=== PATIENT | female | born 1970 | race Two or more races ===

== ENCOUNTER 2018-12-20 12:35 | Inpatient (IN) | payer MEDICAID, OTHER ==
[~2018-12-20] VITALS: Ht 167.6 cm; Wt 75.2 kg
[2018-12-20] MEDS ORDERED: FUROSEMIDE 40 MG/4 ML VIAL IV ONE (13:00)
[2018-12-20 13:02] LABS: Basophils # (auto) 0 uL; Basophils % (auto) 0.9 % (0.0-2.0); Eosinophils # (auto) 0.1 uL; Eosinophils % (auto) 1.2 % (0.0-7.0); Hematocrit 42.6 % (41.0-53.0); Hemoglobin 14.1 g/dL (13.5-17.5); Lymphocytes # (auto) 1.4 uL; Lymphocytes % (auto) 26.4 % (10.0-50.0); Mean Corpuscular Hemoglobin 29.9 pg (28.0-32.0); Mean Corpuscular Hgb Conc. 33.1 g/dL (32.0-36.0); Mean Corpuscular Volume 90.4 fL (80.0-100.0); Monocytes # (auto) 0.4 uL; Monocytes % (auto) 8.3 % (0.0-12.0); Neutrophils # (auto) 3.3 uL; Neutrophils % (auto) 63.2 % (37.0-80.0); Nucleated Red Blood Cells % 0.1 %; Platelet Count (auto) 307 10^3/uL (140-450); Red Blood Cells 4.71 10^6/uL (4.5-5.90); Red Cell Distribution Width 13.5 % (11.8-14.3); White Blood Cell 5.3 10^3/uL (4.4-10.8)
[2018-12-20 13:18] LABS: INR 1.02 (0.9-1.15); Partial Thromboplastin Time 24.8 sec (23.64-32.05)
[2018-12-20 13:29] LABS: Calcium 8.2 mg/dL (8.5-10.1); Chloride 113 mmol/L (98-107); Potassium 4.2 mmol/L (3.5-5.1); Sodium 142 mmol/L (136-145)
[2018-12-20 13:38] LABS: Alanine Aminotransferase 74 U/L (16-61); Albumin 3.5 g/dL (3.4-5.0); Alkaline Phosphatase 73 U/L (45-117); Anion Gap 7 (5-15); Aspartate Aminotransferase 58 U/L (15-37); BUN/Creatinine Ratio 21.1; Bilirubin, Total 0.5 mg/dL (0.2-1.0); Blood Urea Nitrogen 15 mg/dL (7-18); Carbon Dioxide 22 mmol/L (21-32); GFR African American 154 mL/min; GFR Non-African American 128 mL/min; Glucose 82 mg/dL (74-106); Total Protein 6.6 g/dL (6.4-8.2)
[2018-12-20] MEDS ORDERED: NITROGLYCERIN 0.4 MG SL TAB SL PRN (17:00)
[2018-12-20] MEDS ORDERED: MORPHINE SULF INJ 2 MG/ML SYRINGE 1ML IV PRN (17:00)
[2018-12-20] MEDS: FUROSEMIDE 20 MG/2 ML VIAL IV SCH (18:16)
--- NOTE | 2018-12-20 18:41 | NUR ---
Patient Arrived On Unit Pt arrived on unit from ED. Pt able to ambulate to bed without difficulty. Pt is a/ox4 with no s/s of distress or SOB. VS 97.8 F, 138/94 BP, HR 98, 96% on RA, RR 18, 0/10 pain. Pt is 5'6 and 74kg
--- NOTE | 2018-12-20 19:00 | NUR ---
OPENING NOTE-NOC SHIFT PATIENT IS ALERT AND ORIENTED X4 AND MAKES APPROPRIATE EYE CONTACT. PATIENT IS IN BED, BED IS LOCKED AT LOWEST POSITION. BEDSIDE TABLE WITHIN REACH, PERSONAL BELONGINGS WITHIN REACH. DISCUSSED POC WITH PATIENT AND INSTRUCTED PATIENT TO CALL USING CALL LIGHT; PATIENT VERBALIZED UNDERSTANDING. WILL CONTINUE TO MONITOR Q1H AND PRN. NO S/SX OF DISTRESS OR SOB. PATIENT DENIES PAIN AT THIS TIME.
--- NOTE | 2018-12-20 19:25 | NUR ---
PATIENT AMBULATES TO RESTROOM INDEPENDENTLY. STEADY GAIT NOTED.
--- NOTE | 2018-12-20 19:30 | NUR ---
PATIENT COMPLAINING OF RIGHT LEG CRAMPS UP TO INNER THIGH. PATIENT DESCRIBES IT "HAILEE HORSE" AND STATES THAT SHE DOES NOT EXPERIENCE THESE FREQUENTLY. PATIENT CRYING. PROVIDED HEAT PACKS. PATIENT BACK INTO BED. STATES THAT "IT WENT AWAY" BUT LEFT HER INNER THIGH SORE. WILL CONTINUE TO MONITOR Q1H AND PRN.
--- NOTE | 2018-12-20 19:40 | NUR ---
PROVIDED SANDWICH FOR PATIENT UPON REQUEST.
[2018-12-20 20:00] VITALS: BP 137/76
[2018-12-20] MEDS ORDERED: INFLUENZA QUAD 2019-2020 0.5ml SYRG IM ONE (20:30)
[2018-12-20] MEDS: BENAZEPRIL HCL 10 MG TAB PO SCH (21:59)
[2018-12-20] MEDS: CARVEDILOL 3.125 MG TAB PO SCH (21:59)
[2018-12-20 22:00] VITALS: BP 137/76
[2018-12-20] MEDS ORDERED: LISI2.5T47 PO (22:31)
[2018-12-20] MEDS ORDERED: METO25TA5 PO (22:31)
[2018-12-20] MEDS ORDERED: LORA1TAB12 PO (22:31)
[2018-12-20] MEDS ORDERED: FURO40TA4 PO (22:31)
[2018-12-20] MEDS ORDERED: OMEP20TA PO (22:31)
[2018-12-21] VITALS (7 sets, daily range): BP systolic 106–119; BP diastolic 59–77
[2018-12-21 05:02] LABS: Basophils # (auto) 0 uL; Eosinophils # (auto) 0.1 uL; Eosinophils % (auto) 2.7 % (0.0-7.0); Hematocrit 42.9 % (36.0-46.0); Hemoglobin 14.1 g/dL (12.2-16.2); Lymphocytes # (auto) 2.1 uL; Lymphocytes % (auto) 43.6 % (10.0-50.0); Mean Corpuscular Hemoglobin 29.7 pg (28.0-32.0); Mean Corpuscular Hgb Conc. 32.8 g/dL (32.0-36.0); Mean Corpuscular Volume 90.4 fL (80.0-100.0); Monocytes # (auto) 0.5 uL; Monocytes % (auto) 10.9 % (0.0-12.0); Neutrophils % (auto) 41.8 % (37.0-80.0); Nucleated Red Blood Cells % 0.2 %; Platelet Count (auto) 301 10^3/uL (140-450); Red Blood Cells 4.74 10^6/uL (4.0-5.20); White Blood Cell 4.7 10^3/uL (4.4-10.8)
[2018-12-21 05:21] LABS: Albumin 3.2 g/dL (3.4-5.0); Calcium 8.4 mg/dL (8.5-10.1); Potassium 3.7 mmol/L (3.5-5.1)
[2018-12-21 05:25] LABS: BUN/Creatinine Ratio 25.3; Bilirubin, Total 0.3 mg/dL (0.2-1.0); Total Protein 6.3 g/dL (6.4-8.2)
[2018-12-21] MEDS: FUROSEMIDE 20 MG/2 ML VIAL IV SCH ×2 (06:28→18:08)
--- NOTE | 2018-12-21 07:29 | NUR ---
Opening Note Assumed pt care from [facility] nurse. Pt is a/ox4 with no s/s of distress or SOB. Pt is currently laying in bed with complaints of mild generalized pain. Discussed POC with pt; pt verbalized understanding. Safety measures maintained with call light within reach, bed in lowest position and side rails up. Will continue to monitor for changes q1hr and prn.
[2018-12-21] MEDS: BENAZEPRIL HCL 10 MG TAB PO SCH ×2 (08:56→22:04)
[2018-12-21] MEDS: CARVEDILOL 3.125 MG TAB PO SCH ×2 (08:56→22:04)
[2018-12-21] MEDS: PANTOPRAZOLE 40 MG TAB PO SCH (08:56)
[2018-12-21] MEDS: ASPirin-EC 81 mg tab PO SCH (08:56)
[2018-12-21] MEDS ORDERED: IPRATROPIUM BROM 0.5 MG/2.5ML INH SOL NEB PRN (14:30)
[2018-12-21] MEDS ORDERED: ALBUTEROL SULF 2.5 MG/0.5ML(0.5%) NEB SOLN NEB PRN (14:30)
--- NOTE | 2018-12-21 19:00 | NUR ---
OPENING NOTE-NOC SHIFT PATIENT IS IN BED RESTING. BED IS LOCKED IN LOWEST POSITION, BED RAILS UP X2, HEAD OF BED IS UP >30 DEGREES, BEDSIDE TABLE WITHIN REACH, CALL LIGHT WITHIN REACH. DISCUSSED POC WITH PATIENT AND INSTRUCTED PATIENT TO CALL PRN; PATIENT VERBALIZED UNDERSTANDING. NO S/SX OF DISTRESS, SOB OR PAIN. PATIENT ON ROOM AIR. WILL CONTINUE TO MONITOR Q1H AND PRN.
--- NOTE | 2018-12-21 20:17 | NUR ---
PATIENT REQUESTS PAIN MEDICATION FOR HEADACHE 07/18. WILL NOTIFY HOSPITALIST.
--- NOTE | 2018-12-21 20:21 | NUR ---
Respiratory note: PT ASSESSED FOR PRN MED NEB TX. PT IS CURRENTLY ON ROOM AIR: HR 84, RR 16, SPO2 94%. PT SHOWS NO S/S OF SOB OR RESPIRATORY DISTRESS. MED NEB TX NOT INDICATED AT THIS TIME. PT AWARE TO CALL RESPIRATORY IF SOB OCCURS. WILL CONTINUE TO MONITOR.
[2018-12-21] MEDS ORDERED: IBUPROFEN 600 MG TAB PO ONE (21:45)
--- NOTE | 2018-12-21 22:10 | NUR ---
PATIENT REPORTS TO HAVE STARTED HER PERIOD. PROVIDED PATIENT WITH FEMININE PADS AND BRIEFS. PATIENT DENIES ABNORMAL MENSTRUAL BLEEDING, DENIES ABNORMAL ODOR, DENIES ABDOMINAL PAIN.
--- NOTE | 2018-12-22 01:34 | NUR ---
DR BRITT AT BEDSIDE
[2018-12-22 05:00] VITALS: BP 99/64
[2018-12-22] MEDS: FUROSEMIDE 20 MG/2 ML VIAL IV SCH (06:00)
[2018-12-22 06:25] LABS: Albumin 3.1 g/dL (3.4-5.0); Calcium 8.2 mg/dL (8.5-10.1); Magnesium 2.3 mg/dL (1.6-2.6); Potassium 3.8 mmol/L (3.5-5.1)
[2018-12-22 06:29] LABS: BUN/Creatinine Ratio 29.8; Bilirubin, Total 0.4 mg/dL (0.2-1.0); Total Protein 6.3 g/dL (6.4-8.2)
--- NOTE | 2018-12-22 07:06 | NUR ---
PT ASSESSED FOR PRN MED NEB TX. SPO2 100% ON 4L NC, LITER FLOW TITRATED TO 2L. PT DENIES ANY RESPIRATORY DISTRESS. NO TX INDICATED. PT IS AWARE TO HAVE RT PAGED IF TX NEEDED.
--- NOTE | 2018-12-22 07:25 | NUR ---
ENDORSED PATIENT CARE TO DAY SHIFT NURSE RAMIRO NEW. PATIENT IS COMFORTABLE IN BED, NO S/SX OF DISTRESS, SOB OR PAIN.
[2018-12-22 08:00] VITALS: BP 97/56
--- NOTE | 2018-12-22 08:00 | NUR ---
RECEIVED PATIENT ALERT AND ORIENTED X4, NOT IN DISTRESS, CLEAR LUNG SOUNDS IN BILATERAL LUNG UPPER AND WHEEZING IN LOWER SOUNDS, RR=18, COUGHING AND DEEP BREATHING ENCOURAGED, DEMONSTRATED WELL, SR R=74 ON TELE MONITOR, ABDOMEN SOFT AND ROUND, SKIN INTACT WARM TO TOUCH, RADIAL AND PEDAL PULSES PALPABLE, CAP REFILL <3 SECONDS, RESTING ON BED, BED ON LOW POSITION, RAILS UP, CALL LIGHT ON REACH, PENDING URINE SAMPLE, WILL CONTINUE MONITORING.
[2018-12-22 08:36] LABS: Urine Bacteria MOD /hpf (None Seen); Urine Blood 1+ /uL (Negative); Urine Hyaline Cast MANY /lpf (0 - 2); Urine Mucus FEW (None Seen); Urine Specific Gravity 1.023 (1.001-1.035); Urine WBC 4 /hpf (0 - 5)
[2018-12-22 08:42] LABS: Alcohol, Urine < 3.0 mg/dL (0-5); Amphetamine Screen, Urine POSITIVE (NEGATIVE); Barbiturate Scree,Urine NEGATIVE (NEGATIVE); Benzodiazephine Screen, Urine NEGATIVE (NEGATIVE); Cannabinoid Screen, Urine NEGATIVE (NEGATIVE); Cocaine Screen, Urine NEGATIVE (NEGATIVE); Opiate Scree,Urine NEGATIVE (NEGATIVE); Phencyclidine Screen, Urine NEGATIVE (NEGATIVE)
[2018-12-22 08:47] LABS: Hepatitis B Surface Antibody Negative
[2018-12-22 09:00] VITALS: BP 95/56
--- NOTE | 2018-12-22 09:01 | NUR ---
PARIAL BATH PROVIDED, OUT OF BED TO BR TOLERATED WELL, URINE SAMPLE WAS COLLECTED AND SENT TO THE LAB ORDERED, WILL CONTINUE MONITORING.
[2018-12-22 09:25] LABS: Hepatitis A Total Antibody Negative
[2018-12-22] MEDS: CARVEDILOL 3.125 MG TAB PO SCH (10:00)
[2018-12-22] MEDS: BENAZEPRIL HCL 10 MG TAB PO SCH (10:00)
[2018-12-22] MEDS: ASPirin-EC 81 mg tab PO SCH (10:31)
[2018-12-22] MEDS: PANTOPRAZOLE 40 MG TAB PO SCH (10:31)
[2018-12-22 12:53] LABS: Hepatitis B Core Total AB Negative
[2018-12-22 12:54] LABS: Hepatitis B Surface Antigen Negative (Negative); Hepatitis C Antibody Negative (Negative)
[2018-12-22 13:00] VITALS: BP 109/69
[2018-12-22 15:24] VITALS: BP 104/71
--- NOTE | 2018-12-22 17:26 | NUR ---
Discharge instructions were given and verbalized understanding, will Follow up with Dr. Tipton's clinic on 12/28/18 at 1:45 pm as arranged, phone #= [phone] [place] [address] [facility], for cardiac existing arrangement on 12/31/18 as reported and will Follow [place] [address], [facility], D/C Tele and IV site, tolerated well, VS T=97.7 RR=18 Sat=94% p=76 UY=933/71, not in distress denied pain, home medication from parmacy was given back, WC provided, D/C home walking, took all belongings and left noting behind.
== END 2018-12-22 17:00 | disposition home or self-care (01) | DRG 194 ==
LOC: ER 12:41 → EDSEX 12:41 → TELE 12:42 → TELE-WESTW 18:46
PROVIDERS: ADMIT Nurse Practitioner Acute Care; ATTEND Internal Medicine
DX: I11.0 Hypertensive heart disease with heart failure (principal); I42.0 Dilated cardiomyopathy; I07.1 Rheumatic tricuspid insufficiency; I50.43 Acute on chronic combined systolic (congestive) and diastolic (congestive) heart failure; F15.90 Other stimulant use, unspecified, uncomplicated; J44.9 Chronic obstructive pulmonary disease, unspecified; R79.89 Other specified abnormal findings of blood chemistry; E78.5 Hyperlipidemia, unspecified; Z80.3 Family history of malignant neoplasm of breast; Z87.891 Personal history of nicotine dependence; Z71.51 Drug abuse counseling and surveillance of drug abuser; Z23 Encounter for immunization
CPT/HCPCS: 36415; 71045; 71046; 76705; 80053; 80061; 80307; 81001; 83735; 83880; 84484; 85025; 85610; 85730; 86704; 86706; 86708; 86803; 87340; 93306; 96374; 96376; 99291; G0378

== ENCOUNTER 2019-02-26 02:22 | Emergency (ER) | payer MEDICAID ==
[~2019-02-26] VITALS: Ht 170.2 cm; Wt 79.4 kg
[~2019-02-26 02:22] MED LIST: FURO40TA4 PO; LISI2.5T47 PO; LORA1TAB12 PO; METO25TA5 PO; OMEP20TA PO
[2019-02-26 03:27] LABS: Basophils # (auto) 0.1 uL; Basophils % (auto) 0.9 % (0.0-2.0); Eosinophils # (auto) 0.1 uL; Eosinophils % (auto) 1.7 % (0.0-7.0); Hemoglobin 15.1 g/dL (12.2-16.2); Lymphocytes # (auto) 2.3 uL; Lymphocytes % (auto) 39.6 % (10.0-50.0); Mean Corpuscular Hgb Conc. 32.9 g/dL (32.0-36.0); Mean Corpuscular Volume 91.1 fL (80.0-100.0); Monocytes # (auto) 0.4 uL; Monocytes % (auto) 6.6 % (0.0-12.0); Neutrophils % (auto) 51.2 % (37.0-80.0); Nucleated Red Blood Cells % 0.1 %; Platelet Count (auto) 280 10^3/uL (140-450); Red Blood Cells 5.05 10^6/uL (4.0-5.20); Red Cell Distribution Width 14.6 % (11.8-14.3); White Blood Cell 5.9 10^3/uL (4.4-10.8)
[2019-02-26 03:43] LABS: INR 1.13 (0.9-1.15); Partial Thromboplastin Time 25.1 sec (23.64-32.05)
[2019-02-26 03:50] LABS: Alanine Aminotransferase 51 U/L (13-56); Anion Gap 9 (5-15); Aspartate Aminotransferase 56 U/L (15-37); BUN/Creatinine Ratio 26.2; Blood Urea Nitrogen 27 mg/dL (7-18); Calcium 8.3 mg/dL (8.5-10.1); Carbon Dioxide 21 mmol/L (21-32); Chloride 112 mmol/L (98-107); GFR African American 74 mL/min; GFR Non-African American 61 mL/min; Glucose 59 mg/dL (74-106); Magnesium 2.1 mg/dL (1.6-2.6); Sodium 142 mmol/L (136-145)
[2019-02-26 03:52] LABS: Alkaline Phosphatase 95 U/L (45-117); Bilirubin, Total 0.3 mg/dL (0.2-1.0); Total Protein 6.7 g/dL (6.4-8.2)
[2019-02-26 11:49] VITALS: BP 101/65
[2019-02-26 11:50] LABS: Urine Bacteria NONE SEEN /hpf (None Seen); Urine Blood TRACE /uL (Negative); Urine Mucus FEW (None Seen); Urine Specific Gravity 1.007 (1.001-1.035); Urine WBC 16 /hpf (0 - 5)
== END 2019-02-26 12:26 | disposition home or self-care (01) ==
LOC: ER 02:22
DX: I95.2 Hypotension due to drugs (principal); E86.1 Hypovolemia; N39.0 Urinary tract infection, site not specified; R55 Syncope and collapse; I11.0 Hypertensive heart disease with heart failure; I50.9 Heart failure, unspecified; K21.9 Gastro-esophageal reflux disease without esophagitis; F17.210 Nicotine dependence, cigarettes, uncomplicated
CPT/HCPCS: 36415; 70450; 71046; 80053; 81001; 82962; 83735; 83880; 84484; 85025; 85610; 85730; 93005

== ENCOUNTER 2019-03-22 20:48 | Emergency (ER) | payer MEDICAID ==
[~2019-03-22] VITALS: Ht 170.2 cm; Wt 78.0 kg
[2019-03-22] MEDS ORDERED: cloNIDine HCL 0.1 MG TAB PO ONE (21:15)
[2019-03-22] MEDS ORDERED: cloNIDine HCL 0.1 MG TAB ONE (21:16)
[2019-03-22 22:14] LABS: Basophils # (auto) 0.1 uL; Basophils % (auto) 0.8 % (0.0-2.0); Eosinophils # (auto) 0 uL; Eosinophils % (auto) 0.4 % (0.0-7.0); Hematocrit 43.5 % (36.0-46.0); Hemoglobin 14.3 g/dL (12.2-16.2); Lymphocytes # (auto) 1.5 uL; Lymphocytes % (auto) 15.6 % (10.0-50.0); Mean Corpuscular Hemoglobin 29.4 pg (28.0-32.0); Mean Corpuscular Hgb Conc. 32.9 g/dL (32.0-36.0); Mean Corpuscular Volume 89.6 fL (80.0-100.0); Monocytes # (auto) 0.7 uL; Monocytes % (auto) 6.8 % (0.0-12.0); Neutrophils # (auto) 7.4 uL; Neutrophils % (auto) 76.4 % (37.0-80.0); Nucleated Red Blood Cells % 0.1 %; Platelet Count (auto) 299 10^3/uL (140-450); Red Blood Cells 4.86 10^6/uL (4.0-5.20); Red Cell Distribution Width 14.4 % (11.8-14.3); White Blood Cell 9.7 10^3/uL (4.4-10.8)
[2019-03-22 22:23] LABS: Urine Bacteria NONE SEEN /hpf (None Seen); Urine Blood Negative /uL (Negative); Urine Specific Gravity 1.006 (1.001-1.035); Urine WBC 1 /hpf (0 - 5)
[2019-03-22 22:29] LABS: Albumin 3.8 g/dL (3.4-5.0); Anion Gap 7 (5-15); Blood Urea Nitrogen 18 mg/dL (7-18); Calcium 9.4 mg/dL (8.5-10.1); Carbon Dioxide 27 mmol/L (21-32); Chloride 106 mmol/L (98-107); Glucose 87 mg/dL (74-106); Magnesium 2.1 mg/dL (1.6-2.6); Potassium 4.5 mmol/L (3.5-5.1); Sodium 140 mmol/L (136-145)
[2019-03-22 22:31] LABS: INR 1.21 (0.9-1.15)
[2019-03-22 22:35] LABS: Alanine Aminotransferase 56 U/L (13-56); Alkaline Phosphatase 121 U/L (45-117); Aspartate Aminotransferase 37 U/L (15-37); BUN/Creatinine Ratio 20.5; Bilirubin, Total 0.4 mg/dL (0.2-1.0); GFR African American 89 mL/min; GFR Non-African American 74 mL/min; Total Protein 7.7 g/dL (6.4-8.2)
[2019-03-23] MEDS ORDERED: FUROSEMIDE 40 MG/4 ML VIAL IV ONE (00:15)
[2019-03-23 00:45] LABS: Amphetamine Screen, Urine NEGATIVE (NEGATIVE); Barbiturate Scree,Urine NEGATIVE (NEGATIVE); Benzodiazephine Screen, Urine NEGATIVE (NEGATIVE); Cannabinoid Screen, Urine NEGATIVE (NEGATIVE); Cocaine Screen, Urine NEGATIVE (NEGATIVE); Opiate Scree,Urine NEGATIVE (NEGATIVE); Phencyclidine Screen, Urine NEGATIVE (NEGATIVE)
[2019-03-23] MEDS ORDERED: ACETAMINOPHEN 325 MG TAB PO ONE (01:45)
[2019-03-23] MEDS ORDERED: methylPREDNISolone SOD SUCC 125 MG/2 ML VL IV ONE (02:15)
[2019-03-23 03:00] VITALS: BP 139/84
== END 2019-03-23 03:18 | disposition home or self-care (01) ==
LOC: ER 20:49
DX: I11.0 Hypertensive heart disease with heart failure (principal); I50.9 Heart failure, unspecified; K21.9 Gastro-esophageal reflux disease without esophagitis; F17.210 Nicotine dependence, cigarettes, uncomplicated
CPT/HCPCS: 36415; 70450; 71046; 80053; 80307; 81001; 83735; 83880; 84484; 85025; 85610; 85730; 93005; 96374; 96375; 99285; J1940; J2930

== ENCOUNTER → 2019-08-21 | Emergency (ER) | payer MEDICAID ==
[~2019-08-21] VITALS: Ht 167.6 cm; Wt 72.6 kg
[~2019-08-21] MED LIST changes: +ALUM & MAG HYDROX-SIMETH LIQ(MAALOX) 30 ML PO PRN; +ASPirin 81 mg TAB PO SCH; +ATORVASTATIN 20 MG TAB PO SCH; +CARVEDILOL 3.125 MG TAB PO SCH; +CETI10TA80 PO; +CLOPIDOGREL BISULFATE 75 MG TAB PO SCH; +DOCUSATE SOD 100 MG CAP PO PRN; +DOCUSATE SOD 100 MG CAP PO SCH; +DOXYCYCLINE 100MG/250ML 250 ML IV ONE; +DOXYCYCLINE 100MG/250ML 250 ML IV SCH; +ENOXAPARIN SOD 40 MG/0.4 ML SYRINGE SC SCH; +FUROSEMIDE 20 MG/2 ML VIAL IV ONE; +FUROSEMIDE 20 MG/2 ML VIAL IV SCH; +FUROSEMIDE 40 MG/4 ML VIAL IV ONE; +HYDROcodone-ACET 5/325MG TAB PO PRN; +LISINOPRIL 5 MG TAB PO SCH; -LORA1TAB12 PO; +LORA1TAB23 PO; +LORazepam 0.5 MG TAB PO PRN; +MORPHINE SULF INJ 2 MG/ML SYRINGE 1ML IV PRN; +NITROGLYCERIN 0.4 MG SL TAB SL PRN; +ONDANSETRON HCL 4 MG/2 ML VIAL IV PRN; +POTA-220 PO; +SILD20TA12 PO; +SODIUM CHLORIDE 0.9% 1,000 ML IV SCH; +cloNIDine HCL 0.1 MG TAB PO ONE
[2019-08-21 08:02] LABS: Urine Bacteria FEW /hpf (None Seen); Urine Blood Negative /uL (Negative); Urine Mucus FEW (None Seen); Urine Specific Gravity 1.016 (1.001-1.035); Urine WBC 4 /hpf (0 - 5)
[2019-08-21 09:15] LABS: Basophils # (auto) 0 10 ^3/uL (0-0.2); Eosinophils # (auto) 0.1 10 ^3/uL (0-0.8); Eosinophils % (auto) 2.2 % (0.0-7.0); Hemoglobin 14.3 g/dL (12.2-16.2); Lymphocytes # (auto) 2.1 10 ^3/uL (0.4-5.4); Lymphocytes % (auto) 45.2 % (10.0-50.0); Mean Corpuscular Hemoglobin 29.5 pg (28.0-32.0); Mean Corpuscular Hgb Conc. 32.6 g/dL (32.0-36.0); Mean Corpuscular Volume 90.4 fL (80.0-100.0); Monocytes # (auto) 0.4 10 ^3/uL (0-1.3); Monocytes % (auto) 8.9 % (0.0-12.0); Neutrophils % (auto) 42.7 % (37.0-80.0); Nucleated Red Blood Cells % 0.3 %; Platelet Count (auto) 228 10^3/uL (140-450); Red Blood Cells 4.86 10^6/uL (4.0-5.20); Red Cell Distribution Width 14.8 % (11.8-14.3); White Blood Cell 4.6 10^3/uL (4.4-10.8)
[2019-08-21 09:17] LABS: Albumin 3.5 g/dL (3.4-5.0); Anion Gap 6 (5-15); BUN/Creatinine Ratio 21.7; Blood Urea Nitrogen 20 mg/dL (7-18); Calcium 8.2 mg/dL (8.5-10.1); Carbon Dioxide 24 mmol/L (21-32); Chloride 109 mmol/L (98-107); GFR African American 85 mL/min; GFR Non-African American 70 mL/min; Glucose 79 mg/dL (74-106); Magnesium 2.3 mg/dL (1.6-2.6); Potassium 3.8 mmol/L (3.5-5.1); Sodium 139 mmol/L (136-145)
[2019-08-21 09:23] LABS: Alanine Aminotransferase 40 U/L (13-56); Alkaline Phosphatase 150 U/L (45-117); Aspartate Aminotransferase 40 U/L (15-37); Bilirubin, Total 0.8 mg/dL (0.2-1.0); Total Protein 7.5 g/dL (6.4-8.2)
[2019-08-21 09:49] LABS: INR 1.13 (0.9-1.15); Partial Thromboplastin Time 26.4 sec (23.64-32.05)
[2019-08-21 14:17] VITALS: BP 189/114
== END | disposition left against medical advice (07) ==
LOC: ER 05:37 → UNDOADMIN 05:38 → TELE 05:38 → UNDODISIN 16:04
DX: I11.0 Hypertensive heart disease with heart failure (principal); F17.210 Nicotine dependence, cigarettes, uncomplicated; I50.43 Acute on chronic combined systolic (congestive) and diastolic (congestive) heart failure
CPT/HCPCS: 36415; 71046; 80053; 81001; 83735; 83880; 84443; 84484; 85025; 85610; 85730; 93005; 99291; G0378

== ENCOUNTER 2019-08-22 02:56 | Inpatient (IN) | payer MEDICAID ==
[~2019-08-22] VITALS: Ht 167.6 cm; Wt 75.9 kg
[~2019-08-22 02:56] MED LIST changes: -ALUM & MAG HYDROX-SIMETH LIQ(MAALOX) 30 ML PO PRN; -ASPirin 81 mg TAB PO SCH; -ATORVASTATIN 20 MG TAB PO SCH; -CARVEDILOL 3.125 MG TAB PO SCH; -CETI10TA80 PO; -CLOPIDOGREL BISULFATE 75 MG TAB PO SCH; -DOCUSATE SOD 100 MG CAP PO PRN; -DOCUSATE SOD 100 MG CAP PO SCH; -DOXYCYCLINE 100MG/250ML 250 ML IV ONE; -DOXYCYCLINE 100MG/250ML 250 ML IV SCH; -ENOXAPARIN SOD 40 MG/0.4 ML SYRINGE SC SCH; -FUROSEMIDE 20 MG/2 ML VIAL IV ONE; -FUROSEMIDE 20 MG/2 ML VIAL IV SCH; -FUROSEMIDE 40 MG/4 ML VIAL IV ONE; -HYDROcodone-ACET 5/325MG TAB PO PRN; -LISINOPRIL 5 MG TAB PO SCH; -LORazepam 0.5 MG TAB PO PRN; -MORPHINE SULF INJ 2 MG/ML SYRINGE 1ML IV PRN; -NITROGLYCERIN 0.4 MG SL TAB SL PRN; -ONDANSETRON HCL 4 MG/2 ML VIAL IV PRN; -POTA-220 PO; -SILD20TA12 PO; -SODIUM CHLORIDE 0.9% 1,000 ML IV SCH; -cloNIDine HCL 0.1 MG TAB PO ONE
[2019-08-22] MEDS ORDERED: cloNIDine HCL 0.1 MG TAB PO ONE (03:30)
[2019-08-22 07:59] LABS: Basophils # (auto) 0.1 10 ^3/uL (0-0.2); Basophils % (auto) 1.2 % (0.0-2.0); Eosinophils # (auto) 0.1 10 ^3/uL (0-0.8); Eosinophils % (auto) 2.1 % (0.0-7.0); Hematocrit 44.7 % (36.0-46.0); Hemoglobin 14.6 g/dL (12.2-16.2); Lymphocytes # (auto) 1.8 10 ^3/uL (0.4-5.4); Lymphocytes % (auto) 38.6 % (10.0-50.0); Mean Corpuscular Hemoglobin 29.9 pg (28.0-32.0); Mean Corpuscular Hgb Conc. 32.8 g/dL (32.0-36.0); Mean Corpuscular Volume 91.3 fL (80.0-100.0); Monocytes # (auto) 0.5 10 ^3/uL (0-1.3); Monocytes % (auto) 10.6 % (0.0-12.0); Neutrophils # (auto) 2.2 10 ^3/uL (1.6-8.6); Neutrophils % (auto) 47.5 % (37.0-80.0); Nucleated Red Blood Cells % 0.1 %; Platelet Count (auto) 217 10^3/uL (140-450); Red Blood Cells 4.89 10^6/uL (4.0-5.20); Red Cell Distribution Width 14.9 % (11.8-14.3); White Blood Cell 4.5 10^3/uL (4.4-10.8)
[2019-08-22 08:21] LABS: Albumin 3.3 g/dL (3.4-5.0); Anion Gap 2 (5-15); Blood Urea Nitrogen 23 mg/dL (7-18); Calcium 8.6 mg/dL (8.5-10.1); Carbon Dioxide 28 mmol/L (21-32); Chloride 110 mmol/L (98-107); Glucose 89 mg/dL (74-106); Magnesium 2.6 mg/dL (1.6-2.6); Sodium 140 mmol/L (136-145)
[2019-08-22 08:28] LABS: Alanine Aminotransferase 38 U/L (13-56); Alkaline Phosphatase 145 U/L (45-117); Aspartate Aminotransferase 38 U/L (15-37); BUN/Creatinine Ratio 23.5; Bilirubin, Total 0.9 mg/dL (0.2-1.0); GFR African American 79 mL/min; GFR Non-African American 65 mL/min; Total Protein 7.1 g/dL (6.4-8.2)
[2019-08-22] MEDS: SODIUM CHLORIDE 0.9% 1,000 ML IV SCH (09:21)
[2019-08-22] MEDS ORDERED: NITROGLYCERIN 0.4 MG SL TAB SL PRN ×2 (09:30)
[2019-08-22] MEDS ORDERED: hydrALAZINE HCL 20 MG/ML VL IV PRN (09:30)
[2019-08-22] MEDS ORDERED: MORPHINE SULFATE 4 MG/ML SYR/VIAL IV PRN (09:30)
[2019-08-22] MEDS ORDERED: LORazepam 0.5 MG TAB PO PRN (09:30)
[2019-08-22] MEDS ORDERED: MORPHINE SULF INJ 2 MG/ML SYRINGE 1ML IV PRN ×2 (09:30→10:30)
[2019-08-22] MEDS ORDERED: ACETAMINOPHEN 325 MG TAB PO PRN (09:30)
[2019-08-22] MEDS ORDERED: ONDANSETRON HCL 4 MG/2 ML VIAL IV PRN (09:30)
[2019-08-22] MEDS ORDERED: FUROSEMIDE 40 MG/4 ML VIAL IV ONE (09:45)
[2019-08-22] MEDS: ASPirin 81 mg TAB PO SCH (09:57)
[2019-08-22] MEDS: ENOXAPARIN SOD 40 MG/0.4 ML SYRINGE SC SCH (09:58)
[2019-08-22] MEDS: PANTOPRAZOLE 40 MG TAB PO SCH (09:58)
[2019-08-22] MEDS: DOCUSATE SOD 100 MG CAP PO SCH (09:58)
[2019-08-22] MEDS: METOPROLOL TARTRATE 25 MG TAB PO SCH ×2 (09:58→22:00)
[2019-08-22] MEDS: LISINOPRIL 10 MG TAB PO SCH (09:58)
[2019-08-22] MEDS: CLOPIDOGREL BISULFATE 75 MG TAB PO SCH (09:58)
[2019-08-22] MEDS ORDERED: CETI10TA80 PO (10:15)
[2019-08-22] MEDS ORDERED: SILD20TA12 PO (10:23)
[2019-08-22 11:15] VITALS: BP 112/75
--- NOTE | 2019-08-22 11:15 | NUR ---
Telemetry admit from [facility] admitted to Telemetry unit after SBAR received. Patient oriented to SUNSHINE SALEEMRN primary RN, unit,293 room,B bed, and unit policies regarding patient care and visiting hours. Patient now on continuous telemetry monitoring, tele box #72 and telemetry reading on arrival to unit is SR 70. Patient placed on bedside oxygen, weighed by bedscale and encouraged to call if they need something. All questions and concerns addressed, patient verbalized understanding. Note:
[2019-08-22 12:09] VITALS: BP 112/75
[2019-08-22 12:40] VITALS: BP 112/75
[2019-08-22] MEDS: SILDENAFIL CITRATE 20 MG TAB PO SCH ×2 (14:16→20:00)
--- NOTE | 2019-08-22 16:40 | NUR ---
BLOOD PRESSURE ASSESSED PATIENT BLOOD PRESSURE WAS 78/50 HEART RATE 60 PATIENT WAS STATING SHE FELT DIZZY. PAGED DOCTOR ORLANDO. RECEIVED CALL BACK FROM DOCTOR DARION INFORMED MD THAT PATIENTS BLOOD PRESSURE WAS 78/50, HEART RATE 60 , RESPIRATION 18, O2 95% ON 2LNC AND THAT PATIENT WAS STATING SHE FELT DIZZY. PER DOCTOR [place]O CALL WEARING APPAREL ASSEMBLER AND PER MD HE WILL PUT ORDERS IN SEE EMR FOR ORDER. DOCTOR Mateo BRITT PAGED AWAITING CALL BACK.
[2019-08-22 17:00] VITALS: BP 76/52
[2019-08-22] MEDS: FUROSEMIDE 40 MG/4 ML VIAL IV SCH (18:00)
[2019-08-22] MEDS: DOBUTamine 1000MCG/ML 250 ML IV SCH (18:42)
[2019-08-22] MEDS: FUROSEMIDE INJECTION 100 MG in SODIUM CHL 0.9% 100 ML IV SCH ×3 (18:44→22:06)
--- NOTE | 2019-08-22 19:00 | NUR ---
DOCTOR Mateo BRITT AT BEDSIDE. PER MD BHATT TO START LASIX DRIP WITH PATIENT BP AT 84/51.
--- NOTE | 2019-08-22 19:05 | NUR ---
Opening Shift Note Assumed care of patient, awake and alert. No S/S of distress/SOB or pain. Updated patient on POC and to call for assist PRN, will continue to monitor for changes Q1hr and PRN. Bed locked in lowest position, side rails up x 2, HOB elevated at least 30 degrees and call light is within reach.
[2019-08-22] MEDS: MIDODRINE HCL 10 MG TAB PO PRN (20:58)
[2019-08-22] MEDS: ATORVASTATIN 20 MG TAB PO SCH (22:03)
[2019-08-23] MEDS: FUROSEMIDE INJECTION 100 MG in SODIUM CHL 0.9% 100 ML IV SCH ×5 (02:29→23:11)
[2019-08-23] MEDS: DOBUTamine 1000MCG/ML 250 ML IV SCH ×2 (04:06→16:05)
[2019-08-23 05:00] VITALS: BP 84/58
[2019-08-23] MEDS: FUROSEMIDE 40 MG/4 ML VIAL IV SCH ×2 (06:00→17:43)
[2019-08-23 06:58] LABS: Basophils # (auto) 0 10 ^3/uL (0-0.2); Basophils % (auto) 0.8 % (0.0-2.0); Eosinophils # (auto) 0.1 10 ^3/uL (0-0.8); Eosinophils % (auto) 1.1 % (0.0-7.0); Hematocrit 43.9 % (36.0-46.0); Hemoglobin 14.3 g/dL (12.2-16.2); Lymphocytes # (auto) 2.1 10 ^3/uL (0.4-5.4); Lymphocytes % (auto) 39.3 % (10.0-50.0); Mean Corpuscular Hemoglobin 29.4 pg (28.0-32.0); Mean Corpuscular Hgb Conc. 32.7 g/dL (32.0-36.0); Mean Corpuscular Volume 90.1 fL (80.0-100.0); Monocytes # (auto) 0.5 10 ^3/uL (0-1.3); Monocytes % (auto) 9.8 % (0.0-12.0); Neutrophils # (auto) 2.6 10 ^3/uL (1.6-8.6); Nucleated Red Blood Cells % 0.1 %; Platelet Count (auto) 245 10^3/uL (140-450); Red Blood Cells 4.87 10^6/uL (4.0-5.20); White Blood Cell 5.3 10^3/uL (4.4-10.8)
--- NOTE | 2019-08-23 07:00 | NUR ---
CLOSING SHIFT NOTE ENDORSED CARE TO DAY SHIFT RN
[2019-08-23 07:16] LABS: Potassium 3.2 mmol/L (3.5-5.1)
[2019-08-23 07:22] LABS: INR 1.13 (0.9-1.15); Partial Thromboplastin Time 26.5 sec (23.64-32.05)
[2019-08-23 07:29] LABS: Albumin 3.2 g/dL (3.4-5.0); BUN/Creatinine Ratio 24.6; Bilirubin, Total 0.9 mg/dL (0.2-1.0); Calcium 8.4 mg/dL (8.5-10.1); Magnesium 2.4 mg/dL (1.6-2.6); Phosphorus 4.3 mg/dL (2.5-4.90); Total Protein 6.9 g/dL (6.4-8.2)
--- NOTE | 2019-08-23 07:35 | NUR ---
Opening Shift Note Assumed care of patient, awake and alert. No S/S of distress/SOB or pain. Updated on POC and instructed to call for assistance as needed, patient verbalized understanding. Bed locked in lowest position, side rails up x2, call light within reach. Safety precautions in place. Will continue to monitor for changes Q1hr and PRN.
[2019-08-23] MEDS: SILDENAFIL CITRATE 20 MG TAB PO SCH ×4 (08:00→20:29)
[2019-08-23] MEDS: MIDODRINE HCL 10 MG TAB PO PRN (08:41)
[2019-08-23] MEDS: PANTOPRAZOLE 40 MG TAB PO SCH (08:41)
[2019-08-23] MEDS: SODIUM CHLORIDE 0.9% 1,000 ML IV SCH (08:42)
[2019-08-23] MEDS: METOPROLOL TARTRATE 25 MG TAB PO SCH ×2 (08:42→22:30)
[2019-08-23] MEDS: LISINOPRIL 10 MG TAB PO SCH (08:42)
[2019-08-23] MEDS: CLOPIDOGREL BISULFATE 75 MG TAB PO SCH (08:42)
[2019-08-23] MEDS: DOCUSATE SOD 100 MG CAP PO SCH (08:42)
[2019-08-23] MEDS: ASPirin 81 mg TAB PO SCH (08:42)
[2019-08-23] MEDS: ENOXAPARIN SOD 40 MG/0.4 ML SYRINGE SC SCH (08:43)
[2019-08-23 08:44] VITALS: BP 106/66
[2019-08-23 12:33] VITALS: BP 102/59
[2019-08-23] MEDS ORDERED: POTASSIUM EFFERVESENT TAB 25 MEQ PO ONE (13:00)
[2019-08-23 16:37] VITALS: BP 110/58
--- NOTE | 2019-08-23 19:40 | NUR ---
RECEIVED PATIENT FROM DAY SHIFT RN. PATIENT RESTING IN BED. NO S/S OF DISTRESS NOTED. DENIED PAIN FOR NOW. PATIENT IS ON LASIX DRIP @ 22ML/HR AND DOBUTAMINE DRIP @ 21.75 ML/HR. PATIENT'S BP 106/69, HR 77 POC INSTRUCTED AND ENCOURAGED PATIENT TO CALL FOR WELL CLEANER IF NEEDED. BED IN LOWEST POSITION WITH SIDE RAILS UP X 2. CALL FIELDS WITHIN REACH. ALARM ON. CONTINUE TO MONITOR FOR CHANGES Q1H AND PRN.
[2019-08-23 20:27] VITALS: BP 106/69
[2019-08-23 22:00] VITALS: BP 106/69
[2019-08-23] MEDS: ATORVASTATIN 20 MG TAB PO SCH (22:30)
--- NOTE | 2019-08-23 22:31 | NUR ---
REASSESSED PATIENT, BP 108/72, HR 80, MEDICATED PATIENT SCHEDULED ORDERED. CONTINUE TO MONITOR.
[2019-08-24 00:52] VITALS: BP 97/71
--- NOTE | 2019-08-24 00:55 | NUR ---
REASSESSED PATIENT, BP 97/71, HR 71, CONTINUE TO MONITOR.
--- NOTE | 2019-08-24 03:00 | NUR ---
PATIENT SLEEPING. NO S/S OF DISTRESS NOTED. BREATHING EVEN AND UNLABORED. CONTINUE TO MONITOR.
[2019-08-24] MEDS: FUROSEMIDE INJECTION 100 MG in SODIUM CHL 0.9% 100 ML IV SCH ×4 (04:05→21:01)
[2019-08-24] MEDS: DOBUTamine 1000MCG/ML 250 ML IV SCH ×2 (04:05→14:45)
[2019-08-24 05:00] VITALS: BP 99/64
--- NOTE | 2019-08-24 05:31 | NUR ---
PATIENT C/O CRAMPING ON HER LEGS AND TINGLING SENSATION ON BOTH HANDS, PATIENT ALREADY HAD MORNING LAB AUTUMN. HOSPITALIST CALLED FOR OTHER PATIENT, TALKED TO HOSPITALIST BRYANNA CALDERON, ORDERED TO WAIT FOR LAB RESULT COME BACK AND CALL FOR CRITICAL. NO TREATMENT CHANGED. CONTINUE TO MONITOR.
[2019-08-24] MEDS: FUROSEMIDE 40 MG/4 ML VIAL IV SCH (06:00)
--- NOTE | 2019-08-24 06:37 | NUR ---
CALLED LAB FOR MORNING LABS. TECH STATED THAT THEY JUST RECEIVED NOW AND GOING TO RUN THE LABS. WAITING FOR RESULT. CONTINUE TO MONITOR.
[2019-08-24 06:39] LABS: Basophils # (auto) 0 10 ^3/uL (0-0.2); Basophils % (auto) 0.6 % (0.0-2.0); Eosinophils # (auto) 0.1 10 ^3/uL (0-0.8); Eosinophils % (auto) 1.1 % (0.0-7.0); Hematocrit 49.8 % (36.0-46.0); Hemoglobin 15.8 g/dL (12.2-16.2); Lymphocytes # (auto) 1.8 10 ^3/uL (0.4-5.4); Lymphocytes % (auto) 31.4 % (10.0-50.0); Mean Corpuscular Hemoglobin 28.4 pg (28.0-32.0); Mean Corpuscular Hgb Conc. 31.7 g/dL (32.0-36.0); Mean Corpuscular Volume 89.7 fL (80.0-100.0); Monocytes # (auto) 0.7 10 ^3/uL (0-1.3); Monocytes % (auto) 11.6 % (0.0-12.0); Neutrophils # (auto) 3.1 10 ^3/uL (1.6-8.6); Neutrophils % (auto) 55.3 % (37.0-80.0); Nucleated Red Blood Cells % 0.1 %; Platelet Count (auto) 256 10^3/uL (140-450); Red Blood Cells 5.55 10^6/uL (4.0-5.20); Red Cell Distribution Width 14.6 % (11.8-14.3); White Blood Cell 5.6 10^3/uL (4.4-10.8)
[2019-08-24 07:03] LABS: Calcium 9.5 mg/dL (8.5-10.1); Potassium 3.2 mmol/L (3.5-5.1)
[2019-08-24 07:10] LABS: BUN/Creatinine Ratio 21.3
[2019-08-24 09:00] VITALS: BP 92/54
[2019-08-24] MEDS: METOPROLOL TARTRATE 25 MG TAB PO SCH ×2 (09:02→22:00)
[2019-08-24] MEDS: CLOPIDOGREL BISULFATE 75 MG TAB PO SCH (09:02)
[2019-08-24] MEDS: PANTOPRAZOLE 40 MG TAB PO SCH (09:03)
[2019-08-24] MEDS: DOCUSATE SOD 100 MG CAP PO SCH (09:03)
[2019-08-24] MEDS: SODIUM CHLORIDE 0.9% 1,000 ML IV SCH (09:03)
[2019-08-24] MEDS: SILDENAFIL CITRATE 20 MG TAB PO SCH ×3 (09:03→20:00)
[2019-08-24] MEDS: ASPirin 81 mg TAB PO SCH (09:03)
[2019-08-24] MEDS: LISINOPRIL 10 MG TAB PO SCH (09:04)
[2019-08-24] MEDS: ENOXAPARIN SOD 40 MG/0.4 ML SYRINGE SC SCH (09:04)
--- NOTE | 2019-08-24 09:27 | NUR ---
urine specimen collected, sent to lab
[2019-08-24 09:40] LABS: Urine Bacteria FEW /hpf (None Seen); Urine Blood Negative /uL (Negative); Urine Specific Gravity 1.007 (1.001-1.035); Urine WBC 9 /hpf (0 - 5)
[2019-08-24 09:55] LABS: Barbiturate Scree,Urine NEGATIVE (NEGATIVE); Cannabinoid Screen, Urine NEGATIVE (NEGATIVE); Cocaine Screen, Urine NEGATIVE (NEGATIVE); Opiate Scree,Urine NEGATIVE (NEGATIVE); Phencyclidine Screen, Urine NEGATIVE (NEGATIVE)
[2019-08-24 09:57] LABS: Amphetamine Screen, Urine NEGATIVE (NEGATIVE); Benzodiazephine Screen, Urine NEGATIVE (NEGATIVE)
[2019-08-24] MEDS ORDERED: POTASSIUM EFFERVESENT TAB 25 MEQ PO SCH (10:00)
[2019-08-24 13:00] VITALS: BP 95/50
[2019-08-24] MEDS ORDERED: POTASSIUM CHL 20 Meq TABLET PO ONE (14:30)
[2019-08-24] MEDS ORDERED: ALBUMIN 25% 100 ML IV ONE (14:30)
[2019-08-24 17:00] VITALS: BP 93/63
--- NOTE | 2019-08-24 19:40 | NUR ---
RECEIVED PATIENT FROM DAY SHIFT RN. PATIENT RESTING IN BED. NO S/S OF DISTRESS NOTED. DENIED PAIN FOR NOW. PATIENT IS ON LASIX DRIP @ 22ML/HR AND DOBUTAMINE DRIP @ 21.75 ML/HR. POC INSTRUCTED AND ENCOURAGED PATIENT TO CALL FOR STERILE PROCESSING TECHNICIAN IF NEEDED. BED IN LOWEST POSITION WITH SIDE RAILS UP X 2. CALL FIELDS WITHIN REACH. ALARM ON. CONTINUE TO MONITOR FOR CHANGES Q1H AND PRN.
--- NOTE | 2019-08-24 20:01 | NUR ---
PATIENT C/O CHEST PAIN @ 10/10, AND CRYING, VITALS, BP 129/61, HR 80, RR 22, O2 SAT 95%. EKG DONE, SHOWED SR 82. MORPHINE GIVEN ORDERED FOR CP. WILL PAGE HOSPITALIST. CONTINUE TO MONITOR.
--- NOTE | 2019-08-24 20:07 | NUR ---
HOSPITALIST Called/paged BRYANNA CALDERON called re:PATIENT JUST HAD EPISODE OF CP. Waiting for call back. Continue care.
--- NOTE | 2019-08-24 20:17 | NUR ---
REASSESSED PATIENT, BP 112/54, HR 72, RR 18, O2 SAT 95%, PATIENT STATED PAIN LEVEL DOWN TO 4/10, PATIENT IS FEELING COMFORTABLE NOW. CONTINUE TO MONITOR.
--- NOTE | 2019-08-24 20:36 | NUR ---
HOSPITALIST DID NOT CALL BACK, TRIED TO PAGED AGAIN, BUT THERE IS CODE BLUE IN ER. WILL TRY IT LATER. CONTINUE TO MONITOR.
--- NOTE | 2019-08-24 21:02 | NUR ---
REASSESSED PATIENT, NO MORE CHEST PAIN. CONTINUE TO MONITOR.
--- NOTE | 2019-08-24 21:15 | NUR ---
RE-PAGED HOSPITALIST. WAITING FOR CALL BACK.
--- NOTE | 2019-08-24 21:37 | NUR ---
HOSPITALIST returned call BRYANNA CALDERON returned call, updated on patient status and reason for call, NO NEW ORDER RECEIVED. Continue care.
[2019-08-24 22:00] VITALS: BP 108/59
[2019-08-24] MEDS: ATORVASTATIN 20 MG TAB PO SCH (22:15)
[2019-08-25] MEDS: FUROSEMIDE INJECTION 100 MG in SODIUM CHL 0.9% 100 ML IV SCH ×3 (01:14→09:48)
--- NOTE | 2019-08-25 01:19 | NUR ---
PATIENT SLEEPING. NO S/S OF DISTRESS NOTED. CONTINUE CARE.
[2019-08-25] MEDS: DOBUTamine 1000MCG/ML 250 ML IV SCH (02:03)
--- NOTE | 2019-08-25 02:03 | NUR ---
PATIENT WOKE UP AND C/O HAND CRAMPING, HOT PACK APPLIED. BP 106/71. HR 78. CONTINUE TO MONITOR.
--- NOTE | 2019-08-25 02:48 | NUR ---
REASSESSED PATIENT. PATIENT FEELING BETTER, HEAT PACK HELPED HER CRAMPING. CONTINUE TO MONITOR.
--- NOTE | 2019-08-25 04:39 | NUR ---
PATIENT SLEEPING. NO S/S OF DISTRESS AND PAIN NOTED. CONTINUE CARE.
--- NOTE | 2019-08-25 04:55 | NUR ---
PATIENT WOKE UP AND REQUESTED NEW HEAT PACK FOR HER CRAMPING. HEAT PACKS APPLIED ON PATIENT'S BACK. CONTINUE TO MONITOR.
[2019-08-25 04:57] LABS: Basophils # (auto) 0 10 ^3/uL (0-0.2); Basophils % (auto) 0.4 % (0.0-2.0); Eosinophils # (auto) 0.1 10 ^3/uL (0-0.8); Eosinophils % (auto) 1.7 % (0.0-7.0); Hematocrit 49.9 % (36.0-46.0); Hemoglobin 16.7 g/dL (12.2-16.2); Lymphocytes # (auto) 1.1 10 ^3/uL (0.4-5.4); Lymphocytes % (auto) 24.4 % (10.0-50.0); Mean Corpuscular Hemoglobin 29.8 pg (28.0-32.0); Mean Corpuscular Hgb Conc. 33.5 g/dL (32.0-36.0); Monocytes # (auto) 0.5 10 ^3/uL (0-1.3); Monocytes % (auto) 11.9 % (0.0-12.0); Neutrophils # (auto) 2.8 10 ^3/uL (1.6-8.6); Neutrophils % (auto) 61.6 % (37.0-80.0); Nucleated Red Blood Cells % 0.2 %; Platelet Count (auto) 251 10^3/uL (140-450); Red Cell Distribution Width 14.6 % (11.8-14.3); White Blood Cell 4.6 10^3/uL (4.4-10.8)
[2019-08-25 05:00] VITALS: BP 128/75
[2019-08-25 05:12] LABS: BUN/Creatinine Ratio 22.5; Calcium 9.9 mg/dL (8.5-10.1); Potassium 3.4 mmol/L (3.5-5.1)
--- NOTE | 2019-08-25 05:15 | NUR ---
PATIENT'S CALLED, PASSWORD VERIFIED. PATIENT'S C/O PATIENT IS IN PAIN BUT NO HELP TO PATIENT, EXPLAINED TO THAT PATIENT IS ON DOBUTAMINE DRIP AND LASIX DRIP, PATIENT JUST HAD MORNING LAB DRAW. WAITING FOR LAB RESULT. AND HEAD PACK APPLIED PER PATIENT REQUESTED, PATIENT STATED THAT THIS TIME THE HEAT PACK NOT HELP. EXPLAINED TO PATIENT THAT SHE NEEDS TO CALL IF THERE IS ANY PROBLEM. NOBODY WILL IGNORE HER, BEFORE LEAVING THE ROOM, PATIENT STATED NO ANY NEEDS FOR HELP FOR NOW. CONTINUE TO MONITOR
--- NOTE | 2019-08-25 05:28 | NUR ---
HOSPITALIST Called/paged BRYANNA CALDERON called re:PATIENT'S CRAMPING, AND LAB RESULT OUT NOW. Waiting for call back. Continue care.
--- NOTE | 2019-08-25 06:04 | NUR ---
REASSESSED PATIENT, STILL C/O CRAMPING ON RIGHT HAND AND LEFT LEG. OFFERED MORE HEAT PACKS, PATIENT REFUSED. MADE PATIENT AWARE THAT HOSPITALIST PAGED. WAITING FOR CALL BACK. CONTINUE TO MONITOR.
--- NOTE | 2019-08-25 06:13 | NUR ---
HOSPITALIST returned call MUTUEL MACHINE OPERATOR KVNG returned call, updated on patient status and reason for call, POTASSIUM 20MCG PO ONCE. Continue care.
[2019-08-25] MEDS ORDERED: POTASSIUM CHL 20 Meq TABLET PO ONE (06:15)
--- NOTE | 2019-08-25 06:36 | NUR ---
HOSPITALIST REQUESTED TO GIVE TYLENOL 650 MG FOR CRAMPING AND PAIN @ 8/10. CONTINUE TO MONITOR.
--- NOTE | 2019-08-25 06:50 | NUR ---
ELECTRIC MOTOR MECHANIC CALLED THAT PATIENT RUNNING BIGEMINAL BEATS FOR A FEW SECOND AND BACK TO SR. PATIENT DID NOT HAVE ANY C/O OF CHEST PAIN AND DISCOMFORT. WILL PASS IT TO DAY SHIFT RN. CONTINUE TO MONITOR.
[2019-08-25 09:00] VITALS: BP 115/60
[2019-08-25] MEDS: ENOXAPARIN SOD 40 MG/0.4 ML SYRINGE SC SCH (09:46)
[2019-08-25] MEDS: DOCUSATE SOD 100 MG CAP PO SCH (09:46)
[2019-08-25] MEDS: SILDENAFIL CITRATE 20 MG TAB PO SCH ×2 (09:46→14:56)
[2019-08-25] MEDS: ASPirin 81 mg TAB PO SCH (09:46)
[2019-08-25] MEDS: PANTOPRAZOLE 40 MG TAB PO SCH (09:46)
[2019-08-25] MEDS: METOPROLOL TARTRATE 25 MG TAB PO SCH (09:48)
[2019-08-25] MEDS: LISINOPRIL 10 MG TAB PO SCH (09:49)
[2019-08-25] MEDS ORDERED: POTASSIUM EFFERVESENT TAB 25 MEQ PO SCH (10:00)
[2019-08-25] MEDS ORDERED: POTA-220 PO (10:27)
[2019-08-25 14:00] VITALS: BP 115/78
--- NOTE | 2019-08-25 15:23 | NUR ---
DISCHARGE INSTRUCTIONS PROVIDED TO PT. PT VERBALIZED UNDERSTANDING FOR CONTINUATION OF HOME MEDICATIONS AND FOLLOW UP APPOINTMENT WITH PCP. EDUCATIONAL MATERIAL PROVIDED, ALL QUESTIONS AND CONCERNS ADDRESSED. TELE BOX REMOVED, AND RETURNED TO TELE DEPT. IV CATHETER DC'D TO LW #22, LAC#20, CATHETER INTACT, NO PHLEBITIS. PT TO CALL WHEN TRANSPORTATION ARRIVES.
== END 2019-08-25 16:00 | disposition home or self-care (01) | DRG 194 ==
LOC: ER 02:58 → TELE 02:59 → TELE-WESTW 11:13
PROVIDERS: ADMIT Hospitalist; ATTEND Internal Medicine
DX: I13.0 Hypertensive heart and chronic kidney disease with heart failure and stage 1 through stage 4 chronic kidney disease, or unspecified chronic kidney disease (principal); I27.81 Cor pulmonale (chronic); I27.29 Other secondary pulmonary hypertension; I16.1 Hypertensive emergency; E44.1 Mild protein-calorie malnutrition; E87.6 Hypokalemia; N18.9 Chronic kidney disease, unspecified; I25.5 Ischemic cardiomyopathy; F15.90 Other stimulant use, unspecified, uncomplicated; E78.5 Hyperlipidemia, unspecified; E86.0 Dehydration; F17.210 Nicotine dependence, cigarettes, uncomplicated; I07.1 Rheumatic tricuspid insufficiency; J44.9 Chronic obstructive pulmonary disease, unspecified; K21.9 Gastro-esophageal reflux disease without esophagitis; K29.70 Gastritis, unspecified, without bleeding; T50.1X5A Adverse effect of loop [high-ceiling] diuretics, initial encounter; Z80.3 Family history of malignant neoplasm of breast; Z91.19 Patient's noncompliance with other medical treatment and regimen; F41.9 Anxiety disorder, unspecified; Z79.899 Other long term (current) drug therapy; I95.9 Hypotension, unspecified; Y92.89 Other specified places as the place of occurrence of the external cause; N17.9 Acute kidney failure, unspecified; I50.813 Acute on chronic right heart failure; Z68.25 Body mass index [BMI] 25.0-25.9, adult
CPT/HCPCS: 36415; 71045; 80048; 80053; 80307; 81001; 83735; 83880; 84100; 84443; 84484; 85025; 85610; 85730; 93306; 96361; 96365; 96375; G0378; P9047

== ENCOUNTER 2020-12-07 19:28 | Emergency (ER) | payer MEDICAID ==
[~2020-12-07] VITALS: Ht 167.6 cm; Wt 72.6 kg
[2020-12-07 19:28] VITALS: BP 147/88
[~2020-12-07 19:28] MED LIST changes: +CETI10TA2 PO; +POTA-220 PO; +SILD20TA12 PO
[2020-12-07 21:56] LABS: Basophils # (auto) 0 10 ^3/uL (0-0.2); Basophils % (auto) 1.2 % (0.0-2.0); Eosinophils # (auto) 0.1 10 ^3/uL (0-0.8); Eosinophils % (auto) 1.5 % (0.0-7.0); Hematocrit 42.6 % (36.0-46.0); Hemoglobin 14.1 g/dL (12.2-16.2); Lymphocytes # (auto) 1.1 10 ^3/uL (0.4-5.4); Lymphocytes % (auto) 29.4 % (10.0-50.0); Mean Corpuscular Hgb Conc. 33.2 g/dL (32.0-36.0); Mean Corpuscular Volume 93.4 fL (80.0-100.0); Monocytes # (auto) 0.5 10 ^3/uL (0-1.3); Monocytes % (auto) 14.3 % (0.0-12.0); Neutrophils % (auto) 53.6 % (37.0-80.0); Nucleated Red Blood Cells % 0.1 %; Red Blood Cells 4.56 10^6/uL (4.0-5.20); Red Cell Distribution Width 14.5 % (11.8-14.3); White Blood Cell 3.8 10^3/uL (4.4-10.8)
[2020-12-07 21:59] LABS: Albumin 3.3 g/dL (3.4-5.0); Calcium 8.4 mg/dL (8.5-10.1); Potassium 3.6 mmol/L (3.5-5.1)
[2020-12-07 22:01] LABS: BUN/Creatinine Ratio 22.9
[2020-12-07 22:05] LABS: Bilirubin, Total 1.5 mg/dL (0.2-1.0); Total Protein 7.4 g/dL (6.4-8.2)
[2020-12-07 22:15] LABS: INR 1.21 (0.9-1.15); Partial Thromboplastin Time 26.2 sec (23.6-33.0)
== END 2020-12-08 00:13 | disposition left against medical advice (07) ==
LOC: ER 19:34
DX: R04.0 Epistaxis (principal); R07.89 Other chest pain; Z53.21 Procedure and treatment not carried out due to patient leaving prior to being seen by health care provider
CPT/HCPCS: 36415; 71045; 80053; 84484; 85025; 85610; 85730; 93005

== ENCOUNTER 2020-12-08 02:58 | Emergency (ER) | payer MEDICAID ==
[~2020-12-08] VITALS: Ht 167.6 cm; Wt 72.6 kg
[2020-12-08 10:17] LABS: Albumin 3.4 g/dL (3.4-5.0); BUN/Creatinine Ratio 23.8; Calcium 8.4 mg/dL (8.5-10.1); Potassium 3.6 mmol/L (3.5-5.1)
[2020-12-08 10:19] LABS: Basophils # (auto) 0 10 ^3/uL (0-0.2); Eosinophils # (auto) 0.1 10 ^3/uL (0-0.8); Eosinophils % (auto) 3.3 % (0.0-7.0); Hematocrit 42.9 % (36.0-46.0); Hemoglobin 14.5 g/dL (12.2-16.2); Lymphocytes # (auto) 1.5 10 ^3/uL (0.4-5.4); Lymphocytes % (auto) 34.8 % (10.0-50.0); Mean Corpuscular Hemoglobin 31.6 pg (28.0-32.0); Mean Corpuscular Hgb Conc. 33.7 g/dL (32.0-36.0); Mean Corpuscular Volume 93.9 fL (80.0-100.0); Monocytes # (auto) 0.6 10 ^3/uL (0-1.3); Monocytes % (auto) 13.7 % (0.0-12.0); Neutrophils # (auto) 2.1 10 ^3/uL (1.6-8.6); Neutrophils % (auto) 47.2 % (37.0-80.0); Red Blood Cells 4.58 10^6/uL (4.0-5.20); Red Cell Distribution Width 14.6 % (11.8-14.3); White Blood Cell 4.4 10^3/uL (4.4-10.8)
[2020-12-08 10:25] LABS: Bilirubin, Total 1.4 mg/dL (0.2-1.0); Total Protein 7.5 g/dL (6.4-8.2)
[2020-12-08 11:45] VITALS: BP 128/81
== END 2020-12-08 11:55 | disposition home or self-care (01) ==
LOC: ER 02:58
DX: R04.0 Epistaxis (principal); I11.0 Hypertensive heart disease with heart failure; I50.9 Heart failure, unspecified; F41.9 Anxiety disorder, unspecified; K21.9 Gastro-esophageal reflux disease without esophagitis; Z79.899 Other long term (current) drug therapy; Z87.891 Personal history of nicotine dependence
CPT/HCPCS: 30901; 36415; 80053; 84484; 85025; 93005

== ENCOUNTER 2021-04-13 01:38 | Inpatient (IN) | payer MEDICAID ==
[~2021-04-13] VITALS: Ht 157.5 cm; Wt 72.6 kg
[2021-04-13 02:04] LABS: Basophils # (auto) 0 10 ^3/uL (0-0.2); Basophils % (auto) 0.7 % (0.0-2.0); Eosinophils # (auto) 0.1 10 ^3/uL (0-0.8); Hematocrit 45.3 % (36.0-46.0); Hemoglobin 15.2 g/dL (12.2-16.2); Lymphocytes # (auto) 1.5 10 ^3/uL (0.4-5.4); Lymphocytes % (auto) 23.7 % (10.0-50.0); Mean Corpuscular Hgb Conc. 33.5 g/dL (32.0-36.0); Mean Corpuscular Volume 92.4 fL (80.0-100.0); Monocytes # (auto) 0.5 10 ^3/uL (0-1.3); Monocytes % (auto) 7.8 % (0.0-12.0); Neutrophils # (auto) 4.1 10 ^3/uL (1.6-8.6); Neutrophils % (auto) 66.8 % (37.0-80.0); Nucleated Red Blood Cells % 0.1 %; White Blood Cell 6.2 10^3/uL (4.4-10.8)
[2021-04-13 02:19] LABS: Albumin 3.7 g/dL (3.4-5.0); BUN/Creatinine Ratio 22.2; Calcium 8.7 mg/dL (8.5-10.1); Magnesium 2.5 mg/dL (1.6-2.6); Potassium 3.8 mmol/L (3.5-5.1)
[2021-04-13 02:24] LABS: Bilirubin, Total 2.1 mg/dL (0.2-1.0)
[2021-04-13] MEDS ORDERED: NITROGLYCERIN 0.4 MG SL TAB SL ONE (03:15)
[2021-04-13] MEDS ORDERED: MORPHINE SULFATE INJECTION 2 MG/ML SYRG IM ONE (04:45)
[2021-04-13] MEDS ORDERED: ASPirin 325 MG TAB PO ONE (04:45)
[2021-04-13] MEDS ORDERED: FUROSEMIDE 40 MG/4 ML VIAL IV ONE (04:45)
[2021-04-13 05:55] LABS: INR 1.2 (0.9-1.15); Partial Thromboplastin Time 29.1 sec (23.6-33.0)
[2021-04-13] MEDS ORDERED: NITROGLYCERIN 0.4 MG SL TAB SL PRN (06:00)
[2021-04-13] MEDS ORDERED: MORPHINE SULFATE INJECTION 2 MG/ML SYRG IV PRN (06:00)
[2021-04-13] MEDS ORDERED: MORPHINE SULFATE 4 MG/ML SYR/VIAL IV PRN (06:00)
[2021-04-13] MEDS ORDERED: DOCUSATE SOD 100 MG CAP PO PRN (06:00)
[2021-04-13 06:14] LABS: Urine Bacteria FEW /hpf (None Seen); Urine Blood Negative /uL (Negative); Urine Mucus FEW (None Seen); Urine Specific Gravity 1.012 (1.001-1.035); Urine WBC 3 /hpf (0 - 5)
[2021-04-13 06:28] LABS: Alcohol, Urine < 3.0 mg/dL (0-10); Amphetamine Screen, Urine POSITIVE (NEGATIVE); Barbiturate Scree,Urine NEGATIVE (NEGATIVE); Benzodiazephine Screen, Urine NEGATIVE (NEGATIVE); Cannabinoid Screen, Urine NEGATIVE (NEGATIVE); Cocaine Screen, Urine NEGATIVE (NEGATIVE); Opiate Scree,Urine NEGATIVE (NEGATIVE); Phencyclidine Screen, Urine NEGATIVE (NEGATIVE)
[2021-04-13] MEDS ORDERED: LORazepam 2MG/ML-1ML VIAL IV PRN (06:30)
[2021-04-13] MEDS ORDERED: FUROSEMIDE 40 MG/4 ML VIAL IV SCH ×2 (07:00)
[2021-04-13 07:24] LABS: Bilirubin, Direct 1.6 mg/dL (0-0.2)
[2021-04-13 07:26] LABS: Bilirubin, Total 2.7 mg/dL (0.2-1.0)
[2021-04-13 08:56] VITALS: BP 126/73
[2021-04-13] MEDS ORDERED: PNEUMOCOCCAL VACC POLYS 25 MCG/0.5 ML VIAL IM ONE (09:30)
[2021-04-13] MEDS ORDERED: PANTOPRAZOLE 40 MG TAB PO SCH (10:00)
[2021-04-13] MEDS ORDERED: ENOXAPARIN SOD 40 MG/0.4 ML SYRINGE SC SCH (10:00)
[2021-04-13] MEDS ORDERED: LISINOPRIL 5 MG TAB PO SCH (10:00)
[2021-04-13] MEDS ORDERED: MULTIPLE VITAMIN TAB PO SCH (10:00)
[2021-04-13] MEDS ORDERED: METOPROLOL TARTRATE 25 MG TAB PO SCH (10:00)
[2021-04-13 13:00] VITALS: BP 111/78
[2021-04-13 13:39] VITALS: BP 111/78
== END 2021-04-13 14:35 | disposition home or self-care (01) | DRG 203 ==
LOC: ER 01:38 → TELE 05:56 → TELE-CENTR 08:55
PROVIDERS: ADMIT Internal Medicine; ATTEND Hospitalist
PROC: 3E0234Z Introduction of Serum, Toxoid and Vaccine into Muscle, Percutaneous Approach (ICD-10-PCS; principal; 2021-04-13)
DX: R07.9 Chest pain, unspecified (principal); I42.9 Cardiomyopathy, unspecified; I50.9 Heart failure, unspecified; I11.0 Hypertensive heart disease with heart failure; R50.9 Fever, unspecified; Z20.822 Contact with and (suspected) exposure to COVID-19; K21.9 Gastro-esophageal reflux disease without esophagitis; F41.9 Anxiety disorder, unspecified; R00.0 Tachycardia, unspecified; R79.89 Other specified abnormal findings of blood chemistry; Z79.899 Other long term (current) drug therapy; Z80.3 Family history of malignant neoplasm of breast; Z87.891 Personal history of nicotine dependence; Z23 Encounter for immunization
CPT/HCPCS: 36415; 71045; 76700; 80053; 80307; 81001; 82247; 82248; 82977; 83735; 83880; 84443; 84484; 85025; 85379; 85610; 85730; 87426; 93005; 96372; 96374; G0378

== ENCOUNTER 2021-07-21 14:13 | Inpatient (IN) | payer MEDICAID ==
[~2021-07-21] VITALS: Ht 167.6 cm; Wt 68.9 kg
[2021-07-21 16:03] LABS: Basophils # (auto) 0.2 10 ^3/uL (0-0.2); Basophils % (auto) 3.6 % (0.0-2.0); Eosinophils # (auto) 0.1 10 ^3/uL (0-0.8); Eosinophils % (auto) 1.4 % (0.0-7.0); Hematocrit 42.9 % (36.0-46.0); Hemoglobin 14.4 g/dL (12.2-16.2); Lymphocytes # (auto) 1.2 10 ^3/uL (0.4-5.4); Lymphocytes % (auto) 23.1 % (10.0-50.0); Mean Corpuscular Hemoglobin 31.1 pg (28.0-32.0); Mean Corpuscular Hgb Conc. 33.7 g/dL (32.0-36.0); Mean Corpuscular Volume 92.2 fL (80.0-100.0); Monocytes # (auto) 0.5 10 ^3/uL (0-1.3); Monocytes % (auto) 9.1 % (0.0-12.0); Neutrophils # (auto) 3.2 10 ^3/uL (1.6-8.6); Neutrophils % (auto) 62.8 % (37.0-80.0); Nucleated Red Blood Cells % 0.1 %; Red Blood Cells 4.65 10^6/uL (4.0-5.20); Red Cell Distribution Width 14.8 % (11.8-14.3); White Blood Cell 5.2 10^3/uL (4.4-10.8)
[2021-07-21 16:18] LABS: Albumin 3.2 g/dL (3.4-5.0); BUN/Creatinine Ratio 18.1; Calcium 8.2 mg/dL (8.5-10.1)
[2021-07-21 16:20] LABS: Bilirubin, Total 1.6 mg/dL (0.2-1.0); Total Protein 6.8 g/dL (6.4-8.2)
[2021-07-21 19:25] LABS: Urine Bacteria NONE SEEN /hpf (None Seen); Urine Blood Negative /uL (Negative); Urine Specific Gravity 1.025 (1.001-1.035); Urine WBC 1 /hpf (0 - 5)
[2021-07-21] MEDS ORDERED: MORPHINE SULFATE INJ 2 MG/ml SYRG IV PRN (20:45)
[2021-07-21] MEDS ORDERED: hydrALAZINE HCL 10 MG TAB PO PRN (20:45)
[2021-07-21] MEDS ORDERED: ACETAMINOPHEN 325 MG TAB PO PRN (20:45)
[2021-07-21] MEDS ORDERED: ONDANSETRON HCL 4 MG/2 ML VIAL IV PRN (20:45)
[2021-07-21] MEDS ORDERED: HYDROcodone-ACET 5/325MG TAB PO PRN (20:45)
[2021-07-22] MEDS: FAMOTIDINE (10MG/ML) 2ML VL IV SCH ×3 (00:07→21:06)
[2021-07-22] MEDS: POTASSIUM CHL 20MEQ/100ML 100 ML IV SCH ×2 (00:13→02:19)
[2021-07-22 07:50] VITALS: BP 133/65
[2021-07-22 08:53] LABS: Basophils # (auto) 0.1 10 ^3/uL (0-0.2); Basophils % (auto) 1.6 % (0.0-2.0); Eosinophils # (auto) 0.1 10 ^3/uL (0-0.8); Eosinophils % (auto) 1.6 % (0.0-7.0); Hematocrit 43.8 % (36.0-46.0); Hemoglobin 14.5 g/dL (12.2-16.2); Lymphocytes # (auto) 1.6 10 ^3/uL (0.4-5.4); Lymphocytes % (auto) 33.4 % (10.0-50.0); Mean Corpuscular Hemoglobin 30.6 pg (28.0-32.0); Mean Corpuscular Hgb Conc. 33.1 g/dL (32.0-36.0); Mean Corpuscular Volume 92.6 fL (80.0-100.0); Monocytes # (auto) 0.4 10 ^3/uL (0-1.3); Monocytes % (auto) 8.3 % (0.0-12.0); Neutrophils # (auto) 2.6 10 ^3/uL (1.6-8.6); Neutrophils % (auto) 55.1 % (37.0-80.0); Nucleated Red Blood Cells % 0.1 %; Red Blood Cells 4.74 10^6/uL (4.0-5.20); Red Cell Distribution Width 15.3 % (11.8-14.3); White Blood Cell 4.7 10^3/uL (4.4-10.8)
[2021-07-22 09:00] VITALS: BP 124/89
[2021-07-22 09:08] LABS: INR 1.26 (0.9-1.15); Partial Thromboplastin Time 27.9 sec (23.6-33.0)
[2021-07-22 09:12] LABS: Calcium 7.7 mg/dL (8.5-10.1); Potassium 3.6 mmol/L (3.5-5.1)
[2021-07-22 09:14] LABS: BUN/Creatinine Ratio 20.6
[2021-07-22 13:00] VITALS: BP 133/65
[2021-07-22] MEDS ORDERED: NICOTINE 14 MG/24HR TOPICAL PATCH TD ONE (13:00)
[2021-07-22 17:00] VITALS: BP 121/74
[2021-07-22] MEDS: FUROSEMIDE 40 MG/4 ML VIAL IV SCH (17:37)
[2021-07-22 20:34] LABS: Ferritin 56.5 ng/mL (10-322)
[2021-07-22 20:35] LABS: Carcinoembryonic Antigen 2.36 ng/mL (<5.0 OR =)
[2021-07-22 22:00] VITALS: BP 132/52
[2021-07-23] MEDS: FUROSEMIDE 40 MG/4 ML VIAL IV SCH ×2 (05:24→17:19)
[2021-07-23 06:54] LABS: Basophils # (auto) 0 10 ^3/uL (0-0.2); Basophils % (auto) 0.7 % (0.0-2.0); Eosinophils # (auto) 0.1 10 ^3/uL (0-0.8); Eosinophils % (auto) 1.5 % (0.0-7.0); Hematocrit 41.1 % (36.0-46.0); Hemoglobin 14.2 g/dL (12.2-16.2); Lymphocytes # (auto) 1.8 10 ^3/uL (0.4-5.4); Lymphocytes % (auto) 32.6 % (10.0-50.0); Mean Corpuscular Hemoglobin 31.8 pg (28.0-32.0); Mean Corpuscular Hgb Conc. 34.5 g/dL (32.0-36.0); Mean Corpuscular Volume 92.1 fL (80.0-100.0); Monocytes # (auto) 0.5 10 ^3/uL (0-1.3); Monocytes % (auto) 9.8 % (0.0-12.0); Neutrophils % (auto) 55.4 % (37.0-80.0); Nucleated Red Blood Cells % 0.2 %; Red Blood Cells 4.46 10^6/uL (4.0-5.20); Red Cell Distribution Width 14.9 % (11.8-14.3); White Blood Cell 5.4 10^3/uL (4.4-10.8)
[2021-07-23 07:18] LABS: BUN/Creatinine Ratio 19.1; Calcium 7.7 mg/dL (8.5-10.1); Potassium 3.2 mmol/L (3.5-5.1)
[2021-07-23 09:00] VITALS: BP 122/77
[2021-07-23] MEDS: FAMOTIDINE (10MG/ML) 2ML VL IV SCH (10:08)
[2021-07-23 13:00] VITALS: BP 113/68
[2021-07-23 17:00] VITALS: BP 107/68
[2021-07-23] MEDS ORDERED: POTASSIUM CHL 20MEQ/100ML 100 ML IV ONE (17:30)
[2021-07-23] MEDS ORDERED: POTASSIUM CHL 20 Meq TABLET PO ONE (17:30)
[2021-07-23] MEDS ORDERED: LISI2.5T47 PO (18:12)
[2021-07-23] MEDS ORDERED: METO25TA5 PO (18:12)
[2021-07-23] MEDS ORDERED: SPIR25TA PO (18:12)
[2021-07-23] MEDS ORDERED: POTA-220 PO (18:12)
[2021-07-24 09:50] LABS: Hepatitis B Surface Antibody Negative (Negative)
[2021-07-24 10:26] LABS: Hepatitis A Total Antibody Negative (Negative)
[2021-07-24 15:52] LABS: Hepatitis C Antibody Negative (Negative)
== END 2021-07-23 20:05 | disposition home or self-care (01) ==
LOC: ER 14:13 → TELE 07-22 00:32 → TELE-EAST 07-22 05:00
PROVIDERS: ADMIT Nurse Practitioner Family; ATTEND Nurse Practitioner Family
PROC: 0W9G3ZZ Drainage of Peritoneal Cavity, Percutaneous Approach (ICD-10-PCS; principal; 2021-07-22)
DX: R18.8 Other ascites (principal); K74.60 Unspecified cirrhosis of liver; I11.0 Hypertensive heart disease with heart failure; I50.40 Unspecified combined systolic (congestive) and diastolic (congestive) heart failure; E87.6 Hypokalemia; K40.90 Unilateral inguinal hernia, without obstruction or gangrene, not specified as recurrent; R33.9 Retention of urine, unspecified; Z20.822 Contact with and (suspected) exposure to COVID-19; F41.9 Anxiety disorder, unspecified; K21.9 Gastro-esophageal reflux disease without esophagitis; N83.201 Unspecified ovarian cyst, right side; Z80.3 Family history of malignant neoplasm of breast; Z91.14 Patient's other noncompliance with medication regimen
CPT/HCPCS: 36415; 71046; 74176; 76705; 76942; 80048; 80053; 81001; 81025; 82105; 82150; 82378; 82728; 83605; 83615; 83690; 83880; 83986; 84484; 84702; 85025; 85610; 85730; 86038; 86304; 86704; 86706; 86708; 86803; 87205; 87340; 89051; 96360; G0378; J3480; J3490

== ENCOUNTER 2021-09-06 10:37 | Inpatient (IN) | payer MEDICAID ==
[~2021-09-06] VITALS: Ht 167.6 cm; Wt 68.1 kg
[~2021-09-06 10:37] MED LIST changes: -FURO40TA4 PO; +SPIR25TA PO
[2021-09-06 11:18] LABS: Basophils # (auto) 0 10 ^3/uL (0-0.2); Basophils % (auto) 1.1 % (0.0-2.0); Eosinophils # (auto) 0.1 10 ^3/uL (0-0.8); Eosinophils % (auto) 3.5 % (0.0-7.0); Hematocrit 45.1 % (36.0-46.0); Hemoglobin 14.6 g/dL (12.2-16.2); Lymphocytes # (auto) 0.9 10 ^3/uL (0.4-5.4); Lymphocytes % (auto) 23.5 % (10.0-50.0); Mean Corpuscular Hemoglobin 29.9 pg (28.0-32.0); Mean Corpuscular Hgb Conc. 32.4 g/dL (32.0-36.0); Mean Corpuscular Volume 92.1 fL (80.0-100.0); Monocytes # (auto) 0.3 10 ^3/uL (0-1.3); Monocytes % (auto) 7.8 % (0.0-12.0); Neutrophils # (auto) 2.5 10 ^3/uL (1.6-8.6); Neutrophils % (auto) 64.1 % (37.0-80.0); Nucleated Red Blood Cells % 0.1 %; Red Cell Distribution Width 14.7 % (11.8-14.3); White Blood Cell 3.9 10^3/uL (4.4-10.8)
[2021-09-06 11:32] LABS: Albumin 3.6 g/dL (3.4-5.0); BUN/Creatinine Ratio 20.5; Calcium 8.7 mg/dL (8.5-10.1); Magnesium 2.1 mg/dL (1.6-2.6); Potassium 4.2 mmol/L (3.5-5.1)
[2021-09-06 11:43] LABS: Bilirubin, Total 0.7 mg/dL (0.2-1.0); Total Protein 7.2 g/dL (6.4-8.2)
[2021-09-06] MEDS ORDERED: SODIUM CHLORIDE 0.9% 1,000 ML IV ONE (12:45)
[2021-09-06] MEDS ORDERED: ASPirin 81 mg TAB PO ONE (12:45)
[2021-09-06] MEDS ORDERED: METOCLOPRAMIDE HCL 5MG/ml INJ 2ml VIAL IV ONE (13:45)
[2021-09-06] MEDS ORDERED: MORPHINE SULFATE INJ 2 MG/ml SYRG IV ONE (13:45)
[2021-09-06 15:58] LABS: Urine Bacteria NONE SEEN /hpf (None Seen); Urine Blood Negative /uL (Negative); Urine Hyaline Cast FEW /lpf (0 - 2); Urine Mucus FEW (None Seen); Urine Specific Gravity 1.019 (1.001-1.035); Urine WBC <1 /hpf (0 - 5)
[2021-09-06] MEDS ORDERED: NITROGLYCERIN 0.4 MG SL TAB SL PRN (18:00)
[2021-09-06] MEDS ORDERED: ONDANSETRON HCL 4 MG/2 ML VIAL IV PRN (18:00)
[2021-09-06] MEDS ORDERED: MORPHINE SULFATE INJ 2 MG/ml SYRG IV PRN (18:00)
[2021-09-06] MEDS ORDERED: PANTOPRAZOLE 40 MG/10 ML VIAL INJ IV ONE (18:00)
[2021-09-06] MEDS ORDERED: FUROSEMIDE 20 MG/2 ML VIAL IV ONE (18:15)
[2021-09-06 21:00] VITALS: BP 138/88
[2021-09-06 22:33] VITALS: BP 125/68
[2021-09-07] MEDS ORDERED: HYDROmorphone HCL 2 MG/ML VL/or syr IV PRN (00:15)
[2021-09-07 05:42] VITALS: BP 99/62
[2021-09-07 08:00] VITALS: BP 101/66
[2021-09-07 08:32] LABS: Basophils # (auto) 0.1 10 ^3/uL (0-0.2); Basophils % (auto) 1.4 % (0.0-2.0); Eosinophils # (auto) 0.2 10 ^3/uL (0-0.8); Eosinophils % (auto) 4.1 % (0.0-7.0); Hematocrit 41.8 % (36.0-46.0); Hemoglobin 13.9 g/dL (12.2-16.2); Lymphocytes # (auto) 1.5 10 ^3/uL (0.4-5.4); Lymphocytes % (auto) 34.3 % (10.0-50.0); Mean Corpuscular Hemoglobin 30.5 pg (28.0-32.0); Mean Corpuscular Hgb Conc. 33.2 g/dL (32.0-36.0); Mean Corpuscular Volume 91.8 fL (80.0-100.0); Monocytes # (auto) 0.5 10 ^3/uL (0-1.3); Monocytes % (auto) 11.1 % (0.0-12.0); Neutrophils # (auto) 2.2 10 ^3/uL (1.6-8.6); Neutrophils % (auto) 49.1 % (37.0-80.0); Nucleated Red Blood Cells % 0.1 %; Red Blood Cells 4.56 10^6/uL (4.0-5.20); Red Cell Distribution Width 14.6 % (11.8-14.3); White Blood Cell 4.4 10^3/uL (4.4-10.8)
[2021-09-07 08:40] LABS: Potassium 4.3 mmol/L (3.5-5.1)
[2021-09-07 08:47] LABS: Albumin 3.4 g/dL (3.4-5.0); BUN/Creatinine Ratio 26.9; Bilirubin, Total 0.9 mg/dL (0.2-1.0); Calcium 8.9 mg/dL (8.5-10.1); Total Protein 7.2 g/dL (6.4-8.2)
[2021-09-07 09:00] VITALS: BP 101/66
[2021-09-07] MEDS ORDERED: FUROSEMIDE 20 MG/2 ML VIAL IV SCH (10:00)
[2021-09-07] MEDS ORDERED: PANTOPRAZOLE 40 MG/10 ML VIAL INJ IV SCH (10:00)
[2021-09-07] MEDS ORDERED: ENOXAPARIN SOD 30 MG/0.3 ML SYRINGE SC SCH (10:00)
[2021-09-07 13:00] VITALS: BP 111/74
[2021-09-07] MEDS ORDERED: SUCR1SUS10 PO (13:49)
[2021-09-07] MEDS ORDERED: OMEP20TA PO (13:49)
[2021-09-07 15:01] VITALS: BP 111/74
== END 2021-09-07 16:00 | disposition home or self-care (01) | DRG 243 ==
LOC: ER 10:37 → TELE-WESTW 17:47
PROVIDERS: ADMIT Registered Nurse; ATTEND Registered Nurse
DX: K21.9 Gastro-esophageal reflux disease without esophagitis (principal); I50.43 Acute on chronic combined systolic (congestive) and diastolic (congestive) heart failure; I27.29 Other secondary pulmonary hypertension; I42.9 Cardiomyopathy, unspecified; R18.8 Other ascites; I13.0 Hypertensive heart and chronic kidney disease with heart failure and stage 1 through stage 4 chronic kidney disease, or unspecified chronic kidney disease; F17.210 Nicotine dependence, cigarettes, uncomplicated; K74.60 Unspecified cirrhosis of liver; F41.9 Anxiety disorder, unspecified; I50.810 Right heart failure, unspecified; R07.89 Other chest pain; R10.9 Unspecified abdominal pain; Z20.822 Contact with and (suspected) exposure to COVID-19; K40.90 Unilateral inguinal hernia, without obstruction or gangrene, not specified as recurrent; N18.2 Chronic kidney disease, stage 2 (mild); Z80.3 Family history of malignant neoplasm of breast; Z91.19 Patient's noncompliance with other medical treatment and regimen
CPT/HCPCS: 36415; 71045; 74176; 80053; 81001; 83735; 83880; 84443; 84484; 85025; 93005; 96361; 96374; 96375; C9113; G0378

== ENCOUNTER 2021-12-20 01:34 | Inpatient (IN) | payer MEDICAID ==
[2021-12-20] VITALS (12 sets, daily range): BP systolic 105–120; BP diastolic 33–72
[~2021-12-20] VITALS: Ht 167.6 cm; Wt 69.9 kg
[~2021-12-20 01:34] MED LIST changes: -CETI10TA2 PO; +SUCR1SUS10 PO
[2021-12-20 02:21] LABS: Urine Bacteria NONE SEEN /hpf (None Seen); Urine Blood Negative /uL (Negative); Urine Hyaline Cast MOD /lpf (0 - 2); Urine Mucus FEW (None Seen); Urine Specific Gravity 1.007 (1.001-1.035); Urine WBC <1 /hpf (0 - 5)
[2021-12-20 02:42] LABS: Basophils # (auto) 0.1 10 ^3/uL (0-0.2); Basophils % (auto) 0.9 % (0.0-2.0); Eosinophils # (auto) 0.2 10 ^3/uL (0-0.8); Eosinophils % (auto) 3.1 % (0.0-7.0); Hematocrit 36.5 % (36.0-46.0); Hemoglobin 12.4 g/dL (12.2-16.2); Lymphocytes # (auto) 2.1 10 ^3/uL (0.4-5.4); Mean Corpuscular Hemoglobin 31.9 pg (28.0-32.0); Mean Corpuscular Volume 93.7 fL (80.0-100.0); Monocytes # (auto) 0.8 10 ^3/uL (0-1.3); Monocytes % (auto) 10.5 % (0.0-12.0); Neutrophils # (auto) 4.1 10 ^3/uL (1.6-8.6); Neutrophils % (auto) 56.5 % (37.0-80.0); Red Blood Cells 3.89 10^6/uL (4.0-5.20); Red Cell Distribution Width 14.3 % (11.8-14.3); White Blood Cell 7.2 10^3/uL (4.4-10.8)
[2021-12-20 02:45] LABS: Albumin 4.1 g/dL (3.4-5.0); BUN/Creatinine Ratio 29.5; Calcium 9.2 mg/dL (8.5-10.1); Potassium 4.8 mmol/L (3.5-5.1)
[2021-12-20 02:55] LABS: Bilirubin, Total 0.4 mg/dL (0.2-1.0); Total Protein 7.7 g/dL (6.4-8.2)
[2021-12-20] MEDS ORDERED: MORPHINE SULFATE 4 MG/ML SYR/VIAL IV ONE (04:00)
[2021-12-20] MEDS ORDERED: ONDANSETRON HCL 4 MG/2 ML VIAL IV ONE (04:00)
[2021-12-20] MEDS ORDERED: ALBUTEROL SULF 2.5 MG/0.5ML(0.5%) NEB SOLN NEB ONE (06:30)
[2021-12-20] MEDS ORDERED: FUROSEMIDE 20 MG TAB PO ONE (06:30)
[2021-12-20] MEDS ORDERED: SODIUM CHLORIDE 0.9% 1,000 ML IV ONE (06:30)
[2021-12-20] MEDS ORDERED: NOREPINEPHRINE 8 MG/250ML KIT 250 ML IV ONE (06:43)
[2021-12-20] MEDS: NOREPINEPHRINE 8 MG/250ML KIT 250 ML IV SCH ×2 (06:45→21:31)
[2021-12-20] MEDS: SODIUM CHLORIDE 0.9% 1,000 ML IV SCH (07:15)
[2021-12-20] MEDS ORDERED: MORPHINE SULFATE INJ 2 MG/ml SYRG IV PRN (07:15)
[2021-12-20] MEDS ORDERED: ACETAMINOPHEN 325 MG TAB PO PRN (07:15)
[2021-12-20] MEDS ORDERED: NITROGLYCERIN 0.4 MG SL TAB SL PRN (07:15)
[2021-12-20] MEDS ORDERED: DOCUSATE SOD 100 MG CAP PO PRN (07:15)
[2021-12-20 08:02] LABS: Basophils # (auto) 0.1 10 ^3/uL (0-0.2); Basophils % (auto) 0.7 % (0.0-2.0); Eosinophils # (auto) 0.2 10 ^3/uL (0-0.8); Eosinophils % (auto) 2.1 % (0.0-7.0); Hematocrit 34.1 % (36.0-46.0); Hemoglobin 11.4 g/dL (12.2-16.2); Lymphocytes # (auto) 3.3 10 ^3/uL (0.4-5.4); Lymphocytes % (auto) 30.2 % (10.0-50.0); Mean Corpuscular Hemoglobin 31.3 pg (28.0-32.0); Mean Corpuscular Hgb Conc. 33.6 g/dL (32.0-36.0); Mean Corpuscular Volume 93.2 fL (80.0-100.0); Monocytes # (auto) 1.1 10 ^3/uL (0-1.3); Monocytes % (auto) 9.7 % (0.0-12.0); Neutrophils # (auto) 6.3 10 ^3/uL (1.6-8.6); Neutrophils % (auto) 57.3 % (37.0-80.0); Nucleated Red Blood Cells % 0.1 %; Red Blood Cells 3.66 10^6/uL (4.0-5.20); Red Cell Distribution Width 14.1 % (11.8-14.3); White Blood Cell 10.9 10^3/uL (4.4-10.8)
[2021-12-20 08:09] LABS: Albumin 3.3 g/dL (3.4-5.0); BUN/Creatinine Ratio 30.7; Bilirubin, Total 0.4 mg/dL (0.2-1.0); Calcium 8.1 mg/dL (8.5-10.1); Potassium 4.3 mmol/L (3.5-5.1); Total Protein 6.9 g/dL (6.4-8.2)
[2021-12-20] MEDS: ASPirin 81 mg TAB PO SCH (08:29)
[2021-12-20] MEDS ORDERED: FAMOTIDINE (10MG/ML) 2ML VL IV SCH (10:00)
[2021-12-20] MEDS: SUCRALFATE 1 GM/10 ML ORAL SUSP PO SCH ×3 (11:48→21:30)
[2021-12-20] MEDS ORDERED: ALBUTEROL SULF 2.5 MG/0.5ML(0.5%) NEB SOLN NEB PRN (19:00)
[2021-12-20] MEDS: PANTOPRAZOLE 40 MG/10 ML VIAL INJ IV SCH (21:30)
[2021-12-21] VITALS (84 sets, daily range): BP systolic 77–126; BP diastolic 37–75
[2021-12-21 03:54] LABS: Basophils # (auto) 0 10 ^3/uL (0-0.2); Basophils % (auto) 0.6 % (0.0-2.0); Eosinophils # (auto) 0.3 10 ^3/uL (0-0.8); Eosinophils % (auto) 3.9 % (0.0-7.0); Hematocrit 34.5 % (36.0-46.0); Hemoglobin 11.7 g/dL (12.2-16.2); Lymphocytes # (auto) 1.9 10 ^3/uL (0.4-5.4); Lymphocytes % (auto) 27.1 % (10.0-50.0); Mean Corpuscular Hemoglobin 31.9 pg (28.0-32.0); Mean Corpuscular Hgb Conc. 33.9 g/dL (32.0-36.0); Mean Corpuscular Volume 94.2 fL (80.0-100.0); Monocytes # (auto) 0.8 10 ^3/uL (0-1.3); Monocytes % (auto) 11.1 % (0.0-12.0); Neutrophils % (auto) 57.3 % (37.0-80.0); Nucleated Red Blood Cells % 0.1 %; Red Blood Cells 3.67 10^6/uL (4.0-5.20); Red Cell Distribution Width 13.9 % (11.8-14.3); White Blood Cell 6.9 10^3/uL (4.4-10.8)
[2021-12-21 04:10] LABS: Potassium 4.4 mmol/L (3.5-5.1)
[2021-12-21 04:18] LABS: Albumin 3.4 g/dL (3.4-5.0); BUN/Creatinine Ratio 31.7; Bilirubin, Total 0.7 mg/dL (0.2-1.0); Calcium 8.6 mg/dL (8.5-10.1); Total Protein 6.5 g/dL (6.4-8.2)
[2021-12-21] MEDS: SODIUM CHLORIDE 0.9% 1,000 ML IV SCH (04:20)
[2021-12-21] MEDS: SUCRALFATE 1 GM/10 ML ORAL SUSP PO SCH ×4 (06:40→21:59)
[2021-12-21] MEDS: ASPirin 81 mg TAB PO SCH (10:20)
[2021-12-21] MEDS: PANTOPRAZOLE 40 MG/10 ML VIAL INJ IV SCH ×2 (10:20→21:59)
[2021-12-21] MEDS: SILDENAFIL CITRATE 20 MG TAB PO SCH ×2 (14:07→21:59)
[2021-12-21] MEDS: NOREPINEPHRINE 8 MG/250ML KIT 250 ML IV SCH (16:51)
[2021-12-21] MEDS: HYDROcodone-ACET 5/325MG TAB PO PRN (16:52)
[2021-12-21] MEDS: MORPHINE SULFATE INJ 2 MG/ml SYRG IV PRN (22:24)
[2021-12-22] VITALS (82 sets, daily range): BP systolic 74–150; BP diastolic 33–109
[2021-12-22] MEDS: NOREPINEPHRINE 8 MG/250ML KIT 250 ML IV SCH ×2 (05:17→22:28)
[2021-12-22] MEDS: SUCRALFATE 1 GM/10 ML ORAL SUSP PO SCH ×4 (07:50→21:21)
[2021-12-22] MEDS: SILDENAFIL CITRATE 20 MG TAB PO SCH ×3 (08:33→21:21)
[2021-12-22] MEDS: MORPHINE SULFATE INJ 2 MG/ml SYRG IV PRN ×2 (08:34→12:53)
[2021-12-22] MEDS: PANTOPRAZOLE 40 MG/10 ML VIAL INJ IV SCH ×2 (09:36→21:21)
[2021-12-22] MEDS: ASPirin 81 mg TAB PO SCH (09:36)
[2021-12-22 10:00] LABS: INR 0.99 (0.9-1.15)
[2021-12-22 10:16] LABS: Albumin 3.4 g/dL (3.4-5.0); Bilirubin, Total 0.4 mg/dL (0.2-1.0); Magnesium 2.2 mg/dL (1.6-2.6); Potassium 4.2 mmol/L (3.5-5.1); Total Protein 6.7 g/dL (6.4-8.2)
[2021-12-22 10:18] LABS: BUN/Creatinine Ratio 28.2
[2021-12-22 10:20] LABS: Basophils # (auto) 0.1 10 ^3/uL (0-0.2); Basophils % (auto) 1.1 % (0.0-2.0); Eosinophils # (auto) 0.4 10 ^3/uL (0-0.8); Eosinophils % (auto) 5.6 % (0.0-7.0); Hematocrit 35.1 % (36.0-46.0); Hemoglobin 11.7 g/dL (12.2-16.2); Lymphocytes # (auto) 1.6 10 ^3/uL (0.4-5.4); Mean Corpuscular Hemoglobin 31.1 pg (28.0-32.0); Mean Corpuscular Hgb Conc. 33.4 g/dL (32.0-36.0); Monocytes # (auto) 0.5 10 ^3/uL (0-1.3); Monocytes % (auto) 8.6 % (0.0-12.0); Neutrophils # (auto) 3.8 10 ^3/uL (1.6-8.6); Neutrophils % (auto) 59.7 % (37.0-80.0); Red Blood Cells 3.77 10^6/uL (4.0-5.20); Red Cell Distribution Width 13.8 % (11.8-14.3); White Blood Cell 6.4 10^3/uL (4.4-10.8)
[2021-12-22 11:28] LABS: Hepatitis A Ab IgM Negative; Hepatitis B Core IgM Negative; Hepatitis C Antibody Negative (Negative)
[2021-12-23] VITALS (85 sets, daily range): BP systolic 80–134; BP diastolic 30–81
[2021-12-23] MEDS: SUCRALFATE 1 GM/10 ML ORAL SUSP PO SCH ×4 (06:27→21:22)
[2021-12-23] MEDS: MORPHINE SULFATE INJ 2 MG/ml SYRG IV PRN (07:55)
[2021-12-23] MEDS: SILDENAFIL CITRATE 20 MG TAB PO SCH ×3 (07:55→20:57)
[2021-12-23] MEDS: PANTOPRAZOLE 40 MG/10 ML VIAL INJ IV SCH ×2 (09:42→20:57)
[2021-12-23] MEDS: ASPirin 81 mg TAB PO SCH (09:42)
[2021-12-23] MEDS ORDERED: SODIUM CHLORIDE 0.9% 500 ML IV ONE (11:45)
[2021-12-23] MEDS: NOREPINEPHRINE 8 MG/250ML KIT 250 ML IV SCH (15:32)
[2021-12-23] MEDS: MIDODRINE HCL 10 MG TAB PO SCH ×2 (15:32→17:15)
[2021-12-24] VITALS (87 sets, daily range): BP systolic 74–148; BP diastolic 32–80
[2021-12-24] MEDS: ONDANSETRON HCL 4 MG/2 ML VIAL IV PRN ×3 (03:35→20:10)
[2021-12-24] MEDS: MORPHINE SULFATE INJ 2 MG/ml SYRG IV PRN ×2 (03:35→20:11)
[2021-12-24 04:10] LABS: Basophils # (auto) 0.1 10 ^3/uL (0-0.2); Basophils % (auto) 1.2 % (0.0-2.0); Eosinophils # (auto) 0.4 10 ^3/uL (0-0.8); Eosinophils % (auto) 6.7 % (0.0-7.0); Hematocrit 34.3 % (36.0-46.0); Hemoglobin 11.8 g/dL (12.2-16.2); Lymphocytes # (auto) 1.8 10 ^3/uL (0.4-5.4); Mean Corpuscular Hemoglobin 31.7 pg (28.0-32.0); Mean Corpuscular Hgb Conc. 34.4 g/dL (32.0-36.0); Mean Corpuscular Volume 92.1 fL (80.0-100.0); Monocytes # (auto) 0.6 10 ^3/uL (0-1.3); Neutrophils # (auto) 2.8 10 ^3/uL (1.6-8.6); Neutrophils % (auto) 49.1 % (37.0-80.0); Nucleated Red Blood Cells % 0.1 %; Red Blood Cells 3.72 10^6/uL (4.0-5.20); Red Cell Distribution Width 13.6 % (11.8-14.3); White Blood Cell 5.8 10^3/uL (4.4-10.8)
[2021-12-24 04:22] LABS: Potassium 4.1 mmol/L (3.5-5.1)
[2021-12-24 04:25] LABS: BUN/Creatinine Ratio 29.3
[2021-12-24] MEDS: SUCRALFATE 1 GM/10 ML ORAL SUSP PO SCH ×4 (06:21→22:05)
[2021-12-24] MEDS: MIDODRINE HCL 10 MG TAB PO SCH ×3 (06:22→17:51)
[2021-12-24] MEDS: SILDENAFIL CITRATE 20 MG TAB PO SCH ×3 (08:00→20:15)
[2021-12-24] MEDS: PANTOPRAZOLE 40 MG/10 ML VIAL INJ IV SCH ×2 (09:59→22:05)
[2021-12-24] MEDS: ASPirin 81 mg TAB PO SCH (09:59)
[2021-12-25] VITALS (55 sets, daily range): BP systolic 75–135; BP diastolic 36–75
[2021-12-25] MEDS: ONDANSETRON HCL 4 MG/2 ML VIAL IV PRN (02:59)
[2021-12-25] MEDS: MORPHINE SULFATE INJ 2 MG/ml SYRG IV PRN (03:01)
[2021-12-25 04:21] LABS: Basophils # (auto) 0 10 ^3/uL (0-0.2); Basophils % (auto) 0.8 % (0.0-2.0); Eosinophils # (auto) 0.4 10 ^3/uL (0-0.8); Eosinophils % (auto) 6.5 % (0.0-7.0); Hematocrit 35.8 % (36.0-46.0); Hemoglobin 12.2 g/dL (12.2-16.2); Lymphocytes # (auto) 2.4 10 ^3/uL (0.4-5.4); Lymphocytes % (auto) 38.4 % (10.0-50.0); Mean Corpuscular Hemoglobin 31.7 pg (28.0-32.0); Mean Corpuscular Hgb Conc. 34.1 g/dL (32.0-36.0); Mean Corpuscular Volume 93.1 fL (80.0-100.0); Monocytes # (auto) 0.6 10 ^3/uL (0-1.3); Monocytes % (auto) 9.6 % (0.0-12.0); Neutrophils # (auto) 2.8 10 ^3/uL (1.6-8.6); Neutrophils % (auto) 44.7 % (37.0-80.0); Nucleated Red Blood Cells % 0.3 %; Red Blood Cells 3.84 10^6/uL (4.0-5.20); Red Cell Distribution Width 13.9 % (11.8-14.3); White Blood Cell 6.3 10^3/uL (4.4-10.8)
[2021-12-25 04:31] LABS: Potassium 3.9 mmol/L (3.5-5.1)
[2021-12-25 04:35] LABS: BUN/Creatinine Ratio 27.6; Calcium 9.1 mg/dL (8.5-10.1)
[2021-12-25] MEDS: MIDODRINE HCL 10 MG TAB PO SCH ×3 (06:00→18:34)
[2021-12-25] MEDS: SUCRALFATE 1 GM/10 ML ORAL SUSP PO SCH ×4 (06:30→22:07)
[2021-12-25] MEDS ORDERED: MIDAZOLAM HCL 5 MG/ML-1ML VIAL ONE (07:18)
[2021-12-25] MEDS ORDERED: LIDOCAINE VISCOUS 2% 15ML UD ONE (07:18)
[2021-12-25] MEDS ORDERED: fentaNYL CITRATE 100 MCG/2 ML VL ONE (07:19)
[2021-12-25] MEDS ORDERED: diphenhdrAMINE HCL 50 MG/1 ML VL ONE (07:19)
[2021-12-25] MEDS: SILDENAFIL CITRATE 20 MG TAB PO SCH ×3 (08:00→20:44)
[2021-12-25] MEDS: PANTOPRAZOLE 40 MG/10 ML VIAL INJ IV SCH ×2 (09:10→22:07)
[2021-12-25] MEDS: ASPirin 81 mg TAB PO SCH (10:00)
[2021-12-25] MEDS: HYDROcodone-ACET 5/325MG TAB PO PRN (19:02)
[2021-12-26 04:50] VITALS: BP 102/59
[2021-12-26] MEDS: MIDODRINE HCL 10 MG TAB PO SCH ×2 (06:38→12:48)
[2021-12-26] MEDS: SUCRALFATE 1 GM/10 ML ORAL SUSP PO SCH ×2 (06:38→12:48)
[2021-12-26 09:00] VITALS: BP 109/67
[2021-12-26] MEDS: ASPirin 81 mg TAB PO SCH (09:45)
[2021-12-26] MEDS: SILDENAFIL CITRATE 20 MG TAB PO SCH (09:45)
[2021-12-26] MEDS: PANTOPRAZOLE 40 MG/10 ML VIAL INJ IV SCH (09:45)
[2021-12-26 13:00] VITALS: BP 95/48
== END 2021-12-26 13:10 | disposition home or self-care (01) | DRG 207 ==
LOC: ER 01:37 → TELE 07:13 → ICU WEST 21:07 → TELE-EAST 12-25 17:41
PROVIDERS: ADMIT Nurse Practitioner Family; ATTEND Internal Medicine
PROC: 0DB68ZX Excision of Stomach, Via Natural or Artificial Opening Endoscopic, Diagnostic (ICD-10-PCS; principal; 2021-12-25 11:30)
DX: I95.2 Hypotension due to drugs (principal); J96.01 Acute respiratory failure with hypoxia; N17.0 Acute kidney failure with tubular necrosis; I27.20 Pulmonary hypertension, unspecified; E88.09 Other disorders of plasma-protein metabolism, not elsewhere classified; K29.70 Gastritis, unspecified, without bleeding; K20.90 Esophagitis, unspecified without bleeding; I50.9 Heart failure, unspecified; I11.0 Hypertensive heart disease with heart failure; Z20.822 Contact with and (suspected) exposure to COVID-19; J98.11 Atelectasis; K74.60 Unspecified cirrhosis of liver; F41.9 Anxiety disorder, unspecified; K21.9 Gastro-esophageal reflux disease without esophagitis; R74.8 Abnormal levels of other serum enzymes; T50.995A Adverse effect of other drugs, medicaments and biological substances, initial encounter; F17.210 Nicotine dependence, cigarettes, uncomplicated; K27.9 Peptic ulcer, site unspecified, unspecified as acute or chronic, without hemorrhage or perforation; Z79.899 Other long term (current) drug therapy; Z80.3 Family history of malignant neoplasm of breast; Y92.89 Other specified places as the place of occurrence of the external cause
CPT/HCPCS: 36415; 43239; 71045; 74177; 80048; 80053; 80074; 81001; 83735; 83880; 84484; 84702; 85025; 85379; 85610; 87081; 87426; 93005; 93306; 93970; 94640; 96361; 96374; 96375; 99291; C9113; G0378; J2250; J2405; J3490

== ENCOUNTER 2023-08-18 13:40 | Emergency (ER) | payer MEDICAID ==
[~2023-08-18] VITALS: Ht 167.6 cm; Wt 98.2 kg
[~2023-08-18 13:40] MED LIST changes: -LISI2.5T47 PO; +LORA-1123 PO; -LORA1TAB23 PO; -METO25TA5 PO; -SPIR25TA PO; -SUCR1SUS10 PO; +SUCR1SUS26 PO
[2023-08-18 13:50] VITALS: BP 137/70; PULSE 90; RESP 18; O2SAT 88
== END 2023-08-18 16:30 | disposition left against medical advice (07) ==
LOC: ER 13:40
DX: R11.2 Nausea with vomiting, unspecified (principal); R19.7 Diarrhea, unspecified; R13.13 Dysphagia, pharyngeal phase; M54.9 Dorsalgia, unspecified; Z53.21 Procedure and treatment not carried out due to patient leaving prior to being seen by health care provider

== ENCOUNTER 2023-09-21 17:36 | Inpatient (IN) | payer MEDICAID ==
[~2023-09-21] VITALS: Ht 167.6 cm; Wt 93.0 kg
[2023-09-21 18:13] LABS: Basophils # (auto) 0.1 10 ^3/uL (0-0.2); Basophils % (auto) 1.1 % (0.0-2.0); Eosinophils # (auto) 0.2 10 ^3/uL (0-0.8); Eosinophils % (auto) 3.8 % (0.0-7.0); Hematocrit 35.2 % (36.0-46.0); Hemoglobin 11.1 g/dL (12.2-16.2); Lymphocytes # (auto) 1.2 10 ^3/uL (0.4-5.4); Lymphocytes % (auto) 22.5 % (10.0-50.0); Mean Corpuscular Hemoglobin 23.3 pg (28.0-32.0); Mean Corpuscular Hgb Conc. 31.4 g/dL (32.0-36.0); Mean Corpuscular Volume 74.2 fL (80.0-100.0); Monocytes # (auto) 0.3 10 ^3/uL (0-1.3); Monocytes % (auto) 5.8 % (0.0-12.0); Neutrophils # (auto) 3.6 10 ^3/uL (1.6-8.6); Neutrophils % (auto) 66.8 % (37.0-80.0); Platelet Count (auto) 409 10^3/uL (140-450); Red Blood Cells 4.75 10^6/uL (4.0-5.20); Red Cell Distribution Width 16.8 % (11.8-14.3); White Blood Cell 5.4 10^3/uL (4.4-10.8)
[2023-09-21 18:28] LABS: Alanine Aminotransferase 18 U/L (7-40); Albumin 4.7 g/dL (3.2-4.8); Alkaline Phosphatase 111 U/L (46-116); Anion Gap 13 (5-15); Aspartate Aminotransferase 17 U/L (13-40); BUN/Creatinine Ratio 16.5 (10.0-20.0); Bilirubin, Total 0.6 mg/dL (0.2-1.0); Blood Urea Nitrogen 22 mg/dL (9-23); Calcium 9.8 mg/dL (8.7-10.4); Carbon Dioxide 18 mmol/L (20-30); Chloride 110 mmol/L (98-107); Glucose 109 mg/dL (74-106); Magnesium 1.6 mg/dL (1.6-2.6); Potassium 4.8 mmol/L (3.5-5.1); Sodium 141 mmol/L (136-145); Total Protein 7.1 g/dL (5.7-8.2)
[2023-09-21] MEDS: ONDANSETRON ODT 4 MG TAB PO ONE (20:22)
[2023-09-21] MEDS: MORPHINE SULFATE 4 MG/ML SYR/VIAL IM ONE (20:45)
[2023-09-21 20:46] VITALS: PULSE 67; RESP 16; O2SAT 96
[2023-09-21] MEDS ORDERED: MORPHINE SULFATE INJ 2 MG/ml SYRG IV PRN (22:15)
[2023-09-21] MEDS ORDERED: NITROGLYCERIN 0.4 MG SL TAB SL PRN (22:15)
[2023-09-21] MEDS ORDERED: ONDANSETRON HCL 4 MG/2 ML VIAL IV PRN (22:15)
[2023-09-22] VITALS (12 sets, daily range): BP systolic 104–115; BP diastolic 52–73; PULSE 60–129; RESP 16–22; TEMP 97.5–98.5; O2SAT 91–99
[2023-09-22 02:19] LABS: Urine Bacteria FEW /hpf (None Seen); Urine Blood Negative /uL (Negative); Urine Clarity Clear (Clear); Urine Color Light-Yellow (Yellow); Urine Mucus FEW (None Seen); Urine Protein, UAD TRACE (Negative); Urine Urobilinogen Normal (Negative); Urine WBC 2 /hpf (0 - 5)
[2023-09-22 02:27] LABS: Urine Specific Gravity > 1.050 (1.001-1.035)
[2023-09-22 05:37] LABS: Chloride 110 mmol/L (98-107); Sodium 137 mmol/L (136-145)
[2023-09-22 05:38] LABS: Anion Gap 6 (5-15); Calcium 9.5 mg/dL (8.7-10.4); Carbon Dioxide 21 mmol/L (20-30)
[2023-09-22 05:43] LABS: BUN/Creatinine Ratio 17.2 (10.0-20.0); Blood Urea Nitrogen 21 mg/dL (9-23); Glucose 75 mg/dL (74-106)
[2023-09-22] MEDS: FUROSEMIDE 20 MG/2 ML VIAL IV SCH (05:44)
[2023-09-22 05:49] LABS: Potassium 6.7 mmol/L (3.5-5.1)
[2023-09-22] MEDS: IOHEXOL 350 MG/ML 100ML IJ ONE (06:04)
[2023-09-22] MEDS: IOHEXOL 300 MG/ML 100ML BOTTLE IJ ONE (06:04)
[2023-09-22] MEDS: SILDENAFIL CITRATE 20 MG TAB PO SCH (08:00)
[2023-09-22] MEDS: ALBUTEROL SULF 2.5 MG/0.5ML(0.5%) NEB SOLN NEB ONE ×2 (10:08→12:34)
[2023-09-22] MEDS: SPIRONOLACTONE 25 MG TAB PO SCH (10:16)
[2023-09-22] MEDS: ENOXAPARIN SOD 40 MG/0.4 ML SYRINGE SC SCH (10:18)
[2023-09-22] MEDS: InsuLIN REG 1unit/0.01ml Soln (100units/ml) IV ONE ×2 (10:26→12:00)
[2023-09-22] MEDS: CALCIUM GLUC 1,000mg/50ml-NS 50 ML IV ONE (10:27)
[2023-09-22] MEDS: DEXTROSE (50%) 50ML SYRG IV ONE ×2 (10:31→12:00)
[2023-09-22] MEDS: SODIUM BICARB 8.4% 50Meq/50ml SYR INJ IV ONE ×2 (10:32→12:00)
[2023-09-22] MEDS: DEXTROSE 50% SYRINGE 50 ML IV ONE (10:40)
[2023-09-22] MEDS: METOPROLOL TARTRATE 25 MG TAB PO SCH (10:41)
[2023-09-22] MEDS: FUROSEMIDE 20 MG/2 ML VIAL IV ONE (10:41)
[2023-09-22] MEDS: SODIUM ZIRCONIUM CYCL 10 GM PAK PO ONE (12:00)
[2023-09-22 19:26] LABS: Anion Gap 10 (5-15); Carbon Dioxide 22 mmol/L (20-30); Chloride 108 mmol/L (98-107); Potassium 4.5 mmol/L (3.5-5.1); Sodium 140 mmol/L (136-145)
[2023-09-22 19:27] LABS: Calcium 9.7 mg/dL (8.7-10.4)
[2023-09-22 19:32] LABS: BUN/Creatinine Ratio 20.8 (10.0-20.0); Blood Urea Nitrogen 25 mg/dL (9-23); Glucose 92 mg/dL (74-106)
[2023-09-22] MEDS ORDERED: SPIR50TA5 PO (21:35)
[2023-09-22] MEDS ORDERED: ALLO300T2 PO (21:35)
[2023-09-22] MEDS ORDERED: FURO40TA4 PO (21:35)
[2023-09-22] MEDS ORDERED: MACI1TAB2 PO (21:35)
[2023-09-22] MEDS ORDERED: SODI650T PO (21:35)
[2023-09-22] MEDS ORDERED: METO25TA93 PO (21:35)
[2023-09-22] MEDS ORDERED: POTA-211 PO (21:35)
[2023-09-22] MEDS ORDERED: METO2.5T PO (21:35)
[2023-09-22] MEDS ORDERED: ATOR-47 PO (21:35)
[2023-09-22] MEDS: ACETAMINOPHEN 325 MG TAB PO PRN (23:10)
[2023-09-22] MEDS: ATORVASTATIN 20 MG TAB PO SCH (23:10)
[2023-09-23] VITALS (13 sets, daily range): BP systolic 97–125; BP diastolic 44–62; PULSE 16–107; RESP 16–20; TEMP 97.7–98.6; O2SAT 93–98
[2023-09-23] MEDS: TEMAZEPAM 15 MG CAP PO PRN (00:56)
[2023-09-23] MEDS: ALBUTEROL SULF 2.5 MG/0.5ML(0.5%) NEB SOLN NEB PRN (19:36)
[2023-09-23] MEDS: HYDROcodone-ACET 5/325MG TAB PO PRN (23:33)
[2023-09-24] VITALS (8 sets, daily range): BP systolic 90–158; BP diastolic 44–106; PULSE 62–90; RESP 16–20; TEMP 36.7; O2SAT 92–100
== END 2023-09-24 14:30 | disposition home or self-care (01) | DRG 207 ==
LOC: EDBD 17:36 → ER 17:36 → TELE 22:20 → TELE-WESTW 09-22 20:52
PROVIDERS: ADMIT Nurse Practitioner; ATTEND Family Medicine
DX: I27.20 Pulmonary hypertension, unspecified (principal); I11.0 Hypertensive heart disease with heart failure; I50.32 Chronic diastolic (congestive) heart failure; E87.5 Hyperkalemia; F41.9 Anxiety disorder, unspecified; K21.9 Gastro-esophageal reflux disease without esophagitis; F17.210 Nicotine dependence, cigarettes, uncomplicated; Z79.1 Long term (current) use of non-steroidal anti-inflammatories (NSAID); Z79.899 Other long term (current) drug therapy; Z80.3 Family history of malignant neoplasm of breast
CPT/HCPCS: 36415; 71275; 80048; 80053; 81001; 83735; 83880; 84132; 84484; 85025; 85379; 93005; 93306; 93970; 94640; 96372; G0378; J1815; Q0162

== ENCOUNTER 2024-02-01 21:18 | Inpatient (IN) | payer MEDICAID ==
[~2024-02-01] VITALS: Ht 167.6 cm; Wt 99.3 kg
[~2024-02-01 21:18] MED LIST changes: +ALBU108A5 IN; +ALLO300T2 PO; +ASPI1CHW5 PO; +ATOR-47 PO; +DOCU-265 PO; +FURO40TA4 PO; +LISI20TA56 PO; +LORA-1121 PO; +MACI1TAB2 PO; +METO2.5T PO; +METO25TA93 PO; +MID10T PO; +PANT40TA2 PO; +POTA-211 PO; -POTA-220 PO; +POTA-228 PO; +SERT-206 PO; +SILD20TA PO; +SODI650T PO; +SPIR50TA5 PO; -SUCR1SUS26 PO; +TORS20TA20 PO; +ZOLP10TA PO
--- NOTE | 2024-02-01 21:43 | ED.PDOC ---
History of Present Illness HPI Comments 53 y/o F, with a Hx of anxiety, ANGEL, CHF, GERD, pulmonary artery hypertension, sleep apnea, obesity, and tobacco and methamphetamine abuse, is BIBA for c/o generalized weakness for 1x day, today. Per EMS report, patient's family called on patient being found lethargic, today, after complaining of weakness since yesterday. EMS comments on patient being difficult to arouse on scene. At time of assessment, patient also reports having "difficulty swallowing," nausea, and unprovoked LUQ abdominal pain that radiates to her back and is worse with movement for the past 2x weeks. Patient reports no sick contact at home along with any additional relevant or pertinent recent Hx. She denies having any chest pain, shortness of breath, or other associated symptoms or modifiers at this time. Time Seen by MD: 21:25 Primary Care Provider: RAUL Reviewed Notes: Nurses Notes, Hammer Driver Notes, Medications, Allergies Allergies: Coded Allergies: NO KNOWN ALLERGIES (Unverified , 12/20/18) Home Meds Active Scripts Midodrine HCl (Midodrine HCl) 10 Mg Tab, 10 MG PO TID@0600,1200,1800 for 30 Days, #90 TAB 11 Refills Prov:RADHA CARTYMY Niles DO 02/07/23 Sildenafil Citrate (Revatio) 20 Mg Tab, 20 MG PO TID for 30 Days, #90 TAB 11 Refills Prov:GEMINI CARTY DO 02/07/23 Omeprazole (Gnp Omeprazole) 20 Mg Tab, 1 TAB PO DAILY, #90 TAB 1 Refill Prov:DEVENDRA ALCOCER MD 09/07/21 Reported Medications Albuterol Sulfate (Albuterol Sulfate Hfa) 108 Mcg/Act Aer, 2 PUFF IN QID PRN for 25 Days, #18 11/17/23 Torsemide (Torsemide) 20 Mg Tab, 1 TAB PO BID for 30 Days, #60 11/17/23 Spironolactone (Spironolactone) 50 Mg Tab, 1 TAB PO DAILY for 90 Days, #90 11/17/23 Zolpidem Tartrate (Ambien) 10 Mg Tab, 1 TAB PO HS PRN for 10 Days, #10 11/17/23 Macitentan (Opsumit) 10 Mg Tab, 10 MG PO DAILY, TAB 09/22/23 Atorvastatin Calcium (ATORVASTATIN CALCIUM) 80 Mg Tab, 1 TAB PO HS 09/22/23 Potassium Chloride (Klor-Con 10) 10 Meq Tab, 1 TAB PO BID 09/22/23 Furosemide (Furosemide) 40 Mg Tab, 40 MG PO BID, TAB 09/22/23 Metoprolol Succinate (Metoprolol Succinate Er) 25 Mg Tab, 1 TAB PO BID 09/22/23 Allopurinol (Allopurinol) 300 Mg Tab, 1 TAB PO DAILY 09/22/23 Spironolactone (Spironolactone) 50 Mg Tab, 25 MG PO DAILY 09/22/23 Sodium Bicarbonate (Sodium Bicarbonate) 650 Mg Tab, 650 MG PO DAILY, TAB 09/22/23 Metolazone (Metolazone) 2.5 Mg Tab, 1 TAB PO TAKE 1 TAB EVERY OTHER DAY. 09/22/23 Potassium Chloride (Potassium Chloride ER) 10 Meq Tab, 1 TAB PO EOD for 90 Days, #90 07/21/23 Allopurinol (Allopurinol) 300 Mg Tab, 1 TAB PO DAILY 05/09/23 Metoprolol Succinate (Metoprolol Succinate Er) 25 Mg Tab, 1 TAB PO BID for 60 Days, #30 05/09/23 Lorazepam (ATIVAN TABLET) 0.5 Mg Tb, 0.5 TAB PO DAILYPRN PRN for ANXIETY 05/08/23 Atorvastatin Calcium (ATORVASTATIN CALCIUM) 80 Mg Tab, 1 TAB PO DAILY, #30 TAB 5 Refills 05/07/23 Sodium Bicarbonate (Sodium Bicarbonate) 650 Mg Tab, 650 MG PO DAILY, TAB 05/07/23 Metolazone (Metolazone) 2.5 Mg Tab, 1 TAB PO EOD for 60 Days, #30 05/07/23 Macitentan (Opsumit) 10 Mg Tab, 10 MG PO DAILY, TAB 09/28/22 Sildenafil Citrate (SILDENAFIL CITRATE) 20 Mg Tab, 20 MG PO TID, TAB 08/22/19 Lorazepam (Lorazepam) 1 Mg Tab, 1 TAB PO [id number] PRN for ANXIETY, #10 TAB 12/20/18 Information Source: Patient, Emergency Med Personnel Mode of Arrival: EMS Severity: Moderate Timing: Days Duration: Since onset Prehospital treatment: 12 Lead EKG, 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 Service Licensee Past Medical History PAST MEDICAL HISTORY: Anxiety, CHF, GERD, HTN (pulmonary artery hypertension) Past Medical History (Other): sleep apnea, ANGEL, home O2 use Surgical History: Denies all surgeries AIR ROUTE CONTROLLER History: Denies all AIR ROUTE CONTROLLER Hx Family History Family History: Family hx of Cancer Social History Smoker: Cigarettes Alcohol: Rarely Drugs: Methamphetamine Lives In: Home EENTM: reports: others (difficulty swallowing ) Gastrointestinal: reports: abdominal pain, nausea Neurological: reports: weakness Musculoskeletal: reports: back pain All Other Systems: Reviewed and Negative (negative unless otherwise stated above or in HPI) Physical Exam General Appearance: No Apparent Distress, Obese, Other (tired appearing) HEENT: Normal ENT Inspection, Pharynx Normal, TMs Normal Neck: Full Range of Motion, Non-Tender, Normal, Normal Inspection Respiratory: Chest Non-Tender, No Accessory Muscle Use, Other (tachypneic) Cardiovascular: No Edema, No JVD, No Murmur, No Gallop, Normal Peripheral Pulses, Regular Rate/Rhythm Breast Exam: Deferred Gastrointestinal: No Organomegaly, Non Tender, No Pulsatile Mass, Normal Bowel Sounds, Soft Genitalia: Deferred Pelvic: Deferred Rectal: Deferred Extremities: No calf tenderness, Normal capillary refill, Normal inspection, Normal range of motion, Non-tender, No pedal edema Musculoskeletal : Apperance: Normal Neurologic: Alert, deputy sheriff k9 handler II-XII nml as Tested, No Motor Deficits, Normal Affect, Normal Mood, No Sensory Deficits Cerebellar Function: Normal Reflexes: Normal Skin: Dry, Normal Color, Warm Lymphatic: No Adenopathy Was a procedure done? Was a procedure done?: No Differential Dx Considerations may include: viral syndrome, electrolyte imbalance, encephalopathy, dehydration, PNA, pleural effusions X-Ray, Labs, Meds, VS Vital Signs Date Time Temp Pulse Resp B/P (MAP) Pulse Ox O2 Delivery O2 Flow Rate FiO2 02/01/24 22:17 98.2 65 23 105/52 (69) 96 98.2 02/01/24 22:10 Nasal Cannula* 3 32 02/01/24 21:38 99.0 70 26 100/64 (76) 97 02/01/24 21:20 71 Lab Test 02/01/24 22:40 Range/Units White Blood Count 5.9 4.4-10.8 10^3/uL Red Blood Count 4.33 4.0-5.20 10^6/uL Hemoglobin 9.9 L 12.2-16.2 g/dL Hematocrit 32.7 L 36.0-46.0 % Mean Corpuscular Volume 75.5 L 80.0-100.0 fL Mean Corpuscular Hemoglobin 22.8 L 28.0-32.0 pg Mean Corpuscular Hemoglobin Concent 30.2 L 32.0-36.0 g/dL Red Cell Distribution Width 20.6 H 11.8-14.3 % Platelet Count 279 140-450 10^3/uL Mean Platelet Volume 8.0 6.9-10.8 fL Neutrophils (%) (Auto) 58.6 37.0-80.0 % Lymphocytes (%) (Auto) 21.6 10.0-50.0 % Monocytes (%) (Auto) 11.5 0.0-12.0 % Eosinophils (%) (Auto) 7.1 H 0.0-7.0 % Basophils (%) (Auto) 1.2 0.0-2.0 % Neutrophils # (Auto) 3.4 1.6-8.6 10 ^3/uL Lymphocytes # (Auto) 1.3 0.4-5.4 10 ^3/uL Monocytes # (Auto) 0.7 0-1.3 10 ^3/uL Eosinophils # (Auto) 0.4 0-0.8 10 ^3/uL Basophils # (Auto) 0.1 0-0.2 10 ^3/uL Nucleated Red Blood Cells 0.3 % Sodium Level 139 136-145 mmol/L Potassium Level 5.7 *H 3.5-5.1 mmol/L Chloride Level 113 H 98-107 mmol/L Carbon Dioxide Level 18 L 20-31 mmol/L Anion Gap 8 5-15 Blood Urea Nitrogen 31 H 9-23 mg/dL Creatinine 1.40 H 0.550-1.02 mg/dL Glomerular Filtration Rate Calc 46 >90 mL/min BUN/Creatinine Ratio 22.1 H 10.0-20.0 Serum Glucose 99 74-106 mg/dL Calcium Level 8.1 L 8.7-10.4 mg/dL Total Bilirubin 0.2 0.2-1.0 mg/dL Aspartate Amino Transferase (AST) 19 13-40 U/L Alanine Aminotransferase (ALT) 14 7-40 U/L Alkaline Phosphatase 101 46-116 U/L Troponin I High Sensitivity 3 L </=34 ng/L B-Type Natriuretic Peptide 90.65 0-100 pg/mL Total Protein 6.8 5.7-8.2 g/dL Albumin 4.5 3.2-4.8 g/dL Time of 1ST Reevaluation: 21:55 Reevaluation 1ST: Unchanged Patient Education/Counseling: Diagnosis, Treatment Family Education/Counseling: No Family Present Additional Information - I reviewed the following notes from patient's past medical encounters: hospital admission discharge summary report on 11/19/23 - The following tests were ordered, and results were reviewed by me: drug screen, troponin, urinalysis, CMP, CBC, BNP, EKG, CXR, CT head w/o contrast - Additional information was gathered from interviewing the following independent Historian: EMT - I reviewed and agreed with the following test results read by other provider: CXR, CT head w/o contrast - I discussed treatments and results with medical personnel Departure 1 Departure Time of Disposition: 00:47 (Patient presented with near syncope today and should be admitted. Data: 1. I ordered and reviewed the result of at least 3 labs including a CBC, BMP, and troponin. 2. I independently interpreted the following tests: EKG which shows a sinus arrhythmia and a chest x-ray which shows benign chest _ and a CT head which shows benign brain.Risk:This patient has a high risk of morbidity due to further diagnostic testing or treatment and may suffer from an acute cardiac, neurologic, or infectious disorder. Patient found to be hyperkalemic. Initiated hyperkalemia protocol. Rationale: Patient should be admitted to the hospital for further management.) Impression: Primary Impression: Hyperkalemia Additional Impressions: Near syncope Generalized weakness Disposition: ADMITTED INPATIENT Admit to: Med Surg Condition: Serious Critical Care Note Critical Care Time?: Yes Critical care comment: Hyperkalemic Authorized and Performed by: Tracie Brito MD Total critical care time: Approximately 36 minutes Due to a high probability of clinically significant, life threatening deterioration, the patient required my highest level of preparedness to intervene emergently and I personally spent this critical care time directly and personally managing the patient. This critical care time included obtaining a history; examining the patient; pulse oximetry; ordering and review of studies; arranging urgent treatment with development of a management plan; evaluation of patient's response to treatment; frequent reassessment; and, discussions with other providers. This critical care time was performed to assess and manage the high probability of imminent, life-threatening deterioration that could result in multi-organ failure. It was exclusive of separately billable procedures and treating other patients and teaching time. Please see my other sections and the rest of the note for further information on patient assessment and treatment. Stability Stability form required: No Heart Score Heart Score: Heart Score Response (Comments) Value History N/A 0 EKG N/A 0 Age N/A 0 Risk Factors N/A 0 Troponin N/A 0 Total 0 I personally scribed for TRACIE BRITO MD ([email or web address]) on 02/01/24 at 21:43. Electronically submitted by Marck Staples ([email or web address]). I personally scribed for TRACIE BRITO MD ([email or web address]) on 02/01/24 at 22:03. Electronically submitted by Marck Staples ([email or web address]). TRACIE BRITO MD Feb 01, 2024 21:43
--- NOTE | 2024-02-01 22:26 | DVH ---
EXAM: CT HEAD WITHOUT CONTRAST INDICATION: weakness TECHNIQUE: CT of the head without intravenous contrast. Radiation Dose Information: CT Dose: CTDI volume is 56.84 mGy. Dose-length product is 1544.05 mGy*cm The dose indicators for CT are the volume Computed Tomography (CT) Dose Index (CTDIvol) and the Dose Length Product (DLP), and are measured in units of mGy and mGy-cm, respectively. These indicators are not patient dose, but values generated from the CT scanner acquisition factors. The report includes radiation exposure data for exposures received during this examination. COMPARISON: CT ABD PELVIS WO CONTRAST on DOS: 09/06/21 FINDINGS: There is no evidence of acute intracranial hemorrhage, extra-axial collection, mass effect, midline s hift, herniation or hydrocephalus. The ventricles, sulci and cisterns are age appropriate. The granado-white differentiation is intact. Patchy periventricular and subcortical white matter hypoattenuation is nonspecific but may be related to small vessel ischemic disease. The visualized paranasal sinuses and mastoid air cells are clear. The surrounding soft tissues and osseous structures are unremarkable. IMPRESSION: 1. No acute intracranial hemorrhage. 2. No CT findings of territorial ischemia.
--- NOTE | 2024-02-01 22:43 | DVH ---
EXAM: XY CHEST PORTABLE CLINICAL HISTORY: weakness TECHNIQUE: Single AP view of the chest WID: COMPARISON: CHEST PORTABLE on DOS: 12/20/21, FINDINGS: Lines and tubes: None Chest: Mild cardiomegaly and prominence of the central pulmonary vasculature. No pleural effusion, pneumothorax, or consolidation. The osseous structures are grossly intact. IMPRESSION: Mild cardiomegaly with very mild prominence of the central pulmonary vasculature.
[2024-02-01 22:58] LABS: Basophils # (auto) 0.1 10 ^3/uL (0-0.2); Basophils % (auto) 1.2 % (0.0-2.0); Hematocrit 32.7 % (36.0-46.0); Hemoglobin 9.9 g/dL (12.2-16.2); Lymphocytes # (auto) 1.3 10 ^3/uL (0.4-5.4); Monocytes # (auto) 0.7 10 ^3/uL (0-1.3); Nucleated Red Blood Cells % 0.3 %
[2024-02-01 23:00] LABS: Eosinophils # (auto) 0.4 10 ^3/uL (0-0.8); Eosinophils % (auto) 7.1 % (0.0-7.0); Lymphocytes % (auto) 21.6 % (10.0-50.0); Mean Corpuscular Hemoglobin 22.8 pg (28.0-32.0); Mean Corpuscular Hgb Conc. 30.2 g/dL (32.0-36.0); Mean Corpuscular Volume 75.5 fL (80.0-100.0); Monocytes % (auto) 11.5 % (0.0-12.0); Neutrophils # (auto) 3.4 10 ^3/uL (1.6-8.6); Neutrophils % (auto) 58.6 % (37.0-80.0); Platelet Count (auto) 279 10^3/uL (140-450); Red Blood Cells 4.33 10^6/uL (4.0-5.20); Red Cell Distribution Width 20.6 % (11.8-14.3); White Blood Cell 5.9 10^3/uL (4.4-10.8)
[2024-02-01 23:26] LABS: Alanine Aminotransferase 14 U/L (7-40); Alkaline Phosphatase 101 U/L (46-116); Anion Gap 8 (5-15); BUN/Creatinine Ratio 22.1 (10.0-20.0); Glucose 99 mg/dL (74-106); Sodium 139 mmol/L (136-145)
[2024-02-01 23:27] LABS: Albumin 4.5 g/dL (3.2-4.8); Aspartate Aminotransferase 19 U/L (13-40); Total Protein 6.8 g/dL (5.7-8.2)
[2024-02-02 00:06] LABS: Bilirubin, Total 0.2 mg/dL (0.2-1.0); Blood Urea Nitrogen 31 mg/dL (9-23); Calcium 8.1 mg/dL (8.7-10.4); Carbon Dioxide 18 mmol/L (20-31); Chloride 113 mmol/L (98-107)
[2024-02-02 00:10] LABS: Potassium 5.7 mmol/L (3.5-5.1)
[2024-02-02] MEDS: CLOPIDOGREL BISULFATE 75 MG TAB PO ONE (01:15)
[2024-02-02] MEDS ORDERED: MORPHINE SULFATE INJ 2 MG/ml SYRG IV PRN (01:15)
[2024-02-02] MEDS ORDERED: NITROGLYCERIN 0.4 MG SL TAB SL PRN (01:15)
--- NOTE | 2024-02-02 01:19 | DVHHPRES ---
History of Present Illness Resident Creating Document: DAVIS MATHEWS RESIDENT History of Present Illness This is a 53-year-old female with past medical history of anxiety, ANGEL, CHF, pulmonary artery hypertension, GERD, methamphetamine abuse brought to the ED via EMS with a complaint of generalized weakness for 1 day prior to this admission. Per EMS patient was being found lethargic and difficult to arouse. Very limited history as patient is lethargic and, difficult to arouse and complaining of chest pain which is sharp in nature, continuous, 7/10 ,localized and associated with shortness of breath, dizziness and dry cough . The patient denies headache, abdominal pain, nausea, vomiting, dysuria, hematuria, sick contact or any change in bowel habit. Past Medical History Anxiety, ANGEL, CHF, pulmonary artery hypertension, GERD, methamphetamine abuse Past Surgical History None Family History None Past Social History Lives alone Smoker, occasional drinker and methamphetamine abuse disorder Review of Systems Constitutional: Yes: Weakness; No: Fever, Chills, Sweats, Malaise, Other Eyes: No: Pain, Vision change, Conjunctivae inflammation, Eyelid inflammation, Other, Redness ENT: No: Ear pain, Ear discharge, Nose pain, Nose discharge, Nose congestion, Mouth pain, Mouth swelling, Throat pain, Throat swelling, Other Respiratory: Shortness of breath; No: Cough, Dry, SOB with excertion, Wheezing, Hemoptysis, Pleuritic Pain, Sputum, Wheezing, Other Cardiovascular: Chest Pain, Lt Headedness; No: Palpitations, Orthopnea, Paroxysmal Noc. Dyspnea, Edema, Other Gastrointestinal: No: Nausea, Vomiting, Abdominal Pain, Diarrhea, Constipation, Melena, Hematochezia, Other Genitourinary: No Dysuria, No Frequency, No Incontinence, No Hematuria, No Retention, No Other Musculoskeletal: No: other, neck pain, shoulder pain, arm pain, back pain, hand pain, leg pain, foot pain Skin: No: Rash, Lesions, Jaundice, Bruising, Other Neurological: No: Weakness, Numbness, Incoordination, Change in speech, C onfusion, Seizures, Other Allergies: Coded Allergies: NO KNOWN ALLERGIES (Unverified , 12/20/18) Medications Current Medications Medications Dose Ordered Sig/Agnes Route Start Time Stop Time Status Last Admin Dose Admin Calcium Gluconate/ Sodium Chloride 50 ml @ 100 mls/hr Q30M IV 02/02/24 01:00 02/02/24 01:59 Morphine Sulfate 2 mg Q30M PRN IV 02/02/24 01:15 UNV Nitroglycerin 0.4 mg Q5MINP PRN SL 02/02/24 01:15 UNV Furosemide 40 mg DAILY IV 02/02/24 10:00 UNV Aspirin 81 mg DAILY PO 02/02/24 10:00 UNV Atorvastatin Calcium 80 mg HS PO 02/02/24 22:00 UNV Exam Vital Signs Vital Signs Date Time Temp Pulse Resp B/P (MAP) Pulse Ox O2 Delivery O2 Flow Rate FiO2 02/01/24 22:17 98.2 65 23 105/52 (69) 96 98.2 02/01/24 22:10 Nasal Cannula* 3 32 Exam Physical examination: General Appearance: Alert, Oriented X3, Cooperative, mild distress HEENT: Atraumatic, PERRLA, EOMI, Mucous membrane moist/pink Respiratory: Congested chest, bilateral crackles Cardiovascular: Regular rate, Normal S1, Normal S2, No murmurs, no chest wall tenderness Abdominal: Normal bowel sounds, Soft, No tenderness, No hepatospenomegaly, No masses Extremities: No clubbing, No cyanosis, No edema, Normal pulses, No tenderness/swelling Skin: No rashes, No breakdown, No significant lesion Neuro: Normal speech, Strength at 5/5 X4 ext, Normal tone, Sensation intact, grossly intact cranial nerves Psych/Mental Status: Mental status NL, Mood NL Labs/Xrays Labs Test 02/02/24 00:45 02/01/24 22:40 Range/Units White Blood Count 5.9 4.4-10.8 10^3/uL Red Blood Count 4.33 4.0-5.20 10^6/uL Hemoglobin 9.9 L 12.2-16.2 g/dL Hematocrit 32.7 L 36.0-46.0 % Mean Corpuscular Volume 75.5 L 80.0-100.0 fL Mean Corpuscular Hemoglobin 22.8 L 28.0-32.0 pg Mean Corpuscular Hemoglobin Concent 30.2 L 32.0-36.0 g/dL Red Cell Distribution Width 20.6 H 11.8-14.3 % Platelet Count 279 140-450 10^3/uL Mean Platelet Volume 8.0 6.9-10.8 fL Neutrophils (%) (Auto) 58.6 37.0-80.0 % Lymphocytes (%) (Auto) 21.6 10.0-50.0 % Monocytes (%) (Auto) 11.5 0.0-12.0 % Eosinophils (%) (Auto) 7.1 H 0.0-7.0 % Basophils (%) (Auto) 1.2 0.0-2.0 % Neutrophils # (Auto) 3.4 1.6-8.6 10 ^3/uL Lymphocytes # (Auto) 1.3 0.4-5.4 10 ^3/uL Monocytes # (Auto) 0.7 0-1.3 10 ^3/uL Eosinophils # (Auto) 0.4 0-0.8 10 ^3/uL Basophils # (Auto) 0.1 0-0.2 10 ^3/uL Nucleated Red Blood Cells 0.3 % Sodium Level 139 136-145 mmol/L Potassium Level 5.7 *H 3.5-5.1 mmol/L Chloride Level 113 H 98-107 mmol/L Carbon Dioxide Level 18 L 20-31 mmol/L Anion Gap 8 5-15 Blood Urea Nitrogen 31 H 9-23 mg/dL Creatinine 1.40 H 0.550-1.02 mg/dL Glomerular Filtration Rate Calc 46 >90 mL/min BUN/Creatinine Ratio 22.1 H 10.0-20.0 Serum Glucose 99 74-106 mg/dL Calcium Level 8.1 L 8.7-10.4 mg/dL Total Bilirubin 0.2 0.2-1.0 mg/dL Aspartate Amino Transferase (AST) 19 13-40 U/L Alanine Aminotransferase (ALT) 14 7-40 U/L Alkaline Phosphatase 101 46-116 U/L B-Type Natriuretic Peptide 90.65 0-100 pg/mL Total Protein 6.8 5.7-8.2 g/dL Albumin 4.5 3.2-4.8 g/dL Assessment/Plan Assessment/Plan Assessment and plan: # Chest pain rule out ACS - Admitted the patient in telemetry - EKG and troponins were unremarkable - Echo on 10/01 revealed ejection fraction 65% and RVSP 41 mm Hg - Patient was loaded with aspirin 325 mg and clopidogrel 300 mg - Aspirin 81 mg p.o. daily and atorvastatin 80 mg p.o. at HS - Consulted cardiology # Hyperkalemia - Hyperkalemia protocol management - Lokelma 10 mg p.o. once and TID - Monitor BMP # Chronic respiratory failure due to chronic diastolic heart failure - Patient is on 3 L oxygen saturation with saturation 97% # Chronic diastolic heart failure secondary to drug-induced cardiomyopathy - Lasix IV 40 mg daily - Hold spironolactone due to hyperkalemia - Hold metoprolol due to bradycardia # Chronic iron deficiency anemia likely due to CKD - Iron panel revealed low iron, high TIBC and low saturation - IV iron infusion daily. # ANGEL on CKD likely secondary to hemodynamically mediated/VMN - Monitor BMP # Nicotine dependence and methamphetamine abuse disorder - Counseled patient regarding quit smoking, methamphetamine abuse and rehabilitation # PUD prophylaxis - Protonix 40 mg po daily # DVT prophylaxis - Lovenox 40 mg sc daily. Goal of care discussed with the patient for more than 20 minutes full code Plan of treatment discussed with Dr. Beckham Plan discussed with: Patient, Other My Orders Orders - DAVIS MATHEWS Procedure Category Date Status Time Admit ADMIT 02/02/24 Transmitted 01:09 Morphine Sulfate PHA 02/02/24 Logged Injection 01:15 [employer] For MOLLY 02/02/24 In Process 24 Hours 01:09 Nitroglycerin PHA 02/02/24 Logged Sublingual (Ntrostat 01:15 Abdomen Complete US 02/02/24 Logged Sonogram 01:09 Furosemide Injection PHA 02/02/24 Logged (Lasix Injection) 10:00 Aspirin Enteric PHA 02/02/24 Logged Coated Tablet 01:15 Clopidogrel Bisulfate PHA 02/02/24 Logged (Plavix) 01:15 Aspirin Enteric PHA 02/02/24 Logged Coated Tablet 10:00 Atorvastatin (Lipitor) PHA 02/02/24 Logged 22:00 Magnesium LAB 02/02/24 Logged 01:09 Date of Service: Feb 02, 2024 Billing Provider: LIAN BECKHAM MD Common Visit Codes: 56921-[id number] INP/OBS CARE (HIGH), 11364-UXY/OBS DISCH DAY >30min DAVIS MATHEWS Feb 02, 2024 01:19 LIAN BECKHAM MD Feb 02, 2024 11:19
--- NOTE | 2024-02-02 01:26 | DVHHPRES ---
History of Present Illness Resident Creating Document: DAVIS MATHEWS RESIDENT Review of Systems Allergies: Coded Allergies: NO KNOWN ALLERGIES (Unverified , 12/20/18) Medications Current Medications Medications Dose Ordered Sig/Agnes Route Start Time Stop Time Status Last Admin Dose Admin Calcium Gluconate/ Sodium Chloride 50 ml @ 100 mls/hr Q30M IV 02/02/24 01:00 02/02/24 01:59 Morphine Sulfate 2 mg Q30M PRN IV 02/02/24 01:15 UNV Nitroglycerin 0.4 mg Q5MINP PRN SL 02/02/24 01:15 UNV Furosemide 40 mg DAILY IV 02/02/24 10:00 UNV Aspirin 81 mg DAILY PO 02/02/24 10:00 UNV Atorvastatin Calcium 80 mg HS PO 02/02/24 22:00 UNV Exam Vital Signs Vital Signs Date Time Temp Pulse Resp B/P (MAP) Pulse Ox O2 Delivery O2 Flow Rate FiO2 02/01/24 22:17 98.2 65 23 105/52 (69) 96 98.2 02/01/24 22:10 Nasal Cannula* 3 32 Labs/Xrays Labs Test 02/02/24 00:45 02/01/24 22:40 Range/Units White Blood Count 5.9 4.4-10.8 10^3/uL Red Blood Count 4.33 4.0-5.20 10^6/uL Hemoglobin 9.9 L 12.2-16.2 g/dL Hematocrit 32.7 L 36.0-46.0 % Mean Corpuscular Volume 75.5 L 80.0-100.0 fL Mean Corpuscular Hemoglobin 22.8 L 28.0-32.0 pg Mean Corpuscular Hemoglobin Concent 30.2 L 32.0-36.0 g/dL Red Cell Distribution Width 20.6 H 11.8-14.3 % Platelet Count 279 140-450 10^3/uL Mean Platelet Volume 8.0 6.9-10.8 fL Neutrophils (%) (Auto) 58.6 37.0-80.0 % Lymphocytes (%) (Auto) 21.6 10.0-50.0 % Monocytes (%) (Auto) 11.5 0.0-12.0 % Eosinophils (%) (Auto) 7.1 H 0.0-7.0 % Basophils (%) (Auto) 1.2 0.0-2.0 % Neutrophils # (Auto) 3.4 1.6-8.6 10 ^3/uL Lymphocytes # (Auto) 1.3 0.4-5.4 10 ^3/uL Monocytes # (Auto) 0.7 0-1.3 10 ^3/uL Eosinophils # (Auto) 0.4 0-0.8 10 ^3/uL Basophils # (Auto) 0.1 0-0.2 10 ^3/uL Nucleated Red Blood Cells 0.3 % Sodium Level 139 136-145 mmol/L Potassium Level 5.7 *H 3.5-5.1 mmol/L Chloride Level 113 H 98-107 mmol/L Carbon Dioxide Level 18 L 20-31 mmol/L Anion Gap 8 5-15 Blood Urea Nitrogen 31 H 9-23 mg/dL Creatinine 1.40 H 0.550-1.02 mg/dL Glomerular Filtration Rate Calc 46 >90 mL/min BUN/Creatinine Ratio 22.1 H 10.0-20.0 Serum Glucose 99 74-106 mg/dL Calcium Level 8.1 L 8.7-10.4 mg/dL Total Bilirubin 0.2 0.2-1.0 mg/dL Aspartate Amino Transferase (AST) 19 13-40 U/L Alanine Aminotransferase (ALT) 14 7-40 U/L Alkaline Phosphatase 101 46-116 U/L B-Type Natriuretic Peptide 90.65 0-100 pg/mL Total Protein 6.8 5.7-8.2 g/dL Albumin 4.5 3.2-4.8 g/dL Assessment/Plan My Orders Orders - DAVIS MATHEWS RESIDENT Procedure Category Date Status Time Admit ADMIT 02/02/24 Transmitted 01:09 Morphine Sulfate [facility] 02/02/24 Logged Injection 01:15 Forming [employer] For MOLLY 02/02/24 In Process 24 Hours 01:09 Nitroglycerin PHA 02/02/24 Logged Sublingual (Ntrostat 01:15 Abdomen Complete US 02/02/24 Logged Sonogram 01:09 Furosemide Injection PHA 02/02/24 Logged (Lasix Injection) 10:00 Aspirin Enteric PHA 02/02/24 Logged Coated Tablet 01:15 Clopidogrel Bisulfate PHA 02/02/24 Logged (Plavix) 01:15 Aspirin Enteric PHA 12/25/24 Logged Coated Tablet 10:00 Atorvastatin (Lipitor) PHA 02/02/24 Logged 22:00 Magnesium LAB 02/02/24 Logged 01:09 DAVIS MATHEWS RESIDENT Feb 02, 2024 01:26
[2024-02-02] MEDS: SODIUM BICARB 8.4% 50Meq/50ml SYR Vial IV ONE (01:31)
[2024-02-02] MEDS: DEXTROSE (50%) 50ML SYRG IV ONE (01:31)
[2024-02-02] MEDS: CALCIUM GLUC 1,000mg/50ml-NS 50 ML IV SCH (01:34)
[2024-02-02] MEDS: InsuLIN REG 1unit/0.01ml Soln (100units/ml) IV ONE (01:39)
[2024-02-02] MEDS: SODIUM ZIRCONIUM CYCL 10 GM PAK PO ONE (01:42)
[2024-02-02 01:56] LABS: % Iron Saturation 4.8 % (15-50)
--- NOTE | 2024-02-02 01:56 | DVH ---
ABDOMINAL ULTRASOUND CLINICAL HISTORY: Ascites TECHNIQUE: Multiple limited grayscale ultrasound images were obtained of the quadrants of the abdome n WID: COMPARISON: ABPLIV on DOS: 12/22/21 Findings/IMPRESSION: No ascites in seen in the interrogated portions of the abdomen.
[2024-02-02] MEDS: ASPirin-EC 325mg tab PO ONE (02:11)
[2024-02-02] MEDS: ALBUMIN 25% 50 ML IV ONE (04:49)
[2024-02-02] MEDS: SODIUM ZIRCONIUM CYCL 10 GM PAK PO SCH (06:28)
--- NOTE | 2024-02-02 06:49 | ECG ---
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
[2024-02-02 07:51] VITALS: PULSE 61; RESP 16; O2SAT 99
[2024-02-02 08:00] LABS: Rapid Influenza A Negative (Negative); Rapid Influenza B Negative (Negative)
[2024-02-02 08:01] LABS: COVID19 ANTIGEN SOFIA FIA NEGATIVE (NEGATIVE)
[2024-02-02] MEDS: PANTOPRAZOLE 40 MG TAB PO SCH (08:48)
[2024-02-02 09:14] LABS: Basophils # (auto) 0.1 10 ^3/uL (0-0.2); Eosinophils # (auto) 0.3 10 ^3/uL (0-0.8); Eosinophils % (auto) 6.5 % (0.0-7.0); Hematocrit 33.9 % (36.0-46.0); Hemoglobin 9.8 g/dL (12.2-16.2); Lymphocytes # (auto) 1.5 10 ^3/uL (0.4-5.4); Lymphocytes % (auto) 30.3 % (10.0-50.0); Mean Corpuscular Hemoglobin 22.4 pg (28.0-32.0); Mean Corpuscular Hgb Conc. 28.8 g/dL (32.0-36.0); Mean Corpuscular Volume 77.8 fL (80.0-100.0); Monocytes # (auto) 0.7 10 ^3/uL (0-1.3); Monocytes % (auto) 14.6 % (0.0-12.0); Neutrophils # (auto) 2.4 10 ^3/uL (1.6-8.6); Neutrophils % (auto) 47.6 % (37.0-80.0); Nucleated Red Blood Cells % 0.2 %; Platelet Count (auto) 272 10^3/uL (140-450); Red Blood Cells 4.35 10^6/uL (4.0-5.20); White Blood Cell 4.9 10^3/uL (4.4-10.8)
[2024-02-02] MEDS: ASPirin-EC 81 mg tab PO SCH (09:22)
[2024-02-02] MEDS: ENOXAPARIN SOD 40 MG/0.4 ML SYRINGE SC SCH (09:23)
[2024-02-02] MEDS: FUROSEMIDE 40 MG/4 ML VIAL IV SCH (09:24)
[2024-02-02 10:21] VITALS: BP 123/69; PULSE 64; PULSE 73; RESP 17; RESP 18; TEMP 97.7; O2SAT 73; O2SAT 95
[2024-02-02 11:51] LABS: Urine Bacteria FEW /hpf (None Seen); Urine Blood Negative /uL (Negative); Urine Clarity Clear (Clear); Urine Color Colorless (Yellow); Urine Mucus FEW (None Seen); Urine Protein, UAD Negative (Negative); Urine Specific Gravity 1.005 (1.001-1.035); Urine Squamous Epithelial Cell FEW /hpf (<5); Urine Urobilinogen Normal (Negative); Urine WBC 1 /hpf (0 - 5); Urine pH 6.5 (5.0-9.0)
[2024-02-02 12:14] LABS: Amphetamine Screen, Urine Neg (NEGATIVE); Barbiturate Scree,Urine Neg (NEGATIVE); Benzodiazephine Screen, Urine Neg (NEGATIVE); Cannabinoid Screen, Urine Neg (NEGATIVE); Cocaine Screen, Urine Neg (NEGATIVE); Opiate Scree,Urine Neg (NEGATIVE); Phencyclidine Screen, Urine Neg (NEGATIVE)
[2024-02-02] MEDS: IRON SUCROSE COMPLEX 110 ML IV SCH (12:35)
[2024-02-02 13:00] VITALS: BP 120/66; PULSE 78; RESP 18; TEMP 97.8; O2SAT 95
--- NOTE | 2024-02-02 13:49 | DVHINCON2 ---
Date of service: Feb 02, 2024 Referring Physician Juan Reason for Consultation Unstable angina w/ chronic diastolic HF History of Present Illness This is a 53 year old female with a PMH of anxiety, ANGEL, CHF, GERD, pulmonary artery hypertension, sleep apnea, obesity, and tobacco and methamphetamine abuse who was brought in by EMS with complaints of generalized weakness x 24 hours. Per EMS report, patient's family called on patient being found lethargic after complaining of weakness since yesterday. EMS comments on patient being difficult to arouse on scene. During initial ED assessment patient also reports having "difficulty swallowing," nausea, and unprovoked LUQ abdominal pain that radiates to her back and is worse with movement for the past 2 weeks. Patient denies recent sick contacts at home or in public. UDS is negative. Troponin is negative. Chest x-ray shows mild cardiomegaly with very mild prominence of the central pulmonary vasculature. CT head showed no acute intracranial hemorrhage. Abdominal US is WNL. Patient was admitted to the hospital. I am asked to consult on this patient. Family History: Cirrhosis of liver G8 BROTHER FH: breast cancer G8 MOTHER, G8 MOTHER, , Cause: Breast cancer FH: breast cancer G8 MOTHER, G8 MOTHER, , Cause: Breast cancer FH: breast cancer in relative when <45 years old G8 MOTHER, , Cause: Breast cancer Allergies: Coded Allergies: NO KNOWN ALLERGIES (Unverified , 12/20/18) Home Meds Active Scripts Midodrine HCl (Midodrine HCl) 10 Mg Tab, 10 MG PO TID@0600,1200,1800 for 30 Days, #90 TAB 11 Refills Prov:GEMINI CARTY DO 02/07/23 Sildenafil Citrate (Revatio) 20 Mg Tab, 20 MG PO TID for 30 Days, #90 TAB 11 Refills Prov:GEMINI CARTY DO 02/07/23 Omeprazole (Gnp Omeprazole) 20 Mg Tab, 1 TAB PO DAILY, #90 TAB 1 Refill Prov:DEVENDRA ALCOCER MD 09/07/21 Reported Medications Albuterol Sulfate (Albuterol Sulfate Hfa) 108 Mcg/Act Aer, 2 PUFF IN QID PRN for 25 Days, #18 11/17/23 Torsemide (Torsemide) 20 Mg Tab, 1 TAB PO BID for 30 Days, #60 11/17/23 Spironolactone (Spironolactone) 50 Mg Tab, 1 TAB PO DAILY for 90 Days, #90 11/17/23 Zolpidem Tartrate (Ambien) 10 Mg Tab, 1 TAB PO HS PRN for 10 Days, #10 11/17/23 Macitentan (Opsumit) 10 Mg Tab, 10 MG PO DAILY, TAB 09/22/23 Atorvastatin Calcium (ATORVASTATIN CALCIUM) 80 Mg Tab, 1 TAB PO HS 09/22/23 Potassium Chloride (Klor-Con 10) 10 Meq Tab, 1 TAB PO BID 09/22/23 Furosemide (Furosemide) 40 Mg Tab, 40 MG PO BID, TAB 09/22/23 Metoprolol Succinate (Metoprolol Succinate Er) 25 Mg Tab, 1 TAB PO BID 09/22/23 Allopurinol (Allopurinol) 300 Mg Tab, 1 TAB PO DAILY 09/22/23 Spironolactone (Spironolactone) 50 Mg Tab, 25 MG PO DAILY 09/22/23 Sodium Bicarbonate (Sodium Bicarbonate) 650 Mg Tab, 650 MG PO DAILY, TAB 09/22/23 Metolazone (Metolazone) 2.5 Mg Tab, 1 TAB PO TAKE 1 TAB EVERY OTHER DAY. 09/22/23 Potassium Chloride (Potassium Chloride ER) 10 Meq Tab, 1 TAB PO EOD for 90 Days, #90 07/21/23 Allopurinol (Allopurinol) 300 Mg Tab, 1 TAB PO DAILY 05/09/23 Metoprolol Succinate (Metoprolol Succinate Er) 25 Mg Tab, 1 TAB PO BID for 60 Days, #30 05/09/23 Lorazepam (ATIVAN TABLET) 0.5 Mg Tb, 0.5 TAB PO DAILYPRN PRN for ANXIETY 05/08/23 Atorvastatin Calcium (ATORVASTATIN CALCIUM) 80 Mg Tab, 1 TAB PO DAILY, #30 TAB 5 Refills 05/07/23 Sodium Bicarbonate (Sodium Bicarbonate) 650 Mg Tab, 650 MG PO DAILY, TAB 05/07/23 Metolazone (Metolazone) 2.5 Mg Tab, 1 TAB PO EOD for 60 Days, #30 05/07/23 Macitentan (Opsumit) 10 Mg Tab, 10 MG PO DAILY, TAB 09/28/22 Sildenafil Citrate (SILDENAFIL CITRATE) 20 Mg Tab, 20 MG PO TID, TAB 08/22/19 Lorazepam (Lorazepam) 1 Mg Tab, 1 TAB PO [id number] PRN for ANXIETY, #10 TAB 12/20/18 Current Medications Current Medications Medications (Trade) Dose Ordered Sig/Agnes Route PRN Reason Start Time Stop Time Status Last Admin Calcium Gluconate/ Sodium Chloride 50 ml @ 100 mls/hr Q30M IV 02/02/24 01:00 02/02/24 01:59 DC 02/02/24 02:13 Morphine Sulfate 2 mg Q30M PRN IV FOR CHEST PAIN 02/02/24 01:15 Nitroglycerin (Ntrostat Sublingual) 0.4 mg Q5MINP PRN SL FOR CHEST PAIN 02/02/24 01:15 Furosemide (Lasix Injection) 40 mg DAILY IV 02/02/24 10:00 02/02/24 09:24 Aspirin (Ecotrin Enteric Coated Tablet) 81 mg DAILY PO 02/02/24 10:00 02/02/24 09:22 Atorvastatin Calcium (Lipitor) 80 mg HS PO 02/02/24 22:00 Zirconium Oxide (Lokelma) 10 gm TID PO 02/02/24 06:00 02/02/24 06:28 Iron Sucrose 110 ml @ 110 mls/hr DAILY@1200 IV 02/02/24 12:00 02/06/24 12:59 02/02/24 12:35 Pantoprazole Sodium (Protonix Tablet) 40 mg DAILY@0600 PO 02/02/24 06:00 02/02/24 08:48 Enoxaparin Sodium (Lovenox) 40 mg DAILY SC 02/02/24 10:00 02/02/24 09:23 Review of Systems EENTM: reports: others (difficulty swallowing ) Gastrointestinal: reports: abdominal pain, nausea Neurological: reports: weakness Musculoskeletal: reports: back pain All Other Systems: Reviewed and Negative (negative unless otherwise stated a corona or in HPI) Vital Signs Vital Signs Date Time Temp Pulse Resp B/P (MAP) Pulse Ox O2 Delivery O2 Flow Rate FiO2 02/02/24 10:21 64 18 95 Nasal Cannula* 3 32 02/02/24 10:21 97.7 123/69 (87) 97.7 Physical Exam GENERAL: Awake, alert, oriented. LUNGS: Decreased breath sounds. CARDIOVASCULAR: Heart sounds are good. ABDOMEN: Soft. Labs/Diagnostic Data Labs Test 02/02/24 11:00 02/02/24 08:55 02/02/24 07:00 02/02/24 00:45 Range/Units Urine Color Colorless Yellow Urine Clarity Clear Clear Urine pH 6.5 5.0-9.0 Urine Specific [place] 1.005 1.001-1.035 Urine Protein Negative Negative Urine Ketones Negative Negative Urine Blood Negative Negative /uL Urine Nitrite Negative Negative Urine Bilirubin Negative Negative Urine Urobilinogen Normal Negative mg/dL Urine Leukocyte Esterase Negative Negative /uL Urine RBC <1 0 - 4 /hpf Urine WBC 1 0 - 5 /hpf Urine Squamous Epithelial Cells Few <5 /hpf Urine Bacteria Few H None Seen /hpf Urine Mucus Few None Seen Urine Glucose Normal Normal mg/dL Urine Opiates Screen Neg NEGATIVE Urine Fentanyl Screen Neg NEGATIVE Urine Barbiturates Screen Neg NEGATIVE Urine Phencyclidine Screen Neg NEGATIVE Urine Amphetamines Screen Neg NEGATIVE Urine Benzodiazepines Screen Neg NEGATIVE Urine Cocaine Screen Neg NEGATIVE Urine Cannabinoids Screen Neg NEGATIVE White Blood Count 4.9 4.4-10.8 10^3/uL Red Blood Count 4.35 4.0-5.20 10^6/uL Hemoglobin 9.8 L 12.2-16.2 g/dL Hematocrit 33.9 L 36.0-46.0 % Mean Corpuscular Volume 77.8 L 80.0-100.0 fL Mean Corpuscular Hemoglobin 22.4 L 28.0-32.0 pg Mean Corpuscular Hemoglobin Concent 28.8 L 32.0-36.0 g/dL Red Cell Distribution Width 21.0 H 11.8-14.3 % Platelet Count 272 140-450 10^3/uL Mean Platelet Volume 8.0 6.9-10.8 fL Neutrophils (%) (Auto) 47.6 37.0-80.0 % Lymphocytes (%) (Auto) 30.3 10.0-50.0 % Monocytes (%) (Auto) 14.6 H 0.0-12.0 % Eosinophils (%) (Auto) 6.5 0.0-7.0 % Basophils (%) (Auto) 1.0 0.0-2.0 % Neutrophils # (Auto) 2.4 1.6-8.6 10 ^3/uL Lymphocytes # (Auto) 1.5 0.4-5.4 10 ^3/uL Monocytes # (Auto) 0.7 0-1.3 10 ^3/uL Eosinophils # (Auto) 0.3 0-0.8 10 ^3/uL Basophils # (Auto) 0.1 0-0.2 10 ^3/uL Nucleated Red Blood Cells 0.2 % Lactic Acid Level 0.8 0.4-2.0 mmol/L Influenza Type A Antigen Negative Negative Influenza Type B Antigen Negative Negative SARS-CoV-2 Antigen (Rapid) Negative NEGATIVE Magnesium Level 2.0 1.6-2.6 mg/dL Troponin I High Sensitivity 3 L </=34 ng/L Thyroid Stimulating Hormone (TSH) 3.02 0.55-4.78 uIU/mL Test 02/01/24 22:40 Range/Units Sodium Level 139 136-145 mmol/L Potassium Level 5.7 *H 3.5-5.1 mmol/L Chloride Level 113 H 98-107 mmol/L Carbon Dioxide Level 18 L 20-31 mmol/L Anion Gap 8 5-15 Blood Urea Nitrogen 31 H 9-23 mg/dL Creatinine 1.40 H 0.550-1.02 mg/dL Glomerular Filtration Rate Calc 46 >90 mL/min BUN/Creatinine Ratio 22.1 H 10.0-20.0 Serum Glucose 99 74-106 mg/dL Calcium Level 8.1 L 8.7-10.4 mg/dL Iron Level 22 L 50-170 ug/dL Total Iron Binding Capacity 462 H 250-425 ug/dL Percent Iron Saturation 4.8 L 15-50 % Total Bilirubin 0.2 0.2-1.0 mg/dL Aspartate Amino Transferase (AST) 19 13-40 U/L Alanine Aminotransferase (ALT) 14 7-40 U/L Alkaline Phosphatase 101 46-116 U/L B-Type Natriuretic Peptide 90.65 0-100 pg/mL Total Protein 6.8 5.7-8.2 g/dL Albumin 4.5 3.2-4.8 g/dL Assessment Chest pain. Hyperkalemia. Chronic respiratory failure due to chronic diastolic heart failure. Chronic diastolic heart failure secondary to drug-induced cardiomyopathy. Chronic iron deficiency anemia likely due to CKD. ANGEL on CKD likely secondary to hemodynamically mediated/VMN. Nicotine dependence and methamphetamine abuse disorder. Plan/Recommendation I agree with your ongoing assessment and care of plan. Aspirin, Lipitor. DVT and GI prophylactics. Diuretics with Lasix. Morphine for pain management. Nitro SL. Additional plan as per the hospital course. A total of 45 minutes was spent reviewing the patient record, examining the patient, making a diagnostic and therapeutic plan, discussing this plan with medical personnel, following up on diagnostic studies and following the patient for clinical stability excluding any and all procedures. At least 50% of this time was spent in direct, [id number] contact. Plan discussed with: Patient TANIA BRITT MD Feb 02, 2024 13:31
[2024-02-02 14:30] LABS: Chloride 106 mmol/L (98-107); Potassium 4.1 mmol/L (3.5-5.1); Sodium 140 mmol/L (136-145)
[2024-02-02 14:31] LABS: Anion Gap 9 (5-15); Carbon Dioxide 25 mmol/L (20-31)
[2024-02-02 14:36] LABS: BUN/Creatinine Ratio 18.2 (10.0-20.0)
[2024-02-02 14:47] LABS: Blood Urea Nitrogen 27 mg/dL (9-23); Glucose 112 mg/dL (74-106)
--- NOTE | 2024-02-02 15:34 | DVHPNRES ---
Progress Note Date Seen: Feb 02, 2024 Resident Creating Document: ANNA DUARTE RESIDENT Medical Necessity Reason Pt with a Central, PICC or Fol: No Subjective Review of Systems Patient is a 53-year-old female with past medical history of heart failure with preserved ejection fraction, methamphetamine abuse, pulmonary hypertension, urinary incontinence, arterial hypertension, liver cirrhosis diagnosed 2 years ago, CKD, gout, ascites 2 years ago, who came in due to generalized weakness, confusion and lethargy. According to the patient's daughter at bedside, yesterday on 02/01/2024 around 3:00 p.m. she noticed that her mother was not making sense, appeared confused and unable to answer questions along with a lost look on her face. She further notes that by PM her symptoms had progressively worsened. Patient has no recollection of these events. Patient denies having similar symptoms in the past. Patient was also on home oxygen 3 L. in the ER patient was noted to have hyperkalemia of 5.7 which was then treated with calcium gluconate, insulin and dextrose plus furosemide. Currently her serum potassium is 4.1. Patient completed left heart catheterization in November 2023 with right and left coronary angiography showing no significant atherosclerotic plaques or stenosis. Past surgical history: Denies Home medications: Albuterol, allopurinol, atorvastatin, furosemide, metolazone, metoprolol, midodrine, sildenafil, sodium bicarbonate, spironolactone, torsemide, zolpidem Past Hospitalization: November 2023 for complaints of chest pain Social & Personal history: Patient lives with her family. Quit smoking 4 years ago, prior to that was smoking 1 pack per day for 35 years. Drinks alcohol about 3-4 days per week, 3 tall cans per day. Denies using drugs. Family history: Breast cancer in mother at the age of 41 Allergies: Denies Patient seen and examined at bedside. Patient is alert and oriented to time, place person and responding to all questions. General: Fatigue, fever, chills Eyes: No Pain, No Vision change, No Conjunctivae inflammation, No Eyelid inflammation, No Other, No Redness ENT: No Ear pain, No Ear discharge, No Nose pain, No Nose discharge, No Nose congestion, No Mouth pain, No Mouth swelling, No Throat pain, No Throat swelling, No Other Cardiovascular: No Chest Pain, Palpitations, Dyspnea, No Edema, No Lt Headedness, No Other Respiratory: Cough productive of yellowish sputum, Shortness of breath, No SOB with exertion, No Wheezing, No Hemoptysis, No Pleuritic Pain, No Sputum, No Other Gastrointestinal: Nausea, No Vomiting, No Abdominal Pain, No Diarrhea, No Constipation, No Melena, No Hematochezia, No Other Genitourinary: No Dysuria, No Frequency, No Incontinence, No Hematuria, No Retention, No Other Musculoskeletal: No other, No neck pain, No shoulder pain, No arm pain, No back pain, No hand pain, No leg pain, No foot pain Skin: No Rash, No Lesions, No Jaundice, No Bruising, No Other Neurologic: Reports feeling numbness and tingling in feet Objective vital signs Vital Sign Date Time Temp Pulse Resp B/P (MAP) Pulse Ox O2 Delivery O2 Flow Rate FiO2 02/02/24 13:00 97.8 78 18 120/66 (84) 95 97.8 02/02/24 10:21 Nasal Cannula* 3 32 Total Intake and Output 02/01/24 02/01/24 02/02/24 15:00 23:00 07:00 Intake Total 100 ml Balance 100 ml medications Current Medications Medications Dose Ordered Sig/Agnes Route Start Time Stop Time Status Last Admin Dose Admin Morphine Sulfate 2 mg Q30M PRN IV 02/02/24 01:15 Nitroglycerin 0.4 mg Q5MINP PRN SL 02/02/24 01:15 Furosemide 40 mg DAILY IV 02/02/24 10:00 02/02/24 09:24 40 MG Aspirin 81 mg DAILY PO 02/02/24 10:00 02/02/24 09:22 81 MG Atorvastatin Calcium 80 mg HS PO 02/02/24 22:00 Zirconium Oxide 10 gm TID PO 02/02/24 06:00 02/02/24 06:28 10 GM Iron Sucrose 110 ml @ 110 mls/hr DAILY@1200 IV 02/02/24 12:00 02/06/24 12:59 02/02/24 12:35 110 MLS/HR Pantoprazole Sodium 40 mg DAILY@0600 PO 02/02/24 06:00 02/02/24 08:48 40 MG Enoxaparin Sodium 40 mg DAILY SC 02/02/24 10:00 02/02/24 09:23 40 MG Examination General Appearance: Cooperative. Well developed. Well nourished. NAD Head Exam: Lower face weakness noted, mild left-sided facial droop when asked to smile Neck Exam: Normal inspection. Non-tender. Normal alignment Pulmonary/Respiratory: Chest non-tender. Clear bilateral breath sounds, trace crackles, no wheezing. Cardiovascular/Chest: Regular rate and rhythm. No murmurs. No JVD. Peripheral Pulses: 2+ Radial (R). 2+ Radial (L). 2+ Pedal (R). 2+ Pedal (L) Abdominal Exam: Normal bowel sounds. Soft. normal abdomen, no visible veins, Nontender. No hepatospenomegaly. No masses Ankle Exam: Negative ankle edema Lower extremities: Negative lower extremity edema strength 3+ on the right lower extremity, 2+ on the left lower extremity Neuro/Mental Status: A&O x4. Coherent. Thoughts/Psych: Normal thought pattern. Appropriate mood and affect. Good judgement and insight Skin Exam: Normal inspection. Normal color. Warm. Dry laboratory and microbiology Laboratory Tests 02/02/24 13:50 02/02/24 08:55 Test 02/02/24 13:50 Range/Units Serum Glucose 112 H 74-106 mg/dL Labs and/or images reviewed: Labs reviewed by me, Image(s) reviewed by me Problem List/Assessment/Plan Problem List/Assessment/Plan Rule out acute stroke - head CT: No acute intracranial hemorrhage. No CT findings of territorial ischemia. - aspirin 325 mg p.o. once, followed by aspirin 81 mg p.o. daily - atorvastatin 80 mg - clopidogrel 300 mg p.o. once Heart failure with preserved ejection fraction, possibly an exacerbation, EF 65% Pulmonary hypertension, RVSP 41 Chronic respiratory failure likely due to above - CXR: Mild cardiomegaly with very mild prominence of the central pulmonary vasculature. - IV furosemide 40 mg daily - cardiology on board Liver cirrhosis, meld 10 points (based on INR in November); Child Rivas class A (5 points) - abdominal ultrasound: No ascites seen in the interrogated portions of the abdomen. ANGEL on questionable CKD 2 (GFR 107 on 02/10/2023) - monitor Iron deficiency anemia, chronic - IV iron - monitor H&H Hyperkalemia, now resolved - sodium bicarb IV once - Insulin dextrose - Lokelma 10 g p.o. t.i.d. History of methamphetamine abuse Alcohol use disorder - counseled PUD prophylaxis: protonix 40mg DVT prophylaxis: Levonox 40mg Goals of care: Full code, discussed for >16 minutes on 02/02/24 Plan discussed with patient Plan discussed with Dr. Urbina Plan discussed with: Patient, Daughter, Other (RN) My Orders My Orders Orders - ANNA DUARTE Procedure Category Date Status Time Cardiac DIET 02/02/24 Transmitted Diet-2gna,Lofat,Lochol Lunch Date of Service: Feb 02, 2024 Billing Provider: ELIANA URBINA MD Common Visit Codes: [id number] INP/OBS CARE(HIGH) ANNA DUARTE Feb 02, 2024 15:34 ELIANA URBINA MD Feb 03, 2024 08:57
[2024-02-02 17:17] VITALS: BP 106/63; PULSE 88; RESP 19; TEMP 97.8; O2SAT 97
[2024-02-02 20:00] VITALS: PULSE 81; RESP 18; O2SAT 100
[2024-02-02 21:00] VITALS: BP_SYST 127; BP_SYST 142; BP_DIAS 55; BP_DIAS 79; PULSE 108; PULSE 82; RESP 18; RESP 19; TEMP 98.7; TEMP 98.9; O2SAT 100; O2SAT 93
[2024-02-02] MEDS: ATORVASTATIN 20 MG TAB PO SCH (21:15)
[2024-02-02] MEDS: MELATONIN 5 MG TAB PO ONE (23:21)
[2024-02-03] VITALS (9 sets, daily range): BP systolic 94–116; BP diastolic 46–72; PULSE 60–115; RESP 16–18; TEMP 97.9–98.4; O2SAT 92–98
[2024-02-03 06:35] LABS: Basophils # (auto) 0 10 ^3/uL (0-0.2); Basophils % (auto) 0.8 % (0.0-2.0); Eosinophils % (auto) 7.4 % (0.0-7.0); Lymphocytes # (auto) 1.6 10 ^3/uL (0.4-5.4); Monocytes # (auto) 0.5 10 ^3/uL (0-1.3); Nucleated Red Blood Cells % 0.2 %
[2024-02-03 06:37] LABS: Eosinophils # (auto) 0.3 10 ^3/uL (0-0.8); Hematocrit 30.1 % (36.0-46.0); Hemoglobin 9.6 g/dL (12.2-16.2); Lymphocytes % (auto) 34.5 % (10.0-50.0); Mean Corpuscular Hemoglobin 23.3 pg (28.0-32.0); Mean Corpuscular Volume 72.9 fL (80.0-100.0); Monocytes % (auto) 11.2 % (0.0-12.0); Neutrophils # (auto) 2.1 10 ^3/uL (1.6-8.6); Neutrophils % (auto) 46.1 % (37.0-80.0); Platelet Count (auto) 285 10^3/uL (140-450); Red Blood Cells 4.13 10^6/uL (4.0-5.20); White Blood Cell 4.7 10^3/uL (4.4-10.8)
[2024-02-03 06:38] LABS: INR 1.07 (0.9-1.15); Prothrombin Time 11.3 sec (9.3-11.8)
[2024-02-03 06:39] LABS: Anion Gap 9 (5-15); Calcium 9.5 mg/dL (8.7-10.4); Carbon Dioxide 26 mmol/L (20-31); Chloride 106 mmol/L (98-107); Potassium 3.9 mmol/L (3.5-5.1); Sodium 141 mmol/L (136-145)
[2024-02-03 06:44] LABS: BUN/Creatinine Ratio 23.6 (10.0-20.0); Glucose 88 mg/dL (74-106)
[2024-02-03 06:45] LABS: Blood Urea Nitrogen 34 mg/dL (9-23)
[2024-02-03 06:48] LABS: Red Cell Distribution Width 20.6 % (11.8-14.3)
--- NOTE | 2024-02-03 12:24 | DVHPN2 ---
Progress Note - Dictate Date Seen: Feb 03, 2024 Medical Necessity Reason Pt with a Central, PICC or Fol: No Subjective Patient was seen and evaluated in follow up. Patient is complains of generalized pain. She is on 3 LPM NC. 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 vital signs Vital Sign Date Time Temp Pulse Resp B/P (MAP) Pulse Ox O2 Delivery O2 Flow Rate FiO2 02/03/24 09:28 110/55 02/03/24 09:00 97.9 60 18 95 97.9 02/03/24 08:00 Nasal Cannula* 3 32 Total Intake and Output 02/02/24 02/02/24 02/03/24 15:00 23:00 07:00 Intake Total 110 ml 700 ml Output Total 0 ml Balance 110 ml 700 ml medications Current Medications Medications Dose Ordered Sig/Agnes Route Start Time Stop Time Status Last Admin Dose Admin Morphine Sulfate 2 mg Q30M PRN IV 02/02/24 01:15 Nitroglycerin 0.4 mg Q5MINP PRN SL 02/02/24 01:15 Furosemide 40 mg DAILY IV 02/02/24 10:00 02/03/24 09:28 40 MG Aspirin 81 mg DAILY PO 02/02/24 10:00 02/03/24 09:25 81 MG Atorvastatin Calcium 80 mg HS PO 02/02/24 22:00 02/02/24 21:15 80 MG Zirconium Oxide 10 gm TID PO 02/02/24 06:00 02/03/24 05:39 10 GM Iron Sucrose 110 ml @ 110 mls/hr DAILY@1200 IV 02/02/24 12:00 02/06/24 12:59 02/02/24 12:35 110 MLS/HR Pantoprazole Sodium 40 mg DAILY@0600 PO 02/02/24 06:00 02/03/24 05:39 40 MG Enoxaparin Sodium 40 mg DAILY SC 02/02/24 10:00 02/03/24 09:24 40 MG objective GENERAL: Awake, alert, oriented. LUNGS: Decreased breath sounds. CARDIOVASCULAR: Heart sounds are good. ABDOMEN: Soft. laboratory and microbiology Laboratory Tests 02/03/24 05:32 Test 02/03/24 05:32 Range/Units Serum Glucose 88 74-106 mg/dL Problem List Chest pain. Hyperkalemia. Chronic respiratory failure due to chronic diastolic heart failure. Chronic diastolic heart failure secondary to drug-induced cardiomyopathy. Chronic iron deficiency anemia likely due to CKD. ANGEL on CKD likely secondary to hemodynamically mediated/VMN. Nicotine dependence and methamphetamine abuse disorder. Assessment/Plan Continued all current supportive medical care. Aspirin, Lipitor. DVT and GI prophylactics. Diuretics with Lasix. Morphine for pain management. Nitro SL. Additional plan as per the hospital course. Plan discussed with: Patient TANIA BRITT MD Feb 03, 2024 11:54
--- NOTE | 2024-02-03 14:53 | DVHPNRES ---
Progress Note Date Seen: Feb 03, 2024 Resident Creating Document: ANNA DUARTE RESIDENT Medical Necessity Reason Pt with a Central, PICC or Fol: No Subjective Review of Systems Patient is a 53-year-old female with past medical history of heart failure with preserved ejection fraction, methamphetamine abuse, pulmonary hypertension, urinary incontinence, arterial hypertension, liver cirrhosis diagnosed 2 years ago, CKD, gout, ascites 2 years ago, who came in due to generalized weakness, confusion and lethargy. According to the patient's daughter at bedside, yesterday on 02/01/2024 around 3:00 p.m. she noticed that her mother was not making sense, appeared confused and unable to answer questions along with a lost look on her face. She further notes that by PM her symptoms had progressively worsened. Patient has no recollection of these events. Patient denies having similar symptoms in the past. Patient was also on home oxygen 3 L. in the ER patient was noted to have hyperkalemia of 5.7 which was then treated with calcium gluconate, insulin and dextrose plus furosemide. Currently her serum potassium is 4.1. Patient completed left heart catheterization in November 2023 with right and left coronary angiography showing no significant atherosclerotic plaques or stenosis. Past surgical history: Denies Home medications: Albuterol, allopurinol, atorvastatin, furosemide, metolazone, metoprolol, midodrine, sildenafil, sodium bicarbonate, spironolactone, torsemide, zolpidem Past Hospitalization: November 2023 for complaints of chest pain Social & Personal history: Patient lives with her family. Quit smoking 4 years ago, prior to that was smoking 1 pack per day for 35 years. Drinks alcohol about 3-4 days per week, 3 tall cans per day. Denies using drugs. Family history: Breast cancer in mother at the age of 41 Allergies: Denies Patient seen and examined at bedside. Patient is alert and oriented to time, place person and responding to all questions. Patient reports improved confusion today. Lower facial weakness with left-sided droop though still present, has improved since yesterday. Objective vital signs Vital Sign Date Time Temp Pulse Resp B/P (MAP) Pulse Ox O2 Delivery O2 Flow Rate FiO2 02/03/24 13:00 98.1 68 17 105/72 (83) 97 98.1 02/03/24 08:00 Nasal Cannula* 3 32 Total Intake and Output 02/02/24 02/02/24 02/03/24 15:00 23:00 07:00 Intake Total 110 ml 700 ml Output Total 0 ml Balance 110 ml 700 ml medications Current Medications Medications Dose Ordered Sig/Agnes Route Start Time Stop Time Status Last Admin Dose Admin Morphine Sulfate 2 mg Q30M PRN IV 02/02/24 01:15 Nitroglycerin 0.4 mg Q5MINP PRN SL 02/02/24 01:15 Aspirin 81 mg DAILY PO 02/02/24 10:00 02/03/24 09:25 81 MG Atorvastatin Calcium 80 mg HS PO 02/02/24 22:00 02/02/24 21:15 80 MG Zirconium Oxide 10 gm TID PO 02/02/24 06:00 02/03/24 05:39 10 GM Iron Sucrose 110 ml @ 110 mls/hr DAILY@1200 IV 02/02/24 12:00 02/06/24 12:59 02/03/24 12:15 110 MLS/HR Pantoprazole Sodium 40 mg DAILY@0600 PO 02/02/24 06:00 02/03/24 05:39 40 MG Enoxaparin Sodium 40 mg DAILY SC 02/02/24 10:00 02/03/24 09:24 40 MG Examination General Appearance: Cooperative. Well developed. Well nourished. NAD Head Exam: Lower face weakness noted, mild left-sided facial droop when asked to smile, slightly improved from yesterday Neck Exam: Normal inspection. Non-tender. Normal alignment Pulmonary/Respiratory: Chest non-tender. Clear bilateral breath sounds, trace crackles, improved, no wheezing. Cardiovascular/Chest: Regular rate and rhythm. No murmurs. No JVD. Peripheral Pulses: 2+ Radial (R). 2+ Radial (L). 2+ Pedal (R). 2+ Pedal (L) Abdominal Exam: Normal bowel sounds. Soft. normal abdomen, no visible veins, Nontender. No hepatospenomegaly. No masses Ankle Exam: Negative ankle edema Upper extremities: Normal strength and sensation in bilateral upper extremities Lower extremities: Negative lower extremity edema, strength 3+ on the right lower extremity, 3+ on the left lower extremity today, improved since yesterday Neuro/Mental Status: A&O x4. Coherent. Thoughts/Psych: Normal thought pattern. Appropriate mood and affect. Good judgement and insight Skin Exam: Normal inspection. Normal color. Warm. Dry laboratory and microbiology Laboratory Tests 02/03/24 05:32 Test 02/03/24 05:32 Range/Units Serum Glucose 88 74-106 mg/dL Microbiology Date/Time Source Procedure Growth Status 02/02/24 11:00 Voided Urine Urine Culture - Preliminary Resulted Labs and/or images reviewed: Labs reviewed by me, Image(s) reviewed by me Problem List/Assessment/Plan Problem List/Assessment/Plan Rule out acute stroke - head CT: No acute intracranial hemorrhage. No CT findings of territorial ischemia. - aspirin 325 mg p.o. once, followed by aspirin 81 mg p.o. daily - atorvastatin 80 mg - clopidogrel 300 mg p.o. once - patient cleared swallow evaluation today and was subsequently started on a mechanical soft diet - scheduled to undergo MRI brain today Heart failure with preserved ejection fraction, possibly an exacerbation, EF 65% Pulmonary hypertension, RVSP 41 Chronic respiratory failure likely due to above - CXR: Mild cardiomegaly with very mild prominence of the central pulmonary vasculature. - discontinued IV furosemide 40 mg daily today on 02/03/2024, owing to improved heart failure symptoms and worsening ANGEL - cardiology on board Liver cirrhosis, meld 10 points (based on INR in November); Child Rivas class A (5 points) - abdominal ultrasound: No ascites seen in the interrogated portions of the abdomen. ANGEL on questionable CKD 2 (GFR 107 on 02/10/2023) - monitor Iron deficiency anemia, chronic - IV iron - monitor H&H Hyperkalemia, now resolved - sodium bicarb IV once - Insulin dextrose - Lokelma 10 g p.o. t.i.d. History of methamphetamine abuse Alcohol use disorder - counseled PUD prophylaxis: protonix 40mg DVT prophylaxis: Levonox 40mg Goals of care: Full code, discussed for >16 minutes on 02/02/24 Plan discussed with patient Plan discussed with Dr. Urbina Plan discussed with: Patient, Other (RN) My Orders My Orders Orders - ANNA DUARTE RESIDENT Procedure Category Date Status Time Strict Aspiration MOLLY 02/02/24 In Process Precautions 17:53 Urine Bacterial EULOGIO 02/02/24 In Process Culture 17:59 * Swallow Request ST 02/03/24 Transmitted 08:53 Mechanical Soft Diet DIET 02/03/24 Transmitted Lunch Brain Head Wo Contrast MRI 02/03/24 Logged 12:39 Date of Service: Feb 03, 2024 Billing Provider: ELIANA URBINA MD Common Visit Codes: [id number] INP/OBS CARE(HIGH) ANNA DUARTE RESIDENT Feb 03, 2024 14:53 ELIANA URBINA MD Feb 04, 2024 08:56
--- NOTE | 2024-02-03 15:58 | DVH ---
MRI BRAIN WITHOUT CONTRAST CLINICAL HISTORY: stroke TECHNIQUE: Multiplanar, multisequence MR images of the brain without intravenous contrast. Comparison: CT head 02/01/2024. FINDINGS: There is no restricted diffusion. The granado and white matter signal is appropriate. There is no eviden ce of hemorrhage, mass, mass effect or midline shift. There is no hydrocephalus or extra-axial fluid collection. The visualized intracranial vasculature demonstrates appropriate flow-voids. The sagittal midline structures appear unremarkable. The craniocervical junction is within normal limits. The danial varium demonstrates normal marrow signal. There is a retention cyst in the right maxillary sinus. Th e mastoid air cells are clear. IMPRESSION: 1. Unremarkable noncontrast MRI brain. HS:Y
[2024-02-03] MEDS: ACETAMINOPHEN 325 MG TAB PO PRN (21:09)
[2024-02-03] MEDS: MELATONIN 5 MG TAB PO ONE (21:51)
[2024-02-04 01:00] VITALS: BP 120/66; PULSE 73; RESP 16; TEMP 98.1; O2SAT 93
[2024-02-04 05:00] VITALS: BP 120/69; PULSE 88; RESP 18; TEMP 98.1; O2SAT 95
[2024-02-04 07:52] LABS: Basophils # (auto) 0 10 ^3/uL (0-0.2); Eosinophils # (auto) 0.3 10 ^3/uL (0-0.8); Hematocrit 31.2 % (36.0-46.0); Lymphocytes # (auto) 1.6 10 ^3/uL (0.4-5.4); Mean Corpuscular Hemoglobin 23.1 pg (28.0-32.0)
[2024-02-04 07:56] LABS: Basophils % (auto) 0.6 % (0.0-2.0); Eosinophils % (auto) 7.3 % (0.0-7.0); Hemoglobin 9.9 g/dL (12.2-16.2); Lymphocytes % (auto) 35.8 % (10.0-50.0); Mean Corpuscular Hgb Conc. 31.6 g/dL (32.0-36.0); Monocytes # (auto) 0.5 10 ^3/uL (0-1.3); Monocytes % (auto) 10.9 % (0.0-12.0); Neutrophils % (auto) 45.4 % (37.0-80.0); Nucleated Red Blood Cells % 0.2 %; Platelet Count (auto) 285 10^3/uL (140-450); Red Blood Cells 4.27 10^6/uL (4.0-5.20); Red Cell Distribution Width 20.3 % (11.8-14.3); White Blood Cell 4.4 10^3/uL (4.4-10.8)
[2024-02-04 08:00] VITALS: PULSE 70
[2024-02-04 08:17] LABS: Anion Gap 10 (5-15); Carbon Dioxide 26 mmol/L (20-31); Chloride 105 mmol/L (98-107); Sodium 141 mmol/L (136-145)
[2024-02-04 08:18] LABS: Calcium 9.5 mg/dL (8.7-10.4)
[2024-02-04 08:21] LABS: Potassium 3.3 mmol/L (3.5-5.1)
[2024-02-04 08:23] LABS: Glucose 104 mg/dL (74-106)
[2024-02-04 08:24] LABS: Blood Urea Nitrogen 29 mg/dL (9-23)
[2024-02-04 09:00] VITALS: BP 110/73; PULSE 63; RESP 18; TEMP 98; O2SAT 97
[2024-02-04 12:40] VITALS: BP 130/75; PULSE 91; RESP 17; TEMP 98.3; O2SAT 94
--- NOTE | 2024-02-04 14:51 | DVHPN2 ---
Progress Note - Dictate Date Seen: Feb 04, 2024 Medical Necessity Reason Pt with a Central, PICC or Fol: No Subjective Patient was seen and evaluated in follow up. Patient is complains of generalized pain. Patient passed swallow eval yesterday afternoon. HGB 9.9, HCT 31.2, K 3.3, BUN 29, FRONT MAN 1.26. MRI brain is unremarkable. vital signs Vital Sign Date Time Temp Pulse Resp B/P (MAP) Pulse Ox O2 Delivery O2 Flow Rate FiO2 02/04/24 09:00 98.0 63 18 110/73 (85) 97 98.0 02/04/24 08:00 Room Air* 0 21 Total Intake and Output 02/03/24 02/03/24 02/04/24 15:00 23:00 07:00 Intake Total 110 ml 150 ml 600 ml Balance 110 ml 150 ml 600 ml medications Current Medications Medications Dose Ordered Sig/Agnes Route Start Time Stop Time Status Last Admin Dose Admin Nitroglycerin 0.4 mg Q5MINP PRN SL 02/02/24 01:15 Aspirin 81 mg DAILY PO 02/02/24 10:00 02/04/24 10:28 81 MG Atorvastatin Calcium 80 mg HS PO 02/02/24 22:00 02/03/24 21:09 80 MG Zirconium Oxide 10 gm TID PO 02/02/24 06:00 02/04/24 06:32 10 GM Iron Sucrose 110 ml @ 110 mls/hr DAILY@1200 IV 02/02/24 12:00 02/06/24 12:59 02/04/24 11:49 110 MLS/HR Pantoprazole Sodium 40 mg DAILY@0600 PO 02/02/24 06:00 02/04/24 06:32 40 MG Enoxaparin Sodium 40 mg DAILY SC 02/02/24 10:00 02/04/24 10:28 40 MG Acetaminophen 650 mg Q8HP PRN PO 02/03/24 20:30 02/03/24 21:09 650 MG objective GENERAL: Awake, alert, oriented. LUNGS: Decreased breath sounds. CARDIOVASCULAR: Heart sounds are good. ABDOMEN: Soft. laboratory and microbiology Laboratory Tests 02/04/24 07:29 Test 02/04/24 07:29 Range/Units Serum Glucose 104 74-106 mg/dL Problem List Chest pain. Hyperkalemia. Chronic respiratory failure due to chronic diastolic heart failure. Chronic diastolic heart failure secondary to drug-induced cardiomyopathy. Chronic iron deficiency anemia likely due to CKD. ANGEL on CKD likely secondary to hemodynamically mediated/VMN. Nicotine dependence and methamphetamine abuse disorder. Assessment/Plan Continued all current supportive medical care. Aspirin, Lipitor. DVT and GI prophylactics. Additional plan as per the hospital course. Plan discussed with: Patient TANIA BIRTT MD Feb 04, 2024 12:29
[2024-02-04] MEDS ORDERED: ASPI1TAB19 PO (16:33)
[2024-02-04] MEDS ORDERED: ATOR40TA52 PO (16:33)
[2024-02-04 17:00] VITALS: BP 122/82; PULSE 93; RESP 16; TEMP 98.5; O2SAT 93
--- NOTE | 2024-02-04 20:50 | DVHDSRES ---
Discharge Summary Date of Admission Resident Creating Document: ANNA DUARTE RESIDENT Feb 02, 2024 at 01:09 Date of Discharge: Feb 04, 2024 Admitting Diagnosis Generalized weakness Labs/Diagnostic Data: Laboratory Results Test 02/04/24 07:29 02/03/24 05:32 02/02/24 11:00 02/02/24 08:55 White Blood Count 4.4 10^3/uL (4.4-10.8) Red Blood Count 4.27 10^6/uL (4.0-5.20) Hemoglobin 9.9 g/dL (12.2-16.2) Hematocrit 31.2 % (36.0-46.0) Mean Corpuscular Volume 73.0 fL (80.0-100.0) Mean Corpuscular Hemoglobin 23.1 pg (28.0-32.0) Mean Corpuscular Hemoglobin Concent 31.6 g/dL (32.0-36.0) Red Cell Distribution Width 20.3 % (11.8-14.3) Platelet Count 285 10^3/uL (140-450) Mean Platelet Volume 7.6 fL (6.9-10.8) Neutrophils (%) (Auto) 45.4 % (37.0-80.0) Lymphocytes (%) (Auto) 35.8 % (10.0-50.0) Monocytes (%) (Auto) 10.9 % (0.0-12.0) Eosinophils (%) (Auto) 7.3 % (0.0-7.0) Basophils (%) (Auto) 0.6 % (0.0-2.0) Neutrophils # (Auto) 2.0 10 ^3/uL (1.6-8.6) Lymphocytes # (Auto) 1.6 10 ^3/uL (0.4-5.4) Monocytes # (Auto) 0.5 10 ^3/uL (0-1.3) Eosinophils # (Auto) 0.3 10 ^3/uL (0-0.8) Basophils # (Auto) 0 10 ^3/uL (0-0.2) Nucleated Red Blood Cells 0.2 % Sodium Level 141 mmol/L (136-145) Potassium Level 3.3 mmol/L (3.5-5.1) Chloride Level 105 mmol/L (98-107) Carbon Dioxide Level 26 mmol/L (20-31) Anion Gap 10 (5-15) Blood Urea Nitrogen 29 mg/dL (9-23) Creatinine 1.26 mg/dL (0.550-1.02) Glomerular Filtration Rate Calc 52 mL/min (>90) BUN/Creatinine Ratio 23.0 (10.0-20.0) Serum Glucose 104 mg/dL (74-106) Calcium Level 9.5 mg/dL (8.7-10.4) Prothrombin Time 11.3 sec (9.3-11.8) Prothrombin Time INR 1.07 (0.9-1.15) Urine Color Colorless (Yellow) Urine Clarity Clear (Clear) Urine pH 6.5 (5.0-9.0) Urine Specific [place] 1.005 (1.001-1.035) Urine Protein Negative (Negative) Urine Ketones Negative (Negative) Urine Blood Negative /uL (Negative) Urine Nitrite Negative (Negative) Urine Bilirubin Negative (Negative) Urine Urobilinogen Normal mg/dL (Negative) Urine Leukocyte Esterase Negative /uL (Negative) Urine RBC <1 /hpf (0 - 4) Urine WBC 1 /hpf (0 - 5) Urine Squamous Epithelial Cells Few /hpf (<5) Urine Bacteria Few /hpf (None Seen) Urine Mucus Few (None Seen) Urine Glucose Normal mg/dL (Normal) Urine Opiates Screen Neg (NEGATIVE) Urine Fentanyl Screen Neg (NEGATIVE) Urine Barbiturates Screen Neg (NEGATIVE) Urine Phencyclidine Screen Neg (NEGATIVE) Urine Amphetamines Screen Neg (NEGATIVE) Urine Benzodiazepines Screen Neg (NEGATIVE) Urine Cocaine Screen Neg (NEGATIVE) Urine Cannabinoids Screen Neg (NEGATIVE) Lactic Acid Level 0.8 mmol/L (0.4-2.0) Test 02/02/24 07:00 02/02/24 00:45 02/01/24 22:40 Influenza Type A Antigen Negative (Negative) Influenza Type B Antigen Negative (Negative) SARS-CoV-2 Antigen (Rapid) Negative (NEGATIVE) Magnesium Level 2.0 mg/dL (1.6-2.6) Troponin I High Sensitivity 3 ng/L (</=34) Thyroid Stimulating Hormone (TSH) 3.02 uIU/mL (0.55-4.78) Iron Level 22 ug/dL (50-170) Total Iron Binding Capacity 462 ug/dL (250-425) Percent Iron Saturation 4.8 % (15-50) Total Bilirubin 0.2 mg/dL (0.2-1.0) Aspartate Amino Transferase (AST) 19 U/L (13-40) Alanine Aminotransferase (ALT) 14 U/L (7-40) Alkaline Phosphatase 101 U/L (46-116) B-Type Natriuretic Peptide 90.65 pg/mL (0-100) Total Protein 6.8 g/dL (5.7-8.2) Albumin 4.5 g/dL (3.2-4.8) Other Laboratory Tests 02/04/24 07:29 Brief Hx & Hospital Course: Patient is a 53-year-old female with past medical history of heart failure with preserved ejection fraction, methamphetamine abuse, pulmonary hypertension, urinary incontinence, arterial hypertension, liver cirrhosis diagnosed 2 years ago, CKD, gout, ascites 2 years ago, who came in due to generalized weakness, confusion and lethargy. According to the patient's daughter at bedside, yesterday on 02/01/2024 around 3:00 p.m. she noticed that her mother was not making sense, appeared confused and unable to answer questions along with a lost look on her face. She further notes that by PM her symptoms had progressively worsened. Patient has no recollection of these events. Patient denies having similar symptoms in the past. Patient was also on home oxygen 3 L. in the ER patient was noted to have hyperkalemia of 5.7 which was then treated with calcium gluconate, insulin and dextrose plus furosemide. Currently her serum potassium is 4.1. Patient completed left heart catheterization in November 2023 with right and left coronary angiography showing no significant atherosclerotic plaques or stenosis. Hospital course: Head CT showed no acute intracranial hemorrhage. No CT findings of territorial ischemia. MRI showed unremarkable noncontrast MRI brain. Abdominal ultrasound showed no ascites in the interrogated portion of the abdomen. Patient was given aspirin 325 mg p.o. once followed by aspirin 81 mg p.o. daily, atorvastatin 80 mg, clopidogrel 300 mg p.o. once. Patient was evaluated with a swallow evaluation which he initially failed, however on the 2nd day of hospitalization she passed and was subsequently placed on a mechanical soft diet. Chest x-ray showed mild cardiomegaly with very mild prominence of the central pulmonary vasculature. We discontinued IV furosemide on 02/03/2024 due to her worsening ANGEL. Patient was also given IV iron for her anemia. For hyperkalemia which was only present on the 1st day of hospitalization she was given sodium bicarb, insulin dextrose and Lokelma 10 p.o. t.i.d., which was eventually discontinued as her potassium normalized. On the day of discharge, patient appeared well had stable vital signs, had improved facial strength and no weakness in bilateral upper lower extremities, no sensory disturbances in bilateral upper and lower extremities. She ambulated around the tatum without any difficulty. She was prescribed aspirin 81 mg and atorvastatin 40 mg as home medication. Her hospital course was uncomplicated. General Appearance: Cooperative. Well developed. Well nourished. NAD Head Exam: Lower face weakness noted, mild left-sided facial droop when asked to smile, significantly improved since day 1 of hospitalization Neck Exam: Normal inspection. Non-tender. Normal alignment Pulmonary/Respiratory: Chest non-tender. Clear bilateral breath sounds, trace crackles, improved, no wheezing. Cardiovascular/Chest: Regular rate and rhythm. No murmurs. No JVD. Peripheral Pulses: 2+ Radial (R). 2+ Radial (L). 2+ Pedal (R). 2+ Pedal (L) Abdominal Exam: Normal bowel sounds. Soft. normal abdomen, no visible veins, Nontender. No hepatospenomegaly. No masses Ankle Exam: Negative ankle edema Upper extremities: Normal strength and sensation in bilateral upper extremities Lower extremities: Negative lower extremity edema, strength 3+ on the right lower extremity, 3+ on the left lower extremity today, improved since day 1 of hospitalization Neuro/Mental Status: A&O x4. Coherent. Thoughts/Psych: Normal thought pattern. Appropriate mood and affect. Good judgement and insight Skin Exam: Normal inspection. Normal color. Warm. Dry Condition at Discharge: Good Final Diagnosis/Problems List Ruled out acute stroke Heart failure with preserved ejection fraction, possibly an exacerbation Pulmonary hypertension Liver cirrhosis, meld 10, child Rivas class A ANGEL and questionable CKD likely due to VMN Iron deficiency anemia chronic Hyperkalemia, now resolved History of methamphetamine abuse, now abstaining Discharge Disposition: Home Discharge Instruct/Medications Diet: Cardiac 2g Na,low cholest Activity: No Restrictions, As Tolerated Follow Up/Referral: Please follow up with PCP in 1-2 weeks Medications: Aspirin 81 mg Statin 40 mg Continue home medications Discharge Statement: "Patient was advised to return to the ER or call 911 if any headaches, dizziness, shortness of breath, chest pain, abdominal pain, bleeding, fevers, or worsening of medical condition. Patient was counseled about treatment plan, medications, possible side effects, patientverbalized understanding. All questions were answered to the best of my ability. This discharge took greater then 30 minutes in planning, reviewing documentation, counseling the patient, and discussing with other team members." ASSESSMENT ASSESSMENT Assessment Ruled out acute stroke Heart failure with preserved ejection fraction, possibly an exacerbation Pulmonary hypertension Liver cirrhosis, meld 10, child Rivas class A ANGEL and questionable CKD likely due to VMN Iron deficiency anemia chronic Hyperkalemia, now resolved History of methamphetamine abuse, now abstaining Date of Service: Feb 04, 2024 Billing Provider: ELIANA URBINA MD Common Visit Codes: 81794-OMZ/OBS DISCH DAY >30min ANNA DUARTE Feb 04, 2024 20:50 ELIANA URBINA MD Feb 07, 2024 08:40
== END 2024-02-04 17:22 | disposition home or self-care (01) | DRG 425 ==
LOC: ER 21:18 → EDBD 21:18 → TELE 02-02 01:09 → TELE-EAST 02-02 01:18
PROVIDERS: ADMIT Student in an Organized Health Care Education/Training Program; ATTEND Student in an Organized Health Care Education/Training Program
DX: E87.5 Hyperkalemia (principal); N17.0 Acute kidney failure with tubular necrosis; I50.33 Acute on chronic diastolic (congestive) heart failure; I27.21 Secondary pulmonary arterial hypertension; I42.7 Cardiomyopathy due to drug and external agent; D50.9 Iron deficiency anemia, unspecified; F15.10 Other stimulant abuse, uncomplicated; I13.0 Hypertensive heart and chronic kidney disease with heart failure and stage 1 through stage 4 chronic kidney disease, or unspecified chronic kidney disease; J96.10 Chronic respiratory failure, unspecified whether with hypoxia or hypercapnia; Z20.822 Contact with and (suspected) exposure to COVID-19; K74.60 Unspecified cirrhosis of liver; R55 Syncope and collapse; K21.9 Gastro-esophageal reflux disease without esophagitis; F41.9 Anxiety disorder, unspecified; M10.9 Gout, unspecified; N18.2 Chronic kidney disease, stage 2 (mild); Z80.3 Family history of malignant neoplasm of breast; Z87.891 Personal history of nicotine dependence
CPT/HCPCS: 36415; 70450; 70551; 71045; 76700; 80048; 80053; 80307; 81001; 83540; 83550; 83605; 83735; 83880; 84443; 84484; 85025; 85610; 87086; 87426; 87804; 92610; 93005; 96374; 96375; 99291; G0378; J1756; J1815

== ENCOUNTER 2024-04-26 00:05 | Inpatient (IN) | payer MEDICAID ==
[~2024-04-26] VITALS: Ht 167.6 cm; Wt 98.2 kg
[2024-04-26] VITALS (30 sets, daily range): BP systolic 86–147; BP diastolic 36–66; PULSE 56–85; RESP 12–22; TEMP 98.1–98.2; O2SAT 84–99
[~2024-04-26 00:05] MED LIST changes: +ASPI1TAB19 PO; +ATOR40TA52 PO; -FURO40TA4 PO; -LORA-1121 PO; -LORA-1123 PO; -OMEP20TA PO; -POTA-211 PO; -SILD20TA12 PO
[2024-04-26 00:35] LABS: Basophils # (auto) 0.1 10 ^3/uL (0-0.2); Basophils % (auto) 1.5 % (0.0-2.0); Eosinophils # (auto) 0.4 10 ^3/uL (0-0.8); Eosinophils % (auto) 7.3 % (0.0-7.0); Hematocrit 37.4 % (36.0-46.0); Hemoglobin 12.3 g/dL (12.2-16.2); Lymphocytes # (auto) 1.9 10 ^3/uL (0.4-5.4); Lymphocytes % (auto) 32.4 % (10.0-50.0); Mean Corpuscular Hemoglobin 29.1 pg (28.0-32.0); Mean Corpuscular Hgb Conc. 32.9 g/dL (32.0-36.0); Mean Corpuscular Volume 88.4 fL (80.0-100.0); Monocytes # (auto) 0.4 10 ^3/uL (0-1.3); Monocytes % (auto) 7.5 % (0.0-12.0); Neutrophils % (auto) 51.3 % (37.0-80.0); Platelet Count (auto) 271 10^3/uL (140-450); Red Blood Cells 4.22 10^6/uL (4.0-5.20); White Blood Cell 5.8 10^3/uL (4.4-10.8)
[2024-04-26 00:45] LABS: Alanine Aminotransferase 15 U/L (7-40); Albumin 4.8 g/dL (3.2-4.8); Alkaline Phosphatase 102 U/L (46-116); Anion Gap 6 (5-15); Aspartate Aminotransferase 18 U/L (13-40); BUN/Creatinine Ratio 20.3 (10.0-20.0); Calcium 9.8 mg/dL (8.7-10.4); Glucose 74 mg/dL (74-106); Sodium 140 mmol/L (136-145); Total Protein 7.5 g/dL (5.7-8.2)
[2024-04-26 00:46] LABS: Bilirubin, Total 0.3 mg/dL (0.2-1.0)
[2024-04-26 00:49] LABS: Red Cell Distribution Width 21.7 % (11.8-14.3)
[2024-04-26 00:53] LABS: Blood Urea Nitrogen 39 mg/dL (9-23); Carbon Dioxide 19 mmol/L (20-31); Chloride 115 mmol/L (98-107)
[2024-04-26 00:54] LABS: Potassium 6.3 mmol/L (3.5-5.1)
[2024-04-26 01:13] LABS: Anisocytosis Slight; Ovalocytes FEW; Platelet Estimate Adequate
[2024-04-26] MEDS: SODIUM BICARB 8.4% 50Meq/50ml SYR INJ IV ONE (01:30)
[2024-04-26] MEDS: InsuLIN REG 1unit/0.01ml Soln (100units/ml) IV ONE ×3 (01:30→16:30)
--- NOTE | 2024-04-26 01:33 | ED.PDOC ---
History of Present Illness HPI Comments COMPLAINING OF SHORTNESS A BREATH WHICH STARTED THIS MORNING. STATES SHE WENT [facility] AND HAD LABS DRAWN. SHE RECEIVED EMS STATING THAT HER POTASSIUM WAS 7.1 AND ADVISED TO COME INTO THE EMERGENCY DEPARTMENT. PATIENT STATES SHE WAS SUPPOSED COME IN YESTERDAY BUT COULD NOT MAKE IT IN DUE TO NOT HAVING TRANSPORTATION HAS STARTED TO CAME IN TODAY. PATIENT WAS DENIES ANY CHEST PAIN. PATIENT WAS REPORTS A HISTORY OF CHF. STATES LAST TIME SHE WAS HOSPITALIZED FOR CHF WAS A MONTH AGO. Chief Complaint: Shortness of Breath Time Seen by MD: 00:09 Primary Care Provider: RAUL Reviewed Notes: Nurses Notes Allergies: Coded Allergies: NO KNOWN ALLERGIES (Unverified , 12/20/18) Home Meds Active Scripts Atorvastatin Calcium (ATORVASTATIN CALCIUM) 40 Mg Tab, 1 TAB PO QPM for 30 Days, #30 TAB 3 Refills Prov:ANNA DUARTE RESIDENT 02/04/24 Aspirin (Aspirin) 81 Mg Tab, 81 MG PO DAILY for 30 Days, #30 TAB Prov:ANNA DUARTE RESIDENT 02/04/24 Midodrine HCl (Midodrine HCl) 10 Mg Tab, 10 MG PO TID@0600,1200,1800 for 30 Days, #90 TAB 11 Refills Prov:GEMINI CARTY DO 02/07/23 Sildenafil Citrate (Revatio) 20 Mg Tab, 20 MG PO TID for 30 Days, #90 TAB 11 Refills Prov:GEMINI CARTY DO 02/07/23 Reported Medications Sertraline Hcl (Sertraline Hcl) 50 Mg Tab, 25 MG PO DAILY for 90 Days, #90 MG 02/03/24 Docusate Sodium (Docusate Sodium) 100 Mg Cap, 1 CAP PO BID for 30 Days, #60 02/03/24 Lisinopril (Lisinopril) 20 Mg Tab, 1 TAB PO DAILY for 90 Days, #90 02/03/24 Pantoprazole Sodium Sesquihydr (Protonix) 40 Mg Tab, 20 MG PO DAILY for 30 Days, #30 02/03/24 Aspirin (Chewable Aspirin) 81 Mg Chw, 1 TAB PO DAILY for 90 Days, #90 02/03/24 Albuterol Sulfate (Albuterol Sulfate Hfa) 108 Mcg/Act Aer, 2 PUFF IN QID PRN for 25 Days, #18 11/17/23 Torsemide (Torsemide) 20 Mg Tab, 1 TAB PO BID for 30 Days, #60 11/17/23 Spironolactone (Spironolactone) 50 Mg Tab, 1 TAB PO DAILY for 90 Days, #90 11/17/23 Zolpidem Tartrate (Ambien) 10 Mg Tab, 1 TAB PO HS PRN for 10 Days, #10 11/17/23 Potassium Chloride (Potassium Chloride ER) 10 Meq Tab, 1 TAB PO DAILY for 90 Days, #90 07/21/23 Allopurinol (Allopurinol) 300 Mg Tab, 1 TAB PO DAILY for 30 Days, #30 05/09/23 Metoprolol Succinate (Metoprolol Succinate Er) 25 Mg Tab, 1 TAB PO BID for 90 Days, #180 05/09/23 Atorvastatin Calcium (ATORVASTATIN CALCIUM) 80 Mg Tab, 1 TAB PO DAILY for 90 Days, #90 05/07/23 Sodium Bicarbonate (Sodium Bicarbonate) 650 Mg Tab, 650 MG PO DAILY, TAB 05/07/23 Metolazone (Metolazone) 2.5 Mg Tab, 1 TAB PO EOD for 60 Days, #30 05/07/23 Macitentan (Opsumit) 10 Mg Tab, 10 MG PO DAILY, TAB 09/28/22 Information Source: Patient Mode of Arrival: Ambulatory Past Medical History PAST MEDICAL HISTORY: Anxiety, CHF, GERD, HTN Surgical History: Denies all surgeries [facility] History: Denies all [facility] Hx Family History Family History: Family hx of Cancer Social History Smoker: Cigarettes Alcohol: Rarely Drugs: Methamphetamine Lives In: Home Constitutional: denies: chills, diaphoresis, fatigue, fever, malaise, sweats, weakness, others EENTM: denies: blurred vision, double vision, ear bleeding, ear discharge, ear drainage, ear pain, ear ringing, eye pain, eye redness, hearing loss, mouth pain, mouth swelling, nasal discharge, nose bleeding, nose congestion, nose pain, photophobia, tearing, throat pain, throat swelling, voice changes, others Respiratory: reports: SOB at rest; denies: cough, hemoptysis, orthopnea, shortness of breath, SOB with excertion, stridor, wheezing, others Cardiovascular: denies: chest pain, dizzy spells, diaphoresis, Dyspnea on exertion, edema, irregular heart beat, left arm pain, lightheadedness, palpitations, PND, syncope, others Gastrointestinal: denies: abdomen distended, abdominal pain, blood streaked bowels, constipated, diarrhea, dysphagia, difficulty swallowing, hematemesis, melena, nausea, poor appetite, poor fluid intake, rectal bleeding, rectal pain, vomiting, others Genitourinary: denies: abnormal vagina bleeding, burning, dyspareunia, dysuria, flank pain, frequency, hematuria, incontinence, pain, , vagina discharge, urgency, others Neurological: denies: dizziness, fainting, headache, left sided numbness, left sided weakness, numbness, paresthesia, pre-existing deficit, right sided numbness, right sided weakness, seizure, speech problems, tingling, tremors, weakness, others Musculoskeletal: denies: back pain, gout, joint pain, joint swelling, muscle pain, muscle stiffness, neck pain, others Integumetry: denies: bruises, change in color, change in hair/nails, dryness, laceration, lesions, lumps, rash, wounds, others Allergic/Immunocompromised: denies: Difficulty Healing, Frequent Infections, Hives, Itching, others Hematologic/Lymphatic: denies: anemia, blood clots, easy bleeding, easy bruising, swollen glands, others Endocrine: denies: excessive hunger, excessive sweating, excessive thirst, excessive urination, flushing, intolerance to cold, intolerance to heat, unexplained weight gain, unexplained weight loss, others Psychiatric: denies: anxiety, bipolar disorder, depression, hopeless, panic disorder, schizophrenia, sleepless, suicidal, others Physical Exam General Appearance: No Apparent Distress, Normal HEENT: Normal ENT Inspection, Pharynx Normal, TMs Normal Neck: Full Range of Motion, Non-Tender, Normal, Normal Inspection Respiratory: Chest Non-Tender, Lungs Clear, No Accessory Muscle Use, No Respiratory Distress, Normal Breath Sounds Cardiovascular: No Edema, No JVD, No Murmur, No Gallop, Normal Peripheral Pul ses, Regular Rate/Rhythm Breast Exam: Deferred Gastrointestinal: No Organomegaly, Non Tender, No Pulsatile Mass, Normal Bowel Sounds, Soft Genitalia: Deferred Pelvic: Deferred Rectal: Deferred Extremities: No calf tenderness, Normal capillary refill, Normal inspection, Normal range of motion, Non-tender, No pedal edema Musculoskeletal : Apperance: Normal Neurologic: Alert, cash on delivery clerk II-XII nml as Tested, No Motor Deficits, Normal Affect, Normal Mood, No Sensory Deficits Cerebellar Function: Normal Reflexes: Normal Skin: Dry, Normal Color, Warm Lymphatic: No Adenopathy Was a procedure done? Was a procedure done?: No Differential Dx Considerations may include: HYPERKALEMIA, CHF EXACERBATION, LIVER CIRRHOSIS, PNEUMONIA, X-Ray, Labs, Meds, VS Vital Signs Date Time Temp Pulse Resp B/P (MAP) Pulse Ox O2 Delivery O2 Flow Rate FiO2 04/26/24 00:16 22 96 Room Air* 0 21 04/26/24 00:16 53 04/26/24 00:09 97.6 56 22 114/35 (61) 96 97.6 Lab Test 04/26/24 00:18 Range/Units White Blood Count 5.8 4.4-10.8 10^3/uL Red Blood Count 4.22 4.0-5.20 10^6/uL Hemoglobin 12.3 12.2-16.2 g/dL Hematocrit 37.4 36.0-46.0 % Mean Corpuscular Volume 88.4 80.0-100.0 fL Mean Corpuscular Hemoglobin 29.1 28.0-32.0 pg Mean Corpuscular Hemoglobin Concent 32.9 32.0-36.0 g/dL Red Cell Distribution Width 21.7 H 11.8-14.3 % Platelet Count 271 140-450 10^3/uL Mean Platelet Volume 7.9 6.9-10.8 fL Neutrophils (%) (Auto) 51.3 37.0-80.0 % Lymphocytes (%) (Auto) 32.4 10.0-50.0 % Monocytes (%) (Auto) 7.5 0.0-12.0 % Eosinophils (%) (Auto) 7.3 H 0.0-7.0 % Basophils (%) (Auto) 1.5 0.0-2.0 % Neutrophils # (Auto) 3.0 1.6-8.6 10 ^3/uL Lymphocytes # (Auto) 1.9 0.4-5.4 10 ^3/uL Monocytes # (Auto) 0.4 0-1.3 10 ^3/uL Eosinophils # (Auto) 0.4 0-0.8 10 ^3/uL Basophils # (Auto) 0.1 0-0.2 10 ^3/uL Nucleated Red Blood Cells 0.0 % Platelet Estimate Adequate Anisocytosis (manual) Slight Ovalocytes Few Schistocytes Few Sodium Level 140 136-145 mmol/L Potassium Level 6.3 *H 3.5-5.1 mmol/L Chloride Level 115 H 98-107 mmol/L Carbon Dioxide Level 19 L 20-31 mmol/L Anion Gap 6 5-15 Blood Urea Nitrogen 39 H 9-23 mg/dL Creatinine 1.92 H 0.550-1.02 mg/dL Glomerular Filtration Rate Calc 31 >90 mL/min BUN/Creatinine Ratio 20.3 H 10.0-20.0 Serum Glucose 74 74-106 mg/dL Calcium Level 9.8 8.7-10.4 mg/dL Total Bilirubin 0.3 0.2-1.0 mg/dL Aspartate Amino Transferase (AST) 18 13-40 U/L Alanine Aminotransferase (ALT) 15 7-40 U/L Alkaline Phosphatase 102 46-116 U/L Troponin I High Sensitivity 5 </=34 ng/L Total Protein 7.5 5.7-8.2 g/dL Albumin 4.8 3.2-4.8 g/dL Beta HCG, Quantitative 0.9 L 1.5-4.2 mIU/mL X-Ray, Labs, Meds, VS Comment PATIENT WILL BE ADMITTED FOR HYPERKALEMIA, CHF EXACERBATION HYPERKALEMIA PROTOCOL STARTED PENDING BNP PRIOR TO STARTING LASIX CONCERNS OF ACUTE KIDNEY INJURY Time of 1ST Reevaluation: 01:33 Reevaluation 1ST: Unchanged Patient Education/Counseling: Diagnosis, Treatment Family Education/Counseling: Diagnosis Departure 1 Departure Time of Disposition: 01:31 Impression: Primary Impression: Hyperkalemia Additional Impressions: History of pulmonary hypertension History of CHF (congestive heart failure) Disposition: 09 ADMITTED INPATIENT Condition: Stable Critical Care Note Critical Care Time?: No Stability Stability form required: No Heart Score Heart Score: Heart Score Response (Comments) Value History N/A 0 EKG N/A 0 Age N/A 0 Risk Factors N/A 0 Troponin N/A 0 Total 0 REJI MARCUS Apr 26, 2024 01:33
[2024-04-26] MEDS: ALBUTEROL SULF 2.5 MG/0.5ML(0.5%) NEB SOLN NEB ONE ×2 (01:57→16:40)
[2024-04-26] MEDS: DEXTROSE (50%) 50ML SYRG IV ONE ×2 (01:57→08:38)
[2024-04-26] MEDS: SODIUM CHLORIDE 0.9% 500 ML IV ONE (02:00)
--- NOTE | 2024-04-26 03:10 | DVHHPRES ---
History of Present Illness Resident Creating Document: HARSHIL CARRNAZA RESDIENT History of Present Illness This is the 53-year-old female with past medical history of heart failure with preserved ejection fraction, anxiety, GERD, hypertension, pulmonary hypertension (meth induced, on oxygen during night), liver cirrhosis (unknown reason, with multiple previous ascites which required paracentesis) CKD 3A, gout and possible sleep apnea (has been recommended to do a sleep study) referred to the hospital due to abnormal lab results. Patient has been followed by by pedodontist at [place], had performed lab studies 2 today back, found to have hyperkalemia, was advised to visit the hospital. She reports dizziness, lightheadedness shortness of bed and mild chest discomfort since 1 day. PMHx: heart failure with preserved ejection fraction, anxiety, GERD, hypertension, pulmonary hypertension (Meth induced, on oxygen during night), liver cirrhosis (unknown reason, with multiple previous ascites which required paracentesis) CKD 3A, gout and possible sleep apnea (has been recommended to do a sleep study) PSHx: Nonsignificant Family history: Noncontributory Social history: Ex-smoker with a 30 pack year history, eczematous amphetamine user, denies current drug use Home medication: Metoprolol 25 mg b.i.d., atorvastatin 40 mg daily, lisinopril 20 mg daily, spironolactone 50 mg daily, pantoprazole 20 mg daily, allopurinol 300 mg daily, metolazone 2.5 mg every other day, midodrine 10 mg 3 times a day, sertraline 25 mg daily, sildenafil 20 mg t.i.d., zolpidem 10 mg HS, furosemide 20 mg 2 tablets daily, sodium bicarbonate 650 mg daily, potassium chloride 10 mEq daily, ondansetron 4 mg q.6 hours p.r.n., Opsumit 10 mg daily, albuterol as needed, lorazepam 5 mg HS p.r.n.. Allergic history: No known allergy Patient seen and examined at the bedside. Patient is feeling better since admission. But still complained of shortness of breaths. Review of Systems Review of Systems General: patient denies fever, fatigue, weaknes, sweating, any recent changes in appetite and weight HEENT: Reports lightheadedness and dizziness Cardiovascular: Reports chest discomfort Respiratory: Reports shortness of breath Gastrointestinal: Denies nausea, vomiting, dysphagia, odynophagia, heartburn, abdominal pain, flatulence, bloating, diarrhea, constipation, change in stool, or blood in stool. Genitourinary: No dysuria, hematuria, discharge, frequency, urgency, nocturia, incontinence, and urinary retention. Endocrine: No heat or cold intolerance, polydipsia, polyuria, and polyphagia. Neurological: No dizziness, extremity weakness and numbness, tremors, gait disturbance, seizures, and memory impairment. Psychiatric: Denies depression, anxiety,or insomnia. Musculoskeletal: Denies neck pain, stiffness and swelling, back pain, muscle weakness, joint pain, stiffness, swelling, or limited range of motion. Skin: No rashes, itching, skin lesion, changes in hair, nail, skin texture and breast. Hematologic/Lymphatic: Denies easy bruising, bleeding tendencies, or lymph node enlargement. Allergies: Coded Allergies: NO KNOWN ALLERGIES (Unverified , 12/20/18) Medications Current Medications Medications Dose Ordered Sig/Agnes Route Start Time Stop Time Status Last Admin Dose Admin Acetaminophen 650 mg Q6HP PRN PO 04/26/24 02:00 Acetaminophen/ Hydrocodone Bitart 1 tab Q4HP PRN PO 04/26/24 02:00 Enoxaparin Sodium 30 mg DAILY SC 04/26/24 10:00 Torsemide 20 mg DAILY PO 04/26/24 10:00 Exam Vital Signs Vital Signs Date Time Temp Pulse Resp B/P (MAP) Pulse Ox O2 Delivery O2 Flow Rate FiO2 04/26/24 01:58 20 91 Room Air* 0 21 04/26/24 00:16 53 04/26/24 00:09 97.6 114/35 (61) 97.6 Exam General Appearance: Alert, Oriented X3, Cooperative, No acute distress HEENT: Atraumatic, PERRLA, EOMI, Mucous membrane moist/pink Respiratory: Clear to auscultation, Normal air movement Cardiovascular: Regular rate, Normal S1, Normal S2, No murmurs, no chest wall tenderness Abdominal: Normal bowel sounds, Soft, No tenderness, No hepatospenomegaly, No masses Extremities: No clubbing, No cyanosis, No edema, Normal pulses, No tenderness/swelling Skin: No rashes, No breakdown, No significant lesion Neuro: Normal gait, Normal speech, Strength at 5/5 X4 ext, Normal tone, Sensation intact, Cranial nerves 3-12 NL, Reflexes 2+ Psych/Mental Status: Mental status NL, Mood NL Labs/Xrays Labs Test 04/26/24 02:38 04/26/24 01:23 04/26/24 00:18 Range/Units POC Glucose 99 70-106 mg/dl Troponin I High Sensitivity 4 </=34 ng/L White Blood Count 5.8 4.4-10.8 10^3/uL Red Blood Count 4.22 4.0-5.20 10^6/uL Hemoglobin 12.3 12.2-16.2 g/dL Hematocrit 37.4 36.0-46.0 % Mean Corpuscular Volume 88.4 80.0-100.0 fL Mean Corpuscular Hemoglobin 29.1 28.0-32.0 pg Mean Corpuscular Hemoglobin Concent 32.9 32.0-36.0 g/dL Red Cell Distribution Width 21.7 H 11.8-14.3 % Platelet Count 271 140-450 10^3/uL Mean Platelet Volume 7.9 6.9-10.8 fL Neutrophils (%) (Auto) 51.3 37.0-80.0 % Lymphocytes (%) (Auto) 32.4 10.0-50.0 % Monocytes (%) (Auto) 7.5 0.0-12.0 % Eosinophils (%) (Auto) 7.3 H 0.0-7.0 % Basophils (%) (Auto) 1.5 0.0-2.0 % Neutrophils # (Auto) 3.0 1.6-8.6 10 ^3/uL Lymphocytes # (Auto) 1.9 0.4-5.4 10 ^3/uL Monocytes # (Auto) 0.4 0-1.3 10 ^3/uL Eosinophils # (Auto) 0.4 0-0.8 10 ^3/uL Basophils # (Auto) 0.1 0-0.2 10 ^3/uL Nucleated Red Blood Cells 0.0 % Platelet Estimate Adequate Anisocytosis (manual) Slight Ovalocytes Few Schistocytes Few Total Bilirubin 0.3 0.2-1.0 mg/dL Aspartate Amino Transferase (AST) 18 13-40 U/L Alanine Aminotransferase (ALT) 15 7-40 U/L Alkaline Phosphatase 102 46-116 U/L B-Type Natriuretic Peptide 115.42 0-100 pg/mL Total Protein 7.5 5.7-8.2 g/dL Albumin 4.8 3.2-4.8 g/dL Beta HCG, Quantitative 0.9 L 1.5-4.2 mIU/mL Assessment/Plan Assessment/Plan Hyperkalemia, likely due to Medicine/ANGEL ANGEL, on CKD 3A, likely due to drug-induced/VMN EKGs shows sinus bradycardia with ST depression and T-wave inversion on anterior leads Stopped spironolactone and lisinopril IV fluid Hypokalemia protocol given Trend potassium Heart failure with pEF Pulmonary hypertension (on home oxygen during night) Guarded Anxiety Hypertension Liver cirrhosis Possible sleep apnea Gout Continue home medicine DIET: Cardiac diet DVT PROPHYLAXIS: Lovenox GI PROPHYLAXIS:: Protonix CODE STATUS: Goal of care discussed for more than 18 minutes, full code DISPOSITION: Telemetry Patient's status and paln discussed with the patient. Case discussed with Dr. Beckham. Plan discussed with: Patient, Other (RN) My Orders Orders - HARSHIL CARRANZA RESENEDINA Procedure Category Date Status Time Admit ADMIT 04/26/24 Transmitted 01:57 Code Status CODE 04/26/24 Transmitted 01:57 Vital Signs [facility] 04/26/24 In Process 01:57 Review Orders With [facility] 04/26/24 In Process Adm. 01:57 Consistent DIET 04/26/24 Transmitted Carb(Ccho)Diabetes Breakfast Acetaminophen Tablet [facility] 04/26/24 In Process (Tylenol Tablet) 02:00 Notify Of Changes [facility] 04/26/24 In Process From Base 01:57 Advance Directive [facility] 04/26/24 In Process 01:57 Patient Condition ORDERS 04/26/24 Transmitted 01:57 Allergies [facility] 04/26/24 In Process 01:57 Hydrocodone-Acet PHA 04/26/24 In Process 5/325mg Tab ([place] 02:00 Drug Screen LAB 04/26/24 Logged 01:57 Enoxaparin Sodium [facility] 04/26/24 In Process (Lovenox) 10:00 Stat Ekg For Chest [facility] 04/26/24 In Process Pain 01:57 Notify Of Changes [facility] 04/26/24 In Process From Base 01:57 Roper Operator For [facility] 04/26/24 In Process 24 Hours 01:57 Emergency Dysrhythmia [facility] 04/26/24 In Process Protocol 01:57 Rhythm Strips Once [facility] 04/26/24 In Process Every Shift 01:57 PTPTT LAB 04/27/24 Verified 04:00 Complete Blood Count LAB 04/26/24 Logged 04:00 Basic Metabolic Panel LAB 04/26/24 In Process 01:57 Urine Sodium LAB 04/26/24 Logged 01:57 Urine Creatinine LAB 04/26/24 Logged 01:57 Urine LAB 04/26/24 Logged Protein/Creatinine Torsemide Tab PHA 04/26/24 In Process (Demadex Tab) 10:00 Date of Service: Apr 26, 2024 Billing Provider: LIAN BECKHAM MD Common Visit Codes: [id number] INP/OBS CARE (HIGH) HARSHIL CARRANZA Apr 26, 2024 03:10 LIAN BECKHAM MD Apr 26, 2024 17:22
[2024-04-26 03:13] LABS: Sodium 140 mmol/L (136-145)
[2024-04-26 03:19] LABS: BUN/Creatinine Ratio 20.3 (10.0-20.0); Glucose 85 mg/dL (74-106)
[2024-04-26 03:24] LABS: Blood Urea Nitrogen 38 mg/dL (9-23); Carbon Dioxide 16 mmol/L (20-31)
--- NOTE | 2024-04-26 03:25 | ECG ---
[facility] Test Date: 2024-04-26 Test Time: 03:23:56 Pat Name: AMADEO RECIO Department: ED Room: [address] [place] [address] Gender: F [employer] Keyholder: MONI : 1970 Requested By: REJI MARCUS Order Number: [id number] Reading MD: Carlin Mackenzie Measurements Intervals [place] Rate: 62 P: 48 AR: 189 QRS: 83 QRSD: 103 T: 113 QT: 463 QTc: 471 Interpretive Statements Sinus rhythm Consider left atrial enlargement Consider RVH w/ secondary repol abnormality Abnormal T, consider ischemia, lateral leads Electronically Signed On 04-26-2024 22:44:21 PDT by Carlin Mackenzie Please click the below link to view image of tracing.
[2024-04-26 03:26] LABS: Anion Gap 9 (5-15); Chloride 115 mmol/L (98-107)
[2024-04-26 03:27] LABS: Potassium 7.4 mmol/L (3.5-5.1)
[2024-04-26] MEDS: TORSEMIDE 20 MG TAB PO ONE (03:28)
[2024-04-26] MEDS: SODIUM ZIRCONIUM CYCL 10 GM PAK PO ONE (03:28)
--- NOTE | 2024-04-26 03:46 | DVH ---
CHEST RADIOGRAPH Indication: SOB Technique: Single frontal view of the chest was obtained Comparison: XY CHEST PORTABLE on DOS: 02/01/24, CHEST PORTABLE on DOS: 12/20/21, CXRP on DOS: 2, EKG on DOS: 12/20/21, CHEST XRAY 1 VIEW on DOS: 09/06/21 FINDINGS: Lines and Tubes: None Lungs: No focal consolidation. Pleura: No effusion. No pneumothorax. Cardiomediastinal contours: Unremarkable Bones: No acute osseous abnormality. IMPRESSION: No acute cardiopulmonary disease.
[2024-04-26 05:15] LABS: Basophils # (auto) 0.1 10 ^3/uL (0-0.2); Basophils % (auto) 0.7 % (0.0-2.0); Eosinophils # (auto) 0.3 10 ^3/uL (0-0.8); Eosinophils % (auto) 5.1 % (0.0-7.0); Hematocrit 34.5 % (36.0-46.0); Hemoglobin 11.4 g/dL (12.2-16.2); Lymphocytes # (auto) 1.8 10 ^3/uL (0.4-5.4); Lymphocytes % (auto) 26.8 % (10.0-50.0); Mean Corpuscular Hemoglobin 29.2 pg (28.0-32.0); Mean Corpuscular Volume 88.4 fL (80.0-100.0); Monocytes # (auto) 0.4 10 ^3/uL (0-1.3); Monocytes % (auto) 6.5 % (0.0-12.0); Neutrophils # (auto) 4.1 10 ^3/uL (1.6-8.6); Neutrophils % (auto) 60.9 % (37.0-80.0); Platelet Count (auto) 236 10^3/uL (140-450); White Blood Cell 6.8 10^3/uL (4.4-10.8)
[2024-04-26 05:19] LABS: Red Cell Distribution Width 21.8 % (11.8-14.3)
[2024-04-26 06:40] LABS: Urine Bacteria None Seen /hpf (None Seen)
[2024-04-26 06:58] LABS: Sodium Urine 132 mmol/L (40-220)
[2024-04-26 07:05] LABS: Urine Blood Negative /uL (Negative); Urine Clarity Clear (Clear); Urine Color Colorless (Yellow); Urine Protein, UAD Negative (Negative); Urine Squamous Epithelial Cell FEW /hpf (<5); Urine Urobilinogen Normal (Negative); Urine WBC 1 /HPF (0-5)
[2024-04-26 07:06] LABS: Creatinine, Urine 70.09 mg/dL (30.0-125.0); Opiate Scree,Urine Neg (NEGATIVE)
[2024-04-26 07:07] LABS: Amphetamine Screen, Urine Neg (NEGATIVE); Barbiturate Scree,Urine Neg (NEGATIVE); Benzodiazephine Screen, Urine Neg (NEGATIVE); Cannabinoid Screen, Urine Neg (NEGATIVE); Cocaine Screen, Urine Neg (NEGATIVE); Phencyclidine Screen, Urine Neg (NEGATIVE)
[2024-04-26 07:11] LABS: Alanine Aminotransferase 14 U/L (7-40); Albumin 4.6 g/dL (3.2-4.8); Alkaline Phosphatase 102 U/L (46-116); Anion Gap 9 (5-15); Aspartate Aminotransferase 17 U/L (13-40); BUN/Creatinine Ratio 18.9 (10.0-20.0); Bilirubin, Total 0.3 mg/dL (0.2-1.0); Calcium 9.6 mg/dL (8.7-10.4); Chloride 119 mmol/L (98-107); Glucose 91 mg/dL (74-106); Sodium 141 mmol/L (136-145)
[2024-04-26 07:12] LABS: Blood Urea Nitrogen 36 mg/dL (9-23); Carbon Dioxide 13 mmol/L (20-31)
[2024-04-26 07:16] LABS: Potassium 6.2 mmol/L (3.5-5.1)
[2024-04-26 07:33] LABS: Total Protein 7.3 g/dL (5.7-8.2)
[2024-04-26 08:09] LABS: Urine Protein/Creatinine Ratio 0.09
[2024-04-26 08:11] LABS: Protein, Urine < 6.0 mg/dL (1-14)
[2024-04-26] MEDS: SODIUM CHLORIDE 0.9% 1,000 ML IV SCH (08:30)
[2024-04-26] MEDS ORDERED: ATOR40TA52 PO (09:11)
[2024-04-26] MEDS ORDERED: ONDA-155 PO (09:11)
[2024-04-26] MEDS ORDERED: LORA-1121 PO (09:12)
[2024-04-26] MEDS: SODIUM CHLORIDE 0.9% 250 ML IV ONE (09:45)
[2024-04-26] MEDS: TORSEMIDE 20 MG TAB PO SCH (10:00)
[2024-04-26] MEDS: NOREPINEPHRINE 8 MG/250ML KIT 250 ML IV ONE (10:20)
[2024-04-26] MEDS: NOREPINEPHRINE 8 MG/250ML KIT 250 ML IV SCH (11:25)
[2024-04-26 12:00] LABS: Potassium 6.4 mmol/L (3.5-5.1)
[2024-04-26] MEDS ORDERED: SODIUM CHLORIDE 0.9% 500 ML IV ONE (12:00)
[2024-04-26 12:01] LABS: Magnesium 2.4 mg/dL (1.6-2.6)
[2024-04-26] MEDS: ENOXAPARIN SOD 30 MG/0.3 ML SYRINGE SC SCH (12:42)
--- NOTE | 2024-04-26 14:26 | DVH ---
INDICATION: liver cirrhosis TECHNIQUE: Multiple real-time sonographic images were obtained of the right upper quadrant. COMPARISON: GBUS on DOS: 07/21/21 FINDINGS: The liver demonstrates coarsenedechotexture without focal mass lesions. The liver measures. Evaluation is limited due to body habitus and obscuration from bowel gas. 13 cm. There is no intrah epatic or extrahepatic ductal dilatation. The common duct measures 5 mm. The gallbladder is without evidence of stone or sludge. The gallbladder wall measures 2 mm and is w ithin normal limits. There is increased echogenicity of the right kidney suggestive of chronic medical renal disease. The right kidney is small in size measuring 8 cm. The pancreas is not well visualized due to overlying bowel gas. IMPRESSION: Echogenic small right kidney suggestive of chronic medical renal disease. No hydronephrosis. Coarsened liver echotexture suggestive of chronic liver disease. Evaluation is limited due to body habitus and obscuration from bowel gas.
[2024-04-26] MEDS: SODIUM BICARB 50mEq/50ml Vial 150 ML in D5W 5% 1,000 ML IV ONE (14:30)
--- NOTE | 2024-04-26 14:55 | DVHCONRES ---
Date Seen: Apr 26, 2024 Resident Creating Document: GIRISH FULTON RESIDENT Referring Physician Dr. Fitzpatrick. Reason for Consultation CKD, hyperkalemia, ANGEL History of Present Illness Ms. De La Cruz,a 53-year-old female with a history of CKD 3A/B, gout, 30 pack- year history, polysubstance use, former meth abuser, heart failure with preserved ejection fraction, anxiety, GERD, hypertension, meth-induced pulmonary hypertension (requiring nighttime oxygen), liver cirrhosis with recurrent ascites, and possible sleep apnea was referred to the hospital due to abnormal lab results indicating hyperkalemia by personal property appraiser at [place] and reported dizziness, lightheadedness, shortness of breath, and mild chest discomfort for one day. S/p bicarb drip, x bicarb 1 ampuel NS 2000 ml , NS 200 dc, D5 sodium bicarb drip 150 ongoing. Known patient of Dr. Briceño in CKD clinic. Past Medical History heart failure with preserved ejection fraction, anxiety, GERD, hypertension, pulmonary hypertension (Meth induced, on oxygen during night), liver cirrhosis (unknown reason, with multiple previous ascites which required paracentesis) CKD 3A, gout and possible sleep apnea (has been recommended to do a sleep study) Past Surgical History Nonsignificant Family History: Cirrhosis of liver G8 BROTHER FH: breast cancer G8 MOTHER, G8 MOTHER, , Cause: Breast cancer FH: breast cancer G8 MOTHER, G8 MOTHER, , Cause: Breast cancer FH: breast cancer in relative when <45 years old G8 MOTHER, , Cause: Breast cancer Family History Noncontributory Social History Ex-smoker with a 30 pack year history, amphetamine user, denies current drug use, tox drug -ve. Allergies: Coded Allergies: NO KNOWN ALLERGIES (Unverified , 12/20/18) Home Meds Active Scripts Atorvastatin Calcium (ATORVASTATIN CALCIUM) 40 Mg Tab, 1 TAB PO QPM for 30 Days, #30 TAB 3 Refills Prov:ANNA DUARTE RESIDENT 02/04/24 Aspirin (Aspirin) 81 Mg Tab, 81 MG PO DAILY for 30 Days, #30 TAB Prov:ANNA DUARTE RESIDENT 02/04/24 Midodrine HCl (Midodrine HCl) 10 Mg Tab, 10 MG PO TID@0600,1200,1800 for 30 Days, #90 TAB 11 Refills Prov:GEMINI CARTY DO 02/07/23 Sildenafil Citrate (Revatio) 20 Mg Tab, 20 MG PO TID for 30 Days, #90 TAB 11 Refills Prov:GEMINI CARTY DO 02/07/23 Reported Medications Lorazepam (ATIVAN TABLET) 0.5 Mg Tb, 1 TAB PO Q6HPRN, #90 TAB 04/26/24 Ondansetron HCl (Ondansetron) 4 Mg Tab, 4 MG PO Q6HPRN, TAB 04/26/24 Atorvastatin Calcium (ATORVASTATIN CALCIUM) 40 Mg Tab, 1 TAB PO DAILY, #30 TAB 5 Refills 04/26/24 Sertraline Hcl (Sertraline Hcl) 50 Mg Tab, 25 MG PO DAILY for 90 Days, #90 MG 02/03/24 Docusate Sodium (Docusate Sodium) 100 Mg Cap, 1 CAP PO BID for 30 Days, #60 02/03/24 Lisinopril (Lisinopril) 20 Mg Tab, 1 TAB PO DAILY for 90 Days, #90 02/03/24 Pantoprazole Sodium Sesquihydr (Protonix) 40 Mg Tab, 20 MG PO DAILY for 30 Days, #30 02/03/24 Aspirin (Chewable Aspirin) 81 Mg Chw, 1 TAB PO DAILY for 90 Days, #90 02/03/24 Albuterol Sulfate (Albuterol Sulfate Hfa) 108 Mcg/Act Aer, 2 PUFF IN QID PRN for 25 Days, #18 11/17/23 Torsemide (Torsemide) 20 Mg Tab, 1 TAB PO BID for 30 Days, #60 11/17/23 Spironolactone (Spironolactone) 50 Mg Tab, 1 TAB PO DAILY for 90 Days, #90 11/17/23 Zolpidem Tartrate (Ambien) 10 Mg Tab, 1 TAB PO HS PRN for 10 Days, #10 11/17/23 Potassium Chloride (Potassium Chloride ER) 10 Meq Tab, 1 TAB PO DAILY for 90 Days, #90 07/21/23 Allopurinol (Allopurinol) 300 Mg Tab, 1 TAB PO DAILY for 30 Days, #30 05/09/23 Metoprolol Succinate (Metoprolol Succinate Er) 25 Mg Tab, 1 TAB PO BID for 90 Days, #180 05/09/23 Sodium Bicarbonate (Sodium Bicarbonate) 650 Mg Tab, 650 MG PO DAILY, TAB 05/07/23 Metolazone (Metolazone) 2.5 Mg Tab, 1 TAB PO EOD for 60 Days, #30 05/07/23 Macitentan (Opsumit) 10 Mg Tab, 10 MG PO DAILY, TAB 09/28/22 Discontinued Reported Medications Atorvastatin Calcium (ATORVASTATIN CALCIUM) 80 Mg Tab, 1 TAB PO DAILY for 90 Days, #90 05/07/23 Current Medications Current Medications Medications (Trade) Dose Ordered Sig/Agnes Route PRN Reason Start Time Stop Time Status Last Admin Acetaminophen (Tylenol Tablet) 650 mg Q6HP PRN PO PAIN SCALE 1-3 OR TEMP>100.4 04/26/24 02:00 Acetaminophen/ Hydrocodone Bitart ([place] 5/325MG Tab) 1 tab Q4HP PRN PO MODERATE PAIN (4-6 PAIN SCALE) 04/26/24 02:00 Enoxaparin Sodium (Lovenox) 30 mg DAILY SC 04/26/24 10:00 04/26/24 12:42 Torsemide (Demadex Tab) 20 mg DAILY PO 04/26/24 10:00 Sodium Chloride 1,000 ml @ 200 mls/hr Q5H IV 04/26/24 08:30 04/26/24 09:40 DC 04/26/24 08:30 Norepinephrine Bitartrate 250 ml @ 3.75 mls/hr Q24H IV 04/26/24 11:15 04/26/24 11:25 Review of Systems HEENT:Normal, CVS:Normal, RESPIRATORY:Normal, GI:Normal, :Normal, MSK:Normal, NEURO:Normal Vital Signs Vital Signs Date Time Temp Pulse Resp B/P (MAP) Pulse Ox O2 Delivery O2 Flow Rate FiO2 04/26/24 13:00 127/53 04/26/24 12:01 57 17 98 04/26/24 09:36 98.0 98.0 04/26/24 08:15 Nasal Cannula* 4 36 Physical Exam GENERAL:Normal, HEENT:Normal, NECK:Normal, LUNGS:Normal, CVS:Normal, ABDOMEN:Normal, MSK:Abnormal, SKIN:Normal, NEURO:Normal, :Normal Labs/Diagnostic Data Labs Test 04/26/24 11:42 04/26/24 08:24 04/26/24 05:50 04/26/24 05:05 Range/Units Blood Gas Specimen Type Venous Blood Gas Sample Site Vbg - n/a Blood Gas Patient Temperature 37.0 Arterial Blood Date Drawn [id number] Jose Luis Test N/a Venous Blood pH 7.277 L 7.320-7.430 Venous Blood pCO2 at Patient Temp 37.5 L 38.0-54.0 mmHg Venous Blood pO2 at Patient Temp < 36.5 23.0-48.0 mmHg Venous Blood HCO3 17.1 L 22.0-29.0 mmol/L Venous Blood Base Excess -8.9 L -2.0-3.0 mmol/L Blood Gas Liter Flow 4.00 Blood Gas Modality Nasal cannula FiO2 % 36.0 Lactic Acid Level 0.8 0.4-2.0 mmol/L POC Glucose 89 70-106 mg/dl Urine Color Colorless Yellow Urine Clarity Clear Clear Urine pH 5.0 5.0-9.0 Urine Specific [place] 1.010 1.001-1.035 Urine Protein Negative Negative Urine Ketones Negative Negative Urine Blood Negative Negative /uL Urine Nitrite Negative Negative Urine Bilirubin Negative Negative Urine Urobilinogen Normal Negative mg/dL Urine Leukocyte Esterase Negative Negative /uL Urine RBC 1 0 - 4 /hpf Urine Microscopic WBC 1 0-5 /HPF Urine Squamous Epithelial Cells Few <5 /hpf Urine Bacteria None seen None Seen /hpf Urine Creatinine 70.09 30.0-125.0 mg/dL Urine Protein/Creatinine Ratio 0.09 Urine Sodium 132 40-220 mmol/L Urine Glucose 1+ H Normal mg/dL Urine Total Protein < 6.0 1-14 mg/dL Urine Opiates Screen Neg NEGATIVE Urine Fentanyl Screen Neg NEGATIVE Urine Barbiturates Screen Neg NEGATIVE Urine Phencyclidine Screen Neg NEGATIVE Urine Amphetamines Screen Neg NEGATIVE Urine Benzodiazepines Screen Neg NEGATIVE Urine Cocaine Screen Neg NEGATIVE Urine Cannabinoids Screen Neg NEGATIVE White Blood Count 6.8 4.4-10.8 10^3/uL Red Blood Count 3.90 L 4.0-5.20 10^6/uL Hemoglobin 11.4 L 12.2-16.2 g/dL Hematocrit 34.5 L 36.0-46.0 % Mean Corpuscular Volume 88.4 80.0-100.0 fL Mean Corpuscular Hemoglobin 29.2 28.0-32.0 pg Mean Corpuscular Hemoglobin Concent 33.0 32.0-36.0 g/dL Red Cell Distribution Width 21.8 H 11.8-14.3 % Platelet Count 236 140-450 10^3/uL Mean Platelet Volume 7.9 6.9-10.8 fL Neutrophils (%) (Auto) 60.9 37.0-80.0 % Lymphocytes (%) (Auto) 26.8 10.0-50.0 % Monocytes (%) (Auto) 6.5 0.0-12.0 % Eosinophils (%) (Auto) 5.1 0.0-7.0 % Basophils (%) (Auto) 0.7 0.0-2.0 % Neutrophils # (Auto) 4.1 1.6-8.6 10 ^3/uL Lymphocytes # (Auto) 1.8 0.4-5.4 10 ^3/uL Monocytes # (Auto) 0.4 0-1.3 10 ^3/uL Eosinophils # (Auto) 0.3 0-0.8 10 ^3/uL Basophils # (Auto) 0.1 0-0.2 10 ^3/uL Nucleated Red Blood Cells 0.0 % Potassium Level 6.0 *H 3.5-5.1 mmol/L Test 04/26/24 03:31 04/26/24 00:18 Range/Units Sodium Level 141 136-145 mmol/L Chloride Level 119 H 98-107 mmol/L Carbon Dioxide Level 13 L 20-31 mmol/L Anion Gap 9 5-15 Blood Urea Nitrogen 36 H 9-23 mg/dL Creatinine 1.90 H 0.550-1.02 mg/dL Glomerular Filtration Rate Calc 32 >90 mL/min BUN/Creatinine Ratio 18.9 10.0-20.0 Serum Glucose 91 74-106 mg/dL Calcium Level 9.6 8.7-10.4 mg/dL Phosphorus Level 4.0 2.4-5.1 mg/dL Magnesium Level 2.4 1.6-2.6 mg/dL Total Bilirubin 0.3 0.2-1.0 mg/dL Aspartate Amino Transferase (AST) 17 13-40 U/L Alanine Aminotransferase (ALT) 14 7-40 U/L Alkaline Phosphatase 102 46-116 U/L Troponin I High Sensitivity 4 </=34 ng/L C-Reactive Protein High Sensitivity 0.11 <1.0 mg/dL Total Protein 7.3 5.7-8.2 g/dL Albumin 4.6 3.2-4.8 g/dL Platelet Estimate Adequate Anisocytosis (manual) Slight Ovalocytes Few Schistocytes Few B-Type Natriuretic Peptide 115.42 0-100 pg/mL Beta HCG, Quantitative 0.9 L 1.5-4.2 mIU/mL Assessment # severe hyperkalemia, likely secondary to home potassium 10 meq, spironolactone 50mg and lisinopril 20 mg daily. 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 # chronic liver disease/ cirrhosis # LVH hypertensive heart disease/HFpEF # Gout on allopurinol. Findings: #HnH + pletlets stable. #potassium: 6.3> 7.4> 6.2> 6.4> 6.0> 6.9 #GFR: 31> 32> 32 #Creatinine : 1.92> 1.87> 1.90 (BL Cr. 0.9) #FeNa: 2.6% ATN, AIN, GN #I&O: Not on Ricketts's not well noted, close monitoring. #Fluid status: borderline positive. Plan/Recommendation # lasix IV 40 bid. # Hold home spirnolactone lisinopril , allopurinol, Continue TID lokelma, bowel movement to watch for, calcium gluconate iv for cardioprotection. As needed dextrose and insluin/hyperkalemia protocol. I # Strict I&O and check Daily weight, Avoid Nephrotoxics, Avoid hyper/hypo tension keep SBP>90. # TID BMP, close follow up K Serum Phosphorus, PTH, CK, and Correct electro lytes # F/o Kidney Ultrasound, Electrolytes urine K Na Protein Creatinine protein creatinine ratio, osmolality, FENA. # Avoid hypoglycemia NICE sugar trial 140-180 in hospital # Consider starting midodrine 10 mg tid, wean off levophed keep SBP>90. # Rest of the management as per primary team. Close follow up with pulmonology, Relatively young patient with multiorgan failure, overall poor life expectancy. Thank you for the opportunity to follow up on your patient. In case of any question feel free to reach out to the Nephrology team. Discussed with Nephrology attending Dr. Burgess. addendum pt seen and examined hyperkalemia protocol as ordered bicarb drip +lasix for kaliuresis will f/u closely Plan discussed with: Patient, Other (Rn, Primary team. ) GIRISH FULTON RESIDENT Apr 26, 2024 14:55 SUHAS BURGESS MD Apr 26, 2024 18:32
[2024-04-26] MEDS: ALBUTEROL SULF 2.5 MG/0.5ML(0.5%) NEB SOLN ONE (15:42)
--- NOTE | 2024-04-26 16:03 | DVHPNRES ---
Progress Note Date Seen: Apr 26, 2024 Resident Creating Document: JOSIAH JOINER RESIDENT Has the PT tested + for MRSA If YES, has PT been informed?: No Medical Necessity Reason Pt with a Central, PICC or Fol: No Subjective Review of Systems This is the 53-year-old female with past medical history of heart failure with preserved ejection fraction, anxiety, GERD, hypertension, pulmonary hypertension (meth induced, on oxygen during night), liver cirrhosis (unknown reason, with multiple previous ascites which required paracentesis) CKD 3A, gout and possible sleep apnea (has been recommended to do a sleep study) referred to the hospital due to abnormal lab results. Patient has been followed by by toolroom keeper at [place], had performed lab studies 2 today back, found to have hyperkalemia, was advised to visit the hospital. She reports dizziness, lightheadedness shortness of bed and mild chest discomfort since 1 day. PMHx: heart failure with preserved ejection fraction, anxiety, GERD, hypertension, pulmonary hypertension (Meth induced, on oxygen during night), liver cirrhosis (unknown reason, with multiple previous ascites which required paracentesis) CKD 3A, gout and possible sleep apnea (has been recommended to do a sleep study) PSHx: Nonsignificant Family history: Noncontributory Social history: Ex-smoker with a 30 pack year history, eczematous amphetamine user, denies current drug use Home medication: Metoprolol 25 mg b.i.d., atorvastatin 40 mg daily, lisinopril 20 mg daily, spironolactone 50 mg daily, pantoprazole 20 mg daily, allopurinol 300 mg daily, metolazone 2.5 mg every other day, midodrine 10 mg 3 times a day, sertraline 25 mg daily, sildenafil 20 mg t.i.d., zolpidem 10 mg HS, furosemide 20 mg 2 tablets daily, sodium bicarbonate 650 mg daily, potassium chloride 10 mEq daily, ondansetron 4 mg q.6 hours p.r.n., Opsumit 10 mg daily, albuterol as needed, lorazepam 5 mg HS p.r.n.. Allergic history: No known allergy Patient had severe hypotension AM: levophed started, nephrology and toolroom keeper on board Objective vital signs Vital Sign Date Time Temp Pulse Resp B/P (MAP) Pulse Ox O2 Delivery O2 Flow Rate FiO2 04/26/24 13:00 127/53 04/26/24 12:01 57 17 98 04/26/24 09:36 98.0 98.0 04/26/24 08:15 Nasal Cannula* 4 36 Total Intake and Output 04/25/24 04/25/24 04/26/24 15:00 23:00 07:00 Intake Total 500 ml Balance 500 ml medications Current Medications Medications Dose Ordered Sig/Agnes Route Start Time Stop Time Status Last Admin Dose Admin Acetaminophen 650 mg Q6HP PRN PO 04/26/24 02:00 Acetaminophen/ Hydrocodone Bitart 1 tab Q4HP PRN PO 04/26/24 02:00 Enoxaparin Sodium 30 mg DAILY SC 04/26/24 10:00 04/26/24 12:42 30 MG Torsemide 20 mg DAILY PO 04/26/24 10:00 Norepinephrine Bitartrate 250 ml @ 3.75 mls/hr Q24H IV 04/26/24 11:15 04/26/24 11:25 3.75 MLS/HR Examination General Appearance: Alert, Oriented X3, Cooperative, No acute distress HEENT: Atraumatic, PERRLA, EOMI, Mucous membrane moist/pink Respiratory: Clear to auscultation, Normal air movement Cardiovascular: Regular rate, Normal S1, Normal S2, No murmurs, no chest wall tenderness Abdominal: Normal bowel sounds, Soft, No tenderness, No hepatospenomegaly, No masses Extremities: No clubbing, No cyanosis, No edema, Normal pulses, No tenderness/swelling Skin: No rashes, No breakdown, No significant lesion Neuro: Normal gait, Normal speech, Strength at 5/5 X4 ext, Normal tone, Sensation intact, Cranial nerves 3-12 NL, Reflexes 2+ Psych/Mental Status: Mental status NL, Mood NL laboratory and microbiology Laboratory Tests 04/26/24 05:05 04/26/24 03:31 Test 04/26/24 03:31 Range/Units Serum Glucose 91 74-106 mg/dL Problem List/Assessment/Plan Problem List/Assessment/Plan #Shock? #Metabolic acidosis #Hyperkalemia #ANGEL on CKD stage 3a #Acute on chronic respiratory failure #Pulmonary hypertension #Chronic heart failure with preserved ejection fraction #Liver cirrhosis #Former meth use #Gout CHAMP Levophed Nephrology on board: Dr Mitchell Supervisor Die [employer]ing on board: Dr Cramer D5W+ bicarbonate 150cc: 1LT per Dr Mitchell Furosemide 40mg IV once Lokelma given Torsemide PO Hyperkalemia protocol given: 20 UI of insulin, albuterol 20 mg No need of AB for now: lactic acid and CRP are negative Check IV line every hour Levonix 30 mg SC daily Hold on in BPs meds and pulmonary HTN meds due to possible shock ECHO ordered Case discussed with Dr Carty Plan discussed with: Patient, Other (rn) My Orders My Orders Orders - JOSIAH JOINER RESIDENT Procedure Category Date Status Time *Dr. [facility] CONS 04/26/24 Transmitted -[place] 09:42 Norepinephrine 8 PHA 04/26/24 In Process Mg/250ml Kit 11:15 LIVER US 04/26/24 Resulted 11:15 Venous Blood Gas RT 04/26/24 Logged 11:20 Transfer Orders XFER 04/26/24 Transmitted 11:52 *Consult CONS 04/26/24 Verified / 11:52 Sodium Bicarb PHA 04/26/24 In Process 50meq/50ml Vial 14:30 Potassium LAB 04/26/24 Logged 15:50 Phosphorus LAB 04/26/24 Logged 15:50 Magnesium LAB 04/26/24 Logged 15:50 Date of Service: Apr 26, 2024 Billing Provider: GEMINI CARTY DO Common Visit Codes: [id number] INP/OBS CARE(HIGH) JOSIAH JOINER RESIDENT Apr 26, 2024 16:03 GMEINI CARTY DO Apr 30, 2024 17:52
[2024-04-26 16:21] LABS: Magnesium 2.1 mg/dL (1.6-2.6)
[2024-04-26 16:22] LABS: Phosphorus 4.7 mg/dL (2.4-5.1)
[2024-04-26 16:26] LABS: Potassium 6.9 mmol/L (3.5-5.1)
[2024-04-26] MEDS: SODIUM BICARB 8.4% 50Meq/50ml SYR Vial IV ONE (16:43)
[2024-04-26] MEDS: FUROSEMIDE 40 MG/4 ML VIAL IV ONE (16:53)
--- NOTE | 2024-04-26 17:48 | DVH ---
INDICATION: Acute renal failure TECHNIQUE: Multiple real-time sonographic images of the kidneys and bladder were obtained. COMPARISON: None FINDINGS: The right kidney measures 9 cm in length, which is normal in size. There is normal echogeni city of the right kidney. No hydronephrosis. The left kidney measures 9 cm in length, which is normal in size. There is normal echogenicity of the left kidney. No hydronephrosis. No large intraluminal masses are seen in the bladder. IMPRESSION: 1. Normal sonographic appearance of the kidneys. No hydronephrosis.
[2024-04-26 18:30] LABS: INR 1.04 (0.9-1.15)
[2024-04-26] MEDS: CALCIUM GLUC 1,000mg/50ml-NS 50 ML IV ONE (21:46)
[2024-04-26] MEDS: FUROSEMIDE 40 MG/4 ML VIAL IV SCH (21:47)
[2024-04-26] MEDS: SODIUM ZIRCONIUM CYCL 10 GM PAK PO SCH (21:47)
[2024-04-26 22:49] LABS: Anion Gap 10 (5-15); Carbon Dioxide 22 mmol/L (20-31); Potassium 4.5 mmol/L (3.5-5.1); Sodium 142 mmol/L (136-145)
[2024-04-26 22:50] LABS: Calcium 9.5 mg/dL (8.7-10.4)
[2024-04-26 22:55] LABS: BUN/Creatinine Ratio 17.8 (10.0-20.0)
[2024-04-26 23:04] LABS: Blood Urea Nitrogen 32 mg/dL (9-23); Chloride 110 mmol/L (98-107); Glucose 135 mg/dL (74-106)
[2024-04-27] VITALS (47 sets, daily range): BP systolic 84–141; BP diastolic 40–81; PULSE 58–90; RESP 13–22; TEMP 97.8–98.8; O2SAT 90–98
[2024-04-27 05:54] LABS: Chloride 106 mmol/L (98-107); Potassium 4.7 mmol/L (3.5-5.1); Sodium 141 mmol/L (136-145)
[2024-04-27 05:55] LABS: Anion Gap 10 (5-15); Calcium 9.7 mg/dL (8.7-10.4); Carbon Dioxide 25 mmol/L (20-31)
[2024-04-27 05:58] LABS: INR 1.02 (0.9-1.15); Partial Thromboplastin Time 24.2 SEC (24.5-34.5); Prothrombin Time 10.8 sec (9.3-11.8)
[2024-04-27 06:01] LABS: BUN/Creatinine Ratio 18.7 (10.0-20.0)
[2024-04-27 06:06] LABS: Blood Urea Nitrogen 35 mg/dL (9-23); Glucose 137 mg/dL (74-106)
[2024-04-27] MEDS: ACETAMINOPHEN 325 MG TAB PO PRN (09:40)
--- NOTE | 2024-04-27 10:13 | DVHPNRES ---
Progress Note Date Seen: Apr 27, 2024 Resident Creating Document: GIRISH FULTON RESIDENT Has the PT tested + for MRSA If YES, has PT been informed?: No Medical Necessity Reason Pt with a Central, PICC or Fol: No Subjective Patient reports: No new complaints, Feels better Changes from previous H/P or p: No Changes Objective vital signs Vital Sign Date Time Temp Pulse Resp B/P (MAP) Pulse Ox O2 Delivery O2 Flow Rate FiO2 04/27/24 06:00 142/72 04/27/24 04:30 60 18 95 04/27/24 04:15 98.2 98.2 04/27/24 02:00 Nasal Cannula* 3 32 Total Intake and Output 04/26/24 04/26/24 04/27/24 15:00 23:00 07:00 Intake Total 250 ml 1377.54 ml 1095.00 ml Output Total 800 ml 1050 ml Balance 250 ml 577.54 ml 45.00 ml medications Current Medications Medications Dose Ordered Sig/Agnes Route Start Time Stop Time Status Last Admin Dose Admin Acetaminophen 650 mg Q6HP PRN PO 04/26/24 02:00 04/27/24 09:40 650 MG Acetaminophen/ Hydrocodone Bitart 1 tab Q4HP PRN PO 04/26/24 02:00 Enoxaparin Sodium 30 mg DAILY SC 04/26/24 10:00 04/27/24 09:37 30 MG Norepinephrine Bitartrate 250 ml @ 3.75 mls/hr Q24H IV 04/26/24 11:15 04/26/24 11:25 3.75 MLS/HR Zirconium Oxide 10 gm TID PO 04/26/24 22:00 04/28/24 14:01 04/27/24 05:48 10 GM Furosemide 40 mg BIDD IV 04/26/24 19:00 04/27/24 05:29 40 MG Midodrine 10 mg TID@0600,1200,1800 PO 04/27/24 12:00 Examination GENERAL:Normal, HEENT:Normal, NECK:Normal, LUNGS:Normal, CVS:Normal, ABDOMEN:Normal, MSK:Abnormal, SKIN:Normal, NEURO:Normal, :Normal On telemetry no acute changes of hyperkalemia, patient was moved from ED 8 to floor, more comfortable, diuresing well with IV Lasix. laboratory and microbiology Laboratory Tests 04/27/24 05:08 04/26/24 05:05 Test 04/27/24 05:08 Range/Units Serum Glucose 137 H 74-106 mg/dL Labs and/or images reviewed: Labs reviewed by me, Image(s) reviewed by me Problem List/Assessment/Plan Problem List/Assessment/Plan Ms. De La Cruz,a 53-year-old female with a history of CKD 3A/B, gout, 30 pack- year history, polysubstance use, former meth abuser, heart failure with preserved ejection fraction, anxiety, GERD, hypertension, meth-induced pulmonary hypertension (requiring nighttime oxygen), liver cirrhosis with recurrent ascites, and possible sleep apnea was referred to the hospital due to abnormal lab results indicating hyperkalemia by skip operator at [place] and reported dizziness, lightheadedness, shortness of breath, and mild chest discomfort for one day. S/p bicarb drip, x bicarb 1 ampuel NS 2000 ml , NS 200 dc, D5 sodium bicarb drip [address] Known patient of Dr. Briceño in CKD clinic. BP improved on midodrine, close to euvolemia, off of bicarb drip and Levophed. Assessment: # severe hyperkalemia, likely secondary to home potassium 10 meq, spironolactone 50mg and lisinopril 20 mg daily. 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 # chronic liver disease/ cirrhosis # LVH hypertensive heart disease/HFpEF # Gout on allopurinol Findings: #HnH + pletlets stable. #potassium: 6.3> 7.4> 6.2> 6.4> 6.0> 6.9>4.9>4.5>4.7> 4.2 #GFR: 31> 32> 32>34>32 #Creatinine : 1.92> 1.87> 1.90>1.80>1.87 (BL Cr. ~ 1.7) #FeNa: 2.6% ATN, AIN, GN in diff #I&O: bedside commode [id number]=+([id number]) #Fluid status: still on positive side, closer to euvolemia. #Kidney Ultrasound, Unremarkable Plan/Recommendation k better # continue midodrine 10 mg tid, off of levophed keep SBP>90 Avoid hyper/hypo tension # continue to hold, home spirolactone lisinopril , allopurinol. # At discharge we will discontinue potassium supplement, we will cut down spironolactone to 25 mg daily and unchanged lisinopril 20 mg. Close follow up of renal function in a week to prevent recurrent hyperkalemia. bedside counseling of potassium rich diet to avoid. # Follow up with Dr. Briceño at discharge within 2 weeks part of CKD Clinic. # Rest of the management as per primary team. Close follow up with pulmonology, Relatively young patient with multiorgan failure, overall poor life expectancy. Thank you for the opportunity to follow up on your patient. In case of any question feel free to reach out to the Nephrology team. we will follow up. Discussed with Nephrology attending Dr. Burgess. Addendum Patient seen and examined, plan discussed with resident. Agree with above, we will follow closely Plan discussed with: Patient, Other (primary team. RN) My Orders My Orders Orders - GIRISH FULTON Procedure Category Date Status Time Kidney US 04/26/24 Resulted 16:43 Furosemide Injection PHA 04/26/24 In Process (Lasix Injection) 19:00 Us Guided Vascular US 04/26/24 Logged Access 18:48 GIRISH FULTON Apr 27, 2024 10:13 SUHAS BURGESS MD Apr 27, 2024 15:47
--- NOTE | 2024-04-27 10:56 | ECG ---
[facility] Test Date: 2024-04-26 Test Time: 00:16:26 Pat Name: AMADEO RECIO Department: ED Room: 0291T Gender: F Investigator Utility Bill Complaints: RIAN : 1970 Requested By: REJI MARCUS Order Number: [id number] Reading MD: Carlin Mackenzie Measurements Intervals [place] Rate: 53 P: 40 MT: 183 QRS: 85 QRSD: 108 T: 90 QT: 461 QTc: 433 Interpretive Statements Sinus rhythm Consider RVH w/ secondary repol abnormality Electronically Signed On 04-29-2024 17:20:10 PDT by Carlin Mackenzie Please click the below link to view image of tracing.
--- NOTE | 2024-04-27 11:24 | DVHPNRES ---
Progress Note Date Seen: Apr 27, 2024 Resident Creating Document: JOSIAH JOINER RESIDENT Has the PT tested + for MRSA If YES, has PT been informed?: No Medical Necessity Reason Pt with a Central, PICC or Fol: No Subjective Review of Systems This is the 53-year-old female with past medical history of heart failure with preserved ejection fraction, anxiety, GERD, hypertension, pulmonary hypertension (meth induced, on oxygen during night), liver cirrhosis (unknown reason, with multiple previous ascites which required paracentesis) CKD 3A, gout and possible sleep apnea (has been recommended to do a sleep study) referred to the hospital due to abnormal lab results. Patient has been followed by by grocery stocker at [place], had performed lab studies 2 today back, found to have hyperkalemia, was advised to visit the hospital. She reports dizziness, lightheadedness shortness of bed and mild chest discomfort since 1 day. PMHx: heart failure with preserved ejection fraction, anxiety, GERD, hypertension, pulmonary hypertension (Meth induced, on oxygen during night), liver cirrhosis (unknown reason, with multiple previous ascites which required paracentesis) CKD 3A, gout and possible sleep apnea (has been recommended to do a sleep study) PSHx: Nonsignificant Family history: Noncontributory Social history: Ex-smoker with a 30 pack year history, eczematous amphetamine user, denies current drug use Home medication: Metoprolol 25 mg b.i.d., atorvastatin 40 mg daily, lisinopril 20 mg daily, spironolactone 50 mg daily, pantoprazole 20 mg daily, allopurinol 300 mg daily, metolazone 2.5 mg every other day, midodrine 10 mg 3 times a day, sertraline 25 mg daily, sildenafil 20 mg t.i.d., zolpidem 10 mg HS, furosemide 20 mg 2 tablets daily, sodium bicarbonate 650 mg daily, potassium chloride 10 mEq daily, ondansetron 4 mg q.6 hours p.r.n., Opsumit 10 mg daily, albuterol as needed, lorazepam 5 mg HS p.r.n.. Allergic history: No known allergy Patient off levophed since 6 am today: levophed started, nephrology and grocery stocker on board Objective vital signs Vital Sign Date Time Temp Pulse Resp B/P (MAP) Pulse Ox O2 Delivery O2 Flow Rate FiO2 3/20/25 10:45 81 17 100/58 (72) 91 04/27/24 08:00 Nasal Cannula* 3 32 04/27/24 07:45 97.8 97.8 Total Intake and Output 04/26/24 04/26/24 04/27/24 15:00 23:00 07:00 Intake Total 250 ml 1377.54 ml 1195.00 ml Output Total 800 ml 1050 ml Balance 250 ml 577.54 ml 145.00 ml medications Current Medications Medications Dose Ordered Sig/Agnes Route Start Time Stop Time Status Last Admin Dose Admin Acetaminophen 650 mg Q6HP PRN PO 04/26/24 02:00 04/27/24 09:40 650 MG Acetaminophen/ Hydrocodone Bitart 1 tab Q4HP PRN PO 04/26/24 02:00 Enoxaparin Sodium 30 mg DAILY SC 04/26/24 10:00 04/27/24 09:37 30 MG Norepinephrine Bitartrate 250 ml @ 3.75 mls/hr Q24H IV 04/26/24 11:15 04/26/24 11:25 3.75 MLS/HR Zirconium Oxide 10 gm TID PO 04/26/24 22:00 04/28/24 14:01 04/27/24 05:48 10 GM Furosemide 40 mg BIDD IV 04/26/24 19:00 04/27/24 05:29 40 MG Midodrine 10 mg TID@0600,1200,1800 PO 04/27/24 12:00 Sodium Chloride 1,000 ml @ 75 mls/hr [id number] IV 04/27/24 11:15 Examination General Appearance: Alert, Oriented X3, Cooperative, No acute distress HEENT: Atraumatic, PERRLA, EOMI, Mucous membrane moist/pink Respiratory: Clear to auscultation, Normal air movement Cardiovascular: Regular rate, Normal S1, Normal S2, No murmurs, no chest wall tenderness Abdominal: Normal bowel sounds, Soft, No tenderness, No hepatospenomegaly, No masses Extremities: No clubbing, No cyanosis, No edema, Normal pulses, No tenderness/swelling Skin: No rashes, No breakdown, No significant lesion Neuro: Normal gait, Normal speech, Strength at 5/5 X4 ext, Normal tone, Sensation intact, Cranial nerves 3-12 NL, Reflexes 2+ Psych/Mental Status: Mental status NL, Mood NL laboratory and microbiology Laboratory Tests 04/27/24 05:08 04/26/24 05:05 Test 04/27/24 05:08 Range/Units Serum Glucose 137 H 74-106 mg/dL Problem List/Assessment/Plan Problem List/Assessment/Plan #Shock resolving #Metabolic acidosis resolving #Hyperkalemia resolving #ANGEL on CKD stage 3a #Acute on chronic respiratory failure #Pulmonary hypertension #Chronic heart failure with preserved ejection fraction #Liver cirrhosis #Former meth use #Gout Telemetry Off Levophed since 6 AM Midodrine TID NS 75cc/h Nephrology on board: Dr Mitchell Nut Sheller Machine Operator on board: Dr Cramer D5W+ bicarbonate 150cc: 1LT given per Dr Mitchell Furosemide 40mg BID per Nephro Lokelma TID protocol Hyperkalemia protocol given: 30 UI of insulin, albuterol 20 mg 2x, calcium gluconate No need of AB for now: lactic acid and CRP are negative Levonox 30 mg SC daily Hold on in BPs meds and pulmonary HTN meds due to possible shock ECHO pending Case discussed with Dr Carty Plan discussed with: Patient, Other (rn) My Orders My Orders Orders - JOSIAH JOINER Procedure Category Date Status Time Venous Blood Gas RT 04/26/24 Logged 11:20 Transfer Orders XFER 04/26/24 Transmitted 11:52 *Consult CONS 04/26/24 Verified / 11:52 Communication Order ORDERS 04/26/24 Transmitted 16:09 Sodium Zirconium PHA 04/26/24 In Process Cyclosilicate 22:00 Basic Metabolic Panel LAB 04/27/24 Logged 14:00 Basic Metabolic Panel LAB 04/27/24 Logged 22:00 Midodrine Tablet PHA 04/27/24 In Process (Proamatine Tablet) 12:00 Communication Order ORDERS 04/27/24 Transmitted 08:20 Sodium Chloride 0.9% PHA 04/27/24 In Process 11:15 Date of Service: Apr 27, 2024 Billing Provider: GEMINI CARTY DO Common Visit Codes: [id number] INP/OBS CARE(HIGH) JOSIAH JOINER RESIDENT Apr 27, 2024 11:24 GEMINI CARTY DO Apr 30, 2024 17:53
[2024-04-27] MEDS: MIDODRINE HCL 10 MG TAB PO SCH (11:52)
[2024-04-27] MEDS: SODIUM CHLORIDE 0.9% 1,000 ML IV SCH (11:52)
[2024-04-27 14:45] LABS: Chloride 103 mmol/L (98-107); Potassium 4.2 mmol/L (3.5-5.1); Sodium 139 mmol/L (136-145)
[2024-04-27 14:46] LABS: Anion Gap 8 (5-15); Calcium 9.4 mg/dL (8.7-10.4); Carbon Dioxide 28 mmol/L (20-31)
[2024-04-27 14:52] LABS: Blood Urea Nitrogen 32 mg/dL (9-23); Glucose 112 mg/dL (74-106)
[2024-04-27] MEDS: HYDROcodone-ACET 5/325MG TAB PO PRN (17:35)
[2024-04-27 22:06] LABS: Chloride 104 mmol/L (98-107); Sodium 141 mmol/L (136-145)
[2024-04-27 22:07] LABS: Anion Gap 6 (5-15); Calcium 9.3 mg/dL (8.7-10.4); Carbon Dioxide 31 mmol/L (20-31)
[2024-04-27 22:12] LABS: Glucose 90 mg/dL (74-106)
[2024-04-27 22:13] LABS: Blood Urea Nitrogen 37 mg/dL (9-23)
--- NOTE | 2024-04-27 22:52 | DVHINCON2 ---
Date of service: Apr 26, 2024 Referring Physician Ana Fitzpatrick MD Reason for Consultation Acute hypoxic respiratory failure and severe pulmonary hypertension History of Present Illness A 53-year-old woman with past medical history including CHF with preserved EF, pulmonary hypertension (meth induced, on oxygen during night), liver cirrhosis (s/p multiple paracenteses), GERD, hypertension, CKD stage 3A, and gout who presents to ED for evaluation of abnormal lab results. Patient has been followed by by [employer] at [place], had lab work 2 days back and found to have hyperkalemia. She reports dizziness, lightheadedness, shortness of breath and mild chest discomfort since 1 day. Patient was admitted for further care and pulmonary consultation is requested for evaluation and management of acute hypoxic respiratory failure and severe pulmonary hypertension. Review of Systems: 14-point review of systems negative unless otherwise noted above. Past Medical History: CHF with preserved EF. Pulmonary hypertension (Meth-induced, on oxygen during night). GERD Hypertension Liver cirrhosis (unknown cause - s/p multiple paracenteses) CKD stage 3A Gout Possible sleep apnea (has been recommended to do a sleep study). Anxiety Past Surgical History: None Medications: Reviewed. Allergies: No known drug allergies. Family History: Cirrhosis of liver, breast cancer. Social History: Ex-smoker with a 30-pack year history No alcohol use* Prior methamphetamine user. Denies current drug use Family History: Cirrhosis of liver G8 BROTHER FH: breast cancer G8 MOTHER, G8 MOTHER, , Cause: Breast cancer FH: breast cancer G8 MOTHER, G8 MOTHER, , Cause: Breast cancer FH: breast cancer in relative when <45 years old G8 MOTHER, , Cause: Breast cancer Allergies: Coded Allergies: NO KNOWN ALLERGIES (Unverified , 12/20/18) Home Meds Active Scripts Atorvastatin Calcium (ATORVASTATIN CALCIUM) 40 Mg Tab, 1 TAB PO QPM for 30 Days, #30 TAB 3 Refills Prov:ANNA DUARTE RESIDENT 02/04/24 Aspirin (Aspirin) 81 Mg Tab, 81 MG PO DAILY for 30 Days, #30 TAB Prov:ANNA DUARTE RESIDENT 02/04/24 Sildenafil Citrate (Revatio) 20 Mg Tab, 20 MG PO TID for 30 Days, #90 TAB 11 Refills Prov:GEMINI CARTY DO 02/07/23 Reported Medications Lorazepam (ATIVAN TABLET) 0.5 Mg Tb, 1 TAB PO Q6HPRN, #90 TAB 04/26/24 Ondansetron HCl (Ondansetron) 4 Mg Tab, 4 MG PO Q6HPRN, TAB 04/26/24 Atorvastatin Calcium (ATORVASTATIN CALCIUM) 40 Mg Tab, 1 TAB PO DAILY, #30 TAB 5 Refills 04/26/24 Sertraline Hcl (Sertraline Hcl) 50 Mg Tab, 25 MG PO DAILY for 90 Days, #90 MG 02/03/24 Docusate Sodium (Docusate Sodium) 100 Mg Cap, 1 CAP PO BID for 30 Days, #60 02/03/24 Pantoprazole Sodium Sesquihydr (Protonix) 40 Mg Tab, 20 MG PO DAILY for 30 Days, #30 02/03/24 Aspirin (Chewable Aspirin) 81 Mg Chw, 1 TAB PO DAILY for 90 Days, #90 02/03/24 Albuterol Sulfate (Albuterol Sulfate Hfa) 108 Mcg/Act Aer, 2 PUFF IN QID PRN for 25 Days, #18 11/17/23 Torsemide (Torsemide) 20 Mg Tab, 1 TAB PO BID for 30 Days, #60 11/17/23 Zolpidem Tartrate (Ambien) 10 Mg Tab, 1 TAB PO HS PRN for 10 Days, #10 11/17/23 Allopurinol (Allopurinol) 300 Mg Tab, 1 TAB PO DAILY for 30 Days, #30 05/09/23 Metoprolol Succinate (Metoprolol Succinate Er) 25 Mg Tab, 1 TAB PO BID for 90 Days, #180 05/09/23 Sodium Bicarbonate (Sodium Bicarbonate) 650 Mg Tab, 650 MG PO DAILY, TAB 05/07/23 Metolazone (Metolazone) 2.5 Mg Tab, 1 TAB PO EOD for 60 Days, #30 05/07/23 Macitentan (Opsumit) 10 Mg Tab, 10 MG PO DAILY, TAB 09/28/22 Discontinued Reported Medications Lisinopril (Lisinopril) 20 Mg Tab, 1 TAB PO DAILY for 90 Days, #90 02/03/24 Spironolactone (Spironolactone) 50 Mg Tab, 1 TAB PO DAILY for 90 Days, #90 11/17/23 Potassium Chloride (Potassium Chloride ER) 10 Meq Tab, 1 TAB PO DAILY for 90 Days, #90 07/21/23 Atorvastatin Calcium (ATORVASTATIN CALCIUM) 80 Mg Tab, 1 TAB PO DAILY for 90 Days, #90 05/07/23 Discontinued Scripts Midodrine HCl (Midodrine HCl) 10 Mg Tab, 10 MG PO TID@0600,1200,1800 for 30 Days, #90 TAB 11 Refills Prov:GEMINI CARTY DO 02/07/23 Current Medications Current Medications Medications (Trade) Dose Ordered Sig/Agnes Route PRN Reason Start Time Stop Time Status Last Admin Midodrine (Proamatine Tablet) 10 mg TID@0600,1200,1800 PO 04/27/24 12:00 04/27/24 17:35 Sodium Chloride 1,000 ml @ 75 mls/hr [id number] IV 04/27/24 11:15 04/27/24 11:52 Vital Signs Vital Signs Date Time Temp Pulse Resp B/P (MAP) Pulse Ox O2 Delivery O2 Flow Rate FiO2 04/27/24 21:00 97.8 58 18 101/55 (70) 94 97.8 04/27/24 18:30 Nasal Cannula* 3 32 Physical Exam Gen.: Patient lying in bed in no apparent distress. On supplemental oxygen. Head: Normocephalic, atraumatic. Eyes: EOMI/PERRLA. Ears: Normal hearing. Normal anatomy. Neck/trachea: Trachea midline, supple. Nose: Normal external anatomy. Mouth: Moist mucous membranes. Chest: Decreased air entry bilaterally. No wheezing or rhonchi. Cardiovascular: Positive S1, positive S2. Regular rate and rhythm. Abdomen: Positive bowel sounds in all 4 quadrants. Soft, non-tender, non- distended. : Deferred. Rectal: Deferred. Skin: Warm, dry. Intact. Extremities: 2+ radial pulses bilaterally. No lower extremity edema. Neuro: Awake, alert, oriented x3. No gross motor or sensory deficits. Cranial nerves II through XII intact. Gait not assessed. Labs/Diagnostic Data Labs Test 04/27/24 21:45 04/27/24 05:08 04/26/24 17:57 04/26/24 16:00 Range/Units Sodium Level 141 136-145 mmol/L Potassium Level 4.0 3.5-5.1 mmol/L Chloride Level 104 98-107 mmol/L Carbon Dioxide Level 31 20-31 mmol/L Anion Gap 6 5-15 Blood Urea Nitrogen 37 H 9-23 mg/dL Creatinine 1.85 H 0.550-1.02 mg/dL Glomerular Filtration Rate Calc 33 >90 mL/min BUN/Creatinine Ratio 20.0 10.0-20.0 Serum Glucose 90 74-106 mg/dL Calcium Level 9.3 8.7-10.4 mg/dL Prothrombin Time 10.8 9.3-11.8 sec Prothrombin Time INR 1.02 0.9-1.15 Activated Partial Thromboplast Time 24.2 L 24.5-34.5 SEC POC Glucose 97 70-106 mg/dl Phosphorus Level 4.7 2.4-5.1 mg/dL Magnesium Level 2.1 1.6-2.6 mg/dL Creatine Kinase 94 34-145 U/L Test 04/26/24 11:42 04/26/24 05:50 04/26/24 05:05 04/26/24 03:31 Range/Units Blood Gas Specimen Type Venous Blood Gas Sample Site Vbg - n/a Blood Gas Patient Temperature 37.0 Arterial Blood Date Drawn [id number] Jose Luis Test N/a Venous Blood pH 7.277 L 7.320-7.430 Venous Blood pCO2 at Patient Temp 37.5 L 38.0-54.0 mmHg Venous Blood pO2 at Patient Temp < 36.5 23.0-48.0 mmHg Venous Blood HCO3 17.1 L 22.0-29.0 mmol/L Venous Blood Base Excess -8.9 L -2.0-3.0 mmol/L Blood Gas Liter Flow 4.00 Blood Gas Modality Nasal cannula FiO2 % 36.0 Lactic Acid Level 0.8 0.4-2.0 mmol/L Urine Color Colorless Yellow Urine Clarity Clear Clear Urine pH 5.0 5.0-9.0 Urine Specific [place] 1.010 1.001-1.035 Urine Protein Negative Negative Urine Ketones Negative Negative Urine Blood Negative Negative /uL Urine Nitrite Negative Negative Urine Bilirubin Negative Negative Urine Urobilinogen Normal Negative mg/dL Urine Leukocyte Esterase Negative Negative /uL Urine RBC 1 0 - 4 /hpf Urine Microscopic WBC 1 0-5 /HPF Urine Squamous Epithelial Cells Few <5 /hpf Urine Bacteria None seen None Seen /hpf Urine Osmolality 425 mOsm/kg Urine Creatinine 70.09 30.0-125.0 mg/dL Urine Protein/Creatinine Ratio 0.09 Urine Sodium 132 40-220 mmol/L Urine Potassium 32 12-62 mmol/L Urine Glucose 1+ H Normal mg/dL Urine Total Protein < 6.0 1-14 mg/dL Urine Opiates Screen Neg NEGATIVE Urine Fentanyl Screen Neg NEGATIVE Urine Barbiturates Screen Neg NEGATIVE Urine Phencyclidine Screen Neg NEGATIVE Urine Amphetamines Screen Neg NEGATIVE Urine Benzodiazepines Screen Neg NEGATIVE Urine Cocaine Screen Neg NEGATIVE Urine Cannabinoids Screen Neg NEGATIVE White Blood Count 6.8 4.4-10.8 10^3/uL Red Blood Count 3.90 L 4.0-5.20 10^6/uL Hemoglobin 11.4 L 12.2-16.2 g/dL Hematocrit 34.5 L 36.0-46.0 % Mean Corpuscular Volume 88.4 80.0-100.0 fL Mean Corpuscular Hemoglobin 29.2 28.0-32.0 pg Mean Corpuscular Hemoglobin Concent 33.0 32.0-36.0 g/dL Red Cell Distribution Width 21.8 H 11.8-14.3 % Platelet Count 236 140-450 10^3/uL Mean Platelet Volume 7.9 6.9-10.8 fL Neutrophils (%) (Auto) 60.9 37.0-80.0 % Lymphocytes (%) (Auto) 26.8 10.0-50.0 % Monocytes (%) (Auto) 6.5 0.0-12.0 % Eosinophils (%) (Auto) 5.1 0.0-7.0 % Basophils (%) (Auto) 0.7 0.0-2.0 % Neutrophils # (Auto) 4.1 1.6-8.6 10 ^3/uL Lymphocytes # (Auto) 1.8 0.4-5.4 10 ^3/uL Monocytes # (Auto) 0.4 0-1.3 10 ^3/uL Eosinophils # (Auto) 0.3 0-0.8 10 ^3/uL Basophils # (Auto) 0.1 0-0.2 10 ^3/uL Nucleated Red Blood Cells 0.0 % Total Bilirubin 0.3 0.2-1.0 mg/dL Aspartate Amino Transferase (AST) 17 13-40 U/L Alanine Aminotransferase (ALT) 14 7-40 U/L Alkaline Phosphatase 102 46-116 U/L Troponin I High Sensitivity 4 </=34 ng/L C-Reactive Protein High Sensitivity 0.11 <1.0 mg/dL Total Protein 7.3 5.7-8.2 g/dL Albumin 4.6 3.2-4.8 g/dL Test 04/26/24 00:18 Range/Units Platelet Estimate Adequate Anisocytosis (manual) Slight Ovalocytes Few Schistocytes Few B-Type Natriuretic Peptide 115.42 0-100 pg/mL Beta HCG, Quantitative 0.9 L 1.5-4.2 mIU/mL Assessment Impression: Acute hypoxic respiratory failure Dependence on supplemental oxygen Severe pulmonary hypertension Shock, cardiogenic vs. hypovolemic Atelectasis Obesity BMI 34.9 Hx of nicotine dependence Plan: Supplemental oxygen 4 LPM NC Titrate to keep O2 sats above 92%. Taper O2 as tolerated Held pulmonary hypertension medications due to hypotension. On pressors for hemodynamic support Levophed 6 mcg/min Titrate to keep mean arterial pressure greater than 65 mmHg. Monitor blood pressure Albumin given IV fluids given. Monitor renal function. Monitor electrolytes. Supplement as necessary. Monitor ins and outs. Diet and lifestyle modifications for weight reduction Obesity - complicates all care DVT prophylaxis. Prognosis: Poor given patient's multiple co-morbidities. Condition: Critical Rest of plan per hospitalist and other consultants. A total of 36 minutes of critical care time was spent reviewing the patient record, examining the patient, making a diagnostic and therapeutic plan, discussing this plan with the medical personnel, following up on diagnostic studies and following the patient for clinical stability excluding any and all procedures. At least 50% of this time was spent in direct, [id number] contact. Thank you Dr. Fitzpatrick for allowing me to participate in this patient's care. Further recommendations will depend on the patient's clinical course. Please do not hesitate to contact me if you have any questions or concerns. This medical document was created using an electronic medical record system with [employer] dictation system. Although these documentations are being carefully reviewed, there may still be some phonetic and typographical changes. The errors are purely typographical, due to imperfection on the software program, and do not reflect any compromise in the patient's medical care. Plan discussed with: Patient, Other (RN/Dr. Fitzpatrick) TEJA GONZALES MD Apr 27, 2024 22:52
--- NOTE | 2024-04-27 22:53 | DVHPN2 ---
Progress Note - Dictate Date Seen: Apr 27, 2024 Has the PT tested + for MRSA If YES, has PT been informed?: No Medical Necessity Reason Pt with a Central, PICC or Fol: No Subjective Patient seen and examined at bedside. Remains on supplemental oxygen Overnight events reviewed. vital signs Vital Sign Date Time Temp Pulse Resp B/P (MAP) Pulse Ox O2 Delivery O2 Flow Rate FiO2 04/27/24 21:00 97.8 58 18 101/55 (70) 94 97.8 04/27/24 18:30 Nasal Cannula* 3 32 Total Intake and Output 04/26/24 04/26/24 04/27/24 15:00 23:00 07:00 Intake Total 250 ml 1377.54 ml 1195.00 ml Output Total 800 ml 1050 ml Balance 250 ml 577.54 ml 145.00 ml medications Current Medications Medications Dose Ordered Sig/Agnes Route Start Time Stop Time Status Last Admin Dose Admin Acetaminophen 650 mg Q6HP PRN PO 04/26/24 02:00 04/27/24 09:40 Acetaminophen/ Hydrocodone Bitart 1 tab Q4HP PRN PO 04/26/24 02:00 04/27/24 17:35 Enoxaparin Sodium 30 mg DAILY SC 04/26/24 10:00 04/27/24 09:37 Norepinephrine Bitartrate 250 ml @ 3.75 mls/hr Q24H IV 04/26/24 11:15 04/26/24 11:25 Furosemide 40 mg BIDD IV 04/26/24 19:00 04/27/24 17:35 Midodrine 10 mg TID@0600,1200,1800 PO 04/27/24 12:00 04/27/24 17:35 Sodium Chloride 1,000 ml @ 75 mls/hr [id number] IV 04/27/24 11:15 04/27/24 11:52 objective Gen.: Patient lying in bed in no apparent distress. On supplemental oxygen. Head: Normocephalic, atraumatic. Eyes: EOMI/PERRLA. Ears: Normal hearing. Normal anatomy. Neck/trachea: Trachea midline, supple. Nose: Normal external anatomy. Mouth: Moist mucous membranes. Chest: Decreased air entry bilaterally. No wheezing or rhonchi. Cardiovascular: Positive S1, positive S2. Regular rate and rhythm. Abdomen: Positive bowel sounds in all 4 quadrants. Soft, non-tender, non- distended. : Deferred. Rectal: Deferred. Skin: Warm, dry. Intact. Extremities: 2+ radial pulses bilaterally. No lower extremity edema. Neuro: Awake, alert, oriented x3. No gross motor or sensory deficits. Cranial nerves II through XII intact. Gait not assessed. laboratory and microbiology Laboratory Tests 04/27/24 21:45 04/26/24 05:05 Test 04/27/24 21:45 Range/Units Serum Glucose 90 74-106 mg/dL Assessment/Plan Impression: Acute hypoxic respiratory failure Dependence on supplemental oxygen Severe pulmonary hypertension Shock, cardiogenic vs. hypovolemic Atelectasis Obesity Hx of nicotine dependence Events: Remains on supplemental oxygen, 3 LPM NC Taper O2 as tolerated Opsumit 10 mg, Tyvaso and Revatio 20 mg TID for pulmonary hypertension. Off Levophed since 6 AM. Monitor hemodynamics Started on midodrine for blood pressure IV fluids with NS at 75 ml/hr. Incentive spirometry Diurese w/ Lasix as tolerated Monitor renal function Monitor ins and outs Labs and imaging reviewed. Rest of plan as noted below. Plan: Supplemental oxygen Titrate to keep O2 sats above 92%. Pressors if necessary for hemodynamic support Titrate to keep mean arterial pressure greater than 65 mmHg. On midodrine Monitor blood pressure IV fluids Monitor renal function. Monitor electrolytes. Supplement as necessary. Monitor ins and outs. Diet and lifestyle modifications for weight reduction Obesity - complicates all care DVT prophylaxis. Prognosis: Poor given patient's multiple co-morbidities. Condition: Critical Rest of plan per hospitalist and other consultants. A total of 35 minutes of critical care time was spent reviewing the patient record, examining the patient, making a diagnostic and therapeutic plan, discussing this plan with the medical personnel, following up on diagnostic studies and following the patient for clinical stability excluding any and all procedures. At least 50% of this time was spent in direct, [id number] contact. Thank you Dr. Fitzpatrick for allowing me to participate in this patient's care. Further recommendations will depend on the patient's clinical course. Please do not hesitate to contact me if you have any questions or concerns. This medical document was created using an electronic medical record system with [employer] dictation system. Although these documentations are being carefully reviewed, there may still be some phonetic and typographical changes. The errors are purely typographical, due to imperfection on the software program, and do not reflect any compromise in the patient's medical care. Plan discussed with: Patient, Other (SHAQ Eagle) Critical Care Time(min): 35 TEJA GONZALES MD Apr 27, 2024 22:53
[2024-04-28] VITALS (9 sets, daily range): BP systolic 111–153; BP diastolic 60–94; PULSE 53–73; RESP 17–18; TEMP 97.4–98.1; O2SAT 94–98
[2024-04-28 06:52] LABS: Basophils # (auto) 0 10 ^3/uL (0-0.2); Basophils % (auto) 0.8 % (0.0-2.0); Eosinophils # (auto) 0.5 10 ^3/uL (0-0.8); Eosinophils % (auto) 9.3 % (0.0-7.0); Hematocrit 34.2 % (36.0-46.0); Hemoglobin 11.4 g/dL (12.2-16.2); Lymphocytes # (auto) 1.9 10 ^3/uL (0.4-5.4); Lymphocytes % (auto) 34.3 % (10.0-50.0); Mean Corpuscular Hemoglobin 29.2 pg (28.0-32.0); Mean Corpuscular Hgb Conc. 33.2 g/dL (32.0-36.0); Monocytes # (auto) 0.4 10 ^3/uL (0-1.3); Monocytes % (auto) 7.2 % (0.0-12.0); Neutrophils # (auto) 2.6 10 ^3/uL (1.6-8.6); Neutrophils % (auto) 48.4 % (37.0-80.0); Platelet Count (auto) 221 10^3/uL (140-450); Red Blood Cells 3.89 10^6/uL (4.0-5.20); Red Cell Distribution Width 21.4 % (11.8-14.3); White Blood Cell 5.4 10^3/uL (4.4-10.8)
[2024-04-28 07:19] LABS: Alanine Aminotransferase 11 U/L (7-40); Albumin 4.2 g/dL (3.2-4.8); Alkaline Phosphatase 86 U/L (46-116); Anion Gap 10 (5-15); Aspartate Aminotransferase 15 U/L (13-40); BUN/Creatinine Ratio 23.2 (10.0-20.0); Calcium 9.3 mg/dL (8.7-10.4); Carbon Dioxide 27 mmol/L (20-31); Chloride 105 mmol/L (98-107); Glucose 89 mg/dL (74-106); Potassium 3.9 mmol/L (3.5-5.1); Sodium 142 mmol/L (136-145); Total Protein 6.6 g/dL (5.7-8.2)
[2024-04-28 07:23] LABS: Bilirubin, Total 0.3 mg/dL (0.2-1.0); Blood Urea Nitrogen 36 mg/dL (9-23)
--- NOTE | 2024-04-28 10:49 | DVHPNRES ---
Progress Note Date Seen: Apr 28, 2024 Resident Creating Document: JOSIAH JOINER RESIDENT Has the PT tested + for MRSA If YES, has PT been informed?: No Medical Necessity Reason Pt with a Central, PICC or Fol: No Subjective Review of Systems This is the 53-year-old female with past medical history of heart failure with preserved ejection fraction, anxiety, GERD, hypertension, pulmonary hypertension (meth induced, on oxygen during night), liver cirrhosis (unknown reason, with multiple previous ascites which required paracentesis) CKD 3A, gout and possible sleep apnea (has been recommended to do a sleep study) referred to the hospital due to abnormal lab results. Patient has been followed by by [facility] at [place], had performed lab studies 2 today back, found to have hyperkalemia, was advised to visit the hospital. She reports dizziness, lightheadedness shortness of bed and mild chest discomfort since 1 day. PMHx: heart failure with preserved ejection fraction, anxiety, GERD, hypertension, pulmonary hypertension (Meth induced, on oxygen during night), liver cirrhosis (unknown reason, with multiple previous ascites which required paracentesis) CKD 3A, gout and possible sleep apnea (has been recommended to do a sleep study) PSHx: Nonsignificant Family history: Noncontributory Social history: Ex-smoker with a 30 pack year history, eczematous amphetamine user, denies current drug use Home medication: Metoprolol 25 mg b.i.d., atorvastatin 40 mg daily, lisinopril 20 mg daily, spironolactone 50 mg daily, pantoprazole 20 mg daily, allopurinol 300 mg daily, metolazone 2.5 mg every other day, midodrine 10 mg 3 times a day, sertraline 25 mg daily, sildenafil 20 mg t.i.d., zolpidem 10 mg HS, furosemide 20 mg 2 tablets daily, sodium bicarbonate 650 mg daily, potassium chloride 10 mEq daily, ondansetron 4 mg q.6 hours p.r.n., Opsumit 10 mg daily, albuterol as needed, lorazepam 5 mg HS p.r.n.. 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, taper down midodrine, sildenafil started Objective vital signs Vital Sign Date Time Temp Pulse Resp B/P (MAP) Pulse Ox O2 Delivery O2 Flow Rate FiO2 04/28/24 09:00 97.4 53 17 153/94 (113) 95 97.4 04/28/24 07:52 Nasal Cannula* 3 32 Total Intake and Output 04/27/24 04/27/24 04/28/24 15:00 23:00 07:00 Intake Total 1000 ml 500 ml 250 ml Balance 1000 ml 500 ml 250 ml medications Current Medications Medications Dose Ordered Sig/Agnes Route Start Time Stop Time Status Last Admin Dose Admin Acetaminophen 650 mg Q6HP PRN PO 04/26/24 02:00 04/27/24 09:40 650 MG Acetaminophen/ Hydrocodone Bitart 1 tab Q4HP PRN PO 04/26/24 02:00 04/28/24 08:47 1 TAB Enoxaparin Sodium 30 mg DAILY SC 04/26/24 10:00 04/28/24 08:47 30 MG Norepinephrine Bitartrate 250 ml @ 3.75 mls/hr Q24H IV 04/26/24 11:15 04/26/24 11:25 3.75 MLS/HR Furosemide 40 mg BIDD IV 04/26/24 19:00 04/28/24 05:55 40 MG Sodium Chloride 1,000 ml @ 75 mls/hr [id number] IV 04/27/24 11:15 04/28/24 01:40 75 MLS/HR Midodrine 10 mg BID@0600,1800 PO 04/28/24 18:00 Examination General Appearance: Alert, Oriented X3, Cooperative, No acute distress HEENT: Atraumatic, PERRLA, EOMI, Mucous membrane moist/pink Respiratory: Clear to auscultation, Normal air movement Cardiovascular: Regular rate, Normal S1, Normal S2, No murmurs, no chest wall tenderness Abdominal: Normal bowel sounds, Soft, No tenderness, No hepatospenomegaly, No masses Extremities: No clubbing, No cyanosis, No edema, Normal pulses, No tenderness/swelling Skin: No rashes, No breakdown, No significant lesion Neuro: Normal gait, Normal speech, Strength at 5/5 X4 ext, Normal tone, Sensation intact, Cranial nerves 3-12 NL, Reflexes 2+ Psych/Mental Status: Mental status NL, Mood NL laboratory and microbiology Laboratory Tests 04/28/24 05:30 Test 04/28/24 05:30 Range/Units Serum Glucose 89 74-106 mg/dL Problem List/Assessment/Plan Problem List/Assessment/Plan #Shock resolving #Metabolic acidosis resolving #Hyperkalemia resolving #ANGEL on CKD stage 3a #Acute on chronic respiratory failure #Pulmonary hypertension #Chronic heart failure with preserved ejection fraction #Liver cirrhosis #Former meth use #Gout Telemetry Midodrine BID NS 75cc/h Nephrology on board: Dr Mitchell Rivet Catcher on board: Dr Cramer D5W+ bicarbonate 150cc: 1LT given per Dr Mitchell Furosemide 40mg BID per Nephro Lokelma TID protocol Hyperkalemia protocol given: 30 UI of insulin, albuterol 20 mg 2x, calcium gluconate No need of AB for now: lactic acid and CRP are negative Levonox 30 mg SC daily Start sildenafil Zofran PRN ECHO pending Case discussed with Dr Carty Plan discussed with: Patient, Other (rn) My Orders My Orders Orders - JOSIAH JOINER Procedure Category Date Status Time Sodium Chloride 0.9% PHA 04/27/24 In Process 11:15 Transfer Orders XFER 04/27/24 Transmitted 13:41 Midodrine Tablet PHA 04/28/24 In Process (Proamatine Tablet) 18:00 Date of Service: Apr 28, 2024 Billing Provider: GEMINI CARTY DO Common Visit Codes: [id number] INP/OBS CARE(HIGH) JOSIAH JOINER RESIDENT Apr 28, 2024 10:49 GEMINI CARTY DO Apr 30, 2024 17:54
[2024-04-28] MEDS: ONDANSETRON HCL 4 MG/2 ML VIAL IV PRN (12:49)
--- NOTE | 2024-04-28 14:43 | DVHPNRES ---
Progress Note Date Seen: Apr 28, 2024 Resident Creating Document: GIRISH FULTON RESIDENT Has the PT tested + for MRSA If YES, has PT been informed?: No Medical Necessity Reason Pt with a Central, PICC or Fol: No Subjective Other Systems: Patient seen and examined by myself today in round with the resident, I agree with his assessment and plan Objective vital signs Vital Sign Date Time Temp Pulse Resp B/P (MAP) Pulse Ox O2 Delivery O2 Flow Rate FiO2 04/28/24 09:00 97.4 53 17 153/94 (113) 95 97.4 04/28/24 07:52 Nasal Cannula* 3 32 Total Intake and Output 04/27/24 04/27/24 04/28/24 15:00 23:00 07:00 Intake Total 1000 ml 500 ml 250 ml Balance 1000 ml 500 ml 250 ml medications Current Medications Medications Dose Ordered Sig/Agnes Route Start Time Stop Time Status Last Admin Dose Admin Acetaminophen 650 mg Q6HP PRN PO 04/26/24 02:00 04/27/24 09:40 650 MG Acetaminophen/ Hydrocodone Bitart 1 tab Q4HP PRN PO 04/26/24 02:00 04/28/24 08:47 1 TAB Enoxaparin Sodium 30 mg DAILY SC 04/26/24 10:00 04/28/24 08:47 30 MG Norepinephrine Bitartrate 250 ml @ 3.75 mls/hr Q24H IV 04/26/24 11:15 04/26/24 11:25 3.75 MLS/HR Furosemide 40 mg BIDD IV 04/26/24 19:00 04/28/24 05:55 40 MG Sodium Chloride 1,000 ml @ 75 mls/hr [id number] IV 04/27/24 11:15 04/28/24 12:45 75 MLS/HR Midodrine 10 mg BID@0600,1800 PO 04/28/24 18:00 Ondansetron HCl 4 mg Q6HPRN PRN IV 04/28/24 12:45 04/28/24 12:49 4 MG Examination GENERAL:Normal, HEENT:Normal, NECK:Normal, LUNGS: b/l 3L NC CVS:Normal, ABDOMEN:Normal, MSK:Abnormal, SKIN:Normal, NEURO:Normal, :Normal laboratory and microbiology Laboratory Tests 04/28/24 05:30 Test 04/28/24 05:30 Range/Units Serum Glucose 89 74-106 mg/dL Labs and/or images reviewed: Labs reviewed by me, Image(s) reviewed by me Problem List/Assessment/Plan Problem List/Assessment/Plan Ms. 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 S/p bicarb drip, x bicarb 1 ampuel NS 2000 ml , NS 200 dc, D5 sodium bicarb drip 150 ongoing. Known patient of Dr. Sheffield in CKD clinic. BP improved on midodrine, close to euvolemia, off of bicarb drip and Levophed. Assessment: # severe hyperkalemia, likely secondary to home potassium 10 meq, spironolactone 50mg and lisinopril 20 mg daily. 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 # chronic liver disease/ cirrhosis # LVH hypertensive heart disease/HFpEF # Gout on allopurinol Findings: #HnH + pletlets stable. #potassium: 6.3> 7.4> 6.2> 6.4> 6.0> 6.9>4.9>4.5>4.7> 4.2>3.9 #GFR: 31>32>32>34>32>40 #Creatinine : 1.92> 1.87> 1.90>1.80>1.87 > 1.55 (BL Cr. ~ 1.5) #FeNa: 2.6% ATN, AIN, GN in diff #I&O: bedside commode [id number]=+(182) #Fluid status: closer to euvolemia. #Kidney Ultrasound, Unremarkable Plan/Recommendation: # Better K, competed hypokalemia protocol. avoid K rich diet. Close follow up of renal function in a week to prevent recurrent hyperkalemia. bedside counseling of potassium rich diet to avoid. # Continue midodrine 10 mg tid to keep levophed off, keep SBP>90 Avoid hyper/hypo tension. # Continue to hold, home spirolactone lisinopril, allopurinol, ANGEL improved. # At discharge we will discontinue potassium supplement, and spironolactone to 25 mg daily, will continue only lisinopril 20mg. # Follow up with Dr. Sheffield at discharge within 2 weeks part of CKD Clinic. # Rest of the management as per primary team. Close follow up with pulmonology, Relatively young patient with multiorgan failure, overall poor life expectancy. Thank you for the opportunity to follow up on your patient. In case of any question feel free to reach out to the Nephrology team. we will follow up. Discussed with Nephrology attending Dr. Sheffield. Plan discussed with: Patient, Other GIRISH FULTON RESIDENT Apr 28, 2024 14:43 ERVIN SHEFFIELD MD Apr 28, 2024 16:29
[2024-04-28] MEDS: MIDODRINE HCL 10 MG TAB PO SCH (18:11)
[2024-04-28] MEDS: SILDENAFIL CITRATE 20 MG TAB PO SCH (22:11)
[2024-04-29 01:00] VITALS: BP 141/87; PULSE 65; RESP 17; TEMP 97.7; O2SAT 93
[2024-04-29 05:00] VITALS: BP 117/58; PULSE 54; RESP 16; TEMP 97.7; O2SAT 94
[2024-04-29 08:00] VITALS: PULSE 57
[2024-04-29 08:40] VITALS: BP 121/73; PULSE 59; RESP 15; TEMP 97.8; O2SAT 92
[2024-04-29 09:06] LABS: Basophils # (auto) 0.1 10 ^3/uL (0-0.2); Basophils % (auto) 1.1 % (0.0-2.0); Eosinophils # (auto) 0.5 10 ^3/uL (0-0.8); Eosinophils % (auto) 9.1 % (0.0-7.0); Hematocrit 35.7 % (36.0-46.0); Hemoglobin 11.7 g/dL (12.2-16.2); Lymphocytes # (auto) 1.7 10 ^3/uL (0.4-5.4); Lymphocytes % (auto) 29.2 % (10.0-50.0); Mean Corpuscular Hemoglobin 28.9 pg (28.0-32.0); Mean Corpuscular Hgb Conc. 32.7 g/dL (32.0-36.0); Mean Corpuscular Volume 88.3 fL (80.0-100.0); Monocytes # (auto) 0.4 10 ^3/uL (0-1.3); Monocytes % (auto) 6.2 % (0.0-12.0); Neutrophils # (auto) 3.1 10 ^3/uL (1.6-8.6); Neutrophils % (auto) 54.4 % (37.0-80.0); Platelet Count (auto) 245 10^3/uL (140-450); Red Blood Cells 4.04 10^6/uL (4.0-5.20); White Blood Cell 5.7 10^3/uL (4.4-10.8)
[2024-04-29 09:09] LABS: Red Cell Distribution Width 20.8 % (11.8-14.3)
[2024-04-29 09:16] LABS: Alanine Aminotransferase 13 U/L (7-40); Albumin 4.5 g/dL (3.2-4.8); Alkaline Phosphatase 95 U/L (46-116); Anion Gap 9 (5-15); Aspartate Aminotransferase 17 U/L (13-40); BUN/Creatinine Ratio 17.9 (10.0-20.0); Bilirubin, Total 0.4 mg/dL (0.2-1.0); Calcium 9.6 mg/dL (8.7-10.4); Carbon Dioxide 29 mmol/L (20-31); Chloride 102 mmol/L (98-107); Potassium 3.8 mmol/L (3.5-5.1); Sodium 140 mmol/L (136-145); Total Protein 7.1 g/dL (5.7-8.2)
[2024-04-29 09:18] LABS: Blood Urea Nitrogen 32 mg/dL (9-23); Glucose 124 mg/dL (74-106)
[2024-04-29 09:26] LABS: Anisocytosis Slight; Platelet Estimate Adequate
--- NOTE | 2024-04-29 10:47 | DVHPN2 ---
Progress Note Date Seen: Apr 29, 2024 Has the PT tested + for MRSA If YES, has PT been informed?: No Medical Necessity Reason Pt with a Central, PICC or Fol: No Subjective Patient reports: No new complaints Other Systems: Patient seen and examined by myself today in follow-up Objective vital signs Vital Sign Date Time Temp Pulse Resp B/P (MAP) Pulse Ox O2 Delivery O2 Flow Rate FiO2 04/29/24 08:40 97.8 59 15 121/73 (89) 92 97.8 04/29/24 08:00 Nasal Cannula* 3 32 Total Intake and Output 04/28/24 04/28/24 04/29/24 15:00 23:00 07:00 Intake Total 500 ml 2200 ml Balance 500 ml 2200 ml medications Current Medications Medications Dose Ordered Sig/Agnes Route Start Time Stop Time Status Last Admin Dose Admin Acetaminophen 650 mg Q6HP PRN PO 04/26/24 02:00 04/27/24 09:40 650 MG Acetaminophen/ Hydrocodone Bitart 1 tab Q4HP PRN PO 04/26/24 02:00 04/28/24 22:16 1 TAB Enoxaparin Sodium 30 mg DAILY SC 04/26/24 10:00 04/28/24 08:47 30 MG Furosemide 40 mg BIDD IV 04/26/24 19:00 04/29/24 05:27 40 MG Midodrine 10 mg BID@0600,1800 PO 04/28/24 18:00 04/29/24 05:28 10 MG Ondansetron HCl 4 mg Q6HPRN PRN IV 04/28/24 12:45 04/28/24 12:49 4 MG Sildenafil Citrate 20 mg TID@08,14,20 PO 04/28/24 20:00 04/29/24 08:07 20 MG Examination: LUNGS:Normal, CVS:Normal, MSK:Normal laboratory and microbiology Laboratory Tests 04/29/24 08:29 Test 04/29/24 08:29 Range/Units Serum Glucose 124 H 74-106 mg/dL Problem List/Assessment/Plan Problem List/Assessment/Plan Acute kidney injury superimposed Chronic Kidney Disease stage IIIB secondary hemodynamic mediated Hyperkalemia due to dietary indiscretion Liver cirrhosis Anemia of chronic kidney disease, well compensated Recommendation Kidney function slightly improving No urine output charted Discontinue spironolactone Low K renal diet Patient cleared from Nephrology for discharge Follow-up in my office in two weeks for Chronic Kidney Disease follow-up Plan discussed with: Patient ERVIN SHEFFIELD MD Apr 29, 2024 10:47
--- NOTE | 2024-04-29 11:26 | DVHSR ---
APPROVED REPORT EXAM: Two-dimensional and M-mode echocardiogram with Doppler and color Doppler. Blood Pressure: 89/34 mmHg INDICATION Heart Failure RISK FACTORS Height: 5'6", Weight: 213 DIMENSIONS LVDd5.4 (3.8-5.7cm)LA (2D)4.0 (1.9-4.0cm)Aortic Root2.9 (2.0-3.7cm) LVDs3.6 (2.5-4.0cm)LA (MM) (1.9-4.0cm)Aortic Cusp Exc2.0 (1.5-2.0cm) EF (%) 62.0 (55-70%)Rt. Atrium4.1 (1.9-4.0cm)Asc. Aorta3.0 cm IVSd0.6 (0.7-1.1cm)RV (D)4.2 (1.8-2.4cm) PWd0.8 (0.7-1.1cm) Mitral Valve MitralMitral Stenosis E wave0.79m/sMV Mean GR.mmHg A wave0.71m/sMV Peak GR.mmHg E/A ratio1.12D MVAcm2 DECEL [id number] 1/2 Timems Aortic Valve Aortic ValveAortic Stenosis V10.87m/Karri Mean GR.3mmHg V21.12m/Karri Peak GR.5mmHg LVOT Diameter2.3 (1.8-2.4cm)Doppler AVA3.23cm2 Pulmonic Valve V20.67m/s Tricuspid Valve TR Velocity3.35m/s [id number] Conclusion Sinus bradycardia. Biatrial enlargement. RV enlargement. Dilated RV outflow tract and pulmonary artery. Valves appear to be structurally normal. Left ventricular performance is preserved at 55% with diminished right ventricular function. Hypokin esis of RV free wall. Interventricular septal doming noted in systole consistent with a pressure ove rload state. Severe tricuspid insufficiency. Pulmonary hypertension. Right ventricular systolic pressure at 60 m mHg. Small pericardial effusion not hemodynamically significant. No intracardiac masses thrombi or vegetations discernible.
[2024-04-29 12:29] VITALS: BP 106/67; PULSE 68; RESP 15; TEMP 97.8; O2SAT 95
[2024-04-29 13:04] VITALS: BP 106/67; PULSE 68; RESP 15; TEMP 97.8; O2SAT 95
--- NOTE | 2024-04-29 17:20 | DVHDSRES ---
Discharge Summary Date of Admission Resident Creating Document: JOSIAH JOINER RESIDENT Apr 26, 2024 at 01:57 Date of Discharge: Apr 29, 2024 Admitting Diagnosis #Shock resolving #Metabolic acidosis resolving Labs/Diagnostic Data: Laboratory Results Test 04/29/24 08:29 04/27/24 05:08 04/26/24 17:57 04/26/24 16:00 White Blood Count 5.7 10^3/uL (4.4-10.8) Red Blood Count 4.04 10^6/uL (4.0-5.20) Hemoglobin 11.7 g/dL (12.2-16.2) Hematocrit 35.7 % (36.0-46.0) Mean Corpuscular Volume 88.3 fL (80.0-100.0) Mean Corpuscular Hemoglobin 28.9 pg (28.0-32.0) Mean Corpuscular Hemoglobin Concent 32.7 g/dL (32.0-36.0) Red Cell Distribution Width 20.8 % (11.8-14.3) Platelet Count 245 10^3/uL (140-450) Mean Platelet Volume 8.3 fL (6.9-10.8) Neutrophils (%) (Auto) 54.4 % (37.0-80.0) Lymphocytes (%) (Auto) 29.2 % (10.0-50.0) Monocytes (%) (Auto) 6.2 % (0.0-12.0) Eosinophils (%) (Auto) 9.1 % (0.0-7.0) Basophils (%) (Auto) 1.1 % (0.0-2.0) Neutrophils # (Auto) 3.1 10 ^3/uL (1.6-8.6) Lymphocytes # (Auto) 1.7 10 ^3/uL (0.4-5.4) Monocytes # (Auto) 0.4 10 ^3/uL (0-1.3) Eosinophils # (Auto) 0.5 10 ^3/uL (0-0.8) Basophils # (Auto) 0.1 10 ^3/uL (0-0.2) Nucleated Red Blood Cells 0.0 % Platelet Estimate Adequate Anisocytosis (manual) Slight Schistocytes Few Sodium Level 140 mmol/L (136-145) Potassium Level 3.8 mmol/L (3.5-5.1) Chloride Level 102 mmol/L (98-107) Carbon Dioxide Level 29 mmol/L (20-31) Anion Gap 9 (5-15) Blood Urea Nitrogen 32 mg/dL (9-23) Creatinine 1.79 mg/dL (0.550-1.02) Glomerular Filtration Rate Calc 34 mL/min (>90) BUN/Creatinine Ratio 17.9 (10.0-20.0) Serum Glucose 124 mg/dL (74-106) Calcium Level 9.6 mg/dL (8.7-10.4) Total Bilirubin 0.4 mg/dL (0.2-1.0) Aspartate Amino Transferase (AST) 17 U/L (13-40) Alanine Aminotransferase (ALT) 13 U/L (7-40) Alkaline Phosphatase 95 U/L (46-116) Total Protein 7.1 g/dL (5.7-8.2) Albumin 4.5 g/dL (3.2-4.8) Prothrombin Time 10.8 sec (9.3-11.8) Prothrombin Time INR 1.02 (0.9-1.15) Activated Partial Thromboplast Time 24.2 SEC (24.5-34.5) POC Glucose 97 mg/dl (70-106) Phosphorus Level 4.7 mg/dL (2.4-5.1) Magnesium Level 2.1 mg/dL (1.6-2.6) Creatine Kinase 94 U/L (34-145) Test 04/26/24 11:42 04/26/24 05:50 04/26/24 03:31 04/26/24 00:18 Blood Gas Specimen Type Venous Blood Gas Sample Site Vbg - n/a Blood Gas Patient Temperature 37.0 Arterial Blood Date Drawn [id number] Jose Luis Test N/a Venous Blood pH 7.277 (7.320-7.430) Venous Blood pCO2 at Patient Temp 37.5 mmHg (38.0-54.0) Venous Blood pO2 at Patient Temp < 36.5 mmHg (23.0-48.0) Venous Blood HCO3 17.1 mmol/L (22.0-29.0) Venous Blood Base Excess -8.9 mmol/L (-2.0-3.0) Blood Gas Liter Flow 4.00 Blood Gas Modality Nasal cannula FiO2 % 36.0 Lactic Acid Level 0.8 mmol/L (0.4-2.0) Urine Color Colorless (Yellow) Urine Clarity Clear (Clear) Urine pH 5.0 (5.0-9.0) Urine Specific Collins 1.010 (1.001-1.035) Urine Protein Negative (Negative) Urine Ketones Negative (Negative) Urine Blood Negative /uL (Negative) Urine Nitrite Negative (Negative) Urine Bilirubin Negative (Negative) Urine Urobilinogen Normal mg/dL (Negative) Urine Leukocyte Esterase Negative /uL (Negative) Urine RBC 1 /hpf (0 - 4) Urine Microscopic WBC 1 /HPF (0-5) Urine Squamous Epithelial Cells Few /hpf (<5) Urine Bacteria None seen /hpf (None Seen) Urine Osmolality 425 mOsm/kg Urine Creatinine 70.09 mg/dL (30.0-125.0) Urine Protein/Creatinine Ratio 0.09 Urine Sodium 132 mmol/L (40-220) Urine Potassium 32 mmol/L (12-62) Urine Glucose 1+ mg/dL (Normal) Urine Total Protein < 6.0 mg/dL (1-14) Urine Opiates Screen Neg (NEGATIVE) Urine Fentanyl Screen Neg (NEGATIVE) Urine Barbiturates Screen Neg (NEGATIVE) Urine Phencyclidine Screen Neg (NEGATIVE) Urine Amphetamines Screen Neg (NEGATIVE) Urine Benzodiazepines Screen Neg (NEGATIVE) Urine Cocaine Screen Neg (NEGATIVE) Urine Cannabinoids Screen Neg (NEGATIVE) Troponin I High Sensitivity 4 ng/L (</=34) C-Reactive Protein High Sensitivity 0.11 mg/dL (<1.0) Ovalocytes Few B-Type Natriuretic Peptide 115.42 pg/mL (0-100) Beta HCG, Quantitative 0.9 mIU/mL (1.5-4.2) Other Laboratory Tests 04/29/24 08:29 Brief Hx & Hospital Course: A 53-year-old female with a history of heart failure with preserved ejection fraction, pulmonary hypertension (meth-induced), liver cirrhosis, CKD stage 3A, and gout, presented with dizziness, mild chest discomfort, and hyperkalemia found on outpatient labs. The hyperkalemia is related to medication (ACEI and spironolactone) On admission, she was hypotensive and required vasopressor support with Levophed, which was successfully weaned off within 24 hours. Her hospital course was also complicated by metabolic acidosis, acute on chronic respiratory failure, and acute kidney injury on CKD. She remained on supplemental oxygen via nasal cannula and was initiated on midodrine for hemodynamic support. Later on the home meds were slowly titrate, only exception was the ACEI and spironolactone, that will be restart by the relay adjuster as outpatient. Echocardiogram showed LVEF of 55% with signs of RV dysfunction, pulmonary hypertension (RVSP ~60 mmHg), and small pericardial effusion. She responded to diuresis, bicarobante drip and electrolyte correction, and nephrology and pulmonology were consulted for ongoing management. She remained stable on midodrine, and her pulmonary and hemodynamic status improved. At the time of discharge, she was off pressors, stable on oxygen at 3L/min, and tolerating her chronic medications. Given her multiple comorbidities and poor overall prognosis, close outpatient follow-up was recommended. General Appearance: Alert, Oriented X3, Cooperative, No acute distress HEENT: Atraumatic, PERRLA, EOMI, Mucous membrane moist/pink Respiratory: Clear to auscultation, Normal air movement Cardiovascular: Regular rate, Normal S1, Normal S2, No murmurs, no chest wall tenderness Abdominal: Normal bowel sounds, Soft, No tenderness, No hepatospenomegaly, No masses Extremities: No clubbing, No cyanosis, No edema, Normal pulses, No tenderness/swelling Skin: No rashes, No breakdown, No significant lesion Neuro: Normal gait, Normal speech, Strength at 5/5 X4 ext, Normal tone, Sensation intact, Cranial nerves 3-12 NL, Reflexes 2+ Psych/Mental Status: Mental status NL, Mood NL Case discussed with Dr Carty Consults/Reason for consult nephrology: metabolic acidosis and hyperkalemia pulmonology due to pulmonary hypertension Operations or Procedures ORDERING PHYSICIAN: JOSIAH JOINER RESIDENT PROCEDURE(s): [facility] - ECHO 2D MODE CARDIAC DOP REASON: chf ORDER NUMBER(s): [id number], ACCESSION NUMBER(s): [id number] APPROVED REPORT EXAM: Two-dimensional and M-mode echocardiogram with Doppler and color Doppler. Blood Pressure: 89/34 mmHg INDICATION Heart Failure RISK FACTORS Height: 5'6", Weight: 213 DIMENSIONS LVDd 5.4 (3.8-5.7cm) LA (2D) 4.0 (1.9-4.0cm) Aortic Root 2.9 (2.0- 3.7cm) LVDs 3.6 (2.5-4.0cm) LA (MM) (1.9-4.0cm) Aortic Cusp Exc 2.0 (1.5- 2.0cm) EF (%) 62.0 (55-70%) Rt. Atrium 4.1 (1.9-4.0cm) Asc. Aorta 3.0 cm IVSd 0.6 (0.7-1.1cm) RV (D) 4.2 (1.8-2.4cm) PWd 0.8 (0.7-1.1cm) Mitral Valve Mitral Mitral Stenosis E wave 0.79m/s MV Mean GR. mmHg A wave 0.71m/s MV Peak GR. mmHg E/A ratio 1.1 2D MVA cm2 DECEL Time 211ms PRESS 1/2 Time ms Aortic Valve Aortic Valve Aortic Stenosis V1 0.87m/s AO Mean GR. 3mmHg V2 1.12m/s AO Peak GR. 5mmHg LVOT Diameter 2.3 (1.8-2.4cm) Doppler OSEAS 3.23cm2 Pulmonic Valve V2 0.67m/s Tricuspid Valve TR Velocity 3.35m/s RVSP 60mmHg Conclusion Sinus bradycardia. Biatrial enlargement. RV enlargement. Dilated RV outflow tract and pulmonary artery. Valves appear to be structurally normal. Left ventricular performance is preserved at 55% with diminished right ventricular function. Hypokinesis of RV free wall. Interventricular septal doming noted in systole consistent with a pressure overload state. Severe tricuspid insufficiency. Pulmonary hypertension. Right ventricular systolic pressure at 60 mmHg. Small pericardial effusion not hemodynamically significant. No intracardiac masses thrombi or vegetations discernible. INDICATION: Acute renal failure TECHNIQUE: Multiple real-time sonographic images of the kidneys and bladder were obtained. COMPARISON: None FINDINGS: The right kidney measures 9 cm in length, which is normal in size. There is normal echogenicity of the right kidney. No hydronephrosis. The left kidney measures 9 cm in length, which is normal in size. There is normal echogenicity of the left kidney. No hydronephrosis. No large intraluminal masses are seen in the bladder. IMPRESSION: 1. Normal sonographic appearance of the kidneys. No hydronephrosis. Condition at Discharge: Stable Final Diagnosis/Problems List #Shock cardiogenic/hypovolemic resolved #Metabolic acidosis resolved #Hyperkalemia resolved #ANGEL probable VMN on CKD stage 3a #Acute on chronic respiratory failure #Pulmonary hypertension #Chronic heart failure with preserved ejection fraction #Liver cirrhosis #Former meth use #Gout Discharge Disposition: Home Discharge Instruct/Medications Diet: Renal Diet comment: low K+ Activity: No Restrictions, As Tolerated Follow Up/Referral: [facility] dr Izquierdo outpatient Medications: resume home meds hold on lisinopril, spironolactone and potassium PO Discharge Statement: "Patient was advised to return to the ER or call 911 if any headaches, dizziness, shortness of breath, chest pain, abdominal pain, bleeding, fevers, or worsening of medical condition. Patient was counseled about treatment plan, medications, possible side effects, patientverbalized understanding. All questions were answered to the best of my ability. This discharge took greater then 30 minutes in planning, reviewing documentation, counseling the patient, and discussing with other team members." ASSESSMENT ASSESSMENT Assessment Hyperkalemia Date of Service: Apr 29, 2024 Billing Provider: GEMINI CARTY DO Common Visit Codes: 36701-CCT/OBS DISCH DAY >30min JOSIAH JOINER RESIDENT Apr 29, 2024 17:20 GEMINI CARTY DO May 03, 2024 06:37
--- NOTE | 2024-04-29 18:07 | DVHPN2 ---
Progress Note - Dictate Date Seen: Apr 28, 2024 Has the PT tested + for MRSA If YES, has PT been informed?: No Medical Necessity Reason Pt with a Central, PICC or Fol: No Subjective Patient seen and examined at bedside. Remains on supplemental oxygen Overnight events reviewed. vital signs Vital Sign Date Time Temp Pulse Resp B/P (MAP) Pulse Ox O2 Delivery O2 Flow Rate FiO2 04/29/24 13:04 97.8 68 15 95 04/29/24 12:29 106/67 (80) 04/29/24 08:00 Nasal Cannula* 3 32 Total Intake and Output 04/28/24 04/28/24 04/29/24 15:00 23:00 07:00 Intake Total 500 ml 2200 ml Balance 500 ml 2200 ml objective Gen.: Patient lying in bed in no apparent distress. On supplemental oxygen. Head: Normocephalic, atraumatic. Eyes: EOMI/PERRLA. Ears: Normal hearing. Normal anatomy. Neck/trachea: Trachea midline, supple. Nose: Normal external anatomy. Mouth: Moist mucous membranes. Chest: Decreased air entry bilaterally. No wheezing or rhonchi. Cardiovascular: Positive S1, positive S2. Regular rate and rhythm. Abdomen: Positive bowel sounds in all 4 quadrants. Soft, non-tender, non- distended. : Deferred. Rectal: Deferred. Skin: Warm, dry. Intact. Extremities: 2+ radial pulses bilaterally. No lower extremity edema. Neuro: Awake, alert, oriented x3. No gross motor or sensory deficits. Cranial nerves II through XII intact. Gait not assessed. laboratory and microbiology Laboratory Tests 04/29/24 08:29 Test 04/29/24 08:29 Range/Units Serum Glucose 124 H 74-106 mg/dL Assessment/Plan Impression: Acute hypoxic respiratory failure Dependence on supplemental oxygen Severe pulmonary hypertension Shock, cardiogenic vs. hypovolemic Atelectasis Obesity Hx of nicotine dependence Events: Remains on supplemental oxygen, 3 LPM NC Taper O2 as tolerated Resume Revatio 20 mg TID for pulmonary hypertension - Hold if SBP is less than 90 mmHg Can consider discharge if patient tolerates. Off Levophed, hemodynamically stable. Continue midodrine Monitor blood pressure IV fluids with NS at 75 ml/hr. Incentive spirometry Diurese w/ Lasix as tolerated Monitor renal function Monitor ins and outs Labs and imaging reviewed. Rest of plan as noted below. Plan: Supplemental oxygen Titrate to keep O2 sats above 92%. Pressors if necessary for hemodynamic support Titrate to keep mean arterial pressure greater than 65 mmHg. On midodrine Monitor blood pressure IV fluids Monitor renal function. Monitor electrolytes. Supplement as necessary. Monitor ins and outs. Diet and lifestyle modifications for weight reduction Obesity - complicates all care DVT prophylaxis. Prognosis: Poor given patient's multiple co-morbidities. Condition: Critical Rest of plan per hospitalist and other consultants. A total of 35 minutes of critical care time was spent reviewing the patient record, examining the patient, making a diagnostic and therapeutic plan, discussing this plan with the medical personnel, following up on diagnostic studies and following the patient for clinical stability excluding any and all procedures. At least 50% of this time was spent in direct, [id number] contact. Thank you Dr. Fitzpatrick for allowing me to participate in this patient's care. Further recommendations will depend on the patient's clinical course. Please do not hesitate to contact me if you have any questions or concerns. This medical document was created using an electronic medical record system with [employer] dictation system. Although these documentations are being carefully reviewed, there may still be some phonetic and typographical changes. The errors are purely typographical, due to imperfection on the software program, and do not reflect any compromise in the patient's medical care. Plan discussed with: Patient, Other (RN) TEJA GONZALES MD Apr 29, 2024 18:07
--- NOTE | 2024-04-29 18:13 | DVHPN2 ---
Progress Note - Dictate Date Seen: Apr 29, 2024 Has the PT tested + for MRSA If YES, has PT been informed?: No Medical Necessity Reason Pt with a Central, PICC or Fol: No Subjective Patient seen and examined at bedside. Remains on supplemental oxygen Overnight events reviewed. vital signs Vital Sign Date Time Temp Pulse Resp B/P (MAP) Pulse Ox O2 Delivery O2 Flow Rate FiO2 04/29/24 13:04 97.8 68 15 95 04/29/24 12:29 106/67 (80) 04/29/24 08:00 Nasal Cannula* 3 32 Total Intake and Output 04/28/24 04/28/24 04/29/24 15:00 23:00 07:00 Intake Total 500 ml 2200 ml Balance 500 ml 2200 ml objective Gen.: Patient lying in bed in no apparent distress. On supplemental oxygen. Head: Normocephalic, atraumatic. Eyes: EOMI/PERRLA. Ears: Normal hearing. Normal anatomy. Neck/trachea: Trachea midline, supple. Nose: Normal external anatomy. Mouth: Moist mucous membranes. Chest: Decreased air entry bilaterally. No wheezing or rhonchi. Cardiovascular: Positive S1, positive S2. Regular rate and rhythm. Abdomen: Positive bowel sounds in all 4 quadrants. Soft, non-tender, non- distended. : Deferred. Rectal: Deferred. Skin: Warm, dry. Intact. Extremities: 2+ radial pulses bilaterally. No lower extremity edema. Neuro: Awake, alert, oriented x3. No gross motor or sensory deficits. Cranial nerves II through XII intact. Gait not assessed. laboratory and microbiology Laboratory Tests 04/29/24 08:29 Test 04/29/24 08:29 Range/Units Serum Glucose 124 H 74-106 mg/dL Assessment/Plan Impression: Acute hypoxic respiratory failure Dependence on supplemental oxygen Severe pulmonary hypertension Shock, cardiogenic vs. hypovolemic Atelectasis Obesity Hx of nicotine dependence Events: Remains on supplemental oxygen, 3 LPM NC Taper O2 as tolerated Revatio 20 mg TID for pulmonary hypertension - Hold if SBP is less than 90 mmHg Tolerating Revatio Resume other outpatient pulmonary hypertension meds. Off Levophed, hemodynamically stable. Continue midodrine Monitor blood pressure IV fluids with NS at 75 ml/hr. Incentive spirometry Diurese w/ Lasix as tolerated Monitor renal function Monitor ins and outs Patient is stable for discharge from the pulmonary standpoint. Labs and imaging reviewed. Rest of plan as noted below. Plan: Supplemental oxygen Titrate to keep O2 sats above 92%. Pressors if necessary for hemodynamic support Titrate to keep mean arterial pressure greater than 65 mmHg. On midodrine Monitor blood pressure IV fluids Monitor renal function. Monitor electrolytes. Supplement as necessary. Monitor ins and outs. Diet and lifestyle modifications for weight reduction Obesity - complicates all care DVT prophylaxis. Prognosis: Poor given patient's multiple co-morbidities. Condition: Critical Rest of plan per hospitalist and other consultants. A total of 35 minutes of critical care time was spent reviewing the patient record, examining the patient, making a diagnostic and therapeutic plan, discussing this plan with the medical personnel, following up on diagnostic studies and following the patient for clinical stability excluding any and all procedures. At least 50% of this time was spent in direct, [id number] contact. Thank you Dr. Fitzpatrick for allowing me to participate in this patient's care. Further recommendations will depend on the patient's clinical course. Please do not hesitate to contact me if you have any questions or concerns. This medical document was created using an electronic medical record system with [employer] dictation system. Although these documentations are being carefully reviewed, there may still be some phonetic and typographical changes. The errors are purely typographical, due to imperfection on the software program, and do not reflect any compromise in the patient's medical care. Plan discussed with: Patient, Other (SHAQ Ty) TEJA GONZALES MD Apr 29, 2024 18:13
== END 2024-04-29 14:14 | disposition home or self-care (01) | DRG 469 ==
LOC: ER 00:05 → OVERFLOW 01:57 → TELE-WESTW 04-27 16:06
PROVIDERS: ADMIT Internal Medicine; ATTEND Internal Medicine
DX: N17.0 Acute kidney failure with tubular necrosis (principal); J96.21 Acute and chronic respiratory failure with hypoxia; R57.0 Cardiogenic shock; E87.5 Hyperkalemia; R57.1 Hypovolemic shock; I27.20 Pulmonary hypertension, unspecified; G47.30 Sleep apnea, unspecified; M10.9 Gout, unspecified; I50.32 Chronic diastolic (congestive) heart failure; Z68.34 Body mass index [BMI] 34.0-34.9, adult; K21.9 Gastro-esophageal reflux disease without esophagitis; E66.9 Obesity, unspecified; I13.0 Hypertensive heart and chronic kidney disease with heart failure and stage 1 through stage 4 chronic kidney disease, or unspecified chronic kidney disease; F17.210 Nicotine dependence, cigarettes, uncomplicated; D64.9 Anemia, unspecified; T50.3X5A Adverse effect of electrolytic, caloric and water-balance agents, initial encounter; N18.31 Chronic kidney disease, stage 3a; K74.60 Unspecified cirrhosis of liver; J98.11 Atelectasis; Z80.3 Family history of malignant neoplasm of breast; Z99.81 Dependence on supplemental oxygen; Z79.82 Long term (current) use of aspirin; Z79.899 Other long term (current) drug therapy; Y92.89 Other specified places as the place of occurrence of the external cause; E87.20 Acidosis, unspecified
CPT/HCPCS: 36415; 36600; 71045; 76705; 76775; 76937; 80048; 80053; 80307; 81001; 82550; 82570; 82805; 82962; 83605; 83735; 83880; 83935; 84100; 84132; 84133; 84156; 84300; 84484; 84702; 85025; 85610; 85730; 86141; 93005; 93306; 94640; 96365; 96375; G0378; J1815; J2405

== ENCOUNTER 2024-08-13 22:26 | Inpatient (IN) | payer MEDICAID ==
[~2024-08-13] VITALS: Ht 167.6 cm; Wt 100.5 kg
[~2024-08-13 22:26] MED LIST changes: -ATOR-47 PO; -LISI20TA56 PO; +LORA-1121 PO; -MID10T PO; +ONDA-155 PO; -POTA-228 PO; -SPIR50TA5 PO
[2024-08-13 23:11] VITALS: PULSE 70; RESP 18; O2SAT 92
[2024-08-13 23:59] LABS: Hematocrit 34.4 % (36.0-46.0); Hemoglobin 11.1 g/dL (12.2-16.2); Mean Corpuscular Hemoglobin 29.8 pg (28.0-32.0); Mean Corpuscular Volume 92.1 fL (80.0-100.0); Nucleated Red Blood Cells % 0.1 %
[2024-08-14] VITALS (9 sets, daily range): BP systolic 97–102; BP diastolic 32–56; PULSE 57–83; RESP 17–22; TEMP 97.5; O2SAT 92–100
[2024-08-14 00:09] LABS: Sodium 142 mmol/L (136-145)
[2024-08-14 00:10] LABS: Anion Gap 10 (5-15); Calcium 9.0 mg/dL (8.7-10.4)
--- NOTE | 2024-08-14 00:10 | DVH ---
CHEST RADIOGRAPH Indication: cough sob Technique: Single frontal view of the chest was obtained COMPARISON: XY CHEST XRAY 1 VIEW on DOS: 04/26/24, FINDINGS: Lines and Tubes: None Lungs: Clear Pleura: No effusion. No pneumothorax. Cardiomediastinal contours: Heart size is within normal limits for the projection. Enlarged pulmonary artery noted. IMPRESSION: No acute abnormality demonstrated. Evidence of enlarged pulmonary artery suggestive of pulmonary mahendra rial hypertension.
[2024-08-14 00:15] LABS: BUN/Creatinine Ratio 15.4 (10.0-20.0); Glucose 97 mg/dL (74-106)
--- NOTE | 2024-08-14 00:38 | ED.PDOC ---
Eye-HPI HPI Comments 53-year-old female presents with 2 week history of sore throat, with associated shortness of breath, cough, difficulty swallowing, generalized body aches, nausea, and bilateral leg swelling. Patient reports also having a fever, yesterday, that has since subsided on its own. Significant history of anxiety, acute on chronic respiratory failure, ANGEL, CHF with preserved gas or EF, CKD stage IIIA, GERD, gout, liver cirrhosis, pulmonary hypertension-methamphetamine induced, and former methamphetamine user. No recent travel, sick contact, or new food or drink consumption endorsed. Denies having any chest pain, vomiting, urinary symptoms, or further associated symptoms. Upon arrival to ED triage, patient is found hypotensive at 86/40. Chief Complaint: Sore Throat Time Seen by MD: 22:45 Primary Care Provider: RAUL Reviewed Notes: Nurses Notes, Medications, Allergies Allergies: Coded Allergies: NO KNOWN ALLERGIES (Unverified , 12/20/18) Home Meds Active Scripts Atorvastatin Calcium (ATORVASTATIN CALCIUM) 40 Mg Tab, 1 TAB PO QPM for 30 Days, #30 TAB 3 Refills Prov:ANNA DUARTE RESIDENT 02/04/24 Aspirin (Aspirin) 81 Mg Tab, 81 MG PO DAILY for 30 Days, #30 TAB Prov:ANNA DUARTE RESIDENT 02/04/24 Sildenafil Citrate (Revatio) 20 Mg Tab, 20 MG PO TID for 30 Days, #90 TAB 11 Refills Prov:GEMINI CARTY DO 02/07/23 Reported Medications Lorazepam (ATIVAN TABLET) 0.5 Mg Tb, 1 TAB PO Q6HPRN, #90 TAB 04/26/24 Ondansetron HCl (Ondansetron) 4 Mg Tab, 4 MG PO Q6HPRN, TAB 04/26/24 Atorvastatin Calcium (ATORVASTATIN CALCIUM) 40 Mg Tab, 1 TAB PO DAILY, #30 TAB 5 Refills 04/26/24 Sertraline Hcl (Sertraline Hcl) 50 Mg Tab, 25 MG PO DAILY for 90 Days, #90 MG 02/03/24 Docusate Sodium (Docusate Sodium) 100 Mg Cap, 1 CAP PO BID for 30 Days, #60 02/03/24 Pantoprazole Sodium Sesquihydr (Protonix) 40 Mg Tab, 20 MG PO DAILY for 30 Days, #30 02/03/24 Aspirin (Chewable Aspirin) 81 Mg Chw, 1 TAB PO DAILY for 90 Days, #90 02/03/24 Albuterol Sulfate (Albuterol Sulfate Hfa) 108 Mcg/Act Aer, 2 PUFF IN QID PRN for 25 Days, #18 11/17/23 Torsemide (Torsemide) 20 Mg Tab, 1 TAB PO BID for 30 Days, #60 11/17/23 Zolpidem Tartrate (Ambien) 10 Mg Tab, 1 TAB PO HS PRN for 10 Days, #10 11/17/23 Allopurinol (Allopurinol) 300 Mg Tab, 1 TAB PO DAILY for 30 Days, #30 05/09/23 Metoprolol Succinate (Metoprolol Succinate Er) 25 Mg Tab, 1 TAB PO BID for 90 Days, #180 05/09/23 Sodium Bicarbonate (Sodium Bicarbonate) 650 Mg Tab, 650 MG PO DAILY, TAB 05/07/23 Metolazone (Metolazone) 2.5 Mg Tab, 1 TAB PO EOD for 60 Days, #30 05/07/23 Macitentan (Opsumit) 10 Mg Tab, 10 MG PO DAILY, TAB 09/28/22 Information Source: Patient Mode of Arrival: Ambulatory Timing: Weeks Duration: Since onset Vital Signs Vital Signs Date Time Temp Pulse Resp B/P (MAP) Pulse Ox O2 Delivery O2 Flow Rate FiO2 08/14/24 02:15 98.0 67 18 100/45 (63) 100 98.0 08/14/24 02:10 Nasal Cannula* 3 32 Physical Exam General: Awake, alert and oriented. No acute distress. Skin: Skin in warm, dry and intact. Appropriate color for ethnicity. HEENT: Erythematous throat. The head is normocephalic and atraumatic. Conjunctivae are clear without exudates or hemorrhage. Sclera is non-icteric. EOM are intact. No signs of nystagmus. Eyelids are normal in appearance without swelling or lesions. Oral mucosa is pink and moist Neck: The neck is supple with normal range of motion. No JVD. Cardiac: Heart rate and rhythm are normal. No murmurs, gallops, or rubs are auscultated. Respiratory: No signs of respiratory distress. Lung sounds are clear in all lobes bilaterally without rales, rhonchi, or wheezes. Abdominal: Abdomen is soft, non-tender without distention, guarding or rigidity. Bowel sounds are present and normoactive in all four quadrants. Extremities: Nonpitting bilateral lower extremity edema. Otherwise, remaining upper and lower extremities are atraumatic in appearance without deformity or edema. Neurological: The patient is awake, alert and oriented to person, place, and time with normal speech. Speech is clear. There is no facial asymmetry. Psychiatric: Appropriate mood and affect. Good judgement and insight. Review of Systems: REVIEW OF SYSTEMS: No fever, no chills, or fatigue HEENT: sore throat, difficulty swallowing, no earache, no congestion, no neck pain. Cardiac: No chest pain. No palpitations. Lungs: shortness of breath, cough. GI: Nausea, no vomiting, no diarrhea, no constipation, no abdominal pain : No dysuria, frequency, or urgency. No hematuria. Musculoskeletal: Generalized body aches, bilateral leg swelling, no joint swelling Skin: No rash, no itching. 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 Was a procedure done?: No EKG EKG : Comments SINUS RHYTHM AT A RATE OF 59, NO PEAKED T-WAVES EENT DIFF Eye: N/A Ear: N/A Nose: N/A Mouth: N/A Sore Throat: Pharyngitis, Streptococcal, Viral Pharyngitis, URI, Other (Viral syndrome) X-Ray, Labs, Meds, VS Vital Signs Date Time Temp Pulse Resp B/P (MAP) Pulse Ox O2 Delivery O2 Flow Rate FiO2 08/14/24 02:15 98.0 67 18 100/45 (63) 100 98.0 08/14/24 02:10 100 Nasal Cannula* 3 32 08/13/24 23:11 70 18 92 Room Air* 0 21 08/13/24 22:49 98.4 70 14 89/60 (70) 62 98.4 08/13/24 22:45 98.7 67 19 86/40 (55) 99 98.7 Lab Test 08/14/24 02:00 08/14/24 01:53 08/13/24 23:20 Range/Units Urine Color Light-yellow Yellow Urine Clarity Clear Clear Urine pH 5.5 5.0-9.0 Urine Specific Martin 1.016 1.001-1.035 Urine Protein Negative Negative Urine Ketones Negative Negative Urine Blood Negative Negative /uL Urine Nitrite Negative Negative Urine Bilirubin Negative Negative Urine Urobilinogen Normal Negative mg/dL Urine Leukocyte Esterase Negative Negative /uL Urine RBC 1 0 - 4 /hpf Urine Microscopic WBC 1 0-5 /HPF Urine Squamous Epithelial Cells Few <5 /hpf Urine Bacteria None seen None Seen /hpf Urine Creatinine Pending Urine Protein/Creatinine Ratio Pending Urine Sodium Pending Urine Glucose Normal Normal mg/dL Urine Total Protein Pending Urine Opiates Screen Pending Urine Fentanyl Screen Pending Urine Barbiturates Screen Pending Urine Phencyclidine Screen Pending Urine Amphetamines Screen Pending Urine Benzodiazepines Screen Pending Urine Cocaine Screen Pending Urine Cannabinoids Screen Pending Potassium Level 6.0 *H 6.5 *H 3.5-5.1 mmol/L C-Reactive Protein High Sensitivity Pending White Blood Count 6.9 4.4-10.8 10^3/uL Red Blood Count 3.74 L 4.0-5.20 10^6/uL Hemoglobin 11.1 L 12.2-16.2 g/dL Hematocrit 34.4 L 36.0-46.0 % Mean Corpuscular Volume 92.1 80.0-100.0 fL Mean Corpuscular Hemoglobin 29.8 28.0-32.0 pg Mean Corpuscular Hemoglobin Concent 32.3 32.0-36.0 g/dL Red Cell Distribution Width 15.9 H 11.8-14.3 % Platelet Count 281 140-450 10^3/uL Mean Platelet Volume 8.8 6.9-10.8 fL Neutrophils (%) (Auto) 73.2 37.0-80.0 % Lymphocytes (%) (Auto) 17.1 10.0-50.0 % Monocytes (%) (Auto) 6.5 0.0-12.0 % Eosinophils (%) (Auto) 2.4 0.0-7.0 % Basophils (%) (Auto) 0.8 0.0-2.0 % Neutrophils # (Auto) 5.1 1.6-8.6 10 ^3/uL Lymphocytes # (Auto) 1.2 0.4-5.4 10 ^3/uL Monocytes # (Auto) 0.4 0-1.3 10 ^3/uL Eosinophils # (Auto) 0.2 0-0.8 10 ^3/uL Basophils # (Auto) 0.1 0-0.2 10 ^3/uL Nucleated Red Blood Cells 0.1 % Sodium Level 142 136-145 mmol/L Chloride Level 112 H 98-107 mmol/L Carbon Dioxide Level 20 20-31 mmol/L Anion Gap 10 5-15 Blood Urea Nitrogen 44 H 9-23 mg/dL Creatinine 2.85 H 0.550-1.02 mg/dL Glomerular Filtration Rate Calc 19 >90 mL/min BUN/Creatinine Ratio 15.4 10.0-20.0 Serum Glucose 97 74-106 mg/dL Calcium Level 9.0 8.7-10.4 mg/dL Iron Level Pending Total Iron Binding Capacity Pending Percent Iron Saturation Pending Ferritin Pending B-Type Natriuretic Peptide 234.68 0-100 pg/mL Current Medications Medications (Trade) Dose Ordered Sig/Agnes Route Start Time Stop Time Status Last Admin Lidocaine HCl (Xylocaine 2% Viscous) 10 ml ONCE ONCE PO 08/13/24 23:15 08/13/24 23:16 DC 08/14/24 01:29 [place] [id number] Ph: [phone] DIAGNOSTIC IMAGING Diagnostic Imaging Report : [id number] Signed PATIENT: AMADEO RECIO ACCT: [id number] UNIT: [id number] : 1970 LOC: ER ROOM / BED: / AGE / SEX: 53 / F ADM STATUS: REG ER SERVICE 2310 ORDERING PHYSICIAN: RON HUNT MD PROCEDURE(s): CXR1 - CHEST XRAY 1 VIEW REASON: cough sob ORDER NUMBER(s): [id number], ACCESSION NUMBER(s): [id number] CHEST RADIOGRAPH Indication: cough sob Technique: Single frontal view of the chest was obtained COMPARISON: XY CHEST XRAY 1 VIEW on DOS: 04/26/24, FINDINGS: Lines and Tubes: None Lungs: Clear Pleura: No effusion. No pneumothorax. Cardiomediastinal contours: Heart size is within normal limits for the projection. Enlarged pulmonary artery noted. IMPRESSION: No acute abnormality demonstrated. Evidence of enlarged pulmonary artery suggestive of pulmonary arterial hypertension. ATED BY: LUIS CARLOS PADRON MD DICTATED DATE/TIME: 08/14/246 SIGNED BY: LUIS CARLOS PADRON MD SIGNED DATE/TIME: 08/14/246 CC: Time of 1ST Reevaluation: 23:15 Reevaluation 1ST: Unchanged Patient Education/Counseling: Other (NEED FOR ADMISSION) Family Education/Counseling: No Family Present SEPSIS Sepsis Screen Date sepsis recognized/suspect: Aug 13, 2024 Time Sepsis recognized/suspect: 2312 Recent Procedure: No On Antibiotic Therapy: No Respiratory Rate >20: No Heart Rate >90: No Temp<36 C (96.8 F) or >38.3 C: No SBP <90 or MAP <65 mmHG: No New Acute Mental Status Change: No Is the patient on CPAP, BIPAP,: No Physician Orders Covid19 Antigen Parul (08/13/24 ) Rapid Influenza A&B (08/13/24 22:56) Rapid Strep Screen - Throat (08/13/24 22:58) Chest Xray 1 View (08/13/24 23:10) Vital Signs Date Time Temp Pulse Resp B/P (MAP) Pulse Ox O2 Delivery O2 Flow Rate FiO2 08/14/24 02:15 98.0 67 18 100/45 (63) 100 98.0 08/14/24 02:10 100 Nasal Cannula* 3 32 08/13/24 23:11 70 18 92 Room Air* 0 21 08/13/24 22:49 98.4 70 14 89/60 (70) 62 98.4 08/13/24 22:45 98.7 67 19 86/40 (55) 99 98.7 Laboratory Tests Test 08/13/24 23:20 White Blood Count 6.9 10^3/uL (4.4-10.8) Medications Medications Dose Ordered Sig/Agnes Route Start Time Stop Time Status Last Admin Dose Admin Lidocaine HCl 10 ml ONCE ONCE PO 08/13/24 23:15 7/6/25 23:16 DC 08/14/24 01:29 Departure 1 Departure Time of Disposition: 00:51 Impression: Primary Impression: Hyperkalemia Additional Impression: Acute renal failure Disposition: ADMITTED INPATIENT Condition: Stable Comments 53-YEAR-OLD FEMALE PRESENTING WITH GENERAL URI COMPLAINTS FOUND TO HAVE WORSENING RENAL FAILURE AND HYPERKALEMIA MR. CM NO EKG CHANGES HYPERKALEMIA TREATMENT INITIATED IN THE ED PATIENT ADMITTED TO HOSPITALIST SERVICE FOR FURTHER TREATMENT, EVALUATION AND MONITORING. Extensive evaluation was performed in attempt to identify or rule out: (See differential diagnosis section) The following tests were ordered, and results were reviewed by me and discussed with patient: (See diagnostic results section) The following test were independently interpreted by me: N/A I reviewed and agreed with the following test results read by other providers: N/A I reviewed the following notes from the pt's past medical encounters: June 26, 2024 encounter for hyperkalemia; November 16, 2023 encounter for acute coronary syndrome Additional information was gathered from interviewing the following independent historians: N/A Discussion of management or test interpretation with external physician/other qualified health dog day care attendant: N/A Addressed an acute or chronic illness that poses a threat to life or bodily function: HYPERKALEMIA, ACUTE RENAL FAILURE Decision regarding hospitalization or escalation of hospital level of care: Risk and benefits of admission for further treatment of patient's condition was considered. Due to patient's current clinical condition, high risk of decline and poor outcome if discharged and need for further inpatient management and monitoring, patient will be admitted to the hospital. Drug therapy requiring intensive monitoring for toxicity: IV SODIUM BICARBONATE, IV LASIX, IV INSULIN Parenteral controlled substances: N/A Decision regarding elective major surgery with identified patient or procedure risk factors: N/A Decision regarding emergency major surgery: N/A Decision not to resuscitate or to de-escalate care because of poor prognosis: N/A Diagnosis or treatment significantly limited by social determinants of health: N/A Critical Care Note Critical Care Time?: No Stability Stability form required: No Heart Score Heart Score: Heart Score Response (Comments) Value History N/A 0 EKG N/A 0 Age N/A 0 Risk Factors N/A 0 Troponin N/A 0 Total 0 I personally scribed for RON HUNT MD ([email or web address]) on 08/14/24 at 00:38. Electronically submitted by Marck Staples ([email or web address]). RON HUNT MD Aug 14, 2024 00:38
[2024-08-14 00:40] LABS: Blood Urea Nitrogen 44 mg/dL (9-23); Carbon Dioxide 20 mmol/L (20-31); Chloride 112 mmol/L (98-107)
[2024-08-14 00:41] LABS: Potassium 6.5 mmol/L (3.5-5.1)
[2024-08-14] MEDS: IBUPROFEN 600 MG TAB PO ONE (01:24)
[2024-08-14] MEDS: LIDOCAINE VISCOUS 2% 15ML UD PO ONE (01:29)
[2024-08-14 02:52] LABS: Urine Protein, UAD Negative (Negative)
[2024-08-14] MEDS ORDERED: MORPHINE SULFATE INJ 2 MG/ml SYRG IV PRN (03:00)
[2024-08-14] MEDS ORDERED: NITROGLYCERIN 0.4 MG SL TAB SL PRN (03:00)
[2024-08-14] MEDS ORDERED: DEXTROSE (50%) 50ML SYRG IV PRN (03:15)
[2024-08-14] MEDS: ACCU-CHEK COMFORT CURVE STRIP VI STA (03:19)
[2024-08-14] MEDS: DEXTROSE (50%) 50ML SYRG IV STA (03:21)
[2024-08-14] MEDS: DEXTROSE (50%) 50ML SYRG IV ONE (03:21)
[2024-08-14] MEDS: SODIUM BICARB 8.4% 50Meq/50ml SYR INJ IV ONE (03:22)
[2024-08-14] MEDS: ALBUTEROL SULF 2.5 MG/0.5ML(0.5%) NEB SOLN NEB ONE (03:24)
[2024-08-14] MEDS: InsuLIN REG 1unit/0.01ml Soln (100units/ml) IV ONE (03:30)
[2024-08-14] MEDS: FUROSEMIDE 20 MG/2 ML VIAL IV ONE (03:33)
[2024-08-14 03:49] LABS: Iron 97.0 ug/dL (50-170)
[2024-08-14 03:52] LABS: Total Iron Binding Capacity 366.0 ug/dL (250-425)
[2024-08-14 03:58] LABS: Protein, Urine 17.0 mg/dL (1-14)
[2024-08-14 04:04] LABS: Amphetamine Screen, Urine Pos (NEGATIVE); Barbiturate Scree,Urine Neg (NEGATIVE); Benzodiazephine Screen, Urine Neg (NEGATIVE); Opiate Scree,Urine Neg (NEGATIVE); Phencyclidine Screen, Urine Neg (NEGATIVE)
[2024-08-14 04:05] LABS: Cannabinoid Screen, Urine Neg (NEGATIVE); Cocaine Screen, Urine Neg (NEGATIVE)
[2024-08-14 05:04] LABS: COVID19 ANTIGEN SOFIA FIA NEGATIVE (NEGATIVE)
[2024-08-14 05:12] LABS: Alanine Aminotransferase 16 U/L (7-40); Albumin 4.4 g/dL (3.2-4.8); Alkaline Phosphatase 108 U/L (46-116); Anion Gap 11 (5-15); BUN/Creatinine Ratio 13.1 (10.0-20.0); Bilirubin, Total 0.6 mg/dL (0.2-1.0); Calcium 9.0 mg/dL (8.7-10.4); Glucose 82 mg/dL (74-106); Magnesium 2.3 mg/dL (1.6-2.6); Sodium 138 mmol/L (136-145); Total Protein 7.0 g/dL (5.7-8.2)
[2024-08-14 05:26] LABS: Carbon Dioxide 15 mmol/L (20-31); Chloride 112 mmol/L (98-107)
[2024-08-14 05:27] LABS: Blood Urea Nitrogen 36 mg/dL (9-23)
[2024-08-14 05:28] LABS: Potassium 5.8 mmol/L (3.5-5.1)
[2024-08-14 05:47] LABS: Rapid Strep A Screen-Throat Negative
[2024-08-14] MEDS: FUROSEMIDE 40 MG/4 ML VIAL IV SCH (05:52)
[2024-08-14] MEDS: SILDENAFIL CITRATE 20 MG TAB PO SCH (05:56)
--- NOTE | 2024-08-14 06:16 | DVHHP2 ---
History of Present Illness History of Present Illness This is a 53-year-old female with past medical history Anxiety, Acute on chronic respiratory failure, COPD with 3 L home oxygen, ANGEL, CHF with EF 55%, CKD stage IIIA, GERD, gout, liver cirrhosis, pulmonary hypertension-methamphetamine induced, and former methamphetamine user came to ER with the complaint of 2 weeks' history of cough with productive whitish yellow sputum for few days associated with fever taking Tylenol. Patient also having shortness of breaths for 2 days , used albuterol rescue inhaler which does not help a lot. Patient also mentioned cough is so intense which produce chest pain associated with headache, runny nose, throat pain, ear pain, nausea. Patient also noted bilateral leg swollen same duration. She had chronic history of heart failure seen by business planning analyst in [facility] last visit 2 months ago and next visit end of the August. Denies any hemoptysis, nausea, vomiting, abdominal pain, dysuria. PAST MEDICAL HISTORY: Anxiety, CHF (With preserved ejection fraction), CKF (stage IIIA), GERD, Gout, Liver (Liver cirrhosis), Pulmonary hypertension-meth induced ANGEL, Acute on chronic respiratory failure Surgical History: Denies all surgeries SAW MAN History: Denies all SAW MAN Hx Smoker: Cigarettes quit 3 years ago Alcohol: Denies Drugs: Methamphetamine Lives In: Home Allergy: No known allergies PCP: Unknown Review of Systems Constitutional: Yes: Fever, Weakness, Malaise Eyes: No: Pain, Vision change, Conjunctivae inflammation, Eyelid inflammation, Other, Redness ENT: Ear pain; No: Ear discharge, Nose pain, Nose discharge, Nose congestion, Mouth pain, Mouth swelling, Throat pain, Throat swelling, Other Respiratory: Cough, Shortness of breath; No: Dry, SOB with excertion, Wheezing, Hemoptysis, Pleuritic Pain, Sputum, Wheezing, Other Cardiovascular: Orthopnea, Edema Gastrointestinal: No: Nausea, Vomiting, Abdominal Pain, Diarrhea, Constipation, Melena, Hematochezia, Other Genitourinary: No Dysuria, No Frequency, No Incontinence, No Hematuria, No Retention, No Other Musculoskeletal: No: other, neck pain, shoulder pain, arm pain, back pain, hand pain, leg pain, foot pain Skin: No: Rash, Lesions, Jaundice, Bruising, Other Neurological: No: Weakness, Numbness, Incoordination, Change in speech, Confusion, Seizures, Other Allergies: Coded Allergies: NO KNOWN ALLERGIES (Unverified , 12/20/18) Medications Current Medications Medications Dose Ordered Sig/Agnes Route Start Time Stop Time Status Last Admin Dose Admin Dextrose 50 ml PRN PRN IV 08/14/24 03:15 Nitroglycerin 0.4 mg Q5MINP PRN SL 08/14/24 03:00 Morphine Sulfate 2 mg Q30M PRN IV 08/14/24 03:00 Furosemide 40 mg BIDD IV 08/14/24 06:00 Aspirin 81 mg DAILY PO 08/14/24 10:00 Sertraline HCl 25 mg DAILY PO 08/14/24 10:00 Sildenafil Citrate 20 mg TID PO 08/14/24 06:00 08/14/24 05:56 20 MG Atorvastatin Calcium 40 mg DAILY PO 08/14/24 10:00 Patient Own Medication 10 mg DAILY PO 08/14/24 10:00 UNV Metolazone 2.5 mg EOD PO 08/14/24 10:00 Metoprolol Succinate 25 mg BID PO 08/14/24 10:00 Sodium Bicarbonate 650 mg DAILY PO 08/14/24 10:00 Exam Vital Signs Vital Signs Date Time Temp Pulse Resp B/P (MAP) Pulse Ox O2 Delivery O2 Flow Rate FiO2 08/14/24 05:52 96/34 08/14/24 03:51 79 08/14/24 03:35 19 92 08/14/24 03:24 Nasal Cannula* 3 32 08/14/24 02:15 98.0 98.0 General Appearance: Alert, Oriented X3, Cooperative, moderate distress HEENT: Atraumatic, PERRLA, EOMI Respiratory: Clear to auscultation, Normal air movement, Other (Patient on 3 L oxygen via nasal cannula) Cardiovascular: Regular rate, Normal S1, Normal S2 Abdominal: Normal bowel sounds, Soft, No tenderness, No hepatospenomegaly Extremities: No cyanosis, Normal pulses, Other (Bilateral leg edema) Skin: No rashes, No breakdown Neuro: Normal gait, Strength at 5/5 X4 ext, Normal tone Labs/Xrays Labs Test 08/14/24 04:25 08/14/24 03:15 08/14/24 03:12 08/14/24 02:25 Range/Units Group A Streptococcus Rapid Negative POC Glucose 90 70-106 mg/dl Sodium Level 138 136-145 mmol/L Potassium Level 5.8 *H 3.5-5.1 mmol/L Chloride Level 112 H 98-107 mmol/L Carbon Dioxide Level 15 L 20-31 mmol/L Anion Gap 11 5-15 Blood Urea Nitrogen 36 H 9-23 mg/dL Creatinine 2.75 H 0.550-1.02 mg/dL Glomerular Filtration Rate Calc 20 >90 mL/min BUN/Creatinine Ratio 13.1 10.0-20.0 Serum Glucose 82 74-106 mg/dL Calcium Level 9.0 8.7-10.4 mg/dL Magnesium Level 2.3 1.6-2.6 mg/dL Total Bilirubin 0.6 0.2-1.0 mg/dL Aspartate Amino Transferase (AST) 26 13-40 U/L Alanine Aminotransferase (ALT) 16 7-40 U/L Alkaline Phosphatase 108 46-116 U/L Total Protein 7.0 5.7-8.2 g/dL Albumin 4.4 3.2-4.8 g/dL Influenza Type A Antigen Negative Negative Influenza Type B Antigen Negative Negative SARS-CoV-2 Antigen (Rapid) Negative NEGATIVE Test 08/14/24 02:00 08/14/24 01:53 08/13/24 23:20 Range/Units Urine Color Light-yellow Yellow Urine Clarity Clear Clear Urine pH 5.5 5.0-9.0 Urine Specific [place] 1.016 1.001-1.035 Urine Protein Negative Negative Urine Ketones Negative Negative Urine Blood Negative Negative /uL Urine Nitrite Negative Negative Urine Bilirubin Negative Negative Urine Urobilinogen Normal Negative mg/dL Urine Leukocyte Esterase Negative Negative /uL Urine RBC 1 0 - 4 /hpf Urine Microscopic WBC 1 0-5 /HPF Urine Squamous Epithelial Cells Few <5 /hpf Urine Bacteria None seen None Seen /hpf Urine Creatinine 122.37 30.0-125.0 mg/dL Urine Protein/Creatinine Ratio 0.14 Urine Sodium 89 40-220 mmol/L Urine Glucose Normal Normal mg/dL Urine Total Protein 17.0 H 1-14 mg/dL Urine Opiates Screen Neg NEGATIVE Urine Fentanyl Screen Neg NEGATIVE Urine Barbiturates Screen Neg NEGATIVE Urine Phencyclidine Screen Neg NEGATIVE Urine Amphetamines Screen Pos NEGATIVE Urine Benzodiazepines Screen Neg NEGATIVE Urine Cocaine Screen Neg NEGATIVE Urine Cannabinoids Screen Neg NEGATIVE C-Reactive Protein High Sensitivity 0.64 <1.0 mg/dL White Blood Count 6.9 4.4-10.8 10^3/uL Red Blood Count 3.74 L 4.0-5.20 10^6/uL Hemoglobin 11.1 L 12.2-16.2 g/dL Hematocrit 34.4 L 36.0-46.0 % Mean Corpuscular Volume 92.1 80.0-100.0 fL Mean Corpuscular Hemoglobin 29.8 28.0-32.0 pg Mean Corpuscular Hemoglobin Concent 32.3 32.0-36.0 g/dL Red Cell Distribution Width 15.9 H 11.8-14.3 % Platelet Count 281 140-450 10^3/uL Mean Platelet Volume 8.8 6.9-10.8 fL Neutrophils (%) (Auto) 73.2 37.0-80.0 % Lymphocytes (%) (Auto) 17.1 10.0-50.0 % Monocytes (%) (Auto) 6.5 0.0-12.0 % Eosinophils (%) (Auto) 2.4 0.0-7.0 % Basophils (%) (Auto) 0.8 0.0-2.0 % Neutrophils # (Auto) 5.1 1.6-8.6 10 ^3/uL Lymphocytes # (Auto) 1.2 0.4-5.4 10 ^3/uL Monocytes # (Auto) 0.4 0-1.3 10 ^3/uL Eosinophils # (Auto) 0.2 0-0.8 10 ^3/uL Basophils # (Auto) 0.1 0-0.2 10 ^3/uL Nucleated Red Blood Cells 0.1 % Iron Level 97 50-170 ug/dL Total Iron Binding Capacity 366 250-425 ug/dL Percent Iron Saturation 26.5 15-50 % Ferritin 20.5 10-291 ng/mL B-Type Natriuretic Peptide 234.68 0-100 pg/mL Assessment/Plan Assessment/Plan # Acute on chronic systolic heart failure -Patient came to ED with shortness of breath, cough, leg swelling -History of heart failure -Echo( 04/29/2024)-Sinus bradycardia. Biatrial enlargement. RV enlargement. Dilated RV outflow tract and pulmonary artery. Valves appear to be structurally normal. Left ventricular performance is preserved at 55% with diminished right ventricular function. Hypokinesis of RV free wall. Interventricular septal doming noted in systole consistent with a pressure overload state. Severe tricuspid insufficiency. Pulmonary hypertension. -CXR- Evidence of enlarged pulmonary artery suggestive of pulmonary arterial hypertension. -BNP-234.68 -Order echocardiogram -Continue IV Lasix 20 mg b.i.d. -Aspirin 81 mg p.o. daily -Atorvastatin 40 mg p.o. daily -Continue metoprolol 25 mg b.i.d. -Cardiology consult -Diet cardiac -Serum magnesium level, uds -negative -cardiology consult # Acute hypoxic respiratory failure due to CHF -patient came with fever, shortness of breath, runny nose, throat pain. -patient history of COPD with 3 L home oxygen -continue oxygen and monitor saturation -nebulization with albuterol -INFLUENZA TYPE A AND B, COVID-19 NEGATIVE -CRP level ordered #Pulmonary hypertension -Sildenafil 20 mg p.o. t.i.d. -Sodium bicarb 650 mg p.o. daily -Macitentan 10 mg p.o. daily # Hyperkalemia k+ 6.5>6.0>5.8>4.7 Dextrose 50% 50 mL IV stat -Insulin 10 unit IV stat -Localma 10 po stat given. #ANGEL with vasomotor nephropathy with underlying CKD stage IV -SERUM CREATININE 2.85, BASELINE CREATININE 1.55 -eGFR 20 -Anion gap 10 -Nephrology consult # Essential hypertension CONTINUE METOPROLOL 25 MG B.I.D. -Monitor blood pressure -DASH diet # Hyperlipidemia -continue atorvastatin 40 mg p.o. daily #Depression -continue sertraline 50 mg p.o. daily # Anemia of chronic disease -Hemoglobin 11.1, HCT 34.4 RDW 15.9 Ferritin 20.5 -iron level we will follow # MORBID OBESITY -BMI 34.7 Lifestyle modification DIET: CARDIAC DIET GI PROPHYLAXIS: Continue pantoprazole 40 mg daily DVT prophylaxis: Heparin 5000 unit sc q12h. Goals of care discussions, more than 28 minute spent. Code status full code. Case discussed with Dr. Beckham Plan discussed with: Patient, Other (Nurse) My Orders Orders - CHASE ALMEIDA RESIDENT Procedure Category Date Status Time Admit ADMIT 08/14/24 Transmitted 02:55 Nitroglycerin PHA 08/14/24 In Process Sublingual (Ntrostat 03:00 Morphine Sulfate PHA 08/14/24 In Process Injection 03:00 Oxygen By Nasal RT 08/14/24 Transmitted Cannula 02:55 Stat Ekg For Chest [facility] 08/14/24 In Process Pain 02:55 Notify Md Of Changes [facility] 08/14/24 In Process From Base 02:55 Form Setter Helper For [facility] 08/14/24 In Process 24 Hours 02:55 Emergency Dysrhythmia [facility] 08/14/24 In Process Protocol 02:55 Rhythm Strips Once [facility] 08/14/24 In Process Every Shift 02:55 Date of Service: Aug 14, 2024 Billing Provider: LIAN BECKHAM MD Common Visit Codes: [id number] INP/OBS CARE (HIGH) Secondary Visit Codes: [id number] CARE PLAN 30 MINUTES CHASE ALMEIDA RESIDENT Aug 14, 2024 06:16
[2024-08-14] MEDS: SODIUM ZIRCONIUM CYCL 10 GM PAK PO ONE (06:35)
[2024-08-14] MEDS ORDERED: MIDO10TA3 PO (08:42)
[2024-08-14] MEDS: SODIUM CHLORIDE 0.9% 500 ML IV ONE (08:45)
[2024-08-14 09:29] LABS: Potassium 4.7 mmol/L (3.5-5.1); Sodium 142 mmol/L (136-145)
[2024-08-14 09:30] LABS: Anion Gap 10 (5-15); Carbon Dioxide 20 mmol/L (20-31)
[2024-08-14 09:31] LABS: Calcium 9.2 mg/dL (8.7-10.4)
[2024-08-14 09:35] LABS: BUN/Creatinine Ratio 15.5 (10.0-20.0)
[2024-08-14 09:36] LABS: Blood Urea Nitrogen 41 mg/dL (9-23); Chloride 112 mmol/L (98-107); Glucose 117 mg/dL (74-106)
[2024-08-14] MEDS: ATORVASTATIN 20 MG TAB PO SCH (10:00)
[2024-08-14] MEDS: SODIUM BICARBONATE 650 MG TAB PO SCH (10:00)
[2024-08-14] MEDS: ASPirin-EC 81 mg tab PO SCH (10:00)
[2024-08-14] MEDS: SERTRALINE HCL 50 MG TAB PO SCH (10:00)
[2024-08-14] MEDS ORDERED: METOPROLOL SUCCINATE XL 50 MG TAB PO SCH ×2 (10:00)
[2024-08-14] MEDS ORDERED: MIDODRINE HCL 10 MG TAB PO SCH (10:00)
--- NOTE | 2024-08-14 11:22 | DVHCONRES ---
Date Seen: Aug 14, 2024 Resident Creating Document: BRENDEN CARVAJAL RESIDENT Referring Physician Dr Naidu History of Present Illness This is a 53-year-old female with COPD on 3 L home oxygen, heart failure with preserved ejection fraction, tricuspid insufficiency, CKD 3A, GERD, pulmonary hypertension secondary to methamphetamine use who presented to the ER with a chief complaint of shortness of breath and cough for the past 2 weeks. Patient reports that she started experiencing cough, runny nose, myalgias 2 weeks back and later developed shortness of breath, orthopnea, paroxysmal nocturnal dyspnea, she takes 5 pillows under her head while sleeping. She started to develop lower extremity swelling for the past week. Reports last use methamphetamine 3 days back. On arrival to the ER, patient was hypotensive 86/40 mmHg . Patient was started on Lasix 40 mg b.i.d.. Patient seen and examined in the ER. She has bilateral lower extremity swelling. Family History: Cirrhosis of liver G8 BROTHER FH: breast cancer G8 MOTHER, G8 MOTHER, , Cause: Breast cancer FH: breast cancer G8 MOTHER, G8 MOTHER, , Cause: Breast cancer FH: breast cancer in relative when <45 years old G8 MOTHER, , Cause: Breast cancer Allergies: Coded Allergies: NO KNOWN ALLERGIES (Unverified , 12/20/18) Home Meds Active Scripts Atorvastatin Calcium (ATORVASTATIN CALCIUM) 40 Mg Tab, 1 TAB PO QPM for 30 Days, #30 TAB 3 Refills Prov:ANNA DUARTE RESIDENT 02/04/24 Aspirin (Aspirin) 81 Mg Tab, 81 MG PO DAILY for 30 Days, #30 TAB Prov:ANNA DUARTE RESIDENT 02/04/24 Sildenafil Citrate (Revatio) 20 Mg Tab, 20 MG PO TID for 30 Days, #90 TAB 11 Refills Prov:GEMINI CARTY DO 02/07/23 Reported Medications Midodrine Hcl (Midodrine Hcl) 10 Mg Tab, 10 MG PO BID, TAB 08/14/24 Lorazepam (ATIVAN TABLET) 0.5 Mg Tb, 1 TAB PO Q6HPRN, #90 TAB 04/26/24 Ondansetron HCl (Ondansetron) 4 Mg Tab, 4 MG PO Q6HPRN, TAB 04/26/24 Atorvastatin Calcium (ATORVASTATIN CALCIUM) 40 Mg Tab, 1 TAB PO DAILY, #30 TAB 5 Refills 04/26/24 Sertraline Hcl (Sertraline Hcl) 50 Mg Tab, 25 MG PO DAILY for 90 Days, #90 MG 02/03/24 Docusate Sodium (Docusate Sodium) 100 Mg Cap, 1 CAP PO BID for 30 Days, #60 02/03/24 Pantoprazole Sodium Sesquihydr (Protonix) 40 Mg Tab, 20 MG PO DAILY for 30 Days, #30 02/03/24 Aspirin (Chewable Aspirin) 81 Mg Chw, 1 TAB PO DAILY for 90 Days, #90 02/03/24 Albuterol Sulfate (Albuterol Sulfate Hfa) 108 Mcg/Act Aer, 2 PUFF IN QID PRN for 25 Days, #18 11/17/23 Torsemide (Torsemide) 20 Mg Tab, 1 TAB PO BID for 30 Days, #60 11/17/23 Zolpidem Tartrate (Ambien) 10 Mg Tab, 1 TAB PO HS PRN for 10 Days, #10 11/17/23 Allopurinol (Allopurinol) 300 Mg Tab, 1 TAB PO DAILY for 30 Days, #30 05/09/23 Metoprolol Succinate (Metoprolol Succinate Er) 25 Mg Tab, 1 TAB PO BID for 90 Days, #180 05/09/23 Sodium Bicarbonate (Sodium Bicarbonate) 650 Mg Tab, 650 MG PO DAILY, TAB 05/07/23 Metolazone (Metolazone) 2.5 Mg Tab, 1 TAB PO EOD for 60 Days, #30 05/07/23 Macitentan (Opsumit) 10 Mg Tab, 10 MG PO DAILY, TAB 09/28/22 Current Medications Current Medications Medications (Trade) Dose Ordered Sig/Agnes Route PRN Reason Start Time Stop Time Status Last Admin Dextrose 50 ml ONCE STAT IV 08/14/24 03:06 08/14/24 03:14 DC 08/14/24 03:21 Dextrose 50 ml PRN PRN IV Blood Sugar LESS THAN 60 08/14/24 03:15 Diagnostic Test (Pha) (Accu-Chek Comfort Curve T) 1 strip ONCE STAT 08/14/24 03:06 08/14/24 03:14 DC 08/14/24 03:19 Nitroglycerin (Ntrostat Sublingual) 0.4 mg Q5MINP PRN SL FOR CHEST PAIN 08/14/24 03:00 Hold Morphine Sulfate 2 mg Q30M PRN IV FOR CHEST PAIN 08/14/24 03:00 Furosemide (Lasix Injection) 40 mg BIDD IV 08/14/24 06:00 Aspirin (Ecotrin Enteric Coated Tablet) 81 mg DAILY PO 08/14/24 10:00 Sertraline HCl (Zoloft) 25 mg DAILY PO 08/14/24 10:00 Sildenafil Citrate (Revatio) 20 mg TID PO 08/14/24 06:00 08/14/24 05:56 Atorvastatin Calcium (Lipitor) 40 mg DAILY PO 08/14/24 10:00 Patient Own Medication 10 mg DAILY PO 08/14/24 10:00 Metolazone (Zaroxolyn) 2.5 mg EOD PO 08/14/24 10:00 Metoprolol Succinate (Toprol Xl) 25 mg BID PO 08/14/24 10:00 08/14/24 09:31 DC Sodium Bicarbonate 650 mg DAILY PO 08/14/24 10:00 Midodrine (Proamatine Tablet) 10 mg BID PO 08/14/24 10:00 08/14/24 09:31 DC Metoprolol Succinate (Toprol Xl) 25 mg DAILY PO 08/14/24 10:00 Midodrine (Proamatine Tablet) 10 mg TID PO 08/14/24 14:00 Heparin Sodium (Porcine) 5,000 units Q12HR SC 08/14/24 22:00 Vital Signs Vital Signs Date Time Temp Pulse Resp B/P (MAP) Pulse Ox O2 Delivery O2 Flow Rate FiO2 08/14/24 08:00 73 08/14/24 07:49 21 92 Nasal Cannula* 3 32 08/14/24 07:38 97.8 107/41 (63) 97.8 Physical Exam Obese female patient lying in the bed, no acute distress General: Obese, afebrile, palor, mucosae are moist Cardiovascular: Regular S1 and S2. No murmurs, gallops or rubs. No JVD elevation. Bilateral 1+ pitting edema Respiratory: Bilateral decreased breath sounds heard on auscultation Abdomen: Soft, nontender, nondistended, normoactive bowel sounds, no rebound tenderness, no organomegaly, no masses Genitourinary: Deferred MSK/skin: Mobilizes 4 limbs. Skin is dry and warm Neurological: No motor, no sensitive deficits, normal speech. Pupils are isocoric and reactive. Psych/Mental Status: A/Ox3 Labs/Diagnostic Data Labs Test 08/14/24 09:02 08/14/24 08:56 08/14/24 04:25 08/14/24 03:12 Range/Units POC Glucose 118 H 70-106 mg/dl Sodium Level 142 136-145 mmol/L Potassium Level 4.7 3.5-5.1 mmol/L Chloride Level 112 H 98-107 mmol/L Carbon Dioxide Level 20 20-31 mmol/L Anion Gap 10 5-15 Blood Urea Nitrogen 41 H 9-23 mg/dL Creatinine 2.64 H 0.550-1.02 mg/dL Glomerular Filtration Rate Calc 21 >90 mL/min BUN/Creatinine Ratio 15.5 10.0-20.0 Serum Glucose 117 H 74-106 mg/dL Calcium Level 9.2 8.7-10.4 mg/dL Group A Streptococcus Rapid Negative Magnesium Level 2.3 1.6-2.6 mg/dL Total Bilirubin 0.6 0.2-1.0 mg/dL Aspartate Amino Transferase (AST) 26 13-40 U/L Alanine Aminotransferase (ALT) 16 7-40 U/L Alkaline Phosphatase 108 46-116 U/L Total Protein 7.0 5.7-8.2 g/dL Albumin 4.4 3.2-4.8 g/dL Test 08/14/24 02:25 08/14/24 02:00 08/14/24 01:53 08/13/24 23:20 Range/Units Influenza Type A Antigen Negative Negative Influenza Type B Antigen Negative Negative SARS-CoV-2 Antigen (Rapid) Negative NEGATIVE Urine Color Light-yellow Yellow Urine Clarity Clear Clear Urine pH 5.5 5.0-9.0 Urine Specific [place] 1.016 1.001-1.035 Urine Protein Negative Negative Urine Ketones Negative Negative Urine Blood Negative Negative /uL Urine Nitrite Negative Negative Urine Bilirubin Negative Negative Urine Urobilinogen Normal Negative mg/dL Urine Leukocyte Esterase Negative Negative /uL Urine RBC 1 0 - 4 /hpf Urine Microscopic WBC 1 0-5 /HPF Urine Squamous Epithelial Cells Few <5 /hpf Urine Bacteria None seen None Seen /hpf Urine Creatinine 122.37 30.0-125.0 mg/dL Urine Protein/Creatinine Ratio 0.14 Urine Sodium 89 40-220 mmol/L Urine Glucose Normal Normal mg/dL Urine Total Protein 17.0 H 1-14 mg/dL Urine Opiates Screen Neg NEGATIVE Urine Fentanyl Screen Neg NEGATIVE Urine Barbiturates Screen Neg NEGATIVE Urine Phencyclidine Screen Neg NEGATIVE Urine Amphetamines Screen Pos NEGATIVE Urine Benzodiazepines Screen Neg NEGATIVE Urine Cocaine Screen Neg NEGATIVE Urine Cannabinoids Screen Neg NEGATIVE C-Reactive Protein High Sensitivity 0.64 <1.0 mg/dL White Blood Count 6.9 4.4-10.8 10^3/uL Red Blood Count 3.74 L 4.0-5.20 10^6/uL Hemoglobin 11.1 L 12.2-16.2 g/dL Hematocrit 34.4 L 36.0-46.0 % Mean Corpuscular Volume 92.1 80.0-100.0 fL Mean Corpuscular Hemoglobin 29.8 28.0-32.0 pg Mean Corpuscular Hemoglobin Concent 32.3 32.0-36.0 g/dL Red Cell Distribution Width 15.9 H 11.8-14.3 % Platelet Count 281 140-450 10^3/uL Mean Platelet Volume 8.8 6.9-10.8 fL Neutrophils (%) (Auto) 73.2 37.0-80.0 % Lymphocytes (%) (Auto) 17.1 10.0-50.0 % Monocytes (%) (Auto) 6.5 0.0-12.0 % Eosinophils (%) (Auto) 2.4 0.0-7.0 % Basophils (%) (Auto) 0.8 0.0-2.0 % Neutrophils # (Auto) 5.1 1.6-8.6 10 ^3/uL Lymphocytes # (Auto) 1.2 0.4-5.4 10 ^3/uL Monocytes # (Auto) 0.4 0-1.3 10 ^3/uL Eosinophils # (Auto) 0.2 0-0.8 10 ^3/uL Basophils # (Auto) 0.1 0-0.2 10 ^3/uL Nucleated Red Blood Cells 0.1 % Iron Level 97 50-170 ug/dL Total Iron Binding Capacity 366 250-425 ug/dL Percent Iron Saturation 26.5 15-50 % Ferritin 20.5 10-291 ng/mL B-Type Natriuretic Peptide 234.68 0-100 pg/mL Assessment Acute kidney injury superimposed on CKD stage IIIA Anemia likely chronic kidney disease Hyperkalemia secondary to above Possible COPD exacerbation Acute on chronic respiratory failure Likely right-sided heart failure Likely Pulmonary hypertension Methamphetamine use dependence BNP 234 Chest x-ray shows No acute abnormality demonstrated. Evidence of enlarged pulmonary artery suggestive of pulmonary arterial hypertension. Echocardiogram shows RV moderately enlarged, normal function, moderate TR, right-sided heart failure noted Baseline BUN/creatinine/GFR is 32/1.79/40 Plan: BUN/creatinine slightly downtrending Continue strict I&Os, fluid restriction Continue diuresis with Lasix and metolazone Counseled regarding cessation of methamphetamine use We will continue to follow up Plan discussed with patient in which all questions have been answered Case discussed with Addendum Patient seen and examined, plan discussed with resident. Agree with above, we will follow closely Plan discussed with: Patient BRENDEN CARVAJAL RESIDENT Aug 14, 2024 11:22 SUHAS BURGESS MD Aug 14, 2024 18:21
--- NOTE | 2024-08-14 11:26 | ECG ---
[facility] Test Date: 2024-08-14 Test Time: 03:36:41 Pat Name: AMADEO RECIO Department: ED Room: 0214 Gender: F Curbing Stonecutter: : 1970 Requested By: RON HUNT Order Number: [id number] Reading MD: Carlin Maceknzie Measurements Intervals [place] Rate: 79 P: 66 IN: 183 QRS: 104 QRSD: 107 T: -68 QT: 409 QTc: 469 Interpretive Statements Sinus rhythm Right axis deviation Low voltage, precordial leads Borderline repolarization abnormality Electronically Signed On 08-17-2024 18:56:48 PDT by Carlin Mackenzie Please click the below link to view image of tracing.
--- NOTE | 2024-08-14 12:51 | DVHSR ---
APPROVED REPORT EXAM: LIMITED Two-dimensional and M-mode echocardiogram with Doppler and color Doppler. Blood Pressure: 107/41 mmHg INDICATION Repeat: fo RHF given PTH and RVSP 60 RISK FACTORS Obesity: Height: 5'6", Weight: 215 DIMENSIONS LVDd5.1 (3.8-5.7cm)LA (2D) (1.9-4.0cm)Aortic Root (2.0-3.7cm) LVDs3.4 (2.5-4.0cm)LA (MM) (1.9-4.0cm)Aortic Cusp Exc (1.5-2.0cm) EF (%) 62.0 (55-70%)Rt. Atrium5.7 (1.9-4.0cm)Asc. Aorta cm IVSd1.0 (0.7-1.1cm)RV (D) (1.8-2.4cm) PWd1.0 (0.7-1.1cm) Mitral Valve MitralMitral Stenosis E/A ratio0.02D MVAcm2 Tricuspid Valve TR Velocity4.01m/s [id number] Other Information Quality : Technically LimitedRhythm : Technically limited study due to Repeat to eval RVSP. Conclusion lvef 65% grade 1 diastolic dysfunction RV moderately enlarged, normal function moderate tricuspdi regurg right atrium enlarged Right sided HF noted no severe valve abnormalities noted
[2024-08-14] MEDS: SODIUM CHLORIDE 0.9% 1,000 ML IV SCH (13:00)
[2024-08-14] MEDS: AZITHROMYCIN 500MG/ 250ML 250 ML IV SCH (13:00)
[2024-08-14] MEDS: cefTRIAXone 1GM/50ML D5W 50 ML IV SCH (13:30)
[2024-08-14] MEDS: MIDODRINE HCL 10 MG TAB PO SCH (14:00)
[2024-08-14 15:33] LABS: Iron 93.0 ug/dL (50-170)
[2024-08-14 15:36] LABS: Total Iron Binding Capacity 374.0 ug/dL (250-425)
--- NOTE | 2024-08-14 18:18 | DVHPNRES ---
Progress Note Date Seen: Aug 14, 2024 Resident Creating Document: KRISHNA LUCAS RESIDENT Has the PT tested + for MRSA If YES, has PT been informed?: No Medical Necessity Reason Pt with a Central, PICC or Fol: No Subjective Review of Systems This is a 53-year-old female with past medical history Anxiety, Acute on chronic respiratory failure, COPD with 3 L home oxygen, ANGEL, CHF with EF 55%, CKD stage IIIA, GERD, gout, liver cirrhosis, pulmonary hypertension-methamphetamine induced, and former methamphetamine user came to ER with the complaint of 2 weeks' history of cough with productive whitish yellow sputum for few days associated with fever taking Tylenol. Patient also having shortness of breaths for 2 days , used albuterol rescue inhaler which does not help a lot. Patient also mentioned cough is so intense which produce chest pain associated with headache, runny nose, throat pain, ear pain, nausea. Patient also noted bilateral leg swollen same duration. She had chronic history of heart failure seen by novelty twister tender in [facility] last visit 2 months ago and next visit end of the August. Denies any hemoptysis, nausea, vomiting, abdominal pain, dysuria. 08/14/24: Today, the patient was examined and seen at bedside. The patient is still dysneic and complaining of sore throat. Metoprolol 25 mg, metolazone was stopped. Azitromicyn and ceftriaxone 1g was initiated for possible atypical pneumonia. Today's ECHO reports EF 65%. Vital signs were reviewed, BP has been in the lower side 108/59mmHg, patient report that she usually has low BP levels. We will continue monitoring this patient closely. Review of Systems Constitutional: Yes: Fever, Weakness, Malaise Eyes: No: Pain, Vision change, Conjunctivae inflammation, Eyelid inflammation, Other, Redness ENT: Ear pain; No: Ear discharge, Nose pain, Nose discharge, Nose congestion, Mouth pain, Mouth swelling, Throat pain, Throat swelling, Other Respiratory: Cough, Shortness of breath; No: Dry, SOB with excertion, Wheezing, Hemoptysis, Pleuritic Pain, Sputum, Wheezing, Other Cardiovascular: Orthopnea, Edema Gastrointestinal: No: Nausea, Vomiting, Abdominal Pain, Diarrhea, Constipation, Melena, Hematochezia, Other Genitourinary: No Dysuria, No Frequency, No Incontinence, No Hematuria, No Retention, No Other Musculoskeletal: No: other, neck pain, shoulder pain, arm pain, back pain, hand pain, leg pain, foot pain Skin: No: Rash, Lesions, Jaundice, Bruising, Other Neurological: No: Weakness, Numbness, Incoordination, Change in speech, Confusion, Seizures, Other Physical Exam: General Appearance: Alert, Oriented X3, Cooperative, moderate distress. HEENT: Atraumatic, PERRLA, EOMI Respiratory: Patient is dysneic. Mild crackles and mild wheezing in bilateral lung base. Other (Patient on 3 L oxygen via nasal cannula), satO2 at 92% Cardiovascular: Regular rate, Normal S1, Normal S2 Abdominal: Normal bowel sounds, Soft, No tenderness, No hepatospenomegaly Extremities: No cyanosis, Normal pulses, Other (Bilateral leg edema) Skin: No rashes, No breakdown Neuro: Normal gait, Strength at 5/5 X4 ext, Normal tone Objective vital signs Vital Sign Date Time Temp Pulse Resp B/P (MAP) Pulse Ox O2 Delivery O2 Flow Rate FiO2 08/14/24 16:00 61 08/14/24 13:10 98.2 21 77/46 (56) 99 98.2 08/14/24 07:49 Nasal Cannula* 3 32 medications Current Medications Medications Dose Ordered Sig/Agnes Route Start Time Stop Time Status Last Admin Dose Admin Dextrose 50 ml PRN PRN IV 08/14/24 03:15 Nitroglycerin 0.4 mg Q5MINP PRN SL 08/14/24 03:00 Hold Morphine Sulfate 2 mg Q30M PRN IV 08/14/24 03:00 Aspirin 81 mg DAILY PO 08/14/24 10:00 08/14/24 10:00 81 MG Sertraline HCl 25 mg DAILY PO 08/14/24 10:00 08/14/24 10:00 25 MG Sildenafil Citrate 20 mg TID PO 08/14/24 06:00 08/14/24 05:56 20 MG Atorvastatin Calcium 40 mg DAILY PO 08/14/24 10:00 Patient Own Medication 10 mg DAILY PO 08/14/24 10:00 Sodium Bicarbonate 650 mg DAILY PO 08/14/24 10:00 08/14/24 10:00 650 MG Midodrine 10 mg TID PO 08/14/24 14:00 08/14/24 14:00 10 MG Heparin Sodium (Porcine) 5,000 units Q12HR SC 08/14/24 22:00 Furosemide 40 mg DAILY PO 08/15/24 10:00 Sodium Chloride 1,000 ml @ 100 mls/hr Q10H IV 08/14/24 13:00 08/14/24 13:00 100 MLS/HR Azithromycin 250 ml @ 125 mls/hr DAILY IV 08/14/24 13:00 08/14/24 13:00 125 MLS/HR Ceftriaxone Sodium 50 ml @ 100 mls/hr DAILY@09 IV 08/14/24 13:30 Methylprednisolone Sodium Succinate 40 mg DAILY IV 08/15/24 14:00 laboratory and microbiology Laboratory Tests 08/14/24 08:56 08/13/24 23:20 Test 08/14/24 08:56 Range/Units Serum Glucose 117 H 74-106 mg/dL Problem List/Assessment/Plan Problem List/Assessment/Plan Assessment/Plan # Acute on chronic systolic heart failure (EF 65%) -Patient came to ED with shortness of breath, cough, leg swelling -History of heart failure -Echo( 04/29/2024)-Sinus bradycardia. Biatrial enlargement. RV enlargement. Dilated RV outflow tract and pulmonary artery. Valves appear to be structurally normal. Left ventricular performance is preserved at 55% with diminished right ventricular function. Hypokinesis of RV free wall. Interventricular septal doming noted in systole consistent with a pressure overload state. Severe tricuspid insufficiency. Pulmonary hypertension. -CXR- Evidence of enlarged pulmonary artery suggestive of pulmonary arterial hypertension. -BNP-234.68 -Continue IV Lasix 20 mg b.i.d. -Aspirin 81 mg p.o. daily -Atorvastatin 40 mg p.o. daily -Stopped: metoprolol 25 mg b.i.d. and , Metolazone -Cardiology consult -Diet cardiac -Serum magnesium level, uds -negative # Acute hypoxic respiratory failure due to CHF -patient came with fever, shortness of breath, runny nose, throat pain. -patient history of COPD with 3 L home oxygen -continue oxygen and monitor saturation -nebulization with albuterol -INFLUENZA TYPE A AND B, COVID-19 NEGATIVE -CRP level ordered -Methylprednisolone 40 mg #Pulmonary hypertension -Sildenafil 20 mg p.o. t.i.d. -Sodium bicarb 650 mg p.o. daily -Macitentan 10 mg p.o. daily # Pneumonia, like atypical pneumonia -Ceftriaxone 1gr IV QD -Azitromicyn 500mg /250 ml IV QD # Hyperkalemia k+ 6.5>6.0>5.8>4.7 Dextrose 50% 50 mL IV stat -Insulin 10 unit IV stat -Localma 10 po stat given. -Potassium level improved: 4.8 mmol/l (08/14/24) #ANGEL with vasomotor nephropathy with underlying CKD stage IV -SERUM CREATININE 2.64 (08/14/24), BASELINE CREATININE 1.55 -eGFR 20 -Anion gap 10 -Nephrology consult # Essential hypertension - Metoprolol 25 mg Stopped due to hypotension. -Monitor blood pressure -DASH diet #Hypotension: -Midodrine 10mg TID -100 cc NS in 5 hrs (to avoid fluid overload) # Hyperlipidemia -continue atorvastatin 40 mg p.o. daily #Depression -continue sertraline 50 mg p.o. daily # Anemia of chronic disease -Hemoglobin 11.1, HCT 34.4 RDW 15.9 Ferritin 20.5 -iron level we will follow # Obesity -BMI 34.7 Lifestyle modification DIET: CARDIAC DIET GI PROPHYLAXIS: Continue pantoprazole 40 mg daily DVT prophylaxis: Heparin 5000 unit sc q12h. Goals of care discussions, more than 35 minute spent. Code status full code. Case discussed with Dr. Mosley Plan discussed with: Patient, Other (Nurse) Plan discussed with: Patient My Orders My Orders Orders - KRISHNA LUCAS RESIDENT Procedure Category Date Status Time Furosemide Tablet PHA 08/15/24 In Process (Lasix Tablet) 10:00 Sodium Chloride 0.9% PHA 08/14/24 In Process 13:00 Azithromycin 500mg/ PHA 08/14/24 In Process 250ml (Zithromax 50 13:00 Ceftriaxone 1gm/50ml PHA 08/14/24 In Process D5w (Rocephin) 13:30 Methylprednisolone PHA 08/15/24 In Process Sod Succ (Solu Medrol 14:00 Complete Blood Count LAB 08/15/24 Verified 04:00 Comprehensive LAB 08/15/24 Verified Metabolic Panel 04:00 KRISHNA LUCAS RESIDENT Aug 14, 2024 18:18
[2024-08-14] MEDS: ACCU-CHEK COMFORT CURVE STRIP VI ONE (21:18)
--- NOTE | 2024-08-14 22:07 | DVHINCON2 ---
Date of service: Aug 14, 2024 Referring Physician Barbara Reason for Consultation CHF History of Present Illness This is a 53 year old female with a PMH of anxiety, acute on chronic respiratory failure, CHF with preserved gas or EF, CKD stage IIIA, GERD, gout, liver cirrhosis, pulmonary hypertension-methamphetamine induced, and former methamphetamine user who presented to the ED on 08/13/24 with c/o 2 week history of sore throat, with associated shortness of breath, cough, difficulty swallowing, generalized body aches, nausea, and bilateral leg swelling. No recent travel, sick contact, or new food or drink consumption endorsed. EKG showed NSR at 59. Chest x-ray: evidence of enlarged pulmonary artery suggestive of pulmonary arterial hypertension. Patient was admitted to the hospital. I am asked to consult on this patient. Family History: Cirrhosis of liver G8 BROTHER FH: breast cancer G8 MOTHER, G8 MOTHER, , Cause: Breast cancer FH: breast cancer G8 MOTHER, G8 MOTHER, , Cause: Breast cancer FH: breast cancer in relative when <45 years old G8 MOTHER, , Cause: Breast cancer Allergies: Coded Allergies: NO KNOWN ALLERGIES (Unverified , 12/20/18) Home Meds Active Scripts Atorvastatin Calcium (ATORVASTATIN CALCIUM) 40 Mg Tab, 1 TAB PO QPM for 30 Days, #30 TAB 3 Refills Prov:ANNA DUARTE RESIDENT 02/04/24 Aspirin (Aspirin) 81 Mg Tab, 81 MG PO DAILY for 30 Days, #30 TAB Prov:ANNA DUARTE RESIDENT 02/04/24 Sildenafil Citrate (Revatio) 20 Mg Tab, 20 MG PO TID for 30 Days, #90 TAB 11 Refills Prov:GEMINI CARTY DO 02/07/23 Reported Medications Midodrine Hcl (Midodrine Hcl) 10 Mg Tab, 10 MG PO BID, TAB 08/14/24 Lorazepam (ATIVAN TABLET) 0.5 Mg Tb, 1 TAB PO Q6HPRN, #90 TAB 04/26/24 Ondansetron HCl (Ondansetron) 4 Mg Tab, 4 MG PO Q6HPRN, TAB 04/26/24 Atorvastatin Calcium (ATORVASTATIN CALCIUM) 40 Mg Tab, 1 TAB PO DAILY, #30 TAB 5 Refills 04/26/24 Sertraline Hcl (Sertraline Hcl) 50 Mg Tab, 25 MG PO DAILY for 90 Days, #90 MG 02/03/24 Docusate Sodium (Docusate Sodium) 100 Mg Cap, 1 CAP PO BID for 30 Days, #60 02/03/24 Pantoprazole Sodium Sesquihydr (Protonix) 40 Mg Tab, 20 MG PO DAILY for 30 Days, #30 02/03/24 Aspirin (Chewable Aspirin) 81 Mg Chw, 1 TAB PO DAILY for 90 Days, #90 02/03/24 Albuterol Sulfate (Albuterol Sulfate Hfa) 108 Mcg/Act Aer, 2 PUFF IN QID PRN for 25 Days, #18 11/17/23 Torsemide (Torsemide) 20 Mg Tab, 1 TAB PO BID for 30 Days, #60 11/17/23 Zolpidem Tartrate (Ambien) 10 Mg Tab, 1 TAB PO HS PRN for 10 Days, #10 11/17/23 Allopurinol (Allopurinol) 300 Mg Tab, 1 TAB PO DAILY for 30 Days, #30 05/09/23 Metoprolol Succinate (Metoprolol Succinate Er) 25 Mg Tab, 1 TAB PO BID for 90 Days, #180 05/09/23 Sodium Bicarbonate (Sodium Bicarbonate) 650 Mg Tab, 650 MG PO DAILY, TAB 05/07/23 Metolazone (Metolazone) 2.5 Mg Tab, 1 TAB PO EOD for 60 Days, #30 05/07/23 Macitentan (Opsumit) 10 Mg Tab, 10 MG PO DAILY, TAB 09/28/22 Current Medications Current Medications Medications (Trade) Dose Ordered Sig/Agnes Route PRN Reason Start Time Stop Time Status Last Admin Dextrose 50 ml ONCE STAT IV 08/14/24 03:06 08/14/24 03:14 DC 08/14/24 03:21 Dextrose 50 ml PRN PRN IV Blood Sugar LESS THAN 60 08/14/24 03:15 Diagnostic Test (Pha) (Accu-Chek Comfort Curve T) 1 strip ONCE STAT 08/14/24 03:06 08/14/24 03:14 DC 08/14/24 03:19 Nitroglycerin (Ntrostat Sublingual) 0.4 mg Q5MINP PRN SL FOR CHEST PAIN 08/14/24 03:00 Hold Morphine Sulfate 2 mg Q30M PRN IV FOR CHEST PAIN 08/14/24 03:00 Furosemide (Lasix Injection) 40 mg BIDD IV 08/14/24 06:00 08/14/24 12:48 DC Aspirin (Ecotrin Enteric Coated Tablet) 81 mg DAILY PO 08/14/24 10:00 08/14/24 10:00 Sertraline HCl (Zoloft) 25 mg DAILY PO 08/14/24 10:00 08/14/24 10:00 Sildenafil Citrate (Revatio) 20 mg TID PO 08/14/24 06:00 08/14/24 05:56 Atorvastatin Calcium (Lipitor) 40 mg DAILY PO 08/14/24 10:00 Patient Own Medication 10 mg DAILY PO 08/14/24 10:00 Metolazone (Zaroxolyn) 2.5 mg EOD PO 08/14/24 10:00 08/14/24 12:48 DC Metoprolol Succinate (Toprol Xl) 25 mg BID PO 08/14/24 10:00 08/14/24 09:31 DC Sodium Bicarbonate 650 mg DAILY PO 08/14/24 10:00 08/14/24 10:00 Midodrine (Proamatine Tablet) 10 mg BID PO 08/14/24 10:00 08/14/24 09:31 DC Metoprolol Succinate (Toprol Xl) 25 mg DAILY PO 08/14/24 10:00 08/14/24 12:48 DC Midodrine (Proamatine Tablet) 10 mg TID PO 08/14/24 14:00 08/14/24 14:00 Heparin Sodium (Porcine) 5,000 units Q12HR SC 08/14/24 22:00 Furosemide (Lasix Tablet) 40 mg DAILY PO 08/15/24 10:00 Sodium Chloride 1,000 ml @ 100 mls/hr Q10H IV 08/14/24 13:00 08/14/24 13:00 Azithromycin 250 ml @ 125 mls/hr DAILY IV 08/14/24 13:00 08/14/24 13:00 Ceftriaxone Sodium 50 ml @ 100 mls/hr DAILY@09 IV 08/14/24 13:30 08/14/24 13:30 Methylprednisolone Sodium Succinate (Solu Medrol) 40 mg DAILY IV 08/15/24 14:00 Review of Systems REVIEW OF SYSTEMS: No fever, no chills, or fatigue HEENT: sore throat, difficulty swallowing, no earache, no congestion, no neck pain. Cardiac: No chest pain. No palpitations. Lungs: shortness of breath, cough. GI: Nausea, no vomiting, no diarrhea, no constipation, no abdominal pain : No dysuria, frequency, or urgency. No hematuria. Musculoskeletal: Generalized body aches, bilateral leg swelling, no joint swelling Skin: No rash, no itching. Neuro: No headache, no dizziness, no weakness Vital Signs Vital Signs Date Time Temp Pulse Resp B/P (MAP) Pulse Ox O2 Delivery O2 Flow Rate FiO2 08/14/24 21:00 59 18 99/46 (63) 97 08/14/24 19:30 Nasal Cannula* 2 28 08/14/24 19:30 97.9 97.9 Physical Exam GENERAL: Alert and oriented x 3. No acute distress. Obese. EYES: PERRL, EOMI. Anicteric. HENT: Moist mucous membranes. LUNGS: Decreased breath sounds. CARDIOVASCULAR: Regular rate and rhythm. ABDOMEN: Soft, non-tender and non-distended. EXTREMITIES: BLE edema. NEUROLOGIC: No focal neurological deficits. SKIN: Warm, dry. Labs/Diagnostic Data Labs Test 08/14/24 21:17 08/14/24 08:56 08/14/24 04:25 08/14/24 03:12 Range/Units POC Glucose 102 70-106 mg/dl Sodium Level 142 136-145 mmol/L Potassium Level 4.7 3.5-5.1 mmol/L Chloride Level 112 H 98-107 mmol/L Carbon Dioxide Level 20 20-31 mmol/L Anion Gap 10 5-15 Blood Urea Nitrogen 41 H 9-23 mg/dL Creatinine 2.64 H 0.550-1.02 mg/dL Glomerular Filtration Rate Calc 21 >90 mL/min BUN/Creatinine Ratio 15.5 10.0-20.0 Serum Glucose 117 H 74-106 mg/dL Calcium Level 9.2 8.7-10.4 mg/dL Group A Streptococcus Rapid Negative Magnesium Level 2.3 1.6-2.6 mg/dL Iron Level 93 50-170 ug/dL Total Iron Binding Capacity 374 250-425 ug/dL Percent Iron Saturation 24.9 15-50 % Ferritin 21.2 10-291 ng/mL Total Bilirubin 0.6 0.2-1.0 mg/dL Aspartate Amino Transferase (AST) 26 13-40 U/L Alanine Aminotransferase (ALT) 16 7-40 U/L Alkaline Phosphatase 108 46-116 U/L Total Protein 7.0 5.7-8.2 g/dL Albumin 4.4 3.2-4.8 g/dL Vitamin D 25-Hydroxy 31.0 30.0-100 ng/mL Parathyroid Hormone (Intact) 153.0 H 18.4-80.1 pg/mL Test 08/14/24 02:25 08/14/24 02:00 08/14/24 01:53 08/13/24 23:20 Range/Units Influenza Type A Antigen Negative Negative Influenza Type B Antigen Negative Negative SARS-CoV-2 Antigen (Rapid) Negative NEGATIVE Urine Color Light-yellow Yellow Urine Clarity Clear Clear Urine pH 5.5 5.0-9.0 Urine Specific [place] 1.016 1.001-1.035 Urine Protein Negative Negative Urine Ketones Negative Negative Urine Blood Negative Negative /uL Urine Nitrite Negative Negative Urine Bilirubin Negative Negative Urine Urobilinogen Normal Negative mg/dL Urine Leukocyte Esterase Negative Negative /uL Urine RBC 1 0 - 4 /hpf Urine Microscopic WBC 1 0-5 /HPF Urine Squamous Epithelial Cells Few <5 /hpf Urine Bacteria None seen None Seen /hpf Urine Creatinine 122.37 30.0-125.0 mg/dL Urine Protein/Creatinine Ratio 0.14 Urine Sodium 89 40-220 mmol/L Urine Glucose Normal Normal mg/dL Urine Total Protein 17.0 H 1-14 mg/dL Urine Opiates Screen Neg NEGATIVE Urine Fentanyl Screen Neg NEGATIVE Urine Barbiturates Screen Neg NEGATIVE Urine Phencyclidine Screen Neg NEGATIVE Urine Amphetamines Screen Pos NEGATIVE Urine Benzodiazepines Screen Neg NEGATIVE Urine Cocaine Screen Neg NEGATIVE Urine Cannabinoids Screen Neg NEGATIVE C-Reactive Protein High Sensitivity 0.64 <1.0 mg/dL White Blood Count 6.9 4.4-10.8 10^3/uL Red Blood Count 3.74 L 4.0-5.20 10^6/uL Hemoglobin 11.1 L 12.2-16.2 g/dL Hematocrit 34.4 L 36.0-46.0 % Mean Corpuscular Volume 92.1 80.0-100.0 fL Mean Corpuscular Hemoglobin 29.8 28.0-32.0 pg Mean Corpuscular Hemoglobin Concent 32.3 32.0-36.0 g/dL Red Cell Distribution Width 15.9 H 11.8-14.3 % Platelet Count 281 140-450 10^3/uL Mean Platelet Volume 8.8 6.9-10.8 fL Neutrophils (%) (Auto) 73.2 37.0-80.0 % Lymphocytes (%) (Auto) 17.1 10.0-50.0 % Monocytes (%) (Auto) 6.5 0.0-12.0 % Eosinophils (%) (Auto) 2.4 0.0-7.0 % Basophils (%) (Auto) 0.8 0.0-2.0 % Neutrophils # (Auto) 5.1 1.6-8.6 10 ^3/uL Lymphocytes # (Auto) 1.2 0.4-5.4 10 ^3/uL Monocytes # (Auto) 0.4 0-1.3 10 ^3/uL Eosinophils # (Auto) 0.2 0-0.8 10 ^3/uL Basophils # (Auto) 0.1 0-0.2 10 ^3/uL Nucleated Red Blood Cells 0.1 % B-Type Natriuretic Peptide 234.68 0-100 pg/mL Assessment Acute on chronic systolic heart failure (EF 65%). Acute hypoxic respiratory failure due to CHF. Pulmonary hypertension. Pneumonia. Hyperkalemia. ANGEL with vasomotor nephropathy with underlying CKD stage IV. History of essential hypertension. Hypotension. Hyperlipidemia. Depression. Anemia of chronic disease. Obesity. Plan/Recommendation I agree with your ongoing assessment and care of plan. Aspirin, Lipitor. IV antibiotics as ordered. Diuretics with Lasix. Morphine for pain management. Additional plan as per the hospital course. A total of 45 minutes was spent reviewing the patient record, examining the patient, making a diagnostic and therapeutic plan, discussing this plan with medical personnel, following up on diagnostic studies and following the patient for clinical stability excluding any and all procedures. At least 50% of this time was spent in direct, [id number] contact. Plan discussed with: Patient TANIA BRITT MD Aug 14, 2024 21:37
[2024-08-14] MEDS: HEPARIN SODIUM (PORCINE) 5000 UNITS/ML 1ML VIAL SC SCH (22:11)
[2024-08-14] MEDS: IPRATROPIUM BROM 0.5 MG/2.5ML INH SOL NEB PRN (23:02)
[2024-08-14] MEDS: ALBUTEROL SULF 2.5 MG/0.5ML(0.5%) NEB SOLN NEB PRN (23:03)
[2024-08-14] MEDS: ACETAMINOPHEN 325 MG TAB PO ONE (23:15)
[2024-08-15] VITALS (22 sets, daily range): BP systolic 75–118; BP diastolic 35–71; PULSE 61–92; RESP 16–18; TEMP 97.6–98.8; O2SAT 91–98
[2024-08-15 06:23] LABS: Alanine Aminotransferase 11 U/L (7-40); Albumin 3.8 g/dL (3.2-4.8); Alkaline Phosphatase 84 U/L (46-116); Anion Gap 9 (5-15); BUN/Creatinine Ratio 17.5 (10.0-20.0); Calcium 8.8 mg/dL (8.7-10.4); Carbon Dioxide 21 mmol/L (20-31); Glucose 90 mg/dL (74-106); Potassium 5.0 mmol/L (3.5-5.1); Sodium 143 mmol/L (136-145); Total Protein 6.0 g/dL (5.7-8.2)
[2024-08-15 06:24] LABS: Bilirubin, Total 0.4 mg/dL (0.2-1.0); Blood Urea Nitrogen 31 mg/dL (9-23); Chloride 113 mmol/L (98-107)
[2024-08-15 06:35] LABS: Hematocrit 32.4 % (36.0-46.0); Hemoglobin 10.2 g/dL (12.2-16.2); Mean Corpuscular Hemoglobin 29.3 pg (28.0-32.0); Mean Corpuscular Volume 92.6 fL (80.0-100.0); Nucleated Red Blood Cells % 0.2 %
[2024-08-15] MEDS: methylPREDNISolone SOD SUCC 40 MG/ML VL IV SCH ×2 (08:30→18:13)
[2024-08-15] MEDS: FUROSEMIDE 40 MG TAB PO SCH ×2 (10:36→21:22)
--- NOTE | 2024-08-15 11:52 | DVHPN2 ---
Progress Note Date Seen: Aug 15, 2024 Resident Creating Document: BRENDEN CARVAJAL RESIDENT Has the PT tested + for MRSA If YES, has PT been informed?: No Medical Necessity Reason Pt with a Central, PICC or Fol: No Subjective Review of Systems This is a 53-year-old female with COPD on 3 L home oxygen, heart failure with preserved ejection fraction, tricuspid insufficiency, CKD 3A, GERD, pulmonary hypertension secondary to methamphetamine use who presented to the ER with a chief complaint of shortness of breath and cough for the past 2 weeks. Patient reports that she started experiencing cough, runny nose, myalgias 2 weeks back and later developed shortness of breath, orthopnea, paroxysmal nocturnal dyspnea, she takes 5 pillows under her head while sleeping. She started to develop lower extremity swelling for the past week. Reports last use methamphetamine 3 days back. On arrival to the ER, patient was hypotensive 86/40 mmHg . Patient was started on Lasix 40 mg b.i.d.. 08/14-Patient seen and examined in the ER. She has bilateral lower extremity swelling. 08/15-patient seen and examined at the bedside. Reports feeling better. Bilateral lower extremity swelling resolved. Decreased expiratory breath sounds on auscultation. Objective vital signs Vital Sign Date Time Temp Pulse Resp B/P (MAP) Pulse Ox O2 Delivery O2 Flow Rate FiO2 08/15/24 10:36 102/61 08/15/24 10:10 94 Room Air* 0 21 08/15/24 08:39 98.6 66 18 98.6 Total Intake and Output 08/14/24 08/14/24 08/15/24 15:00 23:00 07:00 Intake Total 400 ml Balance 400 ml medications Current Medications Medications Dose Ordered Sig/Agnes Route Start Time Stop Time Status Last Admin Dose Admin Dextrose 50 ml PRN PRN IV 08/14/24 03:15 Nitroglycerin 0.4 mg Q5MINP PRN SL 08/14/24 03:00 Hold Morphine Sulfate 2 mg Q30M PRN IV 08/14/24 03:00 Aspirin 81 mg DAILY PO 08/14/24 10:00 08/15/24 10:34 81 MG Sertraline HCl 25 mg DAILY PO 08/14/24 10:00 08/15/24 10:35 25 MG Sildenafil Citrate 20 mg TID PO 08/14/24 06:00 08/15/24 05:02 20 MG Atorvastatin Calcium 40 mg DAILY PO 08/14/24 10:00 08/15/24 10:34 40 MG Patient Own Medication 10 mg DAILY PO 08/14/24 10:00 Midodrine 10 mg TID PO 08/14/24 14:00 08/15/24 05:02 10 MG Heparin Sodium (Porcine) 5,000 units Q12HR SC 08/14/24 22:00 08/15/24 11:09 5,000 UNITS Furosemide 40 mg DAILY PO 08/15/24 10:00 08/15/24 10:36 40 MG Azithromycin 250 ml @ 125 mls/hr DAILY IV 08/14/24 13:00 08/15/24 10:33 125 MLS/HR Ceftriaxone Sodium 50 ml @ 100 mls/hr DAILY@09 IV 08/14/24 13:30 08/15/24 08:30 100 MLS/HR Methylprednisolone Sodium Succinate 40 mg DAILY IV 08/15/24 14:00 08/15/24 08:30 40 MG Albuterol 2.5 mg Q6HPRN PRN NEB 08/14/24 23:00 08/14/24 23:12 2.5 MG Ipratropium Guy 0.5 mg Q6HPRN PRN NEB 08/14/24 23:00 08/14/24 23:12 0.5 MG Examination Obese female patient lying in the bed, no acute distress General: Obese, afebrile, palor, mucosae are moist Cardiovascular: Regular S1 and S2. No murmurs, gallops or rubs. No JVD elevation. Bilateral trace pitting edema Respiratory: Bilateral decreased breath sounds heard on auscultation Abdomen: Soft, nontender, nondistended, normoactive bowel sounds, no rebound tenderness, no organomegaly, no masses Genitourinary: Deferred MSK/skin: Mobilizes 4 limbs. Skin is dry and warm Neurological: No motor, no sensitive deficits, normal speech. Pupils are isocoric and reactive. Psych/Mental Status: A/Ox3 laboratory and microbiology Laboratory Tests 08/15/24 05:03 Test 08/15/24 05:03 Range/Units Serum Glucose 90 74-106 mg/dL Labs and/or images reviewed: Labs reviewed by me, Image(s) reviewed by me Problem List/Assessment/Plan Problem List/Assessment/Plan Acute kidney injury superimposed on CKD stage IIIA Anemia likely chronic kidney disease Hyperkalemia secondary to above Possible COPD exacerbation Acute on chronic respiratory failure Likely right-sided heart failure Likely Pulmonary hypertension Methamphetamine use dependence BNP 234 Chest x-ray shows No acute abnormality demonstrated. Evidence of enlarged pulmonary artery suggestive of pulmonary arterial hypertension. Echocardiogram shows RV moderately enlarged, normal function, moderate TR, right-sided heart failure noted Baseline BUN/creatinine/GFR is 32/1.79/40 Plan: BUN/creatinine downtrending, GFR improving. Patient received IV fluids. Recommended increasing Lasix to 40 b.i.d. Continue strict I&Os Counseled regarding cessation of methamphetamine use We will continue to follow up Plan discussed with patient in which all questions have been answered Case discussed with Addendum Patient seen and examined, plan discussed with resident. Agree with above, we will follow closely dc ivf diuretics Plan discussed with: Patient My Orders My Orders Orders - BRENDEN CARVAJAL Procedure Category Date Status Time Communication Order ORDERS 08/14/24 Transmitted 12:09 BRENDEN CARVAJAL Aug 15, 2024 11:52 SUHAS BURGESS MD Aug 15, 2024 19:26
[2024-08-15 11:56] LABS: Base Excess -5.9 mmol/L (-2.0-3.0)
[2024-08-15] MEDS: ALBUTEROL SULF 2.5 MG/0.5ML(0.5%) NEB SOLN NEB SCH (14:00)
[2024-08-15] MEDS: IPRATROPIUM BROM 0.5 MG/2.5ML INH SOL NEB SCH (14:00)
--- NOTE | 2024-08-15 15:33 | DVHPNRES ---
Progress Note Date Seen: Aug 15, 2024 Resident Creating Document: KRISHNA LUCAS RESIDENT Has the PT tested + for MRSA If YES, has PT been informed?: No Medical Necessity Reason Pt with a Central, PICC or Fol: No Subjective Review of Systems This is a 53-year-old female with past medical history Anxiety, Acute on chronic respiratory failure, COPD with 3 L home oxygen, ANGEL, CHF with EF 55%, CKD stage IIIA, GERD, gout, liver cirrhosis, pulmonary hypertension-methamphetamine induced, and former methamphetamine user came to ER with the complaint of 2 weeks' history of cough with productive whitish yellow sputum for few days associated with fever taking Tylenol. Patient also having shortness of breaths for 2 days , used albuterol rescue inhaler which does not help a lot. Patient also mentioned cough is so intense which produce chest pain associated with headache, runny nose, throat pain, ear pain, nausea. Patient also noted bilateral leg swollen same duration. She had chronic history of heart failure seen by garage helper in [facility] last visit 2 months ago and next visit end of the August. Denies any hemoptysis, nausea, vomiting, abdominal pain, dysuria. 08/14/24: The patient was examined and seen at bedside. The patient is still dyspneic and complaining of sore throat. Metoprolol 25 mg, metolazone was stopped. Azitromicyn and ceftriaxone 1g was initiated for possible atypical pneumonia. Today's ECHO reports EF 65%. Vital signs were reviewed, BP has been in the lower side 108/59mmHg, patient report that she usually has low BP levels. We will continue monitoring this patient closely. 08/15/24: The patient was examined and seen at bedside. The patient's dyspnea has improved, patient continues with oxigen 3L via nasal cannula. Vital signes were reviewed, patient SatO2 92%, hypotension has improved. Today, the patient complains about cough, Guaifenesin/Dextromethorphan was started. Patient denies fever, chills, chest pain, abdominal pain. We will continue monitoring this patient closely. Review of Systems Constitutional: Yes: Fever, Weakness, Malaise Eyes: No: Pain, Vision change, Conjunctivae inflammation, Eyelid inflammation, Other, Redness ENT: Ear pain; No: Ear discharge, Nose pain, Nose discharge, Nose congestion, Mouth pain, Mouth swelling, Throat pain, Throat swelling, Other Respiratory: patient reports cough, shortness of breath has improved. Cardiovascular: Orthopnea, Edema Gastrointestinal: No: Nausea, Vomiting, Abdominal Pain, Diarrhea, Constipation, Melena, Hematochezia, Other Genitourinary: No Dysuria, No Frequency, No Incontinence, No Hematuria, No Retention, No Other Musculoskeletal: No: other, neck pain, shoulder pain, arm pain, back pain, hand pain, leg pain, foot pain Skin: No: Rash, Lesions, Jaundice, Bruising, Other Neurological: No: Weakness, Numbness, Incoordination, Change in speech, Confusion, Seizures, Other Objective vital signs Vital Sign Date Time Temp Pulse Resp B/P (MAP) Pulse Ox O2 Delivery O2 Flow Rate FiO2 08/15/24 15:00 75 96/71 (79) 08/15/24 12:50 97.6 18 91 97.6 08/15/24 10:10 Nasal Cannula* 3 32 Total Intake and Output 08/14/24 08/14/24 08/15/24 15:00 23:00 07:00 Intake Total 400 ml Balance 400 ml medications Current Medications Medications Dose Ordered Sig/Agnes Route Start Time Stop Time Status Last Admin Dose Admin Dextrose 50 ml PRN PRN IV 08/14/24 03:15 Nitroglycerin 0.4 mg Q5MINP PRN SL 08/14/24 03:00 Hold Morphine Sulfate 2 mg Q30M PRN IV 08/14/24 03:00 Aspirin 81 mg DAILY PO 08/14/24 10:00 08/15/24 10:34 81 MG Sertraline HCl 25 mg DAILY PO 08/14/24 10:00 08/15/24 10:35 25 MG Sildenafil Citrate 20 mg TID PO 08/14/24 06:00 08/15/24 14:10 20 MG Atorvastatin Calcium 40 mg DAILY PO 08/14/24 10:00 08/15/24 10:34 40 MG Patient Own Medication 10 mg DAILY PO 08/14/24 10:00 Midodrine 10 mg TID PO 08/14/24 14:00 08/15/24 14:10 10 MG Heparin Sodium (Porcine) 5,000 units Q12HR SC 08/14/24 22:00 08/15/24 11:09 5,000 UNITS Azithromycin 250 ml @ 125 mls/hr DAILY IV 08/14/24 13:00 08/15/24 10:33 125 MLS/HR Ceftriaxone Sodium 50 ml @ 100 mls/hr DAILY@09 IV 08/14/24 13:30 08/15/24 08:30 100 MLS/HR Methylprednisolone Sodium Succinate 40 mg DAILY IV 08/15/24 14:00 08/15/24 08:30 40 MG Guaifenesin/ Dextromethorphan 10 ml Q4HP PRN PO 08/15/24 13:30 UNV Albuterol 2.5 mg Q4HR NEB 08/15/24 14:00 UNV Ipratropium Welcome 0.5 mg Q4HR NEB 08/15/24 14:00 UNV Furosemide 40 mg BID PO 08/15/24 22:00 UNV Examination Physical Exam: General Appearance: Alert, Oriented X3, Cooperative, moderate distress. HEENT: Atraumatic, PERRLA, EOMI Respiratory: Patient is dyspneic. Mild crackles and mild wheezing in bilateral lung base. Other (Patient on 3 L oxygen via nasal cannula), satO2 at 91% Cardiovascular: Regular rate, Normal S1, Normal S2 Abdominal: Normal bowel sounds, Soft, No tenderness, No hepatospenomegaly Extremities: No cyanosis, Normal pulses, Other (Bilateral leg edema) Skin: No rashes, No breakdown Neuro: Normal gait, Strength at 5/5 X4 ext, Normal tone laboratory and microbiology Laboratory Tests 08/15/24 05:03 Test 08/15/24 05:03 Range/Units Serum Glucose 90 74-106 mg/dL Microbiology Date/Time Source Procedure Growth Status 08/14/24 04:25 Throat Nose/Throat Culture - Preliminary Resulted Problem List/Assessment/Plan Problem List/Assessment/Plan Assessment/Plan # Acute on chronic dyastolic heart failure (EF 65%) -History of heart failure -Echo( 04/29/2024)-Sinus bradycardia. Biatrial enlargement. RV enlargement. Dilated RV outflow tract and pulmonary artery. Valves appear to be structurally normal. Left ventricular performance is preserved at 55% with diminished right ventricular function. Hypokinesis of RV free wall. Interventricular septal doming noted in systole consistent with a pressure overload state. Severe tricuspid insufficiency. Pulmonary hypertension. ECHO 08/14/24 EF 65% -CXR- Evidence of enlarged pulmonary artery suggestive of pulmonary arterial hypertension. -BNP-234.68 -Continue IV Lasix 20 mg b.i.d. -Aspirin 81 mg p.o. daily -Atorvastatin 40 mg p.o. daily -Stopped: metoprolol 25 mg b.i.d. and , Metolazone -Cardiology consult -Diet cardiac -Serum magnesium level, uds -negative #Acute hypoxic respiratory failure due to CHF -patient came with fever, shortness of breath, runny nose, throat pain. -patient history of COPD with 3 L home oxygen -continue oxygen and monitor saturation -nebulization with albuterol -INFLUENZA TYPE A AND B, COVID-19 NEGATIVE -CRP level ordered -Methylprednisolone 40 mg #Acute on chronic COPD exacerbation with pneumonitis -continue oxygen and monitor saturation -nebulization with albuterol, ipatropium QT4 -Melthylprednisolone 40 mg IV #Pulmonary hypertension -Sildenafil 20 mg p.o. t.i.d. -Sodium bicarb 650 mg p.o. daily -Macitentan 10 mg p.o. daily # Pneumonia, like atypical pneumonia -Ceftriaxone 1gr IV QD -Azitromicyn 500mg /250 ml IV QD # Hyperkalemia, resolving k+ 6.5>6.0>5.8>4.7 Dextrose 50% 50 mL IV stat -Insulin 10 unit IV stat -Localma 10 po stat given. -Potassium level improved: 4.8 mmol/l (08/14/24) #ANGEL with vasomotor nephropathy with underlying CKD stage IV -SERUM CREATININE 2.64 (08/14/24), BASELINE CREATININE 1.55 -eGFR 20 -Anion gap 10 -Nephrology consult # Essential hypertension - Metoprolol 25 mg Stopped due to hypotension. -Monitor blood pressure -DASH diet #Hypotension: -Midodrine 10mg TID -100 cc NS in 5 hrs (to avoid fluid overload) # Hyperlipidemia -continue atorvastatin 40 mg p.o. daily #Depression -continue sertraline 50 mg p.o. daily # Anemia of chronic disease -Hemoglobin 11.1, HCT 34.4 RDW 15.9 Ferritin 20.5 -iron level we will follow # Obesity -BMI 34.7 Lifestyle modification DIET: CARDIAC DIET GI PROPHYLAXIS: Continue pantoprazole 40 mg daily DVT prophylaxis: Heparin 5000 unit sc q12h. Goals of care discussions, more than 35 minute spent. Code status full code. Case discussed with Dr. Mosley Plan discussed with: Patient, Other (Nurse) Plan discussed with: Patient My Orders My Orders Orders - KRISHNA LUCAS Procedure Category Date Status Time Abg W/ Co-Ox RT 08/15/24 Logged 06:34 Complete Blood Count LAB 08/16/24 Verified 04:00 Comprehensive LAB 08/16/24 Verified Metabolic Panel 04:00 KRISHNA LUCAS RESIDENT Aug 15, 2024 15:33
[2024-08-15] MEDS: HYDROcodone-ACET 5/325MG TAB PO ONE (21:05)
--- NOTE | 2024-08-15 23:29 | DVHPN2 ---
Progress Note - Dictate Date Seen: Aug 15, 2024 Has the PT tested + for MRSA If YES, has PT been informed?: No Medical Necessity Reason Pt with a Central, PICC or Fol: No Subjective Patient was seen and evaluated in follow up. Patient is on 3 LPM NC. SOB and bilateral lower extremity swelling are improved. Patient is complaining of a cough. BUN 31, National Coverage Specialist 1.77. vital signs Vital Sign Date Time Temp Pulse Resp B/P (MAP) Pulse Ox O2 Delivery O2 Flow Rate FiO2 08/15/24 22:38 76 18 97 08/15/24 21:22 104/56 08/15/24 21:00 97.9 97.9 08/15/24 19:32 Nasal Cannula 3.0 08/15/24 19:32 32 Total Intake and Output 08/14/24 08/14/24 08/15/24 15:00 23:00 07:00 Intake Total 400 ml Balance 400 ml medications Current Medications Medications Dose Ordered Sig/Agnes Route Start Time Stop Time Status Last Admin Dose Admin Dextrose 50 ml PRN PRN IV 08/14/24 03:15 Nitroglycerin 0.4 mg Q5MINP PRN SL 08/14/24 03:00 Hold Morphine Sulfate 2 mg Q30M PRN IV 08/14/24 03:00 Aspirin 81 mg DAILY PO 08/14/24 10:00 08/15/24 10:34 81 MG Sertraline HCl 25 mg DAILY PO 08/14/24 10:00 08/15/24 10:35 25 MG Sildenafil Citrate 20 mg TID PO 08/14/24 06:00 08/15/24 21:22 20 MG Atorvastatin Calcium 40 mg DAILY PO 08/14/24 10:00 08/15/24 10:34 40 MG Patient Own Medication 10 mg DAILY PO 08/14/24 10:00 Midodrine 10 mg TID PO 08/14/24 14:00 08/15/24 21:21 10 MG Heparin Sodium (Porcine) 5,000 units Q12HR SC 08/14/24 22:00 08/15/24 21:17 5,000 UNITS Azithromycin 250 ml @ 125 mls/hr DAILY IV 08/14/24 13:00 08/15/24 10:33 125 MLS/HR Ceftriaxone Sodium 50 ml @ 100 mls/hr DAILY@09 IV 08/14/24 13:30 08/15/24 08:30 100 MLS/HR Guaifenesin/ Dextromethorphan 10 ml Q4HP PRN PO 08/15/24 13:30 Albuterol 2.5 mg Q4HR NEB 08/15/24 14:00 08/15/24 22:30 2.5 MG Ipratropium Chrisman 0.5 mg Q4HR NEB 08/15/24 14:00 08/15/24 22:30 0.5 MG Furosemide 40 mg BID PO 08/15/24 22:00 08/15/24 21:22 40 MG Methylprednisolone Sodium Succinate 40 mg BID IV 08/15/24 17:45 08/15/24 21:21 40 MG objective GENERAL: Alert and oriented x 3. No acute distress. Obese. EYES: PERRL, EOMI. Anicteric. HENT: Moist mucous membranes. LUNGS: Decreased breath sounds. CARDIOVASCULAR: Regular rate and rhythm. ABDOMEN: Soft, non-tender and non-distended. EXTREMITIES: BLE edema. NEUROLOGIC: No focal neurological deficits. SKIN: Warm, dry. laboratory and microbiology Laboratory Tests 08/15/24 05:03 Test 08/15/24 05:03 Range/Units Serum Glucose 90 74-106 mg/dL Problem List Acute on chronic systolic heart failure (EF 65%). Acute hypoxic respiratory failure due to CHF. Pulmonary hypertension. Pneumonia. Hyperkalemia. ANGEL with vasomotor nephropathy with underlying CKD stage IV. History of essential hypertension. Hypotension. Hyperlipidemia. Depression. Anemia of chronic disease. Obesity. Assessment/Plan Continued all current supportive medical care. Aspirin, Lipitor. IV antibiotics as ordered. Diuretics with Lasix. Morphine for pain management. Additional plan as per the hospital course. Plan discussed with: Patient TANIA BRITT MD Aug 15, 2024 23:29
[2024-08-16] VITALS (14 sets, daily range): BP systolic 91–122; BP diastolic 45–63; PULSE 74–99; RESP 16–18; TEMP 97.6–98.6; O2SAT 90–97
[2024-08-16 08:38] LABS: Hematocrit 32.7 % (36.0-46.0); Hemoglobin 10.6 g/dL (12.2-16.2); Mean Corpuscular Hemoglobin 29.7 pg (28.0-32.0); Mean Corpuscular Volume 91.2 fL (80.0-100.0); Nucleated Red Blood Cells % 0.1 %
[2024-08-16 09:02] LABS: Alanine Aminotransferase 12 U/L (7-40); Albumin 4.2 g/dL (3.2-4.8); Alkaline Phosphatase 83 U/L (46-116); Anion Gap 11 (5-15); BUN/Creatinine Ratio 20.9 (10.0-20.0); Calcium 10.2 mg/dL (8.7-10.4); Carbon Dioxide 22 mmol/L (20-31); Potassium 4.3 mmol/L (3.5-5.1); Sodium 141 mmol/L (136-145); Total Protein 6.6 g/dL (5.7-8.2)
[2024-08-16 09:03] LABS: Bilirubin, Total 0.4 mg/dL (0.2-1.0); Blood Urea Nitrogen 33 mg/dL (9-23); Chloride 108 mmol/L (98-107); Glucose 137 mg/dL (74-106)
[2024-08-16] MEDS: guaiFENesin-DM 100/10mg/5ml SYR PO PRN (09:07)
[2024-08-16] MEDS ORDERED: ACETAMINOPHEN 325 MG TAB PO PRN (09:15)
[2024-08-16 12:07] LABS: Anti-Centromere B Antibody <0.2 AI (0.0-0.9); Anti-Jo-1 Antibody <0.2 AI (0.0-0.9); Anti-dsDNA Antibody <1 IU/mL (0-9); Antichromatin Antibody <0.2 AI (0.0-0.9); Antiscleroderma-70 Antibody <0.2 AI (0.0-0.9); Sjogren's Anti-SS-A Antibody <0.2 AI (0.0-0.9); Sjogren's Anti-SS-B Antibody <0.2 AI (0.0-0.9)
[2024-08-16] MEDS ORDERED: AZIT-43 PO (13:11)
[2024-08-16] MEDS ORDERED: AUG875T PO (13:11)
[2024-08-16] MEDS ORDERED: PRED20TA2 PO (13:11)
--- NOTE | 2024-08-16 15:33 | DVHDSRES ---
Discharge Summary Date of Admission Resident Creating Document: KRISHNA LUCAS RESIDENT Aug 14, 2024 at 02:55 Date of Discharge: Aug 16, 2024 Admitting Diagnosis Acute on chronic systolic heart failure Acute COPD exacerbation likely due to pneumonia Labs/Diagnostic Data: Laboratory Results Test 08/16/24 07:38 08/15/24 18:12 08/15/24 10:31 08/14/24 21:17 White Blood Count 5.4 10^3/uL (4.4-10.8) Red Blood Count 3.59 10^6/uL (4.0-5.20) Hemoglobin 10.6 g/dL (12.2-16.2) Hematocrit 32.7 % (36.0-46.0) Mean Corpuscular Volume 91.2 fL (80.0-100.0) Mean Corpuscular Hemoglobin 29.7 pg (28.0-32.0) Mean Corpuscular Hemoglobin Concent 32.6 g/dL (32.0-36.0) Red Cell Distribution Width 15.9 % (11.8-14.3) Platelet Count 301 10^3/uL (140-450) Mean Platelet Volume 8.5 fL (6.9-10.8) Neutrophils (%) (Auto) 91.3 % (37.0-80.0) Lymphocytes (%) (Auto) 7.8 % (10.0-50.0) Monocytes (%) (Auto) 0.9 % (0.0-12.0) Eosinophils (%) (Auto) 0.0 % (0.0-7.0) Basophils (%) (Auto) 0.0 % (0.0-2.0) Neutrophils # (Auto) 5.0 10 ^3/uL (1.6-8.6) Lymphocytes # (Auto) 0.4 10 ^3/uL (0.4-5.4) Monocytes # (Auto) 0 10 ^3/uL (0-1.3) Eosinophils # (Auto) 0 10 ^3/uL (0-0.8) Basophils # (Auto) 0 10 ^3/uL (0-0.2) Nucleated Red Blood Cells 0.1 % Erythrocyte Sedimentation Rate 15 mm/hr (0-20) Sodium Level 141 mmol/L (136-145) Potassium Level 4.3 mmol/L (3.5-5.1) Chloride Level 108 mmol/L (98-107) Carbon Dioxide Level 22 mmol/L (20-31) Anion Gap 11 (5-15) Blood Urea Nitrogen 33 mg/dL (9-23) Creatinine 1.58 mg/dL (0.550-1.02) Glomerular Filtration Rate Calc 39 mL/min (>90) BUN/Creatinine Ratio 20.9 (10.0-20.0) Serum Glucose 137 mg/dL (74-106) Calcium Level 10.2 mg/dL (8.7-10.4) Total Bilirubin 0.4 mg/dL (0.2-1.0) Aspartate Amino Transferase (AST) 18 U/L (13-40) Alanine Aminotransferase (ALT) 12 U/L (7-40) Alkaline Phosphatase 83 U/L (46-116) C-Reactive Protein High Sensitivity 0.23 mg/dL (<1.0) Total Protein 6.6 g/dL (5.7-8.2) Albumin 4.2 g/dL (3.2-4.8) Thyroid Stimulating Hormone (TSH) 1.16 uIU/mL (0.55-4.78) Cortisol AM Sample 10.71 ug/dL (5.27-22.45) Anti-Nuclear Antibody Comment Comment (.) MURIEL-1 Antibody <0.2 AI (0.0-0.9) SS-A/Ro Antibody <0.2 AI (0.0-0.9) SS-B/La Antibody <0.2 AI (0.0-0.9) Sm Antibody <0.2 AI (0.0-0.9) CLIENT SPECIALIST Antibody 0.3 AI (0.0-0.9) Scl-70 (Scleroderma) Antibody <0.2 AI (0.0-0.9) Anti-Double Strand DNA Antibody <1 IU/mL (0-9) Chromatin Antibody <0.2 AI (0.0-0.9) Centromere B Antibody <0.2 AI (0.0-0.9) Complement C3 132 mg/dL (82-167) Complement C4 24 mg/dL (12-38) Blood Gas Specimen Type Arterial Blood Gas Sample Site Left radial Blood Gas Patient Temperature 37.0 Arterial Blood Date Drawn [id number] Arterial Blood pH 7.359 (7.350-7.450) Arterial Blood Partial Pressure CO2 34.1 mmHg (32.0-45.0) Arterial Blood Partial Pressure O2 61.9 mmHg (83.0-108.0) Arterial Blood HCO3 18.8 mmol/L (21.0-28.0) Arterial Blood Oxygen Saturation 88.5 % (94.0-98.0) Arterial Blood Base Excess -5.9 mmol/L (-2.0-3.0) Arterial Blood Oxyhemoglobin 88.1 % (94.0-98.0) Arterial Blood Carboxyhemoglobin 0.0 % (0.5-1.5) Arterial Blood Methemoglobin 0.4 % (0.0-1.5) Jose Luis Test Yes Blood Gas Total Hemoglobin 11.30 g/dL (12.0-16.0) Blood Gas Liter Flow 3.00 Blood Gas Modality Nasal cannula FiO2 % 32.0 POC Glucose 102 mg/dl (70-106) Test 08/14/24 04:25 08/14/24 03:12 08/14/24 02:25 08/14/24 02:00 Group A Streptococcus Rapid Negative Magnesium Level 2.3 mg/dL (1.6-2.6) Iron Level 93 ug/dL (50-170) Total Iron Binding Capacity 374 ug/dL (250-425) Percent Iron Saturation 24.9 % (15-50) Ferritin 21.2 ng/mL (10-291) Vitamin D 25-Hydroxy 31.0 ng/mL (30.0-100) Parathyroid Hormone (Intact) 153.0 pg/mL (18.4-80.1) Influenza Type A Antigen Negative (Negative) Influenza Type B Antigen Negative (Negative) SARS-CoV-2 Antigen (Rapid) Negative (NEGATIVE) Urine Color Light-yellow (Yellow) Urine Clarity Clear (Clear) Urine pH 5.5 (5.0-9.0) Urine Specific [place] 1.016 (1.001-1.035) Urine Protein Negative (Negative) Urine Ketones Negative (Negative) Urine Blood Negative /uL (Negative) Urine Nitrite Negative (Negative) Urine Bilirubin Negative (Negative) Urine Urobilinogen Normal mg/dL (Negative) Urine Leukocyte Esterase Negative /uL (Negative) Urine RBC 1 /hpf (0 - 4) Urine Microscopic WBC 1 /HPF (0-5) Urine Squamous Epithelial Cells Few /hpf (<5) Urine Bacteria None seen /hpf (None Seen) Urine Creatinine 122.37 mg/dL (30.0-125.0) Urine Protein/Creatinine Ratio 0.14 Urine Sodium 89 mmol/L (40-220) Urine Glucose Normal mg/dL (Normal) Urine Total Protein 17.0 mg/dL (1-14) Urine Opiates Screen Neg (NEGATIVE) Urine Fentanyl Screen Neg (NEGATIVE) Urine Barbiturates Screen Neg (NEGATIVE) Urine Phencyclidine Screen Neg (NEGATIVE) Urine Amphetamines Screen Pos (NEGATIVE) Urine Benzodiazepines Screen Neg (NEGATIVE) Urine Cocaine Screen Neg (NEGATIVE) Urine Cannabinoids Screen Neg (NEGATIVE) Test 08/13/24 23:20 B-Type Natriuretic Peptide 234.68 pg/mL (0-100) Other Laboratory Tests 08/16/24 07:38 Brief Hx & Hospital Course: This is a 53-year-old female with past medical history Anxiety, Acute on chronic respiratory failure, COPD with 3 L home oxygen, ANGEL, CHF with EF 55%, CKD stage IIIA, GERD, gout, liver cirrhosis, pulmonary hypertension-methamphetamine induced, and former methamphetamine user came to ER with the complaint of 2 weeks' history of cough with productive whitish yellow sputum for few days associated with fever taking Tylenol. Patient also had shortness of breaths for 2 days , used albuterol rescue inhaler which does not help a lot. Patient also mentioned cough is so intense which produce chest pain associated with headache, runny nose, throat pain, ear pain, nausea. Patient also noted bilateral leg swollen same duration. She had chronic history of heart failure seen by cable installation technician in [facility] last visit 2 months ago and next visit end of the August. Denies any hemoptysis, nausea, vomiting, abdominal pain, dysuria. 08/14/24: The patient was examined and seen at bedside. The patient is still dyspneic and complaining of sore throat. Metoprolol 25 mg, metolazone was stopped. Azitromicyn and ceftriaxone 1g was initiated for possible atypical pneumonia. Today's ECHO reports EF 65%. Vital signs were reviewed, BP has been in the lower side 108/59mmHg, patient report that she usually has low BP levels. We will continue monitoring this patient closely. 08/15/24: The patient was examined and seen at bedside. The patient's dyspnea has improved, patient continues with oxigen 3L via nasal cannula. Vital signes were reviewed, patient SatO2 92%, hypotension has improved. Today, the patient complains about cough, Guaifenesin/Dextromethorphan was started. Patient denies fever, chills, chest pain, abdominal pain. We will continue monitoring this patient closely. 08/16/24, Today, patient was examined at bedside, vital signs were reviewed. the patient reports feeling better, shortness of breath have improved, no fever, nausea or vomit. TSH levels came back with in normal limits. Patient will be discharged today and continue follow up with PCP, cadiology, and nephrology in out patient clinic. Review of Systems Constitutional: Yes: Fever, Weakness, Malaise Eyes: No: Pain, Vision change, Conjunctivae inflammation, Eyelid inflammation, Other, Redness ENT: Ear pain; No: Ear discharge, Nose pain, Nose discharge, Nose congestion, Mouth pain, Mouth swelling, Throat pain, Throat swelling, Other Respiratory: patient reports cough, shortness of breath has improved. Cardiovascular: Orthopnea, Edema Gastrointestinal: No: Nausea, Vomiting, Abdominal Pain, Diarrhea, Constipation, Melena, Hematochezia, Other Genitourinary: No Dysuria, No Frequency, No Incontinence, No Hematuria, No Retention, No Other Musculoskeletal: No: other, neck pain, shoulder pain, arm pain, back pain, hand pain, leg pain, foot pain Skin: No: Rash, Lesions, Jaundice, Bruising, Other Neurological: No: Weakness, Numbness, Incoordination, Change in speech, Confusion, Seizures, Other Physical Exam: General Appearance: Alert, Oriented X3, Cooperative. HEENT: Atraumatic, PERRLA, EOMI Respiratory: reduced lung sounds in both gross. No crackles. Patient on 3 L oxygen via nasal cannula, satO2 at 93%. Cardiovascular: Regular rate, Normal S1, Normal S2 Abdominal: Normal bowel sounds, Soft, No tenderness, No hepatospenomegaly Extremities: No cyanosis, Normal pulses, Other (Bilateral leg edema) Skin: No rashes, No breakdown. Neuro: Normal gait, Strength at 5/5 X4 ext, Normal tone Condition at Discharge: Stable Final Diagnosis/Problems List -Acute on chronic diastolic heart failure -Acute hypoxic respiratory failure due to CHF -Acute COPD exacerbation like due to pneumonia -Hyperkalemia. -ANGEL with vasomotor nephropathy with underlying CKD stage IV. -History of essential hypertension. -Hypotension. -Hyperlipidemia. -Depression. -Anemia of chronic disease. -Obesity. -Pneumonia, likely atypical pneumonia -Hyperkalemia -ANGEL due to vasomotor nephropaty underlying CKD Stage IV -Essencial hypertension Discharge Disposition: Home SNF Discharge Will this Physician continue t: No Discharge Instruct/Medications Diet: Cardiac 2g Na,low cholest, Renal Activity: No Restrictions, As Tolerated Follow Up/Referral: F/U with discharge clinic F/U with Cardiology F/U with nephrology Medications: Azitromicyn 500 mg po qd for 5 days Prednisone 40 mg po qd for 5 days Continue with home medications Scheduled Albuterol Sulfate (Albuterol Sulfate Hfa), 2 PUFF IN QID PRN, (Reported) Allopurinol (Allopurinol), 1 TAB PO DAILY, (Reported) Amoxicillin & Pot Clavulanate (Augmentin Tablet), 875 MG PO BID Aspirin (Chewable Aspirin), 1 TAB PO DAILY, (Reported) Aspirin (Aspirin), 81 MG PO DAILY Atorvastatin Calcium (Atorvastatin Calcium), 1 TAB PO QPM Atorvastatin Calcium (Atorvastatin Calcium), 1 TAB PO DAILY, (Reported) Azithromycin (Azithromycin), 250 MG PO DAILY Docusate Sodium (Docusate Sodium), 1 CAP PO BID, (Reported) Lorazepam (Ativan Tablet), 1 TAB PO Q6HPRN, (Reported) Macitentan (Opsumit), 10 MG PO DAILY, (Reported) Metolazone (Metolazone), 1 TAB PO EOD, (Reported) Metoprolol Succinate (Metoprolol Succinate Er), 1 TAB PO BID, (Reported) Midodrine Hcl (Midodrine Hcl), 10 MG PO BID, (Reported) Ondansetron HCl (Ondansetron), 4 MG PO Q6HPRN, (Reported) Pantoprazole Sodium Sesquihydr (Protonix), 20 MG PO DAILY, (Reported) Prednisone (Prednisone), 20 MG PO BID Sertraline Hcl (Sertraline Hcl), 25 MG PO DAILY, (Reported) Sildenafil Citrate (Revatio), 20 MG PO TID Sodium Bicarbonate (Sodium Bicarbonate), 650 MG PO DAILY, (Reported) Torsemide (Torsemide), 1 TAB PO BID, (Reported) Zolpidem Tartrate (Ambien), 1 TAB PO HS PRN, (Reported) Discharge Statement: "Patient was advised to return to the ER or call 911 if any headaches, dizziness, shortness of breath, chest pain, abdominal pain, bleeding, fevers, or worsening of medical condition. Patient was counseled about treatment plan, medications, possible side effects, patientverbalized understanding. All questions were answered to the best of my ability. This discharge took greater then 30 minutes in planning, reviewing documentation, counseling the patient, and discussing with other team members." ASSESSMENT ASSESSMENT Assessment -Acute on chronic diastolic heart failure -Acute hypoxic respiratory failure due to CHF -Acute COPD exacerbation like due to pneumonia -Pneumonia, likely atypical pneumonia -Hyperkalemia -ANGEL due to vasomotor nephropaty underlying CKD Stage IV -Essencial hypertension KRISHNA LUCAS RESIDENT Aug 16, 2024 15:33
--- NOTE | 2024-08-16 15:50 | DVHPN2 ---
Progress Note Date Seen: Aug 16, 2024 Resident Creating Document: BRENDEN CARVAJAL RESIDENT Has the PT tested + for MRSA If YES, has PT been informed?: No Medical Necessity Reason Pt with a Central, PICC or Fol: No Subjective Review of Systems This is a 53-year-old female with COPD on 3 L home oxygen, heart failure with preserved ejection fraction, tricuspid insufficiency, CKD 3A, GERD, pulmonary hypertension secondary to methamphetamine use who presented to the ER with a chief complaint of shortness of breath and cough for the past 2 weeks. Patient reports that she started experiencing cough, runny nose, myalgias 2 weeks back and later developed shortness of breath, orthopnea, paroxysmal nocturnal dyspnea, she takes 5 pillows under her head while sleeping. She started to develop lower extremity swelling for the past week. Reports last use methamphetamine 3 days back. On arrival to the ER, patient was hypotensive 86/40 mmHg . Patient was started on Lasix 40 mg b.i.d.. 08/14-Patient seen and examined in the ER. She has bilateral lower extremity swelling. 08/15-patient seen and examined at the bedside. Reports feeling better. Bilateral lower extremity swelling resolved. Decreased expiratory breath sounds on auscultation. 08/16-patient seen and examined, urine output 1600 cc. Creatinine trending down. Continue Lasix b.i.d.. Objective vital signs Vital Sign Date Time Temp Pulse Resp B/P (MAP) Pulse Ox O2 Delivery O2 Flow Rate FiO2 08/16/24 15:09 75 18 97 08/16/24 14:59 Nasal Cannula* 3 32 08/16/24 12:47 97.7 95/45 (62) 97.7 Total Intake and Output 08/15/24 08/15/24 08/16/24 15:00 23:00 07:00 Intake Total 300 ml 200 ml Output Total 1600 ml Balance -1300 ml 200 ml medications Current Medications Medications Dose Ordered Sig/Agnes Route Start Time Stop Time Status Last Admin Dose Admin Dextrose 50 ml PRN PRN IV 08/14/24 03:15 Nitroglycerin 0.4 mg Q5MINP PRN SL 08/14/24 03:00 Hold Morphine Sulfate 2 mg Q30M PRN IV 08/14/24 03:00 Aspirin 81 mg DAILY PO 08/14/24 10:00 08/16/24 10:34 81 MG Sertraline HCl 25 mg DAILY PO 08/14/24 10:00 08/16/24 10:33 25 MG Sildenafil Citrate 20 mg TID PO 08/14/24 06:00 08/16/24 13:28 20 MG Atorvastatin Calcium 40 mg DAILY PO 08/14/24 10:00 08/16/24 10:33 40 MG Patient Own Medication 10 mg DAILY PO 08/14/24 10:00 Midodrine 10 mg TID PO 08/14/24 14:00 08/16/24 13:28 10 MG Heparin Sodium (Porcine) 5,000 units Q12HR SC 08/14/24 22:00 08/16/24 10:40 5,000 UNITS Azithromycin 250 ml @ 125 mls/hr DAILY IV 08/14/24 13:00 08/16/24 10:40 125 MLS/HR Ceftriaxone Sodium 50 ml @ 100 mls/hr DAILY@09 IV 08/14/24 13:30 08/16/24 09:07 100 MLS/HR Guaifenesin/ Dextromethorphan 10 ml Q4HP PRN PO 08/15/24 13:30 08/16/24 13:28 10 ML Albuterol 2.5 mg Q4HR NEB 08/15/24 14:00 08/16/24 14:59 2.5 MG Ipratropium [place] 0.5 mg Q4HR NEB 08/15/24 14:00 08/16/24 14:58 0.5 MG Furosemide 40 mg BID PO 08/15/24 22:00 08/16/24 10:34 40 MG Methylprednisolone Sodium Succinate 40 mg BID IV 08/15/24 17:45 08/16/24 10:33 40 MG Acetaminophen 325 mg Q4HP PRN PO 08/16/24 09:15 Examination Obese female patient lying in the bed, no acute distress General: Obese, afebrile, palor, mucosae are moist Cardiovascular: Regular S1 and S2. No murmurs, gallops or rubs. No JVD elevation. Bilateral trace pitting edema Respiratory: Bilateral decreased breath sounds heard on auscultation Abdomen: Soft, nontender, nondistended, normoactive bowel sounds, no rebound tenderness, no organomegaly, no masses Genitourinary: Deferred MSK/skin: Mobilizes 4 limbs. Skin is dry and warm Neurological: No motor, no sensitive deficits, normal speech. Pupils are isocoric and reactive. Psych/Mental Status: A/Ox3 laboratory and microbiology Laboratory Tests 08/16/24 07:38 Test 08/16/24 07:38 Range/Units Serum Glucose 137 H 74-106 mg/dL Microbiology Date/Time Source Procedure Growth Status 08/15/24 07:40 Blood Blood Culture - Preliminary NO GROWTH AFTER 24 HOURS OF INCUBATION. Resulted 08/14/24 04:25 Throat Nose/Throat Culture - Final Complete Labs and/or images reviewed: Labs reviewed by me, Image(s) reviewed by me Problem List/Assessment/Plan Problem List/Assessment/Plan Acute kidney injury superimposed on CKD stage IIIA Anemia likely chronic kidney disease Hyperkalemia secondary to above Possible COPD exacerbation Acute on chronic respiratory failure Likely right-sided heart failure Likely Pulmonary hypertension Methamphetamine use dependence BNP 234 Chest x-ray shows No acute abnormality demonstrated. Evidence of enlarged pulmonary artery suggestive of pulmonary arterial hypertension. Echocardiogram shows RV moderately enlarged, normal function, moderate TR, right-sided heart failure noted Baseline BUN/creatinine/GFR is 32/1.79/40 Plan: BUN/creatinine downtrending, GFR improving, now baseline. Off IV fluids. Continue Lasix to 40 b.i.d. Continue strict I&Os Counseled regarding cessation of methamphetamine use We will continue to follow up Plan discussed with patient in which all questions have been answered Case discussed with Addendum Patient seen and examined, plan discussed with resident. Agree with above, we will follow closely Plan discussed with: Patient BRENDEN CARVAJAL Aug 16, 2024 15:50 SUHAS BURGESS MD Aug 16, 2024 18:57
--- NOTE | 2024-08-16 23:23 | DVHPN2 ---
Progress Note - Dictate Date Seen: Aug 16, 2024 Has the PT tested + for MRSA If YES, has PT been informed?: No Medical Necessity Reason Pt with a Central, PICC or Fol: No Subjective Patient was seen and evaluated in follow up. Patient complains of a headache. Patient is on 3 LPM NC. Echocardiogram showed a EF of 65%. BUN 33, [employer] 1.58. vital signs Vital Sign Date Time Temp Pulse Resp B/P (MAP) Pulse Ox O2 Delivery O2 Flow Rate FiO2 08/16/24 12:47 97.7 99 16 95/45 (62) 94 97.7 08/16/24 09:49 Nasal Cannula* 3 32 Total Intake and Output 08/15/24 08/15/24 08/16/24 15:00 23:00 07:00 Intake Total 300 ml 200 ml Output Total 1600 ml Balance -1300 ml 200 ml medications Current Medications Medications Dose Ordered Sig/Agnes Route Start Time Stop Time Status Last Admin Dose Admin Dextrose 50 ml PRN PRN IV 08/14/24 03:15 Nitroglycerin 0.4 mg Q5MINP PRN SL 08/14/24 03:00 Hold Morphine Sulfate 2 mg Q30M PRN IV 08/14/24 03:00 Aspirin 81 mg DAILY PO 08/14/24 10:00 08/16/24 10:34 81 MG Sertraline HCl 25 mg DAILY PO 08/14/24 10:00 08/16/24 10:33 25 MG Sildenafil Citrate 20 mg TID PO 08/14/24 06:00 08/16/24 13:28 20 MG Atorvastatin Calcium 40 mg DAILY PO 08/14/24 10:00 08/16/24 10:33 40 MG Patient Own Medication 10 mg DAILY PO 08/14/24 10:00 Midodrine 10 mg TID PO 08/14/24 14:00 08/16/24 13:28 10 MG Heparin Sodium (Porcine) 5,000 units Q12HR SC 08/14/24 22:00 08/16/24 10:40 5,000 UNITS Azithromycin 250 ml @ 125 mls/hr DAILY IV 08/14/24 13:00 08/16/24 10:40 125 MLS/HR Ceftriaxone Sodium 50 ml @ 100 mls/hr DAILY@09 IV 08/14/24 13:30 08/16/24 09:07 100 MLS/HR Guaifenesin/ Dextromethorphan 10 ml Q4HP PRN PO 08/15/24 13:30 08/16/24 13:28 10 ML Albuterol 2.5 mg Q4HR NEB 08/15/24 14:00 08/16/24 09:49 2.5 MG Ipratropium [place] 0.5 mg Q4HR NEB 08/15/24 14:00 08/16/24 09:49 0.5 MG Furosemide 40 mg BID PO 08/15/24 22:00 08/16/24 10:34 40 MG Methylprednisolone Sodium Succinate 40 mg BID IV 08/15/24 17:45 08/16/24 10:33 40 MG Acetaminophen 325 mg Q4HP PRN PO 08/16/24 09:15 objective GENERAL: Alert and oriented x 3. No acute distress. Obese. EYES: PERRL, EOMI. Anicteric. HENT: Moist mucous membranes. LUNGS: Decreased breath sounds. CARDIOVASCULAR: Regular rate and rhythm. ABDOMEN: Soft, non-tender and non-distended. EXTREMITIES: BLE edema. NEUROLOGIC: No focal neurological deficits. SKIN: Warm, dry. laboratory and microbiology Laboratory Tests 08/16/24 07:38 Test 08/16/24 07:38 Range/Units Serum Glucose 137 H 74-106 mg/dL Problem List Acute on chronic systolic heart failure (EF 65%). Acute hypoxic respiratory failure due to CHF. Pulmonary hypertension. Pneumonia. Hyperkalemia. ANGEL with vasomotor nephropathy with underlying CKD stage IV. History of essential hypertension. Hypotension. Hyperlipidemia. Depression. Anemia of chronic disease. Obesity. Assessment/Plan Continued all current supportive medical care. Aspirin, Lipitor. IV antibiotics as ordered. Diuretics with Lasix. IV Solu-Medrol. Midodrine. Morphine and Tylenol for pain management. Additional plan as per the hospital course. Plan discussed with: Patient TANIA BRITT MD Aug 16, 2024 13:44
== END 2024-08-16 17:40 | disposition home or self-care (01) | DRG 133 ==
LOC: ER 22:26 → OVERFLOW 08-14 02:55 → TELE-CENTR 08-14 21:46 → CENTRAL 08-15 21:34
PROVIDERS: ADMIT Student in an Organized Health Care Education/Training Program; ATTEND Emergency Medicine
DX: J96.21 Acute and chronic respiratory failure with hypoxia (principal); N17.0 Acute kidney failure with tubular necrosis; I50.33 Acute on chronic diastolic (congestive) heart failure; I27.20 Pulmonary hypertension, unspecified; J18.9 Pneumonia, unspecified organism; D63.8 Anemia in other chronic diseases classified elsewhere; I95.9 Hypotension, unspecified; I13.0 Hypertensive heart and chronic kidney disease with heart failure and stage 1 through stage 4 chronic kidney disease, or unspecified chronic kidney disease; J44.0 Chronic obstructive pulmonary disease with (acute) lower respiratory infection; K74.60 Unspecified cirrhosis of liver; J44.1 Chronic obstructive pulmonary disease with (acute) exacerbation; F15.20 Other stimulant dependence, uncomplicated; J98.4 Other disorders of lung; N18.4 Chronic kidney disease, stage 4 (severe); F32.A Depression, unspecified; E66.01 Morbid (severe) obesity due to excess calories; Z68.34 Body mass index [BMI] 34.0-34.9, adult; I07.1 Rheumatic tricuspid insufficiency; F17.210 Nicotine dependence, cigarettes, uncomplicated; E87.5 Hyperkalemia; E78.5 Hyperlipidemia, unspecified; M10.9 Gout, unspecified; K21.9 Gastro-esophageal reflux disease without esophagitis; F41.9 Anxiety disorder, unspecified; Z80.3 Family history of malignant neoplasm of breast; Z79.899 Other long term (current) drug therapy; Z79.82 Long term (current) use of aspirin
CPT/HCPCS: 36415; 36600; 71045; 80048; 80053; 80307; 81001; 82306; 82533; 82570; 82728; 82805; 82962; 83516; 83520; 83540; 83550; 83735; 83880; 83970; 84132; 84156; 84300; 84443; 85025; 85652; 86141; 86160; 86225; 86235; 86256; 87040; 87070; 87426; 87804; 87880; 93005; 93306; 94640; 96374; 96375; G0378; J1815

== ENCOUNTER 2024-09-03 01:01 | Inpatient (IN) | payer MEDICAID ==
[~2024-09-03] VITALS: Ht 167.6 cm; Wt 98.8 kg
[2024-09-03] VITALS (29 sets, daily range): BP systolic 77–115; BP diastolic 43–62; PULSE 54–69; RESP 11–25; TEMP 97.4; O2SAT 93–99
[~2024-09-03 01:01] MED LIST changes: -ASPI1CHW5 PO; +AUG875T PO; +AZIT-43 PO; +MIDO10TA3 PO; -ONDA-155 PO; +PRED20TA2 PO; -SODI650T PO
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
[2024-09-03 01:35] LABS: Hematocrit 38.3 % (36.0-46.0); Hemoglobin 12.6 g/dL (12.2-16.2); Mean Corpuscular Hemoglobin 30.1 pg (28.0-32.0); Mean Corpuscular Volume 91.4 fL (80.0-100.0); Nucleated Red Blood Cells % 0.0 %
--- NOTE | 2024-09-03 01:47 | DVH ---
CHEST RADIOGRAPH Indication: SOB Technique: Single frontal view of the chest was obtained COMPARISON: XY CHEST XRAY 1 VIEW on DOS: 08/13/24, XY CHEST XRAY 1 VIEW on DOS: 04/26/24, XY CHEST KELVIN BLE on DOS: 02/01/24, CHEST PORTABLE on DOS: 12/20/21, CXRP on DOS: 12/20/21 FINDINGS: Lines and Tubes: None Lungs: Clear Pleura: No effusion. No pneumothorax. Cardiomediastinal contours: Mild cardiomegaly. Bones: Unremarkable IMPRESSION: 1. No acute disease.
[2024-09-03 01:50] LABS: INR 0.96 (0.9-1.15); Partial Thromboplastin Time 24.8 SEC (24.5-34.5); Prothrombin Time 10.2 sec (9.3-11.8)
[2024-09-03 01:55] LABS: Alanine Aminotransferase 19 U/L (7-40); Albumin 4.6 g/dL (3.2-4.8); Alkaline Phosphatase 114 U/L (46-116); Anion Gap 13 (5-15); BUN/Creatinine Ratio 12.8 (10.0-20.0); Blood Urea Nitrogen 20 mg/dL (9-23); Calcium 9.0 mg/dL (8.7-10.4); Glucose 105 mg/dL (74-106); Magnesium 1.9 mg/dL (1.6-2.6); Total Protein 6.8 g/dL (5.7-8.2)
[2024-09-03 01:56] LABS: Bilirubin, Total 0.4 mg/dL (0.2-1.0)
[2024-09-03 01:58] LABS: Carbon Dioxide 15 mmol/L (20-31); Chloride 108 mmol/L (98-107); Potassium 5.1 mmol/L (3.5-5.1); Sodium 136 mmol/L (136-145)
[2024-09-03] MEDS ORDERED: NITROGLYCERIN 0.4 MG SL TAB SL PRN (05:00)
--- NOTE | 2024-09-03 05:13 | DVHHPRES ---
History of Present Illness Resident Creating Document: DAVIS MATHEWS RESIDENT History of Present Illness This is a 53 yr old female with past medical history of hypertension, anxiety, CKD, right heart failure, pulmonary hypertension, polysubstance abuse disorder presented to the ED with a chief complaint of shortness wall bath and chest pain for 1 hours after argument with her . Mentioned that she typically use oxygen at home 4 L but has not been taking it lately due to missing now on the oxygen tank. Patient was complaining of central chest pain which is 5/10 localized no aggravating and relieving factor and associated with shortness of breath. So complaint of right-sided abdominal pain and also back pain which is 5/10, nonradiating and not associated with nausea, vomiting, or any change in bowel and bladder habit. She denies fever, chills, cough, phlegm, hematuria, dysuria, recent sick contact. He also mentioned that she was [facility] and was treated for pneumonia. 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 PCP: Dr. Kilgore Transformer Builder: Dr. 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 Review of Systems Constitutional: No: Fever, Chills, Sweats, Weakness, Malaise, Other Eyes: No: Pain, Vision change, Conjunctivae inflammation, Eyelid inflammation, Other, Redness ENT: No: Ear pain, Ear discharge, Nose pain, Nose discharge, Nose congestion, Mouth pain, Mouth swelling, Throat pain, Throat swelling, Other Respiratory: Shortness of breath; No: Cough, Dry, SOB with excertion, Wheezing, Hemoptysis, Pleuritic Pain, Sputum, Wheezing, Other Cardiovascular: Chest Pain; No: Palpitations, Orthopnea, Paroxysmal Noc. Dyspnea, Edema, Lt Headedness, Other Gastrointestinal: No: Nausea, Vomiting, Abdominal Pain, Diarrhea, Constipation, Melena, Hematochezia, Other Genitourinary: No Dysuria, No Frequency, No Incontinence, No Hematuria, No Retention, No Other Musculoskeletal: No: other, neck pain, shoulder pain, arm pain, back pain, hand pain, leg pain, foot pain Skin: No: Rash, Lesions, Jaundice, Bruising, Other Neurological: No: Weakness, Numbness, Incoordination, Change in speech, Confusion, Seizures, Other Allergies: Coded Allergies: NO KNOWN ALLERGIES (Unverified , 12/20/18) Medications Current Medications Medications Dose Ordered Sig/Agnes Route Start Time Stop Time Status Last Admin Dose Admin Nitroglycerin 0.4 mg Q5MINP PRN SL 09/03/24 05:00 Morphine Sulfate 2 mg Q30M PRN IV 09/03/24 05:00 Morphine Sulfate 1 mg Q4HPRN PRN IV 09/03/24 05:15 UNV Pantoprazole Sodium 40 mg DAILY PO 09/03/24 10:00 UNV Furosemide 40 mg DAILY IV 09/03/24 10:00 UNV Aspirin 81 mg DAILY PO 09/03/24 10:00 Docusate Sodium 100 mg BID PO 09/03/24 10:00 UNV Sertraline HCl 25 mg DAILY PO 09/03/24 10:00 UNV Sildenafil Citrate 20 mg TID PO 09/03/24 06:00 UNV Patient Own Medication 1 tab DAILY PO 09/03/24 10:00 UNV Patient Own Medication 1 tab DAILY PO 09/03/24 10:00 UNV Patient Own Medication 1 tab BID PO 09/03/24 10:00 UNV Polyethylene Glycol 17 gm DAILY PRN PO 09/03/24 05:15 UNV Exam Vital Signs Vital Signs Date Time Temp Pulse Resp B/P (MAP) Pulse Ox O2 Delivery O2 Flow Rate FiO2 09/03/24 02:25 66 19 99 Nasal Cannula* 4 36 09/03/24 02:17 98.4 107/48 (67) 98.4 Exam Physical examination: General Appearance: Alert, Oriented X3, Cooperative, resp distress on 4 L o2 HEENT: Atraumatic, PERRLA, EOMI, Mucous membrane moist/pink Respiratory: Clear to auscultation, Normal air movement Cardiovascular: Regular rate, Normal S1, Normal S2, No murmurs, no chest wall tenderness Abdominal: Normal bowel sounds, Soft, No tenderness, No hepatospenomegaly, No masses Extremities: No clubbing, No cyanosis, No edema, Normal pulses, No tenderness/swelling Skin: No rashes, No breakdown, No significant lesion Neuro: Normal speech, Strength at 5/5 X4 ext, Normal tone, Sensation intact, Cranial nerves 3-12 NL, Reflexes 2+ Psych/Mental Status: Mental status NL, Mood NL Labs/Xrays Labs Test 09/03/24 04:16 09/03/24 01:19 09/03/24 01:12 Range/Units Troponin I High Sensitivity 7 </=34 ng/L Blood Gas Specimen Type Venous Blood Gas Sample Site Vbg - n/a Blood Gas Patient Temperature 37.0 Arterial Blood Date Drawn [id number] Jose Luis Test N/a Venous Blood pH 7.361 7.320-7.430 Venous Blood pCO2 at Patient Temp 27.5 L 38.0-54.0 mmHg Venous Blood pO2 at Patient Temp 39.2 23.0-48.0 mmHg Venous Blood HCO3 15.2 L 22.0-29.0 mmol/L Venous Bld O2 Saturation (Measured) 72.2 60.0-85.0 % Venous Blood Base Excess -8.7 L -2.0-3.0 mmol/L Venous Blood Total Hemoglobin 13.2 12.0-16.0 g/dL Venous Blood Oxyhemoglobin 71.4 0.0-79.0 % Venous Blood Carboxyhemoglobin 0.6 0.5-1.5 % Venous Blood Methemoglobin 0.5 0.0-1.5 % Blood Gas Modality Room air FiO2 % 21.0 White Blood Count 7.5 4.4-10.8 10^3/uL Red Blood Count 4.19 4.0-5.20 10^6/uL Hemoglobin 12.6 12.2-16.2 g/dL Hematocrit 38.3 36.0-46.0 % Mean Corpuscular Volume 91.4 80.0-100.0 fL Mean Corpuscular Hemoglobin 30.1 28.0-32.0 pg Mean Corpuscular Hemoglobin Concent 32.9 32.0-36.0 g/dL Red Cell Distribution Width 16.4 H 11.8-14.3 % Platelet Count 275 140-450 10^3/uL Mean Platelet Volume 8.6 6.9-10.8 fL Neutrophils (%) (Auto) 44.1 37.0-80.0 % Lymphocytes (%) (Auto) 40.3 10.0-50.0 % Monocytes (%) (Auto) 10.0 0.0-12.0 % Eosinophils (%) (Auto) 4.7 0.0-7.0 % Basophils (%) (Auto) 0.9 0.0-2.0 % Neutrophils # (Auto) 3.3 1.6-8.6 10 ^3/uL Lymphocytes # (Auto) 3.0 0.4-5.4 10 ^3/uL Monocytes # (Auto) 0.8 0-1.3 10 ^3/uL Eosinophils # (Auto) 0.4 0-0.8 10 ^3/uL Basophils # (Auto) 0.1 0-0.2 10 ^3/uL Nucleated Red Blood Cells 0.0 % Prothrombin Time 10.2 9.3-11.8 sec Prothrombin Time INR 0.96 0.9-1.15 Activated Partial Thromboplast Time 24.8 24.5-34.5 SEC Sodium Level 136 136-145 mmol/L Potassium Level 5.1 3.5-5.1 mmol/L Chloride Level 108 H 98-107 mmol/L Carbon Dioxide Level 15 L 20-31 mmol/L Anion Gap 13 5-15 Blood Urea Nitrogen 20 9-23 mg/dL Creatinine 1.56 H 0.550-1.02 mg/dL Glomerular Filtration Rate Calc 40 >90 mL/min BUN/Creatinine Ratio 12.8 10.0-20.0 Serum Glucose 105 74-106 mg/dL Calcium Level 9.0 8.7-10.4 mg/dL Magnesium Level 1.9 1.6-2.6 mg/dL Total Bilirubin 0.4 0.2-1.0 mg/dL Aspartate Amino Transferase (AST) 22 13-40 U/L Alanine Aminotransferase (ALT) 19 7-40 U/L Alkaline Phosphatase 114 46-116 U/L B-Type Natriuretic Peptide 99.83 0-100 pg/mL Total Protein 6.8 5.7-8.2 g/dL Albumin 4.6 3.2-4.8 g/dL SEPSIS Sepsis Screen Date sepsis recognized/suspect: Sep 03, 2024 Time Sepsis recognized/suspect: 104 Recent Procedure: No On Antibiotic Therapy: No Respiratory Rate >20: Yes Heart Rate >90: Yes Temp<36 C (96.8 F) or >38.3 C: No SBP <90 or MAP <65 mmHG: No New Acute Mental Status Change: No Is the patient on CPAP, BIPAP,: No Physician Orders Urinalysis (09/03/24 01:11) Chest Portable (09/03/24 01:13) Electrocardigram (09/03/24 01:13) Venous Blood Gas (09/03/24 01:13) Admit (09/03/24 05:00) Nitroglycerin Sublingual (Ntrostat Subli (09/03/24 05:00) Morphine Sulfate Injection (09/03/24 05:00) Oxygen By Nasal Cannula (09/03/24 05:00) Stat Ekg For Chest Pain (09/03/24 05:00) Notify Md Of Changes From Base (09/03/24 05:00) Reagent Tender For 24 Hours (09/03/24 05:00) Emergency Dysrhythmia Protocol (09/03/24 05:00) Rhythm Strips Once Every Shift (09/03/24 05:00) Cardiac Diet-2gna,Lofat,Lochol (09/03/24 Breakfast) Code Status (09/03/24 05:00) Lipase (09/03/24 05:03) Morphine Sulfate Injection (09/03/24 05:15) Pantoprazole Tablet (Protonix Tablet) (09/03/24 10:00) Furosemide Injection (Lasix Injection) (09/03/24 10:00) Aspirin Enteric Coated Tablet (Ecotrin E (09/03/24 10:00) Docusate Sodium Capsule (Colace Capsule) (09/03/24 10:00) Sertraline Hcl (Zoloft) (09/03/24 10:00) Sildenafil Citrate (Revatio) (09/03/24 06:00) (Nf) Allopurinol (09/03/24 10:00) (Nf) Atorvastatin Calcium (09/03/24 10:00) (Nf) Metoprolol Succinate (Metoprolol Dixon (09/03/24 10:00) Polyethylene Glycol 17g Powder (Miralax (09/03/24 05:15) Vital Signs Date Time Temp Pulse Resp B/P (MAP) Pulse Ox O2 Delivery O2 Flow Rate FiO2 09/03/24 02:25 66 19 99 Nasal Cannula* 4 36 09/03/24 02:17 98.4 66 19 107/48 (67) 99 98.4 09/03/24 01:06 78 09/03/24 01:05 20 98 Room Air 0 09/03/24 01:05 98.0 81 20 114/51 (72) 96 98.0 Laboratory Tests Test 09/03/24 01:12 White Blood Count 7.5 10^3/uL (4.4-10.8) Assessment/Plan Assessment/Plan Assessment and plan: # Chest pain rule out ACS # possible acute exacerbation of chronic diastolic heart failure # Severe pulmonary hypertension # chronic respiratory failure due to pulmonary hypertension - EKG revealed sinus rhythm, nonspecific ST-T changes and troponins were unremarkable. - chest x-ray showed mild cardiomegaly with pulmonary vascular congestion - BNP is 99.94 - echo on 09/01 demonstrated lvef 65%, grade 1 diastolic dysfunction ,RV moderately enlarged, ,moderate tricuspdi regurg ,RVSP 67 mm Hg - IV Lasix 40 mg daily - metoprolol succinate 25 mg p.o. daily. 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 - Colace 100 mg p.o. b.i.d. # History of depression/anxiety - continue home meds # GERD - Protonix 40 mg p.o. daily # History of gout - Allopurinol 300 mg p.o. daily # DVT prophylaxis - Lovenox 40 mg sc daily Goal of care discussed with the patient for more than 20 minutes full code Plan discussed with Dr. Beckham Plan discussed with: Patient, Other My Orders Orders - DAVIS MATHEWS RESIDENT Procedure Category Date Status Time Admit ADMIT 09/03/24 Transmitted 05:00 Nitroglycerin PHA 09/03/24 In Process Sublingual (Ntrostat 05:00 Morphine Sulfate PHA 09/03/24 In Process Injection 05:00 Oxygen By Nasal RT 09/03/24 Transmitted Cannula 05:00 Stat Ekg For Chest MOLLY 09/03/24 In Process Pain 05:00 Notify Of Changes MOLLY 09/03/24 In Process From Base 05:00 Reagent Tender For MOLLY 09/03/24 In Process 24 Hours 05:00 Emergency Dysrhythmia MOLLY 09/03/24 In Process Protocol 05:00 Rhythm Strips Once MOLLY 09/03/24 In Process Every Shift 05:00 Cardiac DIET 09/03/24 Transmitted Diet-2gna,Lofat,Lochol Breakfast Code Status CODE 09/03/24 Transmitted 05:00 Lipase LAB 09/03/24 Logged 05:03 Morphine Sulfate PHA 09/03/24 Logged Injection 05:15 Pantoprazole Tablet PHA 09/03/24 Logged (Protonix Tablet) 10:00 Furosemide Injection PHA 09/03/24 Logged (Lasix Injection) 10:00 Aspirin Enteric PHA 09/03/24 In Process Coated Tablet 10:00 Docusate Sodium PHA 09/03/24 Logged Capsule (Colace 10:00 Sertraline Hcl PHA 09/03/24 Logged (Zoloft) 10:00 Sildenafil Citrate PHA 09/03/24 Logged (Revatio) 06:00 (Nf) Allopurinol PHA 09/03/24 Logged 10:00 (Nf) Atorvastatin PHA 09/03/24 Logged Calcium 10:00 (Nf) Metoprolol PHA 09/03/24 Logged Succinate (Metoprolol 10:00 Polyethylene Glycol PHA 09/03/24 Logged 17g Powder (Miralax 05:15 Date of Service: Sep 03, 2024 Billing Provider: LIAN BECKHAM MD Common Visit Codes: [id number] INP/OBS CARE (HIGH) DAVIS MATHEWS RESIDENT Sep 03, 2024 05:13
[2024-09-03] MEDS: MORPHINE SULFATE INJ 2 MG/ml SYRG IV PRN ×2 (05:15→16:05)
[2024-09-03] MEDS ORDERED: POLYETHYLENE GLYCOL 17 GM PWDR PO PRN (05:15)
[2024-09-03] MEDS: SILDENAFIL CITRATE 20 MG TAB PO SCH (06:51)
[2024-09-03] MEDS: ASPirin-EC 81 mg tab PO SCH (08:36)
[2024-09-03] MEDS: SERTRALINE HCL 50 MG TAB PO SCH (08:37)
[2024-09-03] MEDS: PANTOPRAZOLE 40 MG TAB PO SCH (08:37)
[2024-09-03] MEDS: ALLOPURINOL 100 MG TAB PO SCH (08:37)
[2024-09-03] MEDS: DOCUSATE SOD 100 MG CAP PO SCH (08:37)
[2024-09-03] MEDS: NOREPINEPHRINE 8 MG/250ML KIT 250 ML IV SCH (09:25)
[2024-09-03] MEDS: METOPROLOL SUCCINATE XL 50 MG TAB PO SCH (09:25)
[2024-09-03] MEDS ORDERED: METOPROLOL SUCCINATE XL 50 MG TAB PO SCH (10:00)
[2024-09-03 10:18] LABS: COVID19 ANTIGEN SOFIA FIA NEGATIVE (NEGATIVE)
[2024-09-03] MEDS: ENOXAPARIN SOD 30 MG/0.3 ML SYRINGE SC SCH (10:20)
--- NOTE | 2024-09-03 10:24 | DVHPNRES ---
Progress Note Date Seen: Sep 03, 2024 Resident Creating Document: BJORN VALERO RESIDENT Has the PT tested + for MRSA If YES, has PT been informed?: No Medical Necessity Reason Pt with a Central, PICC or Fol: No The following are medically ne: PICC Line (RN) Subjective Review of Systems This is a 53 yr old female with past medical history of hypertension, anxiety, CKD, right heart failure, pulmonary hypertension, polysubstance abuse disorder presented to the ED with a chief complaint of shortness of breath and chest pain for 1 hours after argument with her . Mentioned that she typically use oxygen at home 4 L but has not been taking it lately due to missing now on the oxygen tank. Patient was complaining of central chest pain which is 5/10 localized no aggravating and relieving factor and associated with shortness of breath. So complaint of right-sided abdominal pain and also back pain which is 7/10, constant stabbing pain, nonradiating and not associated with nausea, vomiting, or any change in bowel and bladder habit. She denies fever, chills, cough, phlegm, hematuria, dysuria, recent sick contact. He also mentioned that she was admitted in [facility] 2 weeks ago and was treated for pneumonia with mouth and tough swelling. 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 Patient underwent PICC line placement successfully. PCP: Dr. Kilgore Chef De Froid: Dr. 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 Review of Systems Constitutional: No: Fever, Chills, Sweats, Weakness, Malaise, Other Eyes: Redness, No: Pain, Vision change, Conjunctivae inflammation, Eyelid inflammation, Other ENT: No: Ear pain, Ear discharge, Nose pain, Nose discharge, Nose congestion, Mouth pain, Mouth swelling, Throat pain, Throat swelling, Other Respiratory: Shortness of breath; No: Cough, Dry, SOB with excertion, Wheezing, Hemoptysis, Pleuritic Pain, Sputum, Wheezing, Other Cardiovascular: Chest Pain; No: Palpitations, Orthopnea, Paroxysmal Noc. Dyspnea, Edema, Lt Headedness, Other Gastrointestinal: Right back pain, No: Nausea, Vomiting, Diarrhea, Constipation, Melena, Hematochezia, Other Genitourinary: No Dysuria, No Frequency, No Incontinence, No Hematuria, No Retention, No Other Musculoskeletal: No: other, neck pain, shoulder pain, arm pain, back pain, hand pain, leg pain, foot pain Skin: No: Rash, Lesions, Jaundice, Bruising, Other Neurological: No: Weakness, Numbness, Incoordination, Change in speech, Confusion, Seizures, Other Allergies: Coded Allergies: NO KNOWN ALLERGIES (Unverified , 12/20/18) Objective vital signs Vital Sign Date Time Temp Pulse Resp B/P (MAP) Pulse Ox O2 Delivery O2 Flow Rate FiO2 09/03/24 09:25 84/40 09/03/24 09:21 59 19 95 Nasal Cannula* 2 28 09/03/24 08:25 98.0 98.0 medications Current Medications Medications Dose Ordered Sig/Agnes Route Start Time Stop Time Status Last Admin Dose Admin Morphine Sulfate 2 mg Q30M PRN IV 09/03/24 05:00 09/03/24 05:15 2 MG Morphine Sulfate 1 mg Q4HPRN PRN IV 09/03/24 05:15 Pantoprazole Sodium 40 mg DAILY PO 09/03/24 10:00 09/03/24 08:37 40 MG Furosemide 40 mg DAILY IV 09/03/24 10:00 Aspirin 81 mg DAILY PO 09/03/24 10:00 09/03/24 08:36 81 MG Docusate Sodium 100 mg BID PO 09/03/24 10:00 09/03/24 08:37 100 MG Sertraline HCl 25 mg DAILY PO 09/03/24 10:00 09/03/24 08:37 25 MG Sildenafil Citrate 20 mg TID PO 09/03/24 06:00 09/03/24 06:51 20 MG Allopurinol 300 mg DAILY PO 09/03/24 10:00 09/03/24 08:37 300 MG Atorvastatin Calcium 40 mg HS PO 09/03/24 22:00 Polyethylene Glycol 17 gm DAILY PRN PO 09/03/24 05:15 Metoprolol Succinate 25 mg DAILY PO 09/03/24 08:15 Hold Enoxaparin Sodium 30 mg DAILY SC 09/03/24 10:00 09/03/24 10:20 30 MG Norepinephrine Bitartrate 250 ml @ 3.75 mls/hr Q24H IV 09/03/24 08:45 09/03/24 09:25 3.75 MLS/HR Examination General Appearance: Alert, Oriented X3, Cooperative, resp distress on 4 L o2 HEENT: Atraumatic, PERRLA, EOMI, Mucous membrane moist/pink Respiratory: Clear to auscultation, Normal air movement Cardiovascular: Regular rate, Normal S1, Normal S2, No murmurs, no chest wall tenderness Abdominal: Normal bowel sounds, Soft, No tenderness, No hepatospenomegaly, No masses Extremities: No clubbing, No cyanosis, No edema, Normal pulses, No tenderness/swelling Skin: No rashes, No breakdown, No significant lesion Neuro: Normal speech, Strength at 5/5 X4 ext, Normal tone, Sensation intact, Cranial nerves 3-12 NL, Reflexes 2+ Psych/Mental Status: Mental status NL, Mood NL laboratory and microbiology Laboratory Tests 09/03/24 01:12 Test 09/03/24 01:12 Range/Units Serum Glucose 105 74-106 mg/dL Labs and/or images reviewed: Labs reviewed by me, Image(s) reviewed by me Problem List/Assessment/Plan Problem List/Assessment/Plan # Chest pain rule out ACS # possible acute exacerbation of chronic diastolic heart failure # Severe pulmonary hypertension # chronic respiratory failure due to pulmonary hypertension - EKG revealed sinus rhythm, nonspecific ST-T changes and troponins were unremarkable. - chest x-ray showed mild cardiomegaly with pulmonary vascular congestion - BNP is 99.94 - echo on 09/01 demonstrated lvef 65%, grade 1 diastolic dysfunction ,RV moderately enlarged, ,moderate tricuspdi regurg ,RVSP 67 mm Hg - IV Lasix 40 mg daily - metoprolol succinate 25 mg p.o. daily. 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 focal sigmoid diverticulitis - consult with GI doctor - recommend follow-up with colonoscopy - continue Ceftriaxone IVPB Rocephin IV - continue Metronidazole IVPB flagyl IV q8hr - monitor BMP - continue NPO # polysubstance abuse disorder - Methampetamine abuse for 24 years - counseled patient regarding drug abuse and rehabilitation # Slow transit constipation - Miralax powder p.r.n. - Colace 100 mg p.o. b.i.d. # History of depression/anxiety - continue home meds # GERD - Protonix 40 mg p.o. daily # History of gout - Allopurinol 300 mg p.o. daily # DVT prophylaxis - Lovenox 40 mg sc daily Goal of care discussed with the patient for more than 20 minutes full code Plan discussed with Dr. Carty Plan discussed with: Patient, Other (RN) Sepsis reassessment post fluid Respiratory Effort: Non-Labored Respiratory Pattern: Regular (RN) Date of Service: Sep 03, 2024 Billing Provider: GEMINI CARTY DO Common Visit Codes: [id number] INP/OBS CARE(HIGH) BJORN VALERO RESIDENT Sep 03, 2024 10:24 GEMINI CARTY DO Sep 04, 2024 09:46
[2024-09-03] MEDS: FUROSEMIDE 40 MG/4 ML VIAL IV SCH (10:26)
[2024-09-03] MEDS ORDERED: SODIUM CHLORIDE 0.9% 1,000 ML IV SCH (11:15)
[2024-09-03 12:15] LABS: Urine Budding Yeast OCCASIONAL /hpf (None Seen); Urine Protein, UAD Negative (Negative)
[2024-09-03 12:27] LABS: Amphetamine Screen, Urine Neg (NEGATIVE); Barbiturate Scree,Urine Neg (NEGATIVE); Benzodiazephine Screen, Urine Neg (NEGATIVE); Cannabinoid Screen, Urine Neg (NEGATIVE); Cocaine Screen, Urine Neg (NEGATIVE); Opiate Scree,Urine Neg (NEGATIVE); Phencyclidine Screen, Urine Neg (NEGATIVE)
--- NOTE | 2024-09-03 13:10 | DVH ---
EXAM DESCRIPTION: CT CT AB PEL WO CON-NO ORAL OR IV CLINICAL HISTORY: right lower back pain COMPARISON: US kidney and liver 04/26/24 TECHNIQUE: CT abdomen and pelvis without IV contrast was performed. Coronal and sagittal MPR images were generat ed.CTDI/ DLP = 21.95 mGy / 1157.69 mGy.cm Dose reduction technique with one or more of the following methods was performed: Automated exposure control, adjustment of the mA and/or kV according to patient size, use of iterative reconstruction te chnique FINDINGS: Lower chest: Clear lung bases. Cardiomegaly. Liver: Homogenous in attenuation. . Biliary: No calcified gallstones. No biliary ductal dilatation. Pancreas: No fat stranding or focal lesion. Spleen: Normal in size.. Adrenal glands: No nodularity. Kidneys: No nephrolithiasis. No hydroureteronephrosis. . Bladder: Underdistended, limiting evaluation. Reproductive organs: Normal. Bowel: Colonic diverticulosis. There is an area of focal exophytic wall thickening at the sigmoid col on with mild surrounding fat stranding. Normal appendix.. Peritoneum: No free fluid. No free air. Vessels: Normal caliber abdominal aorta. . Lymph nodes: No suspicious lymph nodes. Soft tissues: Unremarkable. . Osseous structures: No acute fracture or subluxation. No suspicious osseous lesions. IMPRESSION: Colonic diverticulosis with focal exophytic wall thickeningat the sigmoid colon and mild surrounding inflammation. This may represent focal sigmoid diverticulitis, but an underlying colonic neoplasm ca nnot be excluded. Recommend follow-up with colonoscopy.
[2024-09-03] MEDS ORDERED: SODIUM CHLORIDE 0.9% 250 ML IV ONE (13:45)
--- NOTE | 2024-09-03 13:56 | ECG ---
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
[2024-09-03] MEDS: LIDOCAINE 1% (LOCAL ANESTH.) PF 5ml SDV ID ONE (14:26)
[2024-09-03] MEDS: cefTRIAXone 1GM/50ML D5W 50 ML IV ONE (14:29)
[2024-09-03] MEDS: SODIUM CHLORIDE 0.9% 250 ML IV ONE (14:49)
--- NOTE | 2024-09-03 15:02 | DVH ---
XY CHEST PORTABLE, HISTORY: PICC tip verification COMPARISON: XY CHEST PORTABLE on DOS: 09/03/24, XY CHEST XRAY 1 VIEW on DOS: 08/13/24, XY CHEST XRAY 1 V IEW on DOS: 04/26/24 XY CHEST PORTABLE on DOS: 09/03/24, XY CHEST XRAY 1 VIEW on DOS: 08/13/24, XY CHEST XRAY 1 VIEW on DOS: 04/26/24 TECHNICAL DATA: 1 view of the chest was obtained. FINDINGS: Lines and tubes: Left arm PICC with tip in the RA. Cardiomediastinal silhouette: Prominent Pulmonary vasculature: normal Lung expansion: normal Lung airspace: normal Lung interstitium: normal Pleura: normal Pneumothorax: no Bones: Unremarkable Other: no IMPRESSION: Left arm PICC with tip in the RA.
[2024-09-03] MEDS: ONDANSETRON HCL 4 MG/2 ML VIAL IV PRN (16:08)
--- NOTE | 2024-09-03 17:04 | DVHINCON2 ---
Date Seen: Sep 03, 2024 Reason for Consultation Rule out acs and acute hypotension History of Present Illness 53-year-old female with a history of diastolic heart failure, severe pulmonary h ypertension on Revatio, liver cirrhosis with history of paracentesis, and chronic kidney disease, presenting with acute shortness of breath and chest pain after an emotional stressor. Chest pain resolved, but she remains dyspneic with orthopnea and exertional symptoms. ECG in the ED shows sinus rhythm with nonspecific T-wave abnormalities in the anterolateral leads and no acute i schemic changes. Serial troponins are negative. Chest x-ray shows mild cardiomegaly with pulmonary vascular congestion. Echocardiogram from 08/14 2024 demonstrate preserved left ventricular systolic function (EF 65%) with findings consistent with right sided heart failure. She previously underwent left heart catheterization on 11/18/2023 with no evidence of significant coronary artery disease but had severe pulmonary hypertension and right heart strain. She follows regularly with cardiology and pulmonary hypertension clinic at [facility]. Past Medical History As stated in HPI Past Surgical History Denies Family History: Cirrhosis of liver G8 BROTHER FH: breast cancer G8 MOTHER, G8 MOTHER, , Cause: Breast cancer FH: breast cancer G8 MOTHER, G8 MOTHER, , Cause: Breast cancer FH: breast cancer in relative when <45 years old G8 MOTHER, , Cause: Breast cancer Family History Reviewed, non-contributory to the management of this case. Social History The patient lives at home, denies smoking, alcohol or illicit drugs abuse. Allergies: Coded Allergies: NO KNOWN ALLERGIES (Unverified , 12/20/18) Home Meds Active Scripts Prednisone (Prednisone) 20 Mg Tab, 20 MG PO BID for 5 Days, #10 MG Prov:ELIZABET BLAKE RESIDENT 08/16/24 Azithromycin (Azithromycin) 250 Mg Tab, 250 MG PO DAILY MDD 500 for 5 Days, #5 TAB 0 Refills 2 TABLETS ORALLY ON DAY ONE, THEN 1 TABLET ORALLY DAILY FOR 4 DAYS Prov:ELIZABET BLAKE RESIDENT 08/16/24 Amoxicillin & Pot Clavulanate (AUGMENTIN TABLET) 875 Mg Tb, 875 MG PO BID for 5 Days, #10 TAB Prov:ELIZABET BLAKE RESIDENT 08/16/24 Atorvastatin Calcium (ATORVASTATIN CALCIUM) 40 Mg Tab, 1 TAB PO QPM for 30 Days, #30 TAB 3 Refills Prov:ANNA DUARTE RESIDENT 02/04/24 Aspirin (Aspirin) 81 Mg Tab, 81 MG PO DAILY for 30 Days, #30 TAB Prov:ANNA DUARTE RESIDENT 02/04/24 Sildenafil Citrate (Revatio) 20 Mg Tab, 20 MG PO TID for 30 Days, #90 TAB 11 Refills Prov:GEMINI CARTY DO 02/07/23 Reported Medications Midodrine Hcl (Midodrine Hcl) 10 Mg Tab, 10 MG PO BID, TAB 08/14/24 Lorazepam (ATIVAN TABLET) 0.5 Mg Tb, 1 TAB PO Q6HPRN, #90 TAB 04/26/24 Atorvastatin Calcium (ATORVASTATIN CALCIUM) 40 Mg Tab, 1 TAB PO DAILY, #30 TAB 5 Refills 04/26/24 Sertraline Hcl (Sertraline Hcl) 50 Mg Tab, 25 MG PO DAILY for 90 Days, #90 MG 02/03/24 Docusate Sodium (Docusate Sodium) 100 Mg Cap, 1 CAP PO BID for 30 Days, #60 02/03/24 Pantoprazole Sodium Sesquihydr (Protonix) 40 Mg Tab, 20 MG PO DAILY for 30 Days, #30 02/03/24 Albuterol Sulfate (Albuterol Sulfate Hfa) 108 Mcg/Act Aer, 2 PUFF IN QID PRN for 25 Days, #18 11/17/23 Torsemide (Torsemide) 20 Mg Tab, 1 TAB PO BID for 30 Days, #60 11/17/23 Zolpidem Tartrate (Ambien) 10 Mg Tab, 1 TAB PO HS PRN for 10 Days, #10 11/17/23 Allopurinol (Allopurinol) 300 Mg Tab, 1 TAB PO DAILY for 30 Days, #30 05/09/23 Metoprolol Succinate (Metoprolol Succinate Er) 25 Mg Tab, 1 TAB PO BID for 90 Days, #180 05/09/23 Metolazone (Metolazone) 2.5 Mg Tab, 1 TAB PO EOD for 60 Days, #30 05/07/23 Macitentan (Opsumit) 10 Mg Tab, 10 MG PO DAILY, TAB 09/28/22 Current Medications Current Medications Medications (Trade) Dose Ordered Sig/Agnes Route PRN Reason Start Time Stop Time Status Last Admin Nitroglycerin (Ntrostat Sublingual) 0.4 mg Q5MINP PRN SL FOR CHEST PAIN 09/03/24 05:00 09/03/24 05:18 DC Morphine Sulfate 2 mg Q30M PRN IV FOR CHEST PAIN 09/03/24 05:00 09/03/24 05:15 Morphine Sulfate 1 mg Q4HPRN PRN IV PAIN SCALE 7 THRU 10 09/03/24 05:15 09/03/24 16:05 Pantoprazole Sodium (Protonix Tablet) 40 mg DAILY PO 09/03/24 10:00 09/03/24 13:49 DC 09/03/24 08:37 Furosemide (Lasix Injection) 40 mg DAILY IV 09/03/24 10:00 09/03/24 10:26 Aspirin (Ecotrin Enteric Coated Tablet) 81 mg DAILY PO 09/03/24 10:00 09/03/24 08:36 Docusate Sodium (Colace Capsule) 100 mg BID PO 09/03/24 10:00 Hold 09/03/24 08:37 Sertraline HCl (Zoloft) 25 mg DAILY PO 09/03/24 10:00 09/03/24 08:37 Sildenafil Citrate (Revatio) 20 mg TID PO 09/03/24 06:00 09/03/24 13:49 DC 09/03/24 06:51 Allopurinol (Zyloprim Tablet) 300 mg DAILY PO 09/03/24 10:00 Hold 09/03/24 08:37 Atorvastatin Calcium (Lipitor) 40 mg HS PO 09/03/24 22:00 Metoprolol Succinate (Toprol Xl) 25 mg BID PO 09/03/24 10:00 09/03/24 08:02 DC Polyethylene Glycol (Miralax 17GM Powder) 17 gm DAILY PRN PO FOR CONSTIPATION 09/03/24 05:15 Metoprolol Succinate (Toprol Xl) 25 mg DAILY PO 09/03/24 08:15 09/03/24 13:49 DC Enoxaparin Sodium (Lovenox) 30 mg DAILY SC 09/03/24 10:00 09/03/24 14:46 DC 09/03/24 10:20 Norepinephrine Bitartrate 250 ml @ 3.75 mls/hr Q24H IV 09/03/24 08:45 09/03/24 09:25 Sodium Chloride 1,000 ml @ 30 mls/hr Q24H IV 09/03/24 11:15 09/03/24 11:56 DC Sodium Chloride (Saline Lock Ns) 10 ml QSHIFT@10,22 IV 09/03/24 22:00 Pantoprazole Sodium (Protonix) 40 mg DAILY IV 09/04/24 10:00 Ceftriaxone Sodium 50 ml @ 100 mls/hr DAILY@09 IV 09/04/24 09:00 Metronidazole 100 ml @ 100 mls/hr Q8HR IV 09/03/24 22:00 Enoxaparin Sodium (Lovenox) 40 mg DAILY SC 09/04/24 10:00 Ondansetron HCl (Zofran) 4 mg Q4HPRN PRN IV NAUSEA / VOMITING 09/03/24 16:15 09/03/24 16:08 Review of Systems Constitutional: No symptom reported Ears, Nose, & Throat: No symptom reported Eyes: No symptom reported Neurological: No symptoms reported Pulmonary/Respiratory: Shortness of breath Cardiovascular: Chest pain, orthopnea, exertional dyspnea Gastrointestinal: No symptom reported Genitourinary: No symptom reported Musculoskeletal: No symptom reported Skin: No symptom reported Psychiatric: No symptom reported Endocrine: No symptom reported Hemotologic/Lymphatic: No symptom reported Vital Signs Vital Signs Date Time Temp Pulse Resp B/P (MAP) Pulse Ox O2 Delivery O2 Flow Rate FiO2 09/03/24 16:05 57 18 105/53 09/03/24 15:00 97 09/03/24 12:00 98.6 98.6 09/03/24 09:21 Nasal Cannula* 2 28 Physical Exam INITIAL VITAL SIGNS: Reviewed by me GENERAL: Alert and interactive. No acute distress. HEAD: Head is normocephalic and atraumatic. EYES: EOMI, PERRL. No scleral icterus. No conjunctival injection. ENT: Moist mucous membranes. NECK: Supple, No masses, Full range of motion. RESPIRATORY: No tachypnea. Mild respiratory effort, clear to auscultation CV: Regular rate and rhythm. No murmurs, no edema. Orthopnea and dyspnea on exertion GI/: Active bowel sounds, soft, nondistended, nontender. No guarding. No rebound. No masses. No CVA tenderness. INTEGUMENTARY: Warm and dry. Jaundice NEUROLOGIC: Alert and oriented. Face is symmetric. Speech is normal. Moves all extremities equally. Labs/Diagnostic Data Labs Test 09/03/24 11:30 09/03/24 09:10 09/03/24 08:20 09/03/24 04:16 Range/Units Urine Color Light-yellow Yellow Urine Clarity Clear Clear Urine pH 5.0 5.0-9.0 Urine Specific [place] 1.008 1.001-1.035 Urine Protein Negative Negative Urine Ketones Negative Negative Urine Blood Negative Negative /uL Urine Nitrite Negative Negative Urine Bilirubin Negative Negative Urine Urobilinogen Normal Negative mg/dL Urine Leukocyte Esterase Negative Negative /uL Urine RBC None seen 0 - 4 /hpf Urine Microscopic WBC < 1 0-5 /HPF Urine Squamous Epithelial Cells Few <5 /hpf Urine Bacteria Few H None Seen /hpf Urine Yeast (Budding) Occasional None Seen /hpf Urine Glucose Normal Normal mg/dL Urine Opiates Screen Neg NEGATIVE Urine Fentanyl Screen Neg NEGATIVE Urine Barbiturates Screen Neg NEGATIVE Urine Phencyclidine Screen Neg NEGATIVE Urine Amphetamines Screen Neg NEGATIVE Urine Benzodiazepines Screen Neg NEGATIVE Urine Cocaine Screen Neg NEGATIVE Urine Cannabinoids Screen Neg NEGATIVE Influenza Type A Antigen Negative Negative Influenza Type B Antigen Negative Negative SARS-CoV-2 Antigen (Rapid) Negative NEGATIVE Plasma/Serum Blood Alcohol 6.7 <10 mg/dL Troponin I High Sensitivity 7 </=34 ng/L Test 09/03/24 01:19 09/03/24 01:12 Range/Units Blood Gas Specimen Type Venous Blood Gas Sample Site Vbg - n/a Blood Gas Patient Temperature 37.0 Arterial Blood Date Drawn [id number] Jose Luis Test N/a Venous Blood pH 7.361 7.320-7.430 Venous Blood pCO2 at Patient Temp 27.5 L 38.0-54.0 mmHg Venous Blood pO2 at Patient Temp 39.2 23.0-48.0 mmHg Venous Blood HCO3 15.2 L 22.0-29.0 mmol/L Venous Bld O2 Saturation (Measured) 72.2 60.0-85.0 % Venous Blood Base Excess -8.7 L -2.0-3.0 mmol/L Venous Blood Total Hemoglobin 13.2 12.0-16.0 g/dL Venous Blood Oxyhemoglobin 71.4 0.0-79.0 % Venous Blood Carboxyhemoglobin 0.6 0.5-1.5 % Venous Blood Methemoglobin 0.5 0.0-1.5 % Blood Gas Modality Room air FiO2 % 21.0 White Blood Count 7.5 4.4-10.8 10^3/uL Red Blood Count 4.19 4.0-5.20 10^6/uL Hemoglobin 12.6 12.2-16.2 g/dL Hematocrit 38.3 36.0-46.0 % Mean Corpuscular Volume 91.4 80.0-100.0 fL Mean Corpuscular Hemoglobin 30.1 28.0-32.0 pg Mean Corpuscular Hemoglobin Concent 32.9 32.0-36.0 g/dL Red Cell Distribution Width 16.4 H 11.8-14.3 % Platelet Count 275 140-450 10^3/uL Mean Platelet Volume 8.6 6.9-10.8 fL Neutrophils (%) (Auto) 44.1 37.0-80.0 % Lymphocytes (%) (Auto) 40.3 10.0-50.0 % Monocytes (%) (Auto) 10.0 0.0-12.0 % Eosinophils (%) (Auto) 4.7 0.0-7.0 % Basophils (%) (Auto) 0.9 0.0-2.0 % Neutrophils # (Auto) 3.3 1.6-8.6 10 ^3/uL Lymphocytes # (Auto) 3.0 0.4-5.4 10 ^3/uL Monocytes # (Auto) 0.8 0-1.3 10 ^3/uL Eosinophils # (Auto) 0.4 0-0.8 10 ^3/uL Basophils # (Auto) 0.1 0-0.2 10 ^3/uL Nucleated Red Blood Cells 0.0 % Prothrombin Time 10.2 9.3-11.8 sec Prothrombin Time INR 0.96 0.9-1.15 Activated Partial Thromboplast Time 24.8 24.5-34.5 SEC Sodium Level 136 136-145 mmol/L Potassium Level 5.1 3.5-5.1 mmol/L Chloride Level 108 H 98-107 mmol/L Carbon Dioxide Level 15 L 20-31 mmol/L Anion Gap 13 5-15 Blood Urea Nitrogen 20 9-23 mg/dL Creatinine 1.56 H 0.550-1.02 mg/dL Glomerular Filtration Rate Calc 40 >90 mL/min BUN/Creatinine Ratio 12.8 10.0-20.0 Serum Glucose 105 74-106 mg/dL Calcium Level 9.0 8.7-10.4 mg/dL Magnesium Level 1.9 1.6-2.6 mg/dL Total Bilirubin 0.4 0.2-1.0 mg/dL Aspartate Amino Transferase (AST) 22 13-40 U/L Alanine Aminotransferase (ALT) 19 7-40 U/L Alkaline Phosphatase 114 46-116 U/L B-Type Natriuretic Peptide 99.83 0-100 pg/mL Total Protein 6.8 5.7-8.2 g/dL Albumin 4.6 3.2-4.8 g/dL Lipase 47 12-53 U/L PROCEDURE(s): CXRP - CHEST PORTABLE REASON: SOB ORDER NUMBER(s): [id number], ACCESSION NUMBER(s): [id number] CHEST RADIOGRAPH Indication: SOB Technique: Single frontal view of the chest was obtained COMPARISON: XY CHEST XRAY 1 VIEW on DOS: 08/13/24, XY CHEST XRAY 1 VIEW on DOS: 04/26/24, XY CHEST PORTABLE on DOS: 02/01/24, CHEST PORTABLE on DOS: 12/20/21, CXRP on DOS: 12/20/21 FINDINGS: Lines and Tubes: None Lungs: Clear Pleura: No effusion. No pneumothorax. Cardiomediastinal contours: Mild cardiomegaly. Bones: Unremarkable IMPRESSION: 1. No acute disease. Assessment Atypical Chest pain, resolved Right-sided heart failure due to severe pulmonary hypertension * With history of pulmonary arterial hypertension and recent decompensation symptoms ( orthopnea, RODRIGUEZ, pulmonary congestion) HFpEF Pulmonary arterial hypertension, chronic Acute hypotension, resolved Liver cirrhosis CKD Plan/Recommendation (Dr. Arroyo ): At this time, there is no evidence of acute coronary syndrome. Her symptoms are more consistent with chronic right-sided heart failure in the setting of severe pulmonary hypertension. Emotional stress likely exacerbated her baseline pulmonary pressures, contributing to transient chest discomfort and worsening dyspnea. Her echocardiogram remains consistent with preserved LV function and r ight-sided strain. We recommend continuing her current pulmonary hypertension regimen, including Revatio, and ensuring close follow-up with Pulmonary hypertension Clinic at [place]. From a Cardiology prescriptive, no acute intervention is indicated. Recommend obtaining repeat BNP, initiating daily weights, strict intake output monitoring, and considering a repeat transthoracic echocardiogram if clinically warranted. Chest x-ray findings of pulmonary congestion likely reflect volume overload from right heart dysfunction. Optimize fluid status as tolerated considering her CKD and cirrhosis. No need for anticoagulation or ischemic workup at this time. Supportive care and monitoring are advised. This medical document was created using an electronic medical record system with voice recognition software and computerized dictation system. Although this document has been carefully reviewed, there might still be some phonetic and typographical errors. Occasional wrong-word or ``sound-alike substitutions may have occurred due to the inherent limitations of voice recognition software. These areas are purely typographical due to imperfections of the software programs and do not reflect any compromise in the patient's medical care. Please read the chart carefully and recognize, using context, where these substitutions have occurred. Plan discussed with: Patient Plan discussed with: Patient NYHA Physical activity limitations: Class3(Marked) ordinary Date of Service: Sep 03, 2024 Billing Provider: LEONELA ARROYO Sr., MD Cardiology Common Codes: CONSULT ONLY Cardiology Consultation Codes: [id number] CONSULT <45MIN RONI [facility]GA [facility] Sep 03, 2024 17:04
[2024-09-03] MEDS: SODIUM CHLOR 0.9% PF (SALINE LOCK) 10ML VIAL/SYR IV SCH (21:32)
[2024-09-03] MEDS: ATORVASTATIN 20 MG TAB PO SCH (21:32)
--- NOTE | 2024-09-03 21:33 | DVHINCON2 ---
Date of service: Sep 03, 2024 History of Present Illness 53 y/o F pt with PMH of hypertension, anxiety, CKD, right heart failure, pulmonary hypertension, chronic resp failure, polysubstance abuse disorder pres ented to the ED with a chief complaint of shortness wall bath and chest pain for 1 hours after argument with her . She reports back pain, radiating rt flank. Denies abd pain, N/V/diarrhea/fever/chills/GIB. No hx of diverticulitis. Never had colonoscopy. No fhx of GI malignancy Past Medical History Reviewed Past Surgical History reviewed Family History: Cirrhosis of liver G8 BROTHER FH: breast cancer G8 MOTHER, G8 MOTHER, , Cause: Breast cancer FH: breast cancer G8 MOTHER, G8 MOTHER, , Cause: Breast cancer FH: breast cancer in relative when <45 years old G8 MOTHER, , Cause: Breast cancer Allergies: Coded Allergies: NO KNOWN ALLERGIES (Unverified , 12/20/18) Home Meds Active Scripts Prednisone (Prednisone) 20 Mg Tab, 20 MG PO BID for 5 Days, #10 MG Prov:ELIZABET BLAKE RESIDENT 08/16/24 Azithromycin (Azithromycin) 250 Mg Tab, 250 MG PO DAILY MDD 500 for 5 Days, #5 TAB 0 Refills 2 TABLETS ORALLY ON DAY ONE, THEN 1 TABLET ORALLY DAILY FOR 4 DAYS Prov:ELIZABET BLAKE RESIDENT 08/16/24 Amoxicillin & Pot Clavulanate (AUGMENTIN TABLET) 875 Mg Tb, 875 MG PO BID for 5 Days, #10 TAB Prov:ELIZABET BLAKE RESIDENT 08/16/24 Atorvastatin Calcium (ATORVASTATIN CALCIUM) 40 Mg Tab, 1 TAB PO QPM for 30 Days, #30 TAB 3 Refills Prov:ANNA DUARTE RESIDENT 02/04/24 Aspirin (Aspirin) 81 Mg Tab, 81 MG PO DAILY for 30 Days, #30 TAB Prov:ANNA DUARTE RESIDENT 02/04/24 Sildenafil Citrate (Revatio) 20 Mg Tab, 20 MG PO TID for 30 Days, #90 TAB 11 Refills Prov:GEMINI CARTY DO 02/07/23 Reported Medications Midodrine Hcl (Midodrine Hcl) 10 Mg Tab, 10 MG PO BID, TAB 08/14/24 Lorazepam (ATIVAN TABLET) 0.5 Mg Tb, 1 TAB PO Q6HPRN, #90 TAB 04/26/24 Atorvastatin Calcium (ATORVASTATIN CALCIUM) 40 Mg Tab, 1 TAB PO DAILY, #30 TAB 5 Refills 04/26/24 Sertraline Hcl (Sertraline Hcl) 50 Mg Tab, 25 MG PO DAILY for 90 Days, #90 MG 02/03/24 Docusate Sodium (Docusate Sodium) 100 Mg Cap, 1 CAP PO BID for 30 Days, #60 02/03/24 Pantoprazole Sodium Sesquihydr (Protonix) 40 Mg Tab, 20 MG PO DAILY for 30 Days, #30 02/03/24 Albuterol Sulfate (Albuterol Sulfate Hfa) 108 Mcg/Act Aer, 2 PUFF IN QID PRN for 25 Days, #18 11/17/23 Torsemide (Torsemide) 20 Mg Tab, 1 TAB PO BID for 30 Days, #60 11/17/23 Zolpidem Tartrate (Ambien) 10 Mg Tab, 1 TAB PO HS PRN for 10 Days, #10 11/17/23 Allopurinol (Allopurinol) 300 Mg Tab, 1 TAB PO DAILY for 30 Days, #30 05/09/23 Metoprolol Succinate (Metoprolol Succinate Er) 25 Mg Tab, 1 TAB PO BID for 90 Days, #180 05/09/23 Metolazone (Metolazone) 2.5 Mg Tab, 1 TAB PO EOD for 60 Days, #30 05/07/23 Macitentan (Opsumit) 10 Mg Tab, 10 MG PO DAILY, TAB 09/28/22 Current Medications Current Medications Medications (Trade) Dose Ordered Sig/Agnes Route PRN Reason Start Time Stop Time Status Last Admin Nitroglycerin (Ntrostat Sublingual) 0.4 mg Q5MINP PRN SL FOR CHEST PAIN 09/03/24 05:00 09/03/24 05:18 DC Morphine Sulfate 2 mg Q30M PRN IV FOR CHEST PAIN 09/03/24 05:00 09/03/24 05:15 Morphine Sulfate 1 mg Q4HPRN PRN IV PAIN SCALE 7 THRU 10 09/03/24 05:15 09/03/24 16:05 Pantoprazole Sodium (Protonix Tablet) 40 mg DAILY PO 09/03/24 10:00 09/03/24 13:49 DC 09/03/24 08:37 Furosemide (Lasix Injection) 40 mg DAILY IV 09/03/24 10:00 09/03/24 10:26 Aspirin (Ecotrin Enteric Coated Tablet) 81 mg DAILY PO 09/03/24 10:00 09/03/24 08:36 Docusate Sodium (Colace Capsule) 100 mg BID PO 09/03/24 10:00 Hold 09/03/24 08:37 Sertraline HCl (Zoloft) 25 mg DAILY PO 09/03/24 10:00 09/03/24 08:37 Sildenafil Citrate (Revatio) 20 mg TID PO 09/03/24 06:00 09/03/24 13:49 DC 09/03/24 06:51 Allopurinol (Zyloprim Tablet) 300 mg DAILY PO 09/03/24 10:00 Hold 09/03/24 08:37 Atorvastatin Calcium (Lipitor) 40 mg HS PO 09/03/24 22:00 Metoprolol Succinate (Toprol Xl) 25 mg BID PO 09/03/24 10:00 09/03/24 08:02 DC Polyethylene Glycol (Miralax 17GM Powder) 17 gm DAILY PRN PO FOR CONSTIPATION 09/03/24 05:15 Metoprolol Succinate (Toprol Xl) 25 mg DAILY PO 09/03/24 08:15 09/03/24 13:49 DC Enoxaparin Sodium (Lovenox) 30 mg DAILY SC 09/03/24 10:00 09/03/24 14:46 DC 09/03/24 10:20 Norepinephrine Bitartrate 250 ml @ 3.75 mls/hr Q24H IV 09/03/24 08:45 09/03/24 09:25 Sodium Chloride 1,000 ml @ 30 mls/hr Q24H IV 09/03/24 11:15 09/03/24 11:56 DC Sodium Chloride (Saline Lock Ns) 10 ml QSHIFT@10,22 IV 09/03/24 22:00 Pantoprazole Sodium (Protonix) 40 mg DAILY IV 09/04/24 10:00 Ceftriaxone Sodium 50 ml @ 100 mls/hr DAILY@09 IV 09/04/24 09:00 Metronidazole 100 ml @ 100 mls/hr Q8HR IV 09/03/24 22:00 Enoxaparin Sodium (Lovenox) 40 mg DAILY SC 09/04/24 10:00 Ondansetron HCl (Zofran) 4 mg Q4HPRN PRN IV NAUSEA / VOMITING 09/03/24 16:15 09/03/24 16:08 Review of Systems 14 point ROS negative except mentioned above Vital Signs Vital Signs Date Time Temp Pulse Resp B/P (MAP) Pulse Ox O2 Delivery O2 Flow Rate FiO2 09/03/24 21:02 61 16 84/47 (59) 93 09/03/24 20:27 Nasal Cannula* 4 36 09/03/24 20:15 97.4 97.4 Physical Exam GE - in no acute distress CVS - S1S2+ Lungs - clear Abdomen - soft, non-distended, non-tender, BS+ Labs/Diagnostic Data Labs Test 09/03/24 11:30 09/03/24 09:10 09/03/24 08:20 09/03/24 04:16 Range/Units Urine Color Light-yellow Yellow Urine Clarity Clear Clear Urine pH 5.0 5.0-9.0 Urine Specific [place] 1.008 1.001-1.035 Urine Protein Negative Negative Urine Ketones Negative Negative Urine Blood Negative Negative /uL Urine Nitrite Negative Negative Urine Bilirubin Negative Negative Urine Urobilinogen Normal Negative mg/dL Urine Leukocyte Esterase Negative Negative /uL Urine RBC None seen 0 - 4 /hpf Urine Microscopic WBC < 1 0-5 /HPF Urine Squamous Epithelial Cells Few <5 /hpf Urine Bacteria Few H None Seen /hpf Urine Yeast (Budding) Occasional None Seen /hpf Urine Glucose Normal Normal mg/dL Urine Opiates Screen Neg NEGATIVE Urine Fentanyl Screen Neg NEGATIVE Urine Barbiturates Screen Neg NEGATIVE Urine Phencyclidine Screen Neg NEGATIVE Urine Amphetamines Screen Neg NEGATIVE Urine Benzodiazepines Screen Neg NEGATIVE Urine Cocaine Screen Neg NEGATIVE Urine Cannabinoids Screen Neg NEGATIVE Influenza Type A Antigen Negative Negative Influenza Type B Antigen Negative Negative SARS-CoV-2 Antigen (Rapid) Negative NEGATIVE Plasma/Serum Blood Alcohol 6.7 <10 mg/dL Troponin I High Sensitivity 7 </=34 ng/L Test 09/03/24 01:19 09/03/24 01:12 Range/Units Blood Gas Specimen Type Venous Blood Gas Sample Site Vbg - n/a Blood Gas Patient Temperature 37.0 Arterial Blood Date Drawn [id number] Jose Luis Test N/a Venous Blood pH 7.361 7.320-7.430 Venous Blood pCO2 at Patient Temp 27.5 L 38.0-54.0 mmHg Venous Blood pO2 at Patient Temp 39.2 23.0-48.0 mmHg Venous Blood HCO3 15.2 L 22.0-29.0 mmol/L Venous Bld O2 Saturation (Measured) 72.2 60.0-85.0 % Venous Blood Base Excess -8.7 L -2.0-3.0 mmol/L Venous Blood Total Hemoglobin 13.2 12.0-16.0 g/dL Venous Blood Oxyhemoglobin 71.4 0.0-79.0 % Venous Blood Carboxyhemoglobin 0.6 0.5-1.5 % Venous Blood Methemoglobin 0.5 0.0-1.5 % Blood Gas Modality Room air FiO2 % 21.0 White Blood Count 7.5 4.4-10.8 10^3/uL Red Blood Count 4.19 4.0-5.20 10^6/uL Hemoglobin 12.6 12.2-16.2 g/dL Hematocrit 38.3 36.0-46.0 % Mean Corpuscular Volume 91.4 80.0-100.0 fL Mean Corpuscular Hemoglobin 30.1 28.0-32.0 pg Mean Corpuscular Hemoglobin Concent 32.9 32.0-36.0 g/dL Red Cell Distribution Width 16.4 H 11.8-14.3 % Platelet Count 275 140-450 10^3/uL Mean Platelet Volume 8.6 6.9-10.8 fL Neutrophils (%) (Auto) 44.1 37.0-80.0 % Lymphocytes (%) (Auto) 40.3 10.0-50.0 % Monocytes (%) (Auto) 10.0 0.0-12.0 % Eosinophils (%) (Auto) 4.7 0.0-7.0 % Basophils (%) (Auto) 0.9 0.0-2.0 % Neutrophils # (Auto) 3.3 1.6-8.6 10 ^3/uL Lymphocytes # (Auto) 3.0 0.4-5.4 10 ^3/uL Monocytes # (Auto) 0.8 0-1.3 10 ^3/uL Eosinophils # (Auto) 0.4 0-0.8 10 ^3/uL Basophils # (Auto) 0.1 0-0.2 10 ^3/uL Nucleated Red Blood Cells 0.0 % Prothrombin Time 10.2 9.3-11.8 sec Prothrombin Time INR 0.96 0.9-1.15 Activated Partial Thromboplast Time 24.8 24.5-34.5 SEC Sodium Level 136 136-145 mmol/L Potassium Level 5.1 3.5-5.1 mmol/L Chloride Level 108 H 98-107 mmol/L Carbon Dioxide Level 15 L 20-31 mmol/L Anion Gap 13 5-15 Blood Urea Nitrogen 20 9-23 mg/dL Creatinine 1.56 H 0.550-1.02 mg/dL Glomerular Filtration Rate Calc 40 >90 mL/min BUN/Creatinine Ratio 12.8 10.0-20.0 Serum Glucose 105 74-106 mg/dL Calcium Level 9.0 8.7-10.4 mg/dL Magnesium Level 1.9 1.6-2.6 mg/dL Total Bilirubin 0.4 0.2-1.0 mg/dL Aspartate Amino Transferase (AST) 22 13-40 U/L Alanine Aminotransferase (ALT) 19 7-40 U/L Alkaline Phosphatase 114 46-116 U/L B-Type Natriuretic Peptide 99.83 0-100 pg/mL Total Protein 6.8 5.7-8.2 g/dL Albumin 4.6 3.2-4.8 g/dL Lipase 47 12-53 U/L Assessment #Sigmoid colon diverticulosis, no clinical evidence of diverticulitis #Chest pain, SOB #Chronic resp failure #Back pain Plan/Recommendation -Reviewed imaging studies -Plan colonoscopy for further evaluation this admission or as out pt. Will sign out to Dr Villarreal on f/u -Care plan discussed with pt and RN bedside in ER in detail Thank you for the consult Plan discussed with: Patient AVANI ROSALES MD Sep 03, 2024 21:33
[2024-09-04] VITALS (102 sets, daily range): BP systolic 83–128; BP diastolic 35–73; PULSE 54–97; RESP 11–21; TEMP 97.7–98; O2SAT 89–100
[2024-09-04 03:53] LABS: Hematocrit 36.1 % (36.0-46.0); Hemoglobin 12.0 g/dL (12.2-16.2); Mean Corpuscular Hemoglobin 30.3 pg (28.0-32.0); Mean Corpuscular Volume 91.2 fL (80.0-100.0); Nucleated Red Blood Cells % 0.1 %
[2024-09-04 04:12] LABS: Alanine Aminotransferase 15 U/L (7-40); Albumin 4.0 g/dL (3.2-4.8); Alkaline Phosphatase 103 U/L (46-116); Anion Gap 8 (5-15); BUN/Creatinine Ratio 15.8 (10.0-20.0); Carbon Dioxide 22 mmol/L (20-31); Glucose 98 mg/dL (74-106); Magnesium 2.0 mg/dL (1.6-2.6); Sodium 139 mmol/L (136-145); Total Protein 6.1 g/dL (5.7-8.2)
[2024-09-04 04:13] LABS: Bilirubin, Total 0.6 mg/dL (0.2-1.0)
[2024-09-04 04:35] LABS: Blood Urea Nitrogen 28 mg/dL (9-23); Calcium 8.7 mg/dL (8.7-10.4); Chloride 109 mmol/L (98-107); Potassium 5.4 mmol/L (3.5-5.1)
--- NOTE | 2024-09-04 04:45 | DVH ---
CHEST RADIOGRAPH Indication: sob Technique: Single frontal view of the chest was obtained COMPARISON: XY CHEST PORTABLE on DOS: 09/03/24, XY CHEST PORTABLE on DOS: 09/03/24, XY CHEST XRAY 1 VIE W on DOS: 08/13/24, XY CHEST XRAY 1 VIEW on DOS: 04/26/24, XY CHEST PORTABLE on DOS: 02/01/24 FINDINGS: Lines and Tubes: Left peripherally inserted central catheter unchanged. Lungs: Clear Pleura: No effusion. No pneumothorax. Cardiomediastinal contours: Cardiomegaly. Bones: Unremarkable IMPRESSION: 1. Cardiomegaly. 2. Left PICC.
[2024-09-04] MEDS: SODIUM ZIRCONIUM CYCL 10 GM PAK PO ONE (05:44)
[2024-09-04] MEDS: FUROSEMIDE 20 MG/2 ML VIAL IV ONE (05:44)
[2024-09-04] MEDS: ENOXAPARIN SOD 40 MG/0.4 ML SYRINGE SC SCH (09:53)
[2024-09-04] MEDS: PANTOPRAZOLE 40 MG/10 ML VIAL INJ IV SCH (09:57)
[2024-09-04] MEDS: cefTRIAXone 1GM/50ML D5W 50 ML IV SCH (10:20)
--- NOTE | 2024-09-04 11:35 | DVHPN2 ---
Subjective The patient seen and examined at bedside. Still has shortness of breath. Reviewed: Care Plan, H&P, Labs, Medications, Previous Orders, Radiology Changes from previous H/P or p: No Changes Eyes: No Pain, No Vision change, No Conjunctivae inflammation, No Eyelid inflammation, No Other, No Redness ENT: No Ear pain, No Ear discharge, No Nose pain, No Nose discharge, No Nose congestion, No Mouth pain, No Mouth swelling, No Throat pain, No Throat swelling, No Other Cardiovascular: Chest Pain; No Palpitations, No Orthopnea, No Paroxysmal Noc. Dyspnea, No Edema, No Lt Headedness, No Other Respiratory: No Cough, No Dry; Shortness of breath; No SOB with excertion, No Wheezing, No Hemoptysis, No Pleuritic Pain, No Sputum, No Other Gastrointestinal: No Nausea, No Vomiting, No Abdominal Pain, No Diarrhea, No Constipation, No Melena, No Hematochezia, No Other Genitourinary: No Dysuria, No Frequency, No Incontinence, No Hematuria, No Retention, No Other Musculoskeletal: No other, No neck pain, No shoulder pain, No arm pain, No back pain, No hand pain, No leg pain, No foot pain Skin: No Rash, No Lesions, No Jaundice, No Bruising, No Other Objective Vitals Vital Signs Date Time Temp Pulse Resp B/P (MAP) Pulse Ox O2 Delivery O2 Flow Rate FiO2 09/04/24 11:02 62 15 95/53 (67) 94 09/04/24 08:02 98.0 98.0 09/04/24 06:02 Nasal Cannula* 4 36 Intake/Output Intake and Output 09/04/24 07:00 Intake Total 961.25 ml Output Total 0 ml Balance 961.25 ml Intake Oral 400 ml IV Total 561.25 ml Output Urine Total 0 ml General Appearance: Alert, Cooperative, No acute distress HEENT: Atraumatic, PERRLA, EOMI, Mucous membr. moist/pink Neck: Supple Lungs: Clear to auscultation Cardiovascular: Regular rate, Normal S1, Normal S2, No murmurs, Gallops, Rubs Abdomen: Normal bowel sounds, Soft, No tenderness, No hepatospenomegaly Neuro: Cranial nerves 3-12 NL Psych/Mental Status: Mental status NL Medications Current Medications Medications Dose Ordered Sig/Agnes Route Start Time Stop Time Status Last Admin Dose Admin Morphine Sulfate 2 mg Q30M PRN IV 09/03/24 05:00 09/03/24 05:15 2 MG Morphine Sulfate 1 mg Q4HPRN PRN IV 09/03/24 05:15 09/04/24 10:08 1 MG Furosemide 40 mg DAILY IV 09/03/24 10:00 09/04/24 10:03 40 MG Aspirin 81 mg DAILY PO 09/03/24 10:00 09/04/24 09:52 81 MG Docusate Sodium 100 mg BID PO 09/03/24 10:00 Hold 09/03/24 08:37 100 MG Sertraline HCl 25 mg DAILY PO 09/03/24 10:00 09/04/24 09:52 25 MG Allopurinol 300 mg DAILY PO 09/03/24 10:00 Hold 09/03/24 08:37 300 MG Atorvastatin Calcium 40 mg HS PO 09/03/24 22:00 09/03/24 21:32 40 MG Polyethylene Glycol 17 gm DAILY PRN PO 09/03/24 05:15 Norepinephrine Bitartrate 250 ml @ 3.75 mls/hr Q24H IV 09/03/24 08:45 09/03/24 09:25 3.75 MLS/HR Sodium Chloride 10 ml QSHIFT@10,22 IV 09/03/24 22:00 09/04/24 09:53 10 ML Pantoprazole Sodium 40 mg DAILY IV 09/04/24 10:00 09/04/24 09:57 40 MG Ceftriaxone Sodium 50 ml @ 100 mls/hr DAILY@09 IV 09/04/24 09:00 09/04/24 10:20 100 MLS/HR Metronidazole 100 ml @ 100 mls/hr Q8HR IV 09/03/24 22:00 09/04/24 05:13 100 MLS/HR Enoxaparin Sodium 40 mg DAILY SC 09/04/24 10:00 09/04/24 09:53 40 MG Ondansetron HCl 4 mg Q4HPRN PRN IV 09/03/24 16:15 09/03/24 16:08 4 MG Laboratory Results Laboratory Tests 09/04/24 03:30 Chemistry Test 09/04/24 03:30 Albumin 4.0 g/dL (3.2-4.8) Calcium Level 8.7 mg/dL (8.7-10.4) Magnesium Level 2.0 mg/dL (1.6-2.6) Total Protein 6.1 g/dL (5.7-8.2) Cardiac Markers Test 09/04/24 03:30 B-Type Natriuretic Peptide 115.00 pg/mL (0-100) LFT Test 09/04/24 03:30 Alanine Aminotransferase (ALT) 15 U/L (7-40) Alkaline Phosphatase 103 U/L (46-116) Aspartate Amino Transferase (AST) 18 U/L (13-40) Total Bilirubin 0.6 mg/dL (0.2-1.0) Urinalysis Test 09/03/24 11:30 Urine Color Light-yellow (Yellow) Urine Clarity Clear (Clear) Urine pH 5.0 (5.0-9.0) Urine Specific [place] 1.008 (1.001-1.035) Urine Protein Negative (Negative) Urine Ketones Negative (Negative) Urine Blood Negative /uL (Negative) Urine Nitrite Negative (Negative) Urine Bilirubin Negative (Negative) Urine Urobilinogen Normal mg/dL (Negative) Urine Leukocyte Esterase Negative /uL (Negative) Urine RBC None seen /hpf (0 - 4) Urine Microscopic WBC < 1 /HPF (0-5) Urine Squamous Epithelial Cells Few /hpf (<5) Urine Bacteria Few /hpf (None Seen) H Urine Yeast (Budding) Occasional /hpf (None Urine Glucose Normal mg/dL (Normal) Labs and/or images reviewed: Labs reviewed by me Assessment/Plan Assessment/Plan # Chest pain rule out ACS # possible acute exacerbation of chronic diastolic heart failure # Severe pulmonary hypertension # chronic respiratory failure due to pulmonary hypertension - EKG revealed sinus rhythm, nonspecific ST-T changes and troponins were unremarkable. - chest x-ray showed mild cardiomegaly with pulmonary vascular congestion - BNP is 99.94 - echo on 09/01 demonstrated lvef 65%, grade 1 diastolic dysfunction ,RV moderately enlarged, ,moderate tricuspdi regurg ,RVSP 67 mm Hg - IV Lasix 40 mg daily - metoprolol succinate 25 mg p.o. daily. 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 focal sigmoid diverticulitis - consult with GI doctor - recommend follow-up with colonoscopy - continue Ceftriaxone IVPB Rocephin IV - continue Metronidazole IVPB flagyl IV q8hr - monitor BMP - continue NPO # polysubstance abuse disorder - Methampetamine abuse for 24 years - counseled patient regarding drug abuse and rehabilitation # Slow transit constipation - Miralax powder p.r.n. - Colace 100 mg p.o. b.i.d. # History of depression/anxiety - continue home meds # GERD - Protonix 40 mg p.o. daily # History of gout - Allopurinol 300 mg p.o. daily # DVT prophylaxis - Lovenox 40 mg sc daily Continue current management. Waiting for software applications architect and GI to see patient This medical document was created using an electronic medical record system with [employer] direct computerized dictation system. Although this document has been carefully reviewed, there may still be some phonetic and typographical errors. These areas are purely typographical due to imperfections of the software programs, and do not reflect any compromise in the patient's medical care. Plan discussed with: Patient Date of Service: Sep 04, 2024 Billing Provider: FABRICIO CAMACHO MD Common Visit Codes: [id number] INP/OBS CARE(HIGH) FABRICIO CAMACHO MD Sep 04, 2024 11:35
--- NOTE | 2024-09-04 13:06 | DVHPN2 ---
Subjective Patient admits to feeling better Slight abdominal pain Patient has complains of nausea no vomiting Last BM two days ago denies melena or red blood in stool No colonoscopy in past Changes from previous H/P or p: No Changes Eyes: No Pain, No Vision change, No Conjunctivae inflammation, No Eyelid inflammation, No Other, No Redness ENT: No Ear pain, No Ear discharge, No Nose pain, No Nose discharge, No Nose congestion, No Mouth pain, No Mouth swelling, No Throat pain, No Throat swelling, No Other Cardiovascular: Chest Pain; No Palpitations, No Orthopnea, No Paroxysmal Noc. Dyspnea, No Edema, No Lt Headedness, No Other Respiratory: No Cough, No Dry; Shortness of breath; No SOB with excertion, No Wheezing, No Hemoptysis, No Pleuritic Pain, No Sputum, No Other Gastrointestinal: No Nausea, No Vomiting, No Abdominal Pain, No Diarrhea, No Constipation, No Melena, No Hematochezia, No Other Genitourinary: No Dysuria, No Frequency, No Incontinence, No Hematuria, No Retention, No Other Musculoskeletal: No other, No neck pain, No shoulder pain, No arm pain, No back pain, No hand pain, No leg pain, No foot pain Skin: No Rash, No Lesions, No Jaundice, No Bruising, No Other Objective Vitals Vital Signs Date Time Temp Pulse Resp B/P (MAP) Pulse Ox O2 Delivery O2 Flow Rate FiO2 09/04/24 12:00 68 09/04/24 12:00 18 Nasal Cannula* 3 32 09/04/24 11:02 95/53 (67) 94 09/04/24 08:02 98.0 98.0 Intake/Output Intake and Output 09/04/24 07:00 Intake Total 961.25 ml Output Total 0 ml Balance 961.25 ml Intake Oral 400 ml IV Total 561.25 ml Output Urine Total 0 ml General Appearance: Alert, Oriented X3, Cooperative, No acute distress, mild distress, moderate distress, severe distress, Other Lungs: Clear to auscultation, Normal air movement, Other Cardiovascular: Regular rate, Normal S1, Normal S2, No murmurs, Gallops, Rubs, Other Abdomen: Normal bowel sounds, Soft, No tenderness, No hepatospenomegaly, No masses, Other Medications Current Medications Medications Dose Ordered Sig/Agnes Route Start Time Stop Time Status Last Admin Dose Admin Morphine Sulfate 2 mg Q30M PRN IV 09/03/24 05:00 09/03/24 05:15 2 MG Morphine Sulfate 1 mg Q4HPRN PRN IV 09/03/24 05:15 09/04/24 10:08 1 MG Furosemide 40 mg DAILY IV 09/03/24 10:00 09/04/24 10:03 40 MG Aspirin 81 mg DAILY PO 09/03/24 10:00 09/04/24 09:52 81 MG Docusate Sodium 100 mg BID PO 09/03/24 10:00 Hold 09/03/24 08:37 100 MG Sertraline HCl 25 mg DAILY PO 09/03/24 10:00 09/04/24 09:52 25 MG Allopurinol 300 mg DAILY PO 09/03/24 10:00 Hold 09/03/24 08:37 300 MG Atorvastatin Calcium 40 mg HS PO 09/03/24 22:00 09/03/24 21:32 40 MG Polyethylene Glycol 17 gm DAILY PRN PO 09/03/24 05:15 Norepinephrine Bitartrate 250 ml @ 3.75 mls/hr Q24H IV 09/03/24 08:45 09/03/24 09:25 3.75 MLS/HR Sodium Chloride 10 ml QSHIFT@10,22 IV 09/03/24 22:00 09/04/24 09:53 10 ML Pantoprazole Sodium 40 mg DAILY IV 09/04/24 10:00 09/04/24 09:57 40 MG Ceftriaxone Sodium 50 ml @ 100 mls/hr DAILY@09 IV 09/04/24 09:00 09/04/24 10:20 100 MLS/HR Metronidazole 100 ml @ 100 mls/hr Q8HR IV 09/03/24 22:00 09/04/24 05:13 100 MLS/HR Enoxaparin Sodium 40 mg DAILY SC 09/04/24 10:00 09/04/24 09:53 40 MG Ondansetron HCl 4 mg Q4HPRN PRN IV 09/03/24 16:15 09/03/24 16:08 4 MG Laboratory Results Laboratory Tests 09/04/24 03:30 Chemistry Test 09/04/24 03:30 Albumin 4.0 g/dL (3.2-4.8) Calcium Level 8.7 mg/dL (8.7-10.4) Magnesium Level 2.0 mg/dL (1.6-2.6) Total Protein 6.1 g/dL (5.7-8.2) Cardiac Markers Test 09/04/24 03:30 B-Type Natriuretic Peptide 115.00 pg/mL (0-100) LFT Test 09/04/24 03:30 Alanine Aminotransferase (ALT) 15 U/L (7-40) Alkaline Phosphatase 103 U/L (46-116) Aspartate Amino Transferase (AST) 18 U/L (13-40) Total Bilirubin 0.6 mg/dL (0.2-1.0) Urinalysis Test 09/03/24 11:30 Urine Color Light-yellow (Yellow) Urine Clarity Clear (Clear) Urine pH 5.0 (5.0-9.0) Urine Specific [place] 1.008 (1.001-1.035) Urine Protein Negative (Negative) Urine Ketones Negative (Negative) Urine Blood Negative /uL (Negative) Urine Nitrite Negative (Negative) Urine Bilirubin Negative (Negative) Urine Urobilinogen Normal mg/dL (Negative) Urine Leukocyte Esterase Negative /uL (Negative) Urine RBC None seen /hpf (0 - 4) Urine Microscopic WBC < 1 /HPF (0-5) Urine Squamous Epithelial Cells Few /hpf (<5) Urine Bacteria Few /hpf (None Seen) H Urine Yeast (Budding) Occasional /hpf (None Urine Glucose Normal mg/dL (Normal) Labs and/or images reviewed: Labs reviewed by me, Image(s) reviewed by me Assessment/Plan Assessment/Plan Abdominal pain improving Sigmoid diverticulitis Chest pain improving Plan Discussed with Dr. Villarreal Continue with antibiotic Diet as tolerated Plan for outpatient colonoscopy Follow-up in GI clinic in 2-4 weeks to schedule for elective colonoscopy Plan discussed with: Patient, Other (RN) Date of Service: Sep 04, 2024 Billing Provider: DIGNA VALDEZ Common Visit Codes: [id number] INP/OBS CARE(HIGH) DIGNA VALDEZ Sep 04, 2024 13:06
[2024-09-05] VITALS (33 sets, daily range): BP systolic 86–138; BP diastolic 40–97; PULSE 60–98; RESP 13–18; TEMP 97.7–98.7; O2SAT 93–98
[2024-09-05 06:50] LABS: Hematocrit 37.3 % (36.0-46.0); Hemoglobin 12.0 g/dL (12.2-16.2); Mean Corpuscular Hemoglobin 30.5 pg (28.0-32.0); Mean Corpuscular Volume 94.9 fL (80.0-100.0); Nucleated Red Blood Cells % 0.1 %
[2024-09-05 06:55] LABS: Alanine Aminotransferase 13 U/L (7-40); Albumin 4.3 g/dL (3.2-4.8); Alkaline Phosphatase 98 U/L (46-116); Anion Gap 9 (5-15); BUN/Creatinine Ratio 17.6 (10.0-20.0); Blood Urea Nitrogen 23 mg/dL (9-23); Calcium 9.6 mg/dL (8.7-10.4); Carbon Dioxide 22 mmol/L (20-31); Chloride 106 mmol/L (98-107); Glucose 88 mg/dL (74-106); Potassium 4.6 mmol/L (3.5-5.1); Sodium 137 mmol/L (136-145); Total Protein 6.3 g/dL (5.7-8.2)
[2024-09-05 06:56] LABS: Bilirubin, Total 0.5 mg/dL (0.2-1.0)
--- NOTE | 2024-09-05 14:22 | DVHPN2 ---
Subjective Patient admits to feeling better No colonoscopy in past Reviewed: Care Plan, H&P, Labs, Medications, Previous Orders, Radiology Changes from previous H/P or p: No Changes Eyes: No Pain, No Vision change, No Conjunctivae inflammation, No Eyelid inflammation, No Other, No Redness ENT: No Ear pain, No Ear discharge, No Nose pain, No Nose discharge, No Nose congestion, No Mouth pain, No Mouth swelling, No Throat pain, No Throat swelling, No Other Cardiovascular: Chest Pain; No Palpitations, No Orthopnea, No Paroxysmal Noc. Dyspnea, No Edema, No Lt Headedness, No Other Respiratory: No Cough, No Dry; Shortness of breath; No SOB with excertion, No Wheezing, No Hemoptysis, No Pleuritic Pain, No Sputum, No Other Gastrointestinal: No Nausea, No Vomiting, No Abdominal Pain, No Diarrhea, No Constipation, No Melena, No Hematochezia, No Other Genitourinary: No Dysuria, No Frequency, No Incontinence, No Hematuria, No Retention, No Other Musculoskeletal: No other, No neck pain, No shoulder pain, No arm pain, No back pain, No hand pain, No leg pain, No foot pain Skin: No Rash, No Lesions, No Jaundice, No Bruising, No Other Objective Vitals Vital Signs Date Time Temp Pulse Resp B/P (MAP) Pulse Ox O2 Delivery O2 Flow Rate FiO2 09/05/24 12:28 74 17 101/48 (65) 99 09/05/24 07:56 Nasal Cannula* 4 36 09/05/24 07:30 98.6 98.6 Intake/Output Intake and Output 09/05/24 07:00 Intake Total 1358.75 ml Output Total 2300 ml Balance -941.25 ml Intake Oral 880 ml IV Total 478.75 ml Output Urine Total 2300 ml General Appearance: Alert, Oriented X3, Cooperative, No acute distress, mild distress, moderate distress, severe distress, Other HEENT: Atraumatic, PERRLA, EOMI, Mucous membr. moist/pink Neck: Supple Lungs: Clear to auscultation, Normal air movement, Other Cardiovascular: Regular rate, Normal S1, Normal S2, No murmurs, Gallops, Rubs, Other Abdomen: Normal bowel sounds, Soft, No tenderness, No hepatospenomegaly, No masses, Other Neuro: Cranial nerves 3-12 NL Psych/Mental Status: Mental status NL Medications Current Medications Medications Dose Ordered Sig/Agnes Route Start Time Stop Time Status Last Admin Dose Admin Morphine Sulfate 2 mg Q30M PRN IV 09/03/24 05:00 09/03/24 05:15 2 MG Morphine Sulfate 1 mg Q4HPRN PRN IV 09/03/24 05:15 09/05/24 02:03 1 MG Furosemide 40 mg DAILY IV 09/03/24 10:00 09/05/24 09:39 40 MG Aspirin 81 mg DAILY PO 09/03/24 10:00 09/05/24 09:40 81 MG Docusate Sodium 100 mg BID PO 09/03/24 10:00 Hold 09/03/24 08:37 100 MG Sertraline HCl 25 mg DAILY PO 09/03/24 10:00 09/05/24 09:40 25 MG Allopurinol 300 mg DAILY PO 09/03/24 10:00 Hold 09/03/24 08:37 300 MG Atorvastatin Calcium 40 mg HS PO 09/03/24 22:00 09/04/24 21:42 40 MG Polyethylene Glycol 17 gm DAILY PRN PO 09/03/24 05:15 Norepinephrine Bitartrate 250 ml @ 3.75 mls/hr Q24H IV 09/03/24 08:45 09/04/24 21:42 7.5 MLS/HR Sodium Chloride 10 ml QSHIFT@10,22 IV 09/03/24 22:00 09/05/24 09:40 10 ML Pantoprazole Sodium 40 mg DAILY IV 09/04/24 10:00 09/05/24 09:40 40 MG Ceftriaxone Sodium 50 ml @ 100 mls/hr DAILY@09 IV 09/04/24 09:00 09/05/24 09:39 100 MLS/HR Metronidazole 100 ml @ 100 mls/hr Q8HR IV 09/03/24 22:00 09/05/24 14:03 100 MLS/HR Enoxaparin Sodium 40 mg DAILY SC 09/04/24 10:00 09/05/24 09:41 40 MG Ondansetron HCl 4 mg Q4HPRN PRN IV 09/03/24 16:15 09/03/24 16:08 4 MG Laboratory Results Laboratory Tests 09/05/24 05:10 Chemistry Test 09/05/24 05:10 Albumin 4.3 g/dL (3.2-4.8) Calcium Level 9.6 mg/dL (8.7-10.4) Total Protein 6.3 g/dL (5.7-8.2) LFT Test 09/05/24 05:10 Alanine Aminotransferase (ALT) 13 U/L (7-40) Alkaline Phosphatase 98 U/L (46-116) Aspartate Amino Transferase (AST) 21 U/L (13-40) Total Bilirubin 0.5 mg/dL (0.2-1.0) Urinalysis Test 09/03/24 11:30 Urine Color Light-yellow (Yellow) Urine Clarity Clear (Clear) Urine pH 5.0 (5.0-9.0) Urine Specific [place] 1.008 (1.001-1.035) Urine Protein Negative (Negative) Urine Ketones Negative (Negative) Urine Blood Negative /uL (Negative) Urine Nitrite Negative (Negative) Urine Bilirubin Negative (Negative) Urine Urobilinogen Normal mg/dL (Negative) Urine Leukocyte Esterase Negative /uL (Negative) Urine RBC None seen /hpf (0 - 4) Urine Microscopic WBC < 1 /HPF (0-5) Urine Squamous Epithelial Cells Few /hpf (<5) Urine Bacteria Few /hpf (None Seen) H Urine Yeast (Budding) Occasional /hpf (None Urine Glucose Normal mg/dL (Normal) Microbiology Microbiology Date/Time Source Procedure Growth Status 09/04/24 04:27 Nose MRSA Screen - Final Complete Labs and/or images reviewed: Labs reviewed by me, Image(s) reviewed by me Assessment/Plan Assessment/Plan Abdominal pain improving Sigmoid diverticulitis Chest pain improving Plan Discussed with Dr. Villarreal Continue with antibiotic Diet as tolerated Plan for outpatient colonoscopy Follow-up in GI clinic in 2-4 weeks to schedule for elective colonoscopy Plan discussed with: Patient, Other (RN) Date of Service: Sep 05, 2024 Billing Provider: DIGNA VALDEZ Common Visit Codes: [id number] INP/OBS CARE(HIGH) DIGNA VALDEZ Sep 05, 2024 14:22
--- NOTE | 2024-09-05 18:09 | DVHPN2 ---
Subjective The patient seen and examined at bedside. Still has shortness of breath. Reviewed: Care Plan, H&P, Labs, Medications, Previous Orders, Radiology Changes from previous H/P or p: No Changes Eyes: No Pain, No Vision change, No Conjunctivae inflammation, No Eyelid inflammation, No Other, No Redness ENT: No Ear pain, No Ear discharge, No Nose pain, No Nose discharge, No Nose congestion, No Mouth pain, No Mouth swelling, No Throat pain, No Throat swelling, No Other Cardiovascular: Chest Pain; No Palpitations, No Orthopnea, No Paroxysmal Noc. Dyspnea, No Edema, No Lt Headedness, No Other Respiratory: No Cough, No Dry; Shortness of breath; No SOB with excertion, No Wheezing, No Hemoptysis, No Pleuritic Pain, No Sputum, No Other Gastrointestinal: No Nausea, No Vomiting, No Abdominal Pain, No Diarrhea, No Constipation, No Melena, No Hematochezia, No Other Genitourinary: No Dysuria, No Frequency, No Incontinence, No Hematuria, No Retention, No Other Musculoskeletal: No other, No neck pain, No shoulder pain, No arm pain, No back pain, No hand pain, No leg pain, No foot pain Skin: No Rash, No Lesions, No Jaundice, No Bruising, No Other Objective Vitals Vital Signs Date Time Temp Pulse Resp B/P (MAP) Pulse Ox O2 Delivery O2 Flow Rate FiO2 09/05/24 16:00 67 09/05/24 12:28 17 101/48 (65) 99 09/05/24 07:56 Nasal Cannula* 4 36 09/05/24 07:30 98.6 98.6 Intake/Output Intake and Output 09/05/24 07:00 Intake Total 1358.75 ml Output Total 2300 ml Balance -941.25 ml Intake Oral 880 ml IV Total 478.75 ml Output Urine Total 2300 ml General Appearance: Alert, Oriented X3, Cooperative, No acute distress, mild distress, moderate distress, severe distress, Other HEENT: Atraumatic, PERRLA, EOMI, Mucous membr. moist/pink Neck: Supple Lungs: Clear to auscultation, Normal air movement, Other Cardiovascular: Regular rate, Normal S1, Normal S2, No murmurs, Gallops, Rubs, Other Abdomen: Normal bowel sounds, Soft, No tenderness, No hepatospenomegaly, No masses, Other Neuro: Cranial nerves 3-12 NL Psych/Mental Status: Mental status NL Medications Current Medications Medications Dose Ordered Sig/Agnes Route Start Time Stop Time Status Last Admin Dose Admin Morphine Sulfate 2 mg Q30M PRN IV 09/03/24 05:00 09/03/24 05:15 2 MG Morphine Sulfate 1 mg Q4HPRN PRN IV 09/03/24 05:15 09/05/24 02:03 1 MG Furosemide 40 mg DAILY IV 09/03/24 10:00 09/05/24 09:39 40 MG Aspirin 81 mg DAILY PO 09/03/24 10:00 09/05/24 09:40 81 MG Docusate Sodium 100 mg BID PO 09/03/24 10:00 Hold 09/03/24 08:37 100 MG Sertraline HCl 25 mg DAILY PO 09/03/24 10:00 09/05/24 09:40 25 MG Allopurinol 300 mg DAILY PO 09/03/24 10:00 Hold 09/03/24 08:37 300 MG Atorvastatin Calcium 40 mg HS PO 09/03/24 22:00 09/04/24 21:42 40 MG Polyethylene Glycol 17 gm DAILY PRN PO 09/03/24 05:15 Norepinephrine Bitartrate 250 ml @ 3.75 mls/hr Q24H IV 09/03/24 08:45 09/04/24 21:42 7.5 MLS/HR Sodium Chloride 10 ml QSHIFT@10,22 IV 09/03/24 22:00 09/05/24 09:40 10 ML Pantoprazole Sodium 40 mg DAILY IV 09/04/24 10:00 09/05/24 09:40 40 MG Ceftriaxone Sodium 50 ml @ 100 mls/hr DAILY@09 IV 09/04/24 09:00 09/05/24 09:39 100 MLS/HR Metronidazole 100 ml @ 100 mls/hr Q8HR IV 09/03/24 22:00 09/05/24 14:03 100 MLS/HR Enoxaparin Sodium 40 mg DAILY SC 09/04/24 10:00 09/05/24 09:41 40 MG Ondansetron HCl 4 mg Q4HPRN PRN IV 09/03/24 16:15 09/03/24 16:08 4 MG Laboratory Results Laboratory Tests 09/05/24 05:10 Chemistry Test 09/05/24 05:10 Albumin 4.3 g/dL (3.2-4.8) Calcium Level 9.6 mg/dL (8.7-10.4) Total Protein 6.3 g/dL (5.7-8.2) LFT Test 09/05/24 05:10 Alanine Aminotransferase (ALT) 13 U/L (7-40) Alkaline Phosphatase 98 U/L (46-116) Aspartate Amino Transferase (AST) 21 U/L (13-40) Total Bilirubin 0.5 mg/dL (0.2-1.0) Urinalysis Test 09/03/24 11:30 Urine Color Light-yellow (Yellow) Urine Clarity Clear (Clear) Urine pH 5.0 (5.0-9.0) Urine Specific [place] 1.008 (1.001-1.035) Urine Protein Negative (Negative) Urine Ketones Negative (Negative) Urine Blood Negative /uL (Negative) Urine Nitrite Negative (Negative) Urine Bilirubin Negative (Negative) Urine Urobilinogen Normal mg/dL (Negative) Urine Leukocyte Esterase Negative /uL (Negative) Urine RBC None seen /hpf (0 - 4) Urine Microscopic WBC < 1 /HPF (0-5) Urine Squamous Epithelial Cells Few /hpf (<5) Urine Bacteria Few /hpf (None Seen) H Urine Yeast (Budding) Occasional /hpf (None Urine Glucose Normal mg/dL (Normal) Microbiology Microbiology Date/Time Source Procedure Growth Status 09/04/24 04:27 Nose MRSA Screen - Final Complete Labs and/or images reviewed: Labs reviewed by me Assessment/Plan Assessment/Plan # Chest pain rule out ACS # possible acute exacerbation of chronic diastolic heart failure # Severe pulmonary hypertension # chronic respiratory failure due to pulmonary hypertension - EKG revealed sinus rhythm, nonspecific ST-T changes and troponins were unremarkable. - chest x-ray showed mild cardiomegaly with pulmonary vascular congestion - BNP is 99.94 - echo on 09/01 demonstrated lvef 65%, grade 1 diastolic dysfunction ,RV moderately enlarged, ,moderate tricuspdi regurg ,RVSP 67 mm Hg - IV Lasix 40 mg daily - metoprolol succinate 25 mg p.o. daily. 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 focal sigmoid diverticulitis - consult with GI doctor - recommend follow-up with colonoscopy - continue Ceftriaxone IVPB Rocephin IV - continue Metronidazole IVPB flagyl IV q8hr - monitor BMP - continue NPO # polysubstance abuse disorder - Methampetamine abuse for 24 years - counseled patient regarding drug abuse and rehabilitation # Slow transit constipation - Miralax powder p.r.n. - Colace 100 mg p.o. b.i.d. # History of depression/anxiety - continue home meds # GERD - Protonix 40 mg p.o. daily # History of gout - Allopurinol 300 mg p.o. daily # DVT prophylaxis - Lovenox 40 mg sc daily Continue current management. Appreciate director post and GI input Start patient on diet today with carb control, cardiac diet. This medical document was created using an electronic medical record system with [employer] direct computerized dictation system. Although this document has been carefully reviewed, there may still be some phonetic and typographical errors. These areas are purely typographical due to imperfections of the software programs, and do not reflect any compromise in the patient's medical care. Plan discussed with: Patient My Orders Orders - FABRICIO CAMACHO MD Procedure Category Date Status Time Transfer Orders XFER 09/05/24 Transmitted 13:03 Date of Service: Sep 05, 2024 Billing Provider: FABRICIO CAMACHO MD Common Visit Codes: [id number] INP/OBS CARE(HIGH) FABRICIO CAMACHO MD Sep 05, 2024 18:09
[2024-09-06] VITALS (8 sets, daily range): BP systolic 105–134; BP diastolic 68–82; PULSE 83–103; RESP 16–20; TEMP 97.7–99.6; O2SAT 93–98
--- NOTE | 2024-09-06 11:49 | DVHPN2 ---
Subjective The patient seen and examined at bedside. Feel better today. Reviewed: Care Plan, H&P, Labs, Medications, Previous Orders, Radiology Changes from previous H/P or p: No Changes Eyes: No Pain, No Vision change, No Conjunctivae inflammation, No Eyelid inflammation, No Other, No Redness ENT: No Ear pain, No Ear discharge, No Nose pain, No Nose discharge, No Nose congestion, No Mouth pain, No Mouth swelling, No Throat pain, No Throat swelling, No Other Cardiovascular: Chest Pain; No Palpitations, No Orthopnea, No Paroxysmal Noc. Dyspnea, No Edema, No Lt Headedness, No Other Respiratory: No Cough, No Dry; Shortness of breath; No SOB with excertion, No Wheezing, No Hemoptysis, No Pleuritic Pain, No Sputum, No Other Gastrointestinal: No Nausea, No Vomiting, No Abdominal Pain, No Diarrhea, No Constipation, No Melena, No Hematochezia, No Other Genitourinary: No Dysuria, No Frequency, No Incontinence, No Hematuria, No Retention, No Other Musculoskeletal: No other, No neck pain, No shoulder pain, No arm pain, No back pain, No hand pain, No leg pain, No foot pain Skin: No Rash, No Lesions, No Jaundice, No Bruising, No Other Objective Vitals Vital Signs Date Time Temp Pulse Resp B/P (MAP) Pulse Ox O2 Delivery O2 Flow Rate FiO2 09/06/24 11:46 85 16 118/53 09/06/24 09:00 97.9 98 97.9 09/05/24 20:00 Nasal Cannula* 2 28 Intake/Output Intake and Output 09/06/24 06:59 Intake Total 1800 ml Output Total 250 ml Balance 1550 ml Intake Oral 1600 ml IV Total 200 ml Output Urine Total 250 ml General Appearance: Alert, Oriented X3, Cooperative, No acute distress, mild distress, moderate distress, severe distress, Other HEENT: Atraumatic, PERRLA, EOMI, Mucous membr. moist/pink Neck: Supple Lungs: Clear to auscultation, Normal air movement, Other Cardiovascular: Regular rate, Normal S1, Normal S2, No murmurs, Gallops, Rubs, Other Abdomen: Normal bowel sounds, Soft, No tenderness, No hepatospenomegaly, No masses, Other Neuro: Cranial nerves 3-12 NL Psych/Mental Status: Mental status NL Medications Current Medications Medications Dose Ordered Sig/Agnes Route Start Time Stop Time Status Last Admin Dose Admin Morphine Sulfate 2 mg Q30M PRN IV 09/03/24 05:00 09/03/24 05:15 2 MG Morphine Sulfate 1 mg Q4HPRN PRN IV 09/03/24 05:15 09/06/24 11:46 1 MG Furosemide 40 mg DAILY IV 09/03/24 10:00 09/06/24 11:20 40 MG Aspirin 81 mg DAILY PO 09/03/24 10:00 09/06/24 11:18 81 MG Docusate Sodium 100 mg BID PO 09/03/24 10:00 Hold 09/03/24 08:37 100 MG Sertraline HCl 25 mg DAILY PO 09/03/24 10:00 09/06/24 11:18 25 MG Allopurinol 300 mg DAILY PO 09/03/24 10:00 Hold 09/03/24 08:37 300 MG Atorvastatin Calcium 40 mg HS PO 09/03/24 22:00 09/05/24 21:24 40 MG Polyethylene Glycol 17 gm DAILY PRN PO 09/03/24 05:15 Sodium Chloride 10 ml QSHIFT@10,22 IV 09/03/24 22:00 09/06/24 11:18 10 ML Pantoprazole Sodium 40 mg DAILY IV 09/04/24 10:00 09/06/24 11:17 40 MG Ceftriaxone Sodium 50 ml @ 100 mls/hr DAILY@09 IV 09/04/24 09:00 09/06/24 11:18 100 MLS/HR Metronidazole 100 ml @ 100 mls/hr Q8HR IV 09/03/24 22:00 09/06/24 05:03 100 MLS/HR Enoxaparin Sodium 40 mg DAILY SC 09/04/24 10:00 09/05/24 09:41 40 MG Ondansetron HCl 4 mg Q4HPRN PRN IV 09/03/24 16:15 09/03/24 16:08 4 MG Laboratory Results Laboratory Tests 09/05/24 05:10 Urinalysis Test 09/03/24 11:30 Urine Color Light-yellow (Yellow) Urine Clarity Clear (Clear) Urine pH 5.0 (5.0-9.0) Urine Specific [place] 1.008 (1.001-1.035) Urine Protein Negative (Negative) Urine Ketones Negative (Negative) Urine Blood Negative /uL (Negative) Urine Nitrite Negative (Negative) Urine Bilirubin Negative (Negative) Urine Urobilinogen Normal mg/dL (Negative) Urine Leukocyte Esterase Negative /uL (Negative) Urine RBC None seen /hpf (0 - 4) Urine Microscopic WBC < 1 /HPF (0-5) Urine Squamous Epithelial Cells Few /hpf (<5) Urine Bacteria Few /hpf (None Seen) H Urine Yeast (Budding) Occasional /hpf (None Urine Glucose Normal mg/dL (Normal) Microbiology Microbiology Date/Time Source Procedure Growth Status 09/04/24 04:27 Nose MRSA Screen - Final Complete Labs and/or images reviewed: Labs reviewed by me Assessment/Plan Assessment/Plan # Chest pain rule out ACS # possible acute exacerbation of chronic diastolic heart failure # Severe pulmonary hypertension # chronic respiratory failure due to pulmonary hypertension - EKG revealed sinus rhythm, nonspecific ST-T changes and troponins were unremarkable. - chest x-ray showed mild cardiomegaly with pulmonary vascular congestion - BNP is 99.94 - echo on 09/01 demonstrated lvef 65%, grade 1 diastolic dysfunction ,RV moderately enlarged, ,moderate tricuspdi regurg ,RVSP 67 mm Hg - IV Lasix 40 mg daily - metoprolol succinate 25 mg p.o. daily. - Sildenafil 20 mg PO TID - following regional business manager in [place] for pulmonary hypertension - continue PICC line placement - continue Norepinephrine 8mg/250mL rip IV 2 MCG/MIN to avoid hypotension # Right madhu pain due to focal sigmoid diverticulitis # Possible ANGEL on CKD secondary to hemodynamically mediated/VMN - Abdominal/pervic CT- Colonic diverticulosis with focal exophytic wall thickeness, the sigmoid colon and mild surorounding inflammation. focal sigmoid diverticulitis - appreciate GI specialist input. Outpatient colonoscopy per GI - continue Ceftriaxone IVPB - continue Metronidazole IVPB flagyl IV q8hr - monitor BMP - advance diet as tolerated # polysubstance abuse disorder - Methampetamine abuse for 24 years - counseled patient regarding drug abuse and rehabilitation # Slow transit constipation - Miralax powder p.r.n. - Colace 100 mg p.o. b.i.d. # History of depression/anxiety - continue home meds # GERD - Protonix 40 mg p.o. daily # History of gout - Allopurinol 300 mg p.o. daily # DVT prophylaxis - Lovenox 40 mg sc daily Continue current management. Appreciate mica splitter and GI input Start patient on diet today with carb control, cardiac diet. This medical document was created using an electronic medical record system with [employer] direct computerized dictation system. Although this document has been carefully reviewed, there may still be some phonetic and typographical errors. These areas are purely typographical due to imperfections of the software programs, and do not reflect any compromise in the patient's medical care. Plan discussed with: Patient My Orders Orders - FABRICIO CAMACHO MD Procedure Category Date Status Time Transfer Orders XFER 09/05/24 Transmitted 13:03 * [employer] CONS 09/06/24 Transmitted Consult Date of Service: Sep 06, 2024 Billing Provider: FABRICIO CAMACHO MD Common Visit Codes: [id number] INP/OBS CARE(HIGH) FABRICIO CAMACHO MD Sep 06, 2024 11:49
--- NOTE | 2024-09-06 18:57 | DVHPN2 ---
Progress Note - Dictate Date Seen: Sep 06, 2024 Has the PT tested + for MRSA If YES, has PT been informed?: No Medical Necessity Reason Pt with a Central, PICC or Fol: No The following are medically ne: PICC Line (RN) Subjective No new complaints Patient is sleeping comfortably Nausea vomiting and abdominal pain and chest pain improving vital signs Vital Sign Date Time Temp Pulse Resp B/P (MAP) Pulse Ox O2 Delivery O2 Flow Rate FiO2 09/06/24 16:30 97.8 93 18 105/74 (84) 93 97.8 09/06/24 08:30 Nasal Cannula* 2 28 Total Intake and Output 09/05/24 09/05/24 09/06/24 15:00 23:00 07:00 Intake Total 900 ml 900 ml Output Total 250 ml Balance 900 ml 650 ml medications Current Medications Medications Dose Ordered Sig/Agnes Route Start Time Stop Time Status Last Admin Dose Admin Morphine Sulfate 2 mg Q30M PRN IV 09/03/24 05:00 09/03/24 05:15 2 MG Morphine Sulfate 1 mg Q4HPRN PRN IV 09/03/24 05:15 09/06/24 11:46 1 MG Furosemide 40 mg DAILY IV 09/03/24 10:00 09/06/24 11:20 40 MG Aspirin 81 mg DAILY PO 09/03/24 10:00 09/06/24 11:18 81 MG Docusate Sodium 100 mg BID PO 09/03/24 10:00 Hold 09/03/24 08:37 100 MG Sertraline HCl 25 mg DAILY PO 09/03/24 10:00 09/06/24 11:18 25 MG Allopurinol 300 mg DAILY PO 09/03/24 10:00 Hold 09/03/24 08:37 300 MG Atorvastatin Calcium 40 mg HS PO 09/03/24 22:00 09/05/24 21:24 40 MG Polyethylene Glycol 17 gm DAILY PRN PO 09/03/24 05:15 Sodium Chloride 10 ml QSHIFT@10,22 IV 09/03/24 22:00 09/06/24 11:18 10 ML Pantoprazole Sodium 40 mg DAILY IV 09/04/24 10:00 09/06/24 11:17 40 MG Ceftriaxone Sodium 50 ml @ 100 mls/hr DAILY@09 IV 09/04/24 09:00 09/06/24 11:18 100 MLS/HR Metronidazole 100 ml @ 100 mls/hr Q8HR IV 09/03/24 22:00 09/06/24 15:45 100 MLS/HR Enoxaparin Sodium 40 mg DAILY SC 09/04/24 10:00 09/05/24 09:41 40 MG Ondansetron HCl 4 mg Q4HPRN PRN IV 09/03/24 16:15 09/03/24 16:08 4 MG objective General Appearance: Alert, Oriented X3, Cooperative, No acute distress, mild distress, moderate distress, severe distress, Other HEENT: Atraumatic, PERRLA, EOMI, Mucous membr. moist/pink Neck: Supple Lungs: Clear to auscultation, Normal air movement, Other Cardiovascular: Regular rate, Normal S1, Normal S2, No murmurs, Gallops, Rubs, Other Abdomen: Normal bowel sounds, Soft, No tenderness, No hepatospenomegaly, No masses, Other Neuro: Cranial nerves 3-12 NL Psych/Mental Status: Mental status NL laboratory and microbiology Laboratory Tests 09/05/24 05:10 Test 09/05/24 05:10 Range/Units Serum Glucose 88 74-106 mg/dL Problems(with codes): (1) CHF (congestive heart failure) (2) Pulmonary hypertension (3) Acute renal failure (4) History of pulmonary hypertension (5) Near syncope (6) Generalized weakness (7) ACS (acute coronary syndrome) (8) Sigmoid diverticulitis (9) Abnormal finding on GI tract imaging Prognosis Plan Advance diet as tolerated Continue IV antibiotics Stool softeners Pain control Plan for outpatient colonoscopy Follow-up in GI clinic in 2-4 weeks to schedule for elective colonoscopy Plan discussed with: Patient Respiratory Effort: Non-Labored Respiratory Pattern: Regular (RN) GUALBERTO SUTTON MD Sep 06, 2024 18:57
[2024-09-07 01:00] VITALS: BP 118/76; PULSE 81; RESP 18; TEMP 97.8; O2SAT 97
[2024-09-07 05:00] VITALS: BP 133/78; PULSE 98; RESP 16; TEMP 98; O2SAT 92
--- NOTE | 2024-09-07 06:26 | ECG ---
[facility] Test Date: 2024-09-03 Test Time: 01:06:24 Pat Name: AMADEO RECIO Department: [facility] ED Patient ID: [id number] Room: 0294T A Gender: F Case Folder: DIAMOND : 1970 Requested By: SHAKIRA NAILS Order Number: [id number] Reading MD: Carlin Mackenzie Measurements Intervals [place] Rate: 78 P: 58 IN: 162 QRS: 99 QRSD: 109 T: 97 QT: 438 QTc: 499 Interpretive Statements Sinus rhythm Right ventricular hypertrophy Nonspecific T abnrm, anterolateral leads Borderline prolonged QT interval Baseline wander in lead(s) aVR,V1,V2,V3 Electronically Signed On 09-07-2024 11:16:13 PDT by Carlin Mackenzie Please click the below link to view image of tracing.
[2024-09-07 08:30] VITALS: PULSE 87
[2024-09-07 08:40] VITALS: BP 130/71; PULSE 89; RESP 17; TEMP 97.8; O2SAT 95
[2024-09-07 09:55] LABS: Hematocrit 38.4 % (36.0-46.0); Hemoglobin 12.8 g/dL (12.2-16.2); Mean Corpuscular Hemoglobin 30.1 pg (28.0-32.0); Mean Corpuscular Volume 90.4 fL (80.0-100.0); Nucleated Red Blood Cells % 0.1 %
[2024-09-07 10:07] LABS: Chloride 102 mmol/L (98-107); Potassium 3.8 mmol/L (3.5-5.1); Sodium 138 mmol/L (136-145)
[2024-09-07 10:08] LABS: Anion Gap 10 (5-15); Calcium 9.9 mg/dL (8.7-10.4); Carbon Dioxide 26 mmol/L (20-31)
[2024-09-07 10:13] LABS: BUN/Creatinine Ratio 23.1 (10.0-20.0); Glucose 90 mg/dL (74-106)
[2024-09-07 10:15] LABS: Blood Urea Nitrogen 27 mg/dL (9-23)
[2024-09-07 13:00] VITALS: BP 111/64; PULSE 82; RESP 17; TEMP 97.4; O2SAT 93
--- NOTE | 2024-09-07 13:25 | DVHDS2 ---
Discharge Summary Date of Admission Sep 03, 2024 at 05:00 Date of Discharge: Sep 07, 2024 Admitting Diagnosis # Chest pain rule out ACS # possible acute exacerbation of chronic diastolic heart failure # Severe pulmonary hypertension # chronic respiratory failure due to pulmonary hypertension -# polysubstance abuse disorder # Slow transit constipation # History of depression/anxiety # GERD # History of gout Labs/Diagnostic Data: Laboratory Results Test 09/07/24 08:47 09/05/24 05:10 09/04/24 03:30 09/03/24 11:30 White Blood Count 5.5 10^3/uL (4.4-10.8) Red Blood Count 4.24 10^6/uL (4.0-5.20) Hemoglobin 12.8 g/dL (12.2-16.2) Hematocrit 38.4 % (36.0-46.0) Mean Corpuscular Volume 90.4 fL (80.0-100.0) Mean Corpuscular Hemoglobin 30.1 pg (28.0-32.0) Mean Corpuscular Hemoglobin Concent 33.2 g/dL (32.0-36.0) Red Cell Distribution Width 16.0 % (11.8-14.3) Platelet Count 278 10^3/uL (140-450) Mean Platelet Volume 8.3 fL (6.9-10.8) Neutrophils (%) (Auto) 56.8 % (37.0-80.0) Lymphocytes (%) (Auto) 25.8 % (10.0-50.0) Monocytes (%) (Auto) 10.6 % (0.0-12.0) Eosinophils (%) (Auto) 6.1 % (0.0-7.0) Basophils (%) (Auto) 0.7 % (0.0-2.0) Neutrophils # (Auto) 3.1 10 ^3/uL (1.6-8.6) Lymphocytes # (Auto) 1.4 10 ^3/uL (0.4-5.4) Monocytes # (Auto) 0.6 10 ^3/uL (0-1.3) Eosinophils # (Auto) 0.3 10 ^3/uL (0-0.8) Basophils # (Auto) 0 10 ^3/uL (0-0.2) Nucleated Red Blood Cells 0.1 % Sodium Level 138 mmol/L (136-145) Potassium Level 3.8 mmol/L (3.5-5.1) Chloride Level 102 mmol/L (98-107) Carbon Dioxide Level 26 mmol/L (20-31) Anion Gap 10 (5-15) Blood Urea Nitrogen 27 mg/dL (9-23) Creatinine 1.17 mg/dL (0.550-1.02) Glomerular Filtration Rate Calc 57 mL/min (>90) BUN/Creatinine Ratio 23.1 (10.0-20.0) Serum Glucose 90 mg/dL (74-106) Calcium Level 9.9 mg/dL (8.7-10.4) Total Bilirubin 0.5 mg/dL (0.2-1.0) Aspartate Amino Transferase (AST) 21 U/L (13-40) Alanine Aminotransferase (ALT) 13 U/L (7-40) Alkaline Phosphatase 98 U/L (46-116) Total Protein 6.3 g/dL (5.7-8.2) Albumin 4.3 g/dL (3.2-4.8) Magnesium Level 2.0 mg/dL (1.6-2.6) B-Type Natriuretic Peptide 115.00 pg/mL (0-100) Urine Color Light-yellow (Yellow) Urine Clarity Clear (Clear) Urine pH 5.0 (5.0-9.0) Urine Specific [place] 1.008 (1.001-1.035) Urine Protein Negative (Negative) Urine Ketones Negative (Negative) Urine Blood Negative /uL (Negative) Urine Nitrite Negative (Negative) Urine Bilirubin Negative (Negative) Urine Urobilinogen Normal mg/dL (Negative) Urine Leukocyte Esterase Negative /uL (Negative) Urine RBC None seen /hpf (0 - 4) Urine Microscopic WBC < 1 /HPF (0-5) Urine Squamous Epithelial Cells Few /hpf (<5) Urine Bacteria Few /hpf (None Seen) Urine Yeast (Budding) Occasional /hpf (None Urine Glucose Normal mg/dL (Normal) Urine Opiates Screen Neg (NEGATIVE) Urine Fentanyl Screen Neg (NEGATIVE) Urine Barbiturates Screen Neg (NEGATIVE) Urine Phencyclidine Screen Neg (NEGATIVE) Urine Amphetamines Screen Neg (NEGATIVE) Urine Benzodiazepines Screen Neg (NEGATIVE) Urine Cocaine Screen Neg (NEGATIVE) Urine Cannabinoids Screen Neg (NEGATIVE) Test 09/03/24 09:10 09/03/24 08:20 09/03/24 04:16 09/03/24 01:19 Influenza Type A Antigen Negative (Negative) Influenza Type B Antigen Negative (Negative) SARS-CoV-2 Antigen (Rapid) Negative (NEGATIVE) Plasma/Serum Blood Alcohol 6.7 mg/dL (<10) Troponin I High Sensitivity 7 ng/L (</=34) Blood Gas Specimen Type Venous Blood Gas Sample Site Vbg - n/a Blood Gas Patient Temperature 37.0 Arterial Blood Date Drawn [id number] Jose Luis Test N/a Venous Blood pH 7.361 (7.320-7.430) Venous Blood pCO2 at Patient Temp 27.5 mmHg (38.0-54.0) Venous Blood pO2 at Patient Temp 39.2 mmHg (23.0-48.0) Venous Blood HCO3 15.2 mmol/L (22.0-29.0) Venous Bld O2 Saturation (Measured) 72.2 % (60.0-85.0) Venous Blood Base Excess -8.7 mmol/L (-2.0-3.0) Venous Blood Total Hemoglobin 13.2 g/dL (12.0-16.0) Venous Blood Oxyhemoglobin 71.4 % (0.0-79.0) Venous Blood Carboxyhemoglobin 0.6 % (0.5-1.5) Venous Blood Methemoglobin 0.5 % (0.0-1.5) Blood Gas Modality Room air FiO2 % 21.0 Test 09/03/24 01:12 Prothrombin Time 10.2 sec (9.3-11.8) Prothrombin Time INR 0.96 (0.9-1.15) Activated Partial Thromboplast Time 24.8 SEC (24.5-34.5) Lipase 47 U/L (12-53) Other Laboratory Tests 09/07/24 08:47 Brief Hx & Hospital Course: This is a 53 years old female with past medical history hypertension, anxiety, chronic kidney disease, right heart failure, pulmonary hypertension, polysubstance abuse came to emergency department because of shortness for breath and chest pain for 1 hours after an argument with her . Patient apparently use oxygen at home for 4 L but lately had been missing on the oxygen tank. So she did not use oxygen on and off. The patient complained of central chest pain 5/10 not aggravated by any factor on not really relieving by any factor. The patient was admitted. Troponin level three set is negative. Chest x-ray showed no acute process. EKG showed no change. The patient's probable had chest pain due to pulmonary hypertension. The patient had been follow up with a street and building decorator at [place] for her pulmonary hypertension. The patient was seen by GI specialist here because of abdominal pain and diverticulitis. GI recommend continuing IV antibiotic and pain medication for pain control. Outpatient colonoscopy 3-6 months. The patient also seen by math and science instructor's with no further workup per Cardiology recommendation. So today I am discharge the patient home. Advised the patient to follow up with primary care physician 1-2 weeks. Activity as tolerated. Diet per home diet. Physical exam: HEENT: Normocephalic atraumatic pupils equal react to light and accommodation. Extraocular muscles intact, conjunctiva pink, oropharynx moist, no thrush, no exudate. Lymphatic: No lymphadenopathy Cardiovascular exam: S1, S2 was heard. No murmurs, rubs, gallops Lung: Clear on auscultation bilaterally, no wheeze, rale, rhonchi. GI: Abdominal soft, nondistended, nontenderness, positive bowel sounds. Extremity: No crepitus, cyanosis, edema. Pedal pulses present bilateral. Full range of motion. Skin: Normal turgor, no rash. Psych: Alert, oriented x3. Neurology: No focal deficits, cranial nerve II to XII grossly intact. This medical document was created using an electronic medical record system with [employer] direct computerized dictation system. Although this document has been carefully reviewed, there may still be some phonetic and typographical errors. These areas are purely typographical due to imperfections of the software programs, and do not reflect any compromise in the patient's medical care. Condition at Discharge: Stable Final Diagnosis/Problems List # Chest pain doing to pulmonary hypertension. No acute coronary syndrome # possible acute exacerbation of chronic diastolic heart failure # Severe pulmonary hypertension # chronic respiratory failure due to pulmonary hypertension -# polysubstance abuse disorder # Slow transit constipation # History of depression/anxiety # GERD # acute kidney injury improved # History of gout Discharge Disposition: Home Discharge Instruct/Medications Scheduled Albuterol Sulfate (Albuterol Sulfate Hfa), 2 PUFF IN QID PRN, (Reported) Allopurinol (Allopurinol), 1 TAB PO DAILY, (Reported) Aspirin (Aspirin), 81 MG PO DAILY Atorvastatin Calcium (Atorvastatin Calcium), 1 TAB PO QPM Atorvastatin Calcium (Atorvastatin Calcium), 1 TAB PO DAILY, (Reported) Docusate Sodium (Docusate Sodium), 1 CAP PO BID, (Reported) Docusate Sodium (Colace), 1 CAP PO BID Levofloxacin Hemihydrate (Levaquin 500 Mg), 1 TAB PO DAILY Lorazepam (Ativan Tablet), 1 TAB PO Q6HPRN, (Reported) Macitentan (Opsumit), 10 MG PO DAILY, (Reported) Metolazone (Metolazone), 1 TAB PO EOD, (Reported) Metoprolol Succinate (Metoprolol Succinate Er), 1 TAB PO BID, (Reported) Metronidazole (Flagyl), 1 TAB PO TID Midodrine Hcl (Midodrine Hcl), 10 MG PO BID, (Reported) Pantoprazole Sodium Sesquihydr (Protonix), 20 MG PO DAILY, (Reported) Sertraline Hcl (Sertraline Hcl), 25 MG PO DAILY, (Reported) Sildenafil Citrate (Revatio), 20 MG PO TID Torsemide (Torsemide), 1 TAB PO BID, (Reported) Zolpidem Tartrate (Ambien), 1 TAB PO HS PRN, (Reported) Discontinued Medications Amoxicillin & Pot Clavulanate (Augmentin Tablet), 875 MG PO BID Azithromycin (Azithromycin), 250 MG PO DAILY Prednisone (Prednisone), 20 MG PO BID Discharge Statement: "Patient was advised to return to the ER or call 911 if any headaches, dizziness, shortness of breath, chest pain, abdominal pain, bleeding, fevers, or worsening of medical condition. Patient was counseled about treatment plan, medications, possible side effects, patientverbalized understanding. All questions were answered to the best of my ability. This discharge took greater then 30 minutes in planning, reviewing documentation, counseling the patient, and discussing with other team members." ASSESSMENT ASSESSMENT Assessment Date of Service: Sep 07, 2024 Billing Provider: FABRICIO CAMACHO MD Common Visit Codes: 86614-YQC/[id number] DISCH DAY >30min FABRICIO CAMACHO MD Sep 07, 2024 13:25
[2024-09-07] MEDS ORDERED: METR-344 PO (13:26)
[2024-09-07] MEDS ORDERED: LEVO500T91 PO (13:26)
[2024-09-07] MEDS ORDERED: DOCU-94 PO (13:26)
--- NOTE | 2024-09-07 13:28 | DVHDS2 ---
Discharge Summary Date of Admission Sep 03, 2024 at 05:00 Date of Discharge: Sep 07, 2024 Labs/Diagnostic Data: Laboratory Results Test 09/07/24 08:47 09/05/24 05:10 09/04/24 03:30 09/03/24 11:30 White Blood Count 5.5 10^3/uL (4.4-10.8) Red Blood Count 4.24 10^6/uL (4.0-5.20) Hemoglobin 12.8 g/dL (12.2-16.2) Hematocrit 38.4 % (36.0-46.0) Mean Corpuscular Volume 90.4 fL (80.0-100.0) Mean Corpuscular Hemoglobin 30.1 pg (28.0-32.0) Mean Corpuscular Hemoglobin Concent 33.2 g/dL (32.0-36.0) Red Cell Distribution Width 16.0 % (11.8-14.3) Platelet Count 278 10^3/uL (140-450) Mean Platelet Volume 8.3 fL (6.9-10.8) Neutrophils (%) (Auto) 56.8 % (37.0-80.0) Lymphocytes (%) (Auto) 25.8 % (10.0-50.0) Monocytes (%) (Auto) 10.6 % (0.0-12.0) Eosinophils (%) (Auto) 6.1 % (0.0-7.0) Basophils (%) (Auto) 0.7 % (0.0-2.0) Neutrophils # (Auto) 3.1 10 ^3/uL (1.6-8.6) Lymphocytes # (Auto) 1.4 10 ^3/uL (0.4-5.4) Monocytes # (Auto) 0.6 10 ^3/uL (0-1.3) Eosinophils # (Auto) 0.3 10 ^3/uL (0-0.8) Basophils # (Auto) 0 10 ^3/uL (0-0.2) Nucleated Red Blood Cells 0.1 % Sodium Level 138 mmol/L (136-145) Potassium Level 3.8 mmol/L (3.5-5.1) Chloride Level 102 mmol/L (98-107) Carbon Dioxide Level 26 mmol/L (20-31) Anion Gap 10 (5-15) Blood Urea Nitrogen 27 mg/dL (9-23) Creatinine 1.17 mg/dL (0.550-1.02) Glomerular Filtration Rate Calc 57 mL/min (>90) BUN/Creatinine Ratio 23.1 (10.0-20.0) Serum Glucose 90 mg/dL (74-106) Calcium Level 9.9 mg/dL (8.7-10.4) Total Bilirubin 0.5 mg/dL (0.2-1.0) Aspartate Amino Transferase (AST) 21 U/L (13-40) Alanine Aminotransferase (ALT) 13 U/L (7-40) Alkaline Phosphatase 98 U/L (46-116) Total Protein 6.3 g/dL (5.7-8.2) Albumin 4.3 g/dL (3.2-4.8) Magnesium Level 2.0 mg/dL (1.6-2.6) B-Type Natriuretic Peptide 115.00 pg/mL (0-100) Urine Color Light-yellow (Yellow) Urine Clarity Clear (Clear) Urine pH 5.0 (5.0-9.0) Urine Specific [place] 1.008 (1.001-1.035) Urine Protein Negative (Negative) Urine Ketones Negative (Negative) Urine Blood Negative /uL (Negative) Urine Nitrite Negative (Negative) Urine Bilirubin Negative (Negative) Urine Urobilinogen Normal mg/dL (Negative) Urine Leukocyte Esterase Negative /uL (Negative) Urine RBC None seen /hpf (0 - 4) Urine Microscopic WBC < 1 /HPF (0-5) Urine Squamous Epithelial Cells Few /hpf (<5) Urine Bacteria Few /hpf (None Seen) Urine Yeast (Budding) Occasional /hpf (None Urine Glucose Normal mg/dL (Normal) Urine Opiates Screen Neg (NEGATIVE) Urine Fentanyl Screen Neg (NEGATIVE) Urine Barbiturates Screen Neg (NEGATIVE) Urine Phencyclidine Screen Neg (NEGATIVE) Urine Amphetamines Screen Neg (NEGATIVE) Urine Benzodiazepines Screen Neg (NEGATIVE) Urine Cocaine Screen Neg (NEGATIVE) Urine Cannabinoids Screen Neg (NEGATIVE) Test 09/03/24 09:10 09/03/24 08:20 09/03/24 04:16 09/03/24 01:19 Influenza Type A Antigen Negative (Negative) Influenza Type B Antigen Negative (Negative) SARS-CoV-2 Antigen (Rapid) Negative (NEGATIVE) Plasma/Serum Blood Alcohol 6.7 mg/dL (<10) Troponin I High Sensitivity 7 ng/L (</=34) Blood Gas Specimen Type Venous Blood Gas Sample Site Vbg - n/a Blood Gas Patient Temperature 37.0 Arterial Blood Date Drawn [id number] Jose Luis Test N/a Venous Blood pH 7.361 (7.320-7.430) Venous Blood pCO2 at Patient Temp 27.5 mmHg (38.0-54.0) Venous Blood pO2 at Patient Temp 39.2 mmHg (23.0-48.0) Venous Blood HCO3 15.2 mmol/L (22.0-29.0) Venous Bld O2 Saturation (Measured) 72.2 % (60.0-85.0) Venous Blood Base Excess -8.7 mmol/L (-2.0-3.0) Venous Blood Total Hemoglobin 13.2 g/dL (12.0-16.0) Venous Blood Oxyhemoglobin 71.4 % (0.0-79.0) Venous Blood Carboxyhemoglobin 0.6 % (0.5-1.5) Venous Blood Methemoglobin 0.5 % (0.0-1.5) Blood Gas Modality Room air FiO2 % 21.0 Test 09/03/24 01:12 Prothrombin Time 10.2 sec (9.3-11.8) Prothrombin Time INR 0.96 (0.9-1.15) Activated Partial Thromboplast Time 24.8 SEC (24.5-34.5) Lipase 47 U/L (12-53) Other Laboratory Tests 09/07/24 08:47 Final Diagnosis/Problems List chf exacerbation abdominal pain Discharge Disposition: Home Discharge Instruct/Medications Diet: Cardiac 2g Na,low cholest Activity: No Restrictions, As Tolerated Follow Up/Referral: pcp 1-2 weeks GI, dr Villarreal 2-4 weeks for outpatient colonoscopy Medications: see med list Scheduled Albuterol Sulfate (Albuterol Sulfate Hfa), 2 PUFF IN QID PRN, (Reported) Allopurinol (Allopurinol), 1 TAB PO DAILY, (Reported) Aspirin (Aspirin), 81 MG PO DAILY Atorvastatin Calcium (Atorvastatin Calcium), 1 TAB PO QPM Atorvastatin Calcium (Atorvastatin Calcium), 1 TAB PO DAILY, (Reported) Docusate Sodium (Docusate Sodium), 1 CAP PO BID, (Reported) Docusate Sodium (Colace), 1 CAP PO BID Levofloxacin Hemihydrate (Levaquin 500 Mg), 1 TAB PO DAILY Lorazepam (Ativan Tablet), 1 TAB PO Q6HPRN, (Reported) Macitentan (Opsumit), 10 MG PO DAILY, (Reported) Metolazone (Metolazone), 1 TAB PO EOD, (Reported) Metoprolol Succinate (Metoprolol Succinate Er), 1 TAB PO BID, (Reported) Metronidazole (Flagyl), 1 TAB PO TID Midodrine Hcl (Midodrine Hcl), 10 MG PO BID, (Reported) Pantoprazole Sodium Sesquihydr (Protonix), 20 MG PO DAILY, (Reported) Sertraline Hcl (Sertraline Hcl), 25 MG PO DAILY, (Reported) Sildenafil Citrate (Revatio), 20 MG PO TID Torsemide (Torsemide), 1 TAB PO BID, (Reported) Zolpidem Tartrate (Ambien), 1 TAB PO HS PRN, (Reported) Discontinued Medications Amoxicillin & Pot Clavulanate (Augmentin Tablet), 875 MG PO BID Azithromycin (Azithromycin), 250 MG PO DAILY Prednisone (Prednisone), 20 MG PO BID Discharge Statement: "Patient was advised to return to the ER or call 911 if any headaches, dizziness, shortness of breath, chest pain, abdominal pain, bleeding, fevers, or worsening of medical condition. Patient was counseled about treatment plan, medications, possible side effects, patientverbalized understanding. All questions were answered to the best of my ability. This discharge took greater then 30 minutes in planning, reviewing documentation, counseling the patient, and discussing with other team members." ASSESSMENT ASSESSMENT Assessment chf exacerbation abdominal pain FABRICIO CAMACHO MD Sep 07, 2024 13:28
[2024-09-07 17:00] VITALS: BP 135/77; PULSE 95; RESP 17; TEMP 98.1; O2SAT 90
--- NOTE | 2024-09-07 20:40 | DVHPN2 ---
Progress Note - Dictate Date Seen: Sep 07, 2024 (Late entryPatient seen at 10:00 a.m.) Has the PT tested + for MRSA If YES, has PT been informed?: No Medical Necessity Reason Pt with a Central, PICC or Fol: No The following are medically ne: PICC Line (RN) Subjective No new complaints Patient is resting comfortably Patient is tolerating a diet Nausea vomiting and abdominal pain and chest pain improving vital signs Vital Sign Date Time Temp Pulse Resp B/P (MAP) Pulse Ox O2 Delivery O2 Flow Rate FiO2 09/07/24 17:00 98.1 95 17 135/77 (96) 90 98.1 09/07/24 08:30 Nasal Cannula* 2 28 Total Intake and Output 09/06/24 09/06/24 09/07/24 15:00 23:00 07:00 Intake Total 1140 ml 500 ml Output Total 1100 ml 400 ml Balance 40 ml 100 ml objective General Appearance: Alert, Oriented X3, Cooperative, No acute distress, mild distress, moderate distress, severe distress, Other HEENT: Atraumatic, PERRLA, EOMI, Mucous membr. moist/pink Neck: Supple Lungs: Clear to auscultation, Normal air movement, Other Cardiovascular: Regular rate, Normal S1, Normal S2, No murmurs, Gallops, Rubs, Other Abdomen: Normal bowel sounds, Soft, No tenderness, No hepatospenomegaly, No masses, Other Neuro: Cranial nerves 3-12 NL Psych/Mental Status: Mental status NL laboratory and microbiology Laboratory Tests 09/07/24 08:47 Test 09/07/24 08:47 Range/Units Serum Glucose 90 74-106 mg/dL Problems(with codes): (1) Abnormal finding on GI tract imaging (2) Sigmoid diverticulitis (3) Near syncope (4) Generalized weakness Prognosis Plan Advance diet as tolerated Stool softeners Outpatient follow up with me in 4-6 weeks to discuss elective panendoscopy once medically stabilized and cardiac cleared Discharge planning is in progress Plan discussed with: Patient Respiratory Effort: Non-Labored Respiratory Pattern: Regular (RN) GUALBERTO SUTTON MD Sep 07, 2024 20:40
== END 2024-09-07 18:25 | disposition home or self-care (01) | DRG 194 ==
LOC: ER 01:01 → EEVIPCON 05:00 → OVERFLOW 05:00 → TELE-WESTW 09-05 17:40
PROVIDERS: ADMIT Internal Medicine; ATTEND Internal Medicine
PROC: 02H633Z Insertion of Infusion Device into Right Atrium, Percutaneous Approach (ICD-10-PCS; principal; 2024-09-03)
PROC: B548ZZA Ultrasonography of Superior Vena Cava, Guidance (ICD-10-PCS; 2024-09-03)
DX: I13.0 Hypertensive heart and chronic kidney disease with heart failure and stage 1 through stage 4 chronic kidney disease, or unspecified chronic kidney disease (principal); N17.0 Acute kidney failure with tubular necrosis; I95.9 Hypotension, unspecified; I27.21 Secondary pulmonary arterial hypertension; J96.11 Chronic respiratory failure with hypoxia; K74.60 Unspecified cirrhosis of liver; I50.33 Acute on chronic diastolic (congestive) heart failure; F19.10 Other psychoactive substance abuse, uncomplicated; N18.9 Chronic kidney disease, unspecified; F15.10 Other stimulant abuse, uncomplicated; K21.9 Gastro-esophageal reflux disease without esophagitis; K57.32 Diverticulitis of large intestine without perforation or abscess without bleeding; Z20.822 Contact with and (suspected) exposure to COVID-19; F41.9 Anxiety disorder, unspecified; K59.01 Slow transit constipation; F17.210 Nicotine dependence, cigarettes, uncomplicated; M54.9 Dorsalgia, unspecified; Z80.3 Family history of malignant neoplasm of breast
CPT/HCPCS: 36415; 36569; 36600; 71045; 74176; 80048; 80053; 80307; 80320; 81001; 82805; 83690; 83735; 83880; 84484; 85025; 85610; 85730; 87081; 87426; 87804; 93005; G0378; J2405; J2470; J3490

== ENCOUNTER 2024-12-06 23:28 | Inpatient (IN) | payer MEDICAID ==
[~2024-12-06] VITALS: Ht 167.6 cm; Wt 93.3 kg
[~2024-12-06 23:28] MED LIST changes: -AUG875T PO; -AZIT-43 PO; +DOCU-94 PO; +LEVO500T91 PO; +METR-344 PO; -PRED20TA2 PO
[2024-12-07] VITALS (12 sets, daily range): BP systolic 93–119; BP diastolic 45–68; PULSE 47–63; RESP 16–21; TEMP 97.5–97.8; O2SAT 96–100
[2024-12-07 02:19] LABS: Hematocrit 34.6 % (36.0-46.0); Hemoglobin 10.8 g/dL (12.2-16.2); Mean Corpuscular Hemoglobin 25.3 pg (28.0-32.0); Mean Corpuscular Volume 80.9 fL (80.0-100.0); Nucleated Red Blood Cells % 0.1 %
--- NOTE | 2024-12-07 02:25 | DVH ---
CHEST RADIOGRAPH Indication: sob Technique: Single frontal view of the chest was obtained COMPARISON: XY CHEST PORTABLE on DOS: 11/18/24, XY CHEST PORTABLE on DOS: 09/04/24, XY CHEST PORTABLE on DOS: 09/03/24, XY CHEST PORTABLE on DOS: 09/03/24, XY CHEST XRAY 1 VIEW on DOS: 08/13/24 FINDINGS: Lines and Tubes: None Lungs: Clear Pleura: No effusion. No pneumothorax. Cardiomediastinal contours: Cardiomegaly. Bones: Unremarkable IMPRESSION: 1. Cardiomegaly.
[2024-12-07 02:33] LABS: Potassium 4.8 mmol/L (3.5-5.1); Sodium 143 mmol/L (136-145)
[2024-12-07 02:34] LABS: Anion Gap 13 (5-15); Calcium 9.0 mg/dL (8.7-10.4)
[2024-12-07 02:36] LABS: Carbon Dioxide 19 mmol/L (20-31); Chloride 111 mmol/L (98-107)
[2024-12-07 02:39] LABS: BUN/Creatinine Ratio 15.0 (10.0-20.0); Glucose 74 mg/dL (74-106)
[2024-12-07 02:44] LABS: Blood Urea Nitrogen 25 mg/dL (9-23)
--- NOTE | 2024-12-07 02:47 | ED.PDOC ---
HPI Comments 53-year-old female complaining of shortness of breath that started yesterday. Patient reports a history of CHF. Says she has been noticing increasing lower leg swelling, she has been taking Lasix 40 mg daily but feels it as though not helping. He says she has been hospitalized for CHF exacerbation recently and does feel very similar. Patient denies any chest pain. States she gets extreme shortness of breath with minimal exertion. No coughing no nausea no vomiting no diarrhea. Nothing makes it better, walking makes it worse. Chief Complaint: Shortness of Breath Time Seen by MD: 00:16 Primary Care Provider: RAUL Reviewed Notes: Nurses Notes Allergies: Coded Allergies: NO KNOWN ALLERGIES (Unverified , 12/20/18) Home Meds Active Scripts Docusate Sodium (Colace) 100 Mg Cap, 1 CAP PO BID, #60 CAP 2 Refills Prov:FABRICIO CAMACHO MD 09/07/24 Metronidazole (Flagyl) 500 Mg Tab, 1 TAB PO TID, #21 TAB Prov:FABRICIO CAMACHO MD 09/07/24 Levofloxacin Hemihydrate (LEVAQUIN 500 MG) 500 Mg Tab, 1 TAB PO DAILY, #7 TAB Prov:FABRICIO CAMACHO MD 09/07/24 Atorvastatin Calcium (ATORVASTATIN CALCIUM) 40 Mg Tab, 1 TAB PO QPM for 30 Days, #30 TAB 3 Refills Prov:ANNA DUARTE RESIDENT 02/04/24 Aspirin (Aspirin) 81 Mg Tab, 81 MG PO DAILY for 30 Days, #30 TAB Prov:ANNA DUARTE RESIDENT 02/04/24 Sildenafil Citrate (Revatio) 20 Mg Tab, 20 MG PO TID for 30 Days, #90 TAB 11 Refills Prov:GEMINI CARTY DO 02/07/23 Reported Medications Midodrine Hcl (Midodrine Hcl) 10 Mg Tab, 10 MG PO BID, TAB 08/14/24 Lorazepam (ATIVAN TABLET) 0.5 Mg Tb, 1 TAB PO Q6HPRN, #90 TAB 04/26/24 Atorvastatin Calcium (ATORVASTATIN CALCIUM) 40 Mg Tab, 1 TAB PO DAILY, #30 TAB 5 Refills 04/26/24 Sertraline Hcl (Sertraline Hcl) 50 Mg Tab, 25 MG PO DAILY for 90 Days, #90 MG 02/03/24 Docusate Sodium (Docusate Sodium) 100 Mg Cap, 1 CAP PO BID for 30 Days, #60 02/03/24 Pantoprazole Sodium Sesquihydr (Protonix) 40 Mg Tab, 20 MG PO DAILY for 30 Days, #30 02/03/24 Albuterol Sulfate (Albuterol Sulfate Hfa) 108 Mcg/Act Aer, 2 PUFF IN QID PRN for 25 Days, #18 11/17/23 Torsemide (Torsemide) 20 Mg Tab, 1 TAB PO BID for 30 Days, #60 11/17/23 Zolpidem Tartrate (Ambien) 10 Mg Tab, 1 TAB PO HS PRN for 10 Days, #10 11/17/23 Allopurinol (Allopurinol) 300 Mg Tab, 1 TAB PO DAILY for 30 Days, #30 05/09/23 Metoprolol Succinate (Metoprolol Succinate Er) 25 Mg Tab, 1 TAB PO BID for 90 Days, #180 05/09/23 Metolazone (Metolazone) 2.5 Mg Tab, 1 TAB PO EOD for 60 Days, #30 05/07/23 Macitentan (Opsumit) 10 Mg Tab, 10 MG PO DAILY, TAB 09/28/22 Information Source: Patient Mode of Arrival: Ambulatory Past Medical History PAST MEDICAL HISTORY: Anxiety, CHF, CKF, GERD, Gout, Liver Surgical History: Denies all surgeries 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 Family History Family History: Family hx of Cancer Social History Smoker: Cigarettes Alcohol: Rarely Drugs: Methamphetamine Lives In: Home Constitutional: denies: chills, diaphoresis, fatigue, fever, malaise, sweats, weakness, others EENTM: denies: blurred vision, double vision, ear bleeding, ear discharge, ear drainage, ear pain, ear ringing, eye pain, eye redness, hearing loss, mouth pain, mouth swelling, nasal discharge, nose bleeding, nose congestion, nose pain, photophobia, tearing, throat pain, throat swelling, voice changes, others Respiratory: reports: SOB at rest, SOB with excertion; denies: cough, hemoptysis, orthopnea, shortness of breath, stridor, wheezing, others Cardiovascular: reports: edema; denies: chest pain, dizzy spells, diaphoresis, Dyspnea on exertion, irregular heart beat, left arm pain, lightheadedness, palpitations, PND, syncope, others Gastrointestinal: denies: abdomen distended, abdominal pain, blood streaked bowels, constipated, diarrhea, dysphagia, difficulty swallowing, hematemesis, melena, nausea, poor appetite, poor fluid intake, rectal bleeding, rectal pain, vomiting, others Genitourinary: denies: abnormal vagina bleeding, burning, dyspareunia, dysuria, flank pain, frequency, hematuria, incontinence, pain, , vagina discharge, urgency, others Neurological: denies: dizziness, fainting, headache, left sided numbness, left sided weakness, numbness, paresthesia, pre-existing deficit, right sided numbness, right sided weakness, seizure, speech problems, tingling, tremors, weakness, others Musculoskeletal: denies: back pain, gout, joint pain, joint swelling, muscle pain, muscle stiffness, neck pain, others Integumetry: denies: bruises, change in color, change in hair/nails, dryness, laceration, lesions, lumps, rash, wounds, others Allergic/Immunocompromised: denies: Difficulty Healing, Frequent Infections, Hives, Itching, others Physical Exam General Appearance: Moderate Distress, No Apparent Distress, Normal HEENT: Normal ENT Inspection, Pharynx Normal, TMs Normal Neck: Full Range of Motion, Non-Tender, Normal, Normal Inspection Respiratory: Chest Non-Tender, Decreased Breath Sounds, No Accessory Muscle Use, No Respiratory Distress Cardiovascular: No JVD, No Murmur, No Gallop, Normal Peripheral Pulses, Regular Rate/Rhythm Breast Exam: Deferred Gastrointestinal: No Organomegaly, Non Tender, No Pulsatile Mass, Normal Bowel Sounds, Soft Genitalia: Deferred Pelvic: Deferred Rectal: Deferred Extremities: No calf tenderness, Normal capillary refill, Pedal edema (Bilateral 3+ pitting edema in lower extremities) Musculoskeletal : Apperance: Normal Neurologic: Alert, senior gl accountant II-XII nml as Tested, No Motor Deficits, Normal Affect, Normal Mood, No Sensory Deficits Cerebellar Function: Normal Reflexes: Normal Skin: Dry, Normal Color, Warm Lymphatic: No Adenopathy Was a procedure done? Was a procedure done?: No CP Differential Dx Differential Diagnosis: Atrial Dysrhythmia, Heart Failure, Hypoxia, RI Differential Diagnosis: CHF, HTN Essential X-Ray, Labs, Meds, VS Vital Signs Date Time Temp Pulse Resp B/P (MAP) Pulse Ox O2 Delivery O2 Flow Rate FiO2 12/07/24 03:45 63 18 99/51 (67) 97 12/06/24 23:44 68 12/06/24 23:30 97.5 66 24 113/36 95 97.5 Lab Test 12/07/24 03:08 12/06/24 23:43 Range/Units Urine Color Pending Urine Clarity Pending Urine pH Pending Urine Specific [place] Pending Urine Protein Pending Urine Ketones Pending Urine Blood Pending Urine Nitrite Pending Urine Bilirubin Pending Urine Urobilinogen Pending Urine Leukocyte Esterase Pending Urine RBC Pending Urine Microscopic WBC Pending Urine Squamous Epithelial Cells Pending Urine Bacteria Pending Urine Glucose Pending White Blood Count 8.1 4.4-10.8 10^3/uL Red Blood Count 4.28 4.0-5.20 10^6/uL Hemoglobin 10.8 L 12.2-16.2 g/dL Hematocrit 34.6 L 36.0-46.0 % Mean Corpuscular Volume 80.9 80.0-100.0 fL Mean Corpuscular Hemoglobin 25.3 L 28.0-32.0 pg Mean Corpuscular Hemoglobin Concent 31.3 L 32.0-36.0 g/dL Red Cell Distribution Width 19.0 H 11.8-14.3 % Platelet Count 393 140-450 10^3/uL Mean Platelet Volume 7.8 6.9-10.8 fL Neutrophils (%) (Auto) 56.5 37.0-80.0 % Lymphocytes (%) (Auto) 31.8 10.0-50.0 % Monocytes (%) (Auto) 9.6 0.0-12.0 % Eosinophils (%) (Auto) 1.6 0.0-7.0 % Basophils (%) (Auto) 0.5 0.0-2.0 % Neutrophils # (Auto) 4.6 1.6-8.6 10 ^3/uL Lymphocytes # (Auto) 2.6 0.4-5.4 10 ^3/uL Monocytes # (Auto) 0.8 0-1.3 10 ^3/uL Eosinophils # (Auto) 0.1 0-0.8 10 ^3/uL Basophils # (Auto) 0 0-0.2 10 ^3/uL Nucleated Red Blood Cells 0.1 % Sodium Level 143 136-145 mmol/L Potassium Level 4.8 3.5-5.1 mmol/L Chloride Level 111 H 98-107 mmol/L Carbon Dioxide Level 19 L 20-31 mmol/L Anion Gap 13 5-15 Blood Urea Nitrogen 25 H 9-23 mg/dL Creatinine 1.67 H 0.550-1.02 mg/dL Glomerular Filtration Rate Calc 37 >90 mL/min BUN/Creatinine Ratio 15.0 10.0-20.0 Serum Glucose 74 74-106 mg/dL Calcium Level 9.0 8.7-10.4 mg/dL Troponin I High Sensitivity 7 </=34 ng/L B-Type Natriuretic Peptide 532.04 0-100 pg/mL Assigned to Dr. Castillo Change of Shift?: Yes SEPSIS Sepsis Screen Date sepsis recognized/suspect: Dec 06, 2024 Time Sepsis recognized/suspect: 2335 Recent Procedure: No On Antibiotic Therapy: No Respiratory Rate >20: No Heart Rate >90: No Temp<36 C (96.8 F) or >38.3 C: No SBP <90 or MAP <65 mmHG: No New Acute Mental Status Change: No Is the patient on CPAP, BIPAP,: No Physician Orders Electrocardigram (12/07/24 00:43) Electrocardigram (12/07/24 01:43) Electrocardigram (12/07/24 03:43) Urinalysis (12/07/24 01:57) Chest Xray 1 View (12/07/24 01:57) Furosemide Injection (Lasix Injection) (12/07/24 04:15) Vital Signs Date Time Temp Pulse Resp B/P (MAP) Pulse Ox O2 Delivery O2 Flow Rate FiO2 12/07/24 03:45 63 18 99/51 (67) 97 12/06/24 23:44 68 12/06/24 23:30 97.5 66 24 113/36 95 97.5 Laboratory Tests Test 12/06/24 23:43 White Blood Count 8.1 10^3/uL (4.4-10.8) Departure 1 Departure Time of Disposition: 02:46 Impression: Primary Impression: CHF exacerbation Disposition: 09 ADMITTED INPATIENT Condition: Stable Critical Care Note Critical Care Time?: No Stability Stability form required: No Heart Score Heart Score: Heart Score Response (Comments) Value History N/A 0 EKG N/A 0 Age N/A 0 Risk Factors N/A 0 Troponin N/A 0 Total 0 REJI MARCUS Dec 07, 2024 02:47 RON CASTILLO MD Dec 07, 2024 04:11
[2024-12-07] MEDS: FUROSEMIDE 40 MG/4 ML VIAL IV ONE ×2 (04:15→15:30)
[2024-12-07 04:28] LABS: Urine Protein, UAD 3+ (Negative)
[2024-12-07] MEDS ORDERED: ACETAMINOPHEN 325 MG TAB PO PRN (04:30)
[2024-12-07] MEDS ORDERED: ALBUTEROL SULF 2.5 MG/0.5ML(0.5%) NEB SOLN NEB PRN (04:30)
[2024-12-07] MEDS ORDERED: NITROGLYCERIN 0.4 MG SL TAB SL PRN (04:30)
--- NOTE | 2024-12-07 04:31 | DVHHP2 ---
History of Present Illness Reason for Visit: Shortness for breath History of Present Illness 53-year-old female presents for evaluation of shortness for breath. She reports a two day history of worsening shortness for breath with associated chest pressure and bilateral lower extremity swelling. Patient reports being compliant with her medications. Denies cough or fever. No other acute complaints reported. Past Medical History Pulmonary hypertension, liver disease, GERD, chronic kidney disease, congestive heart failure, hypertension Past Surgical History Denies Family History Noncontributory Smoke: <1 pack per day ALCOHOL: occassional Drugs: Other (Methamphetamine) Lives: with Family Review of Systems Review of Systems Review of systems are currently negative otherwise addressed in HPI. Allergies: Coded Allergies: NO KNOWN ALLERGIES (Unverified , 12/20/18) Exam Vital Signs Vital Signs Date Time Temp Pulse Resp B/P (MAP) Pulse Ox O2 Delivery O2 Flow Rate FiO2 12/07/24 03:45 63 18 99/51 (67) 97 12/06/24 23:30 97.5 97.5 Exam Gen: 53-year-old female in mild distress Skin: Warm, dry, normal color and texture, no rash. HEENT: Normocephalic atraumatic, mucous membranes moist and pink. Neck: Cervical and supraclavicular nodes normal without enlargement, trachea is midline, thyroid gland is normal without masses. Pulmonary: Clear to auscultation and percussion bilaterally. Cardiac: Regular rate and rhythm. No murmur Abdomen: Soft, nontender, nondistended, bowel sounds present all 4 quadrants, no guarding, no rigidity, no organomegaly. Extremities: No cyanosis, clubbing, plus two bilateral lower extremity edema Neuro: Cranial nerves II through XII grossly intact, normal affect and speech, no focal motor deficits. Labs/Xrays ORDERING PHYSICIAN: LOLIS BAKER RESIDENT PROCEDURE(s): ECIDC - ECHO 2D MODE CARDIAC DOP REASON: Repeat: For RHF given PTH and RVSP 60 ORDER NUMBER(s): [id number], ACCESSION NUMBER(s): [id number] APPROVED REPORT EXAM: LIMITED Two-dimensional and M-mode echocardiogram with Doppler and color Doppler. Blood Pressure: 107/41 mmHg INDICATION Repeat: fo RHF given PTH and RVSP 60 RISK FACTORS Obesity: Height: 5'6", Weight: 215 DIMENSIONS LVDd 5.1 (3.8-5.7cm) LA (2D) (1.9-4.0cm) Aortic Root (2.0-3.7cm) LVDs 3.4 (2.5-4.0cm) LA (MM) (1.9-4.0cm) Aortic Cusp Exc (1.5- 2.0cm) EF (%) 62.0 (55-70%) Rt. Atrium 5.7 (1.9-4.0cm) Asc. Aorta cm IVSd 1.0 (0.7-1.1cm) RV (D) (1.8-2.4cm) PWd 1.0 (0.7-1.1cm) Mitral Valve Mitral Mitral Stenosis E/A ratio 0.0 2D MVA cm2 Tricuspid Valve TR Velocity 4.01m/s RVSP 67mmHg Other Information Quality : Technically Limited Rhythm : Technically limited study due to Repeat to eval RVSP. Conclusion lvef 65% grade 1 diastolic dysfunction RV moderately enlarged, normal function moderate tricuspdi regurg right atrium enlarged Right sided HF noted no severe valve abnormalities noted ORDERING PHYSICIAN: REJI MARCUS PROCEDURE(s): CXR1 - CHEST XRAY 1 VIEW REASON: sob ORDER NUMBER(s): [id number], ACCESSION NUMBER(s): [id number] CHEST RADIOGRAPH Indication: sob Technique: Single frontal view of the chest was obtained COMPARISON: XY CHEST PORTABLE on DOS: 11/18/24, XY CHEST PORTABLE on DOS: 09/04/24, XY CHEST PORTABLE on DOS: 09/03/24, XY CHEST PORTABLE on DOS: 09/03/24, XY CHEST XRAY 1 VIEW on DOS: 08/13/24 FINDINGS: Lines and Tubes: None Lungs: Clear Pleura: No effusion. No pneumothorax. Cardiomediastinal contours: Cardiomegaly. Bones: Unremarkable IMPRESSION: 1. Cardiomegaly. Labs Test 12/07/24 03:08 12/06/24 23:43 Range/Units White Blood Count 8.1 4.4-10.8 10^3/uL Red Blood Count 4.28 4.0-5.20 10^6/uL Hemoglobin 10.8 L 12.2-16.2 g/dL Hematocrit 34.6 L 36.0-46.0 % Mean Corpuscular Volume 80.9 80.0-100.0 fL Mean Corpuscular Hemoglobin 25.3 L 28.0-32.0 pg Mean Corpuscular Hemoglobin Concent 31.3 L 32.0-36.0 g/dL Red Cell Distribution Width 19.0 H 11.8-14.3 % Platelet Count 393 140-450 10^3/uL Mean Platelet Volume 7.8 6.9-10.8 fL Neutrophils (%) (Auto) 56.5 37.0-80.0 % Lymphocytes (%) (Auto) 31.8 10.0-50.0 % Monocytes (%) (Auto) 9.6 0.0-12.0 % Eosinophils (%) (Auto) 1.6 0.0-7.0 % Basophils (%) (Auto) 0.5 0.0-2.0 % Neutrophils # (Auto) 4.6 1.6-8.6 10 ^3/uL Lymphocytes # (Auto) 2.6 0.4-5.4 10 ^3/uL Monocytes # (Auto) 0.8 0-1.3 10 ^3/uL Eosinophils # (Auto) 0.1 0-0.8 10 ^3/uL Basophils # (Auto) 0 0-0.2 10 ^3/uL Nucleated Red Blood Cells 0.1 % Sodium Level 143 136-145 mmol/L Potassium Level 4.8 3.5-5.1 mmol/L Chloride Level 111 H 98-107 mmol/L Carbon Dioxide Level 19 L 20-31 mmol/L Anion Gap 13 5-15 Blood Urea Nitrogen 25 H 9-23 mg/dL Creatinine 1.67 H 0.550-1.02 mg/dL Glomerular Filtration Rate Calc 37 >90 mL/min BUN/Creatinine Ratio 15.0 10.0-20.0 Serum Glucose 74 74-106 mg/dL Calcium Level 9.0 8.7-10.4 mg/dL Troponin I High Sensitivity 7 </=34 ng/L B-Type Natriuretic Peptide 532.04 0-100 pg/mL SEPSIS Sepsis Screen Date sepsis recognized/suspect: Dec 06, 2024 Time Sepsis recognized/suspect: 2336 Recent Procedure: No On Antibiotic Therapy: No Respiratory Rate >20: No Heart Rate >90: No Temp<36 C (96.8 F) or >38.3 C: No SBP <90 or MAP <65 mmHG: No New Acute Mental Status Change: No Is the patient on CPAP, BIPAP,: No Physician Orders Electrocardigram (12/07/24 00:43) Electrocardigram (12/07/24 01:43) Electrocardigram (12/07/24 03:43) Urinalysis (12/07/24 01:57) Chest Xray 1 View (12/07/24 01:57) Vital Signs Date Time Temp Pulse Resp B/P (MAP) Pulse Ox O2 Delivery O2 Flow Rate FiO2 12/07/24 03:45 63 18 99/51 (67) 97 12/06/24 23:44 68 12/06/24 23:30 97.5 66 24 113/36 95 97.5 Laboratory Tests Test 12/06/24 23:43 White Blood Count 8.1 10^3/uL (4.4-10.8) Assessment/Plan Assessment/Plan Assessment Acute on chronic congestive heart failure Pulmonary hypertension Chronic kidney disease Plan Admit the patient to telemetry to the hospitalist JOSE ANGEL Miller Resume home medications Continue treatment per orders. Plan discussed with: Patient Date of Service: Dec 07, 2024 Billing Provider: HINA CALDERON Common Visit Codes: [id number] INP/OBS CARE (HIGH) HINA CALDERON Dec 07, 2024 04:30
[2024-12-07] MEDS: MORPHINE SULFATE INJ 2 MG/ml SYRG IV PRN (05:46)
[2024-12-07] MEDS: FUROSEMIDE 20 MG/2 ML VIAL IV SCH ×2 (06:00→18:17)
[2024-12-07] MEDS ORDERED: LISI2.5T47 PO (06:00)
[2024-12-07] MEDS ORDERED: SPIR25TA8 PO (06:00)
[2024-12-07] MEDS ORDERED: [UNRECOGNIZED DRUG - CODE] IN (06:02)
--- NOTE | 2024-12-07 07:13 | ECG ---
[facility] Test Date: 2024-12-07 Test Time: 05:30:03 Pat Name: AMADEO RECIO Department: Room: [facility]5T A Gender: F Subassemblies Wirer: indra : 1970 Requested By: RON HUNT Order Number: [id number] Reading MD: Carlin Mackenzie Measurements Intervals [place] Rate: 53 P: 68 NE: 185 QRS: 90 QRSD: 111 T: 70 QT: 520 QTc: 489 Interpretive Statements Sinus rhythm Probable left atrial enlargement Borderline right axis deviation Low voltage, precordial leads Abnormal R-wave progression, early transition Nonspecific repol abnormality, diffuse leads Borderline prolonged QT interval Electronically Signed On 12-12-2024 12:50:41 PST by Carlin Mackenzie Please click the below link to view image of tracing.
--- NOTE | 2024-12-07 07:14 | ECG ---
[facility] Test Date: 2024-12-07 Test Time: 05:31:04 Pat Name: AMADEO RECIO [facility] Gender: F Ep Technologist: indra : 1970 Requested By: RON HUNT Order Number: [id number] Reading MD: Carlin Mackenzie Measurements Intervals [place] Rate: 54 P: 61 VT: 182 QRS: 71 QRSD: 113 T: 58 QT: 524 QTc: 497 Interpretive Statements Sinus rhythm Probable left atrial enlargement Incomplete right bundle branch block Low voltage, precordial leads Borderline prolonged QT interval Electronically Signed On 12-12-2024 12:50:45 PST by Carlin Mackenzie Please click the below link to view image of tracing.
[2024-12-07] MEDS: SILDENAFIL CITRATE 20 MG TAB PO SCH (08:19)
[2024-12-07] MEDS: MIDODRINE HCL 10 MG TAB PO SCH (08:19)
[2024-12-07] MEDS: CARVEDILOL 3.125 MG TAB PO SCH (08:20)
--- NOTE | 2024-12-07 13:21 | ECG ---
[facility] Test Date: 2024-12-06 Test Time: 23:44:33 Pat Name: AMADEO RECIO Department: Room: [facility]5T A Gender: F Crate Icer: JAVY : 1970 Requested By: RON HUNT Order Number: [id number] Reading MD: Carlin Mackenzie Measurements Intervals [place] Rate: 68 P: 44 OR: 184 QRS: 85 QRSD: 123 T: 94 QT: 495 QTc: 527 Interpretive Statements Sinus rhythm Right bundle branch block Nonspecific T abnormalities, lateral leads Baseline wander in lead(s) V3 Electronically Signed On 12-12-2024 13:25:42 PST by Carlin Mackenzie Please click the below link to view image of tracing.
[2024-12-07] MEDS: HYDROcodone-ACET 5/325MG TAB PO PRN (22:22)
[2024-12-07] MEDS: ATORVASTATIN 20 MG TAB PO SCH (22:22)
[2024-12-08] VITALS (10 sets, daily range): BP systolic 98–129; BP diastolic 60–76; PULSE 45–74; RESP 16–20; TEMP 97.5–97.9; O2SAT 93–100
[2024-12-08 06:45] LABS: Hemoglobin 10.0 g/dL (12.2-16.2)
[2024-12-08 06:48] LABS: Hematocrit 31.2 % (36.0-46.0); Mean Corpuscular Hemoglobin 25.5 pg (28.0-32.0); Mean Corpuscular Volume 79.6 fL (80.0-100.0); Nucleated Red Blood Cells % 0.2 %
[2024-12-08 07:20] LABS: Calcium 8.8 mg/dL (8.7-10.4)
[2024-12-08 07:24] LABS: Alkaline Phosphatase 107 U/L (46-116); Glucose 99 mg/dL (74-106)
[2024-12-08 07:25] LABS: Anion Gap 12 (5-15); BUN/Creatinine Ratio 17.6 (10.0-20.0); Blood Urea Nitrogen 40 mg/dL (9-23); Carbon Dioxide 20 mmol/L (20-31); Chloride 109 mmol/L (98-107); Magnesium 2.3 mg/dL (1.6-2.6); Potassium 4.7 mmol/L (3.5-5.1); Sodium 141 mmol/L (136-145); Total Protein 6.2 g/dL (5.7-8.2); Triglycerides 103 mg/dL (< 150)
[2024-12-08 07:26] LABS: Alanine Aminotransferase 14 U/L (7-40); Albumin 3.9 g/dL (3.2-4.8)
[2024-12-08 07:27] LABS: Bilirubin, Total 0.6 mg/dL (0.2-1.0); Cholesterol 96 mg/dL (< 200)
[2024-12-08 07:28] LABS: HDL Cholesterol 35 mg/dL (40-59)
--- NOTE | 2024-12-08 08:35 | ECG ---
[facility] Test Date: 2024-12-07 Test Time: 11:33:25 Pat Name: AMADEO RECIO Department: [facility] Room: [facility]5T A Gender: F Direct Sales Professional: XENA : 1970 Requested By: HINA CALDERON Order Number: [id number] Reading MD: Carlin Mackenzie Measurements Intervals [place] Rate: 51 P: 28 [place]: 205 QRS: 67 QRSD: 118 T: 47 QT: 559 QTc: 515 Interpretive Statements Sinus rhythm Borderline prolonged AK interval Probable left atrial enlargement Incomplete right bundle branch block Low voltage, precordial leads Electronically Signed On 12-12-2024 12:54:19 PST by Carlin Mackenzie Please click the below link to view image of tracing.
[2024-12-08] MEDS: SPIRONOLACTONE 25 MG TAB PO SCH (08:54)
--- NOTE | 2024-12-08 11:10 | DVH ---
CLINICAL HISTORY: ANGEL TECHNIQUE: Complete ultrasound exam of the kidneys and bladder was performed. COMPARISON: US KIDNEY on DOS: 04/26/24, US ABDOMEN COMPLETE SONOGRAM on DOS: 02/02/24, US ABDOMEN COMP LETE SONOGRAM on DOS: 07/20/23, ECHO 2D MODE CARDIAC DOP on DOS: 09/08/22, US KIDNEY on DOS: 09/08/22 FINDINGS: The right kidney has normal echogenicity and measures 9.5 cm. There is no focal parenchymal abnormali ty or evidence for stone. There is no hydronephrosis. The left kidney has normal echogenicity and measures 10.6 cm. There is a 1.3 cm cyst with no evidenc e for stone. There is no hydronephrosis. The bladder is grossly unremarkable. IMPRESSION: NO SIGNIFICANT SONOGRAPHIC ABNORMALITY OF THE KIDNEYS.
--- NOTE | 2024-12-08 11:13 | DVHPN2 ---
Subjective 53-year-old female with a history of CHF came with shortness of breaths and edema Changes from previous H/P or p: Changes Objective Vitals Vital Signs Date Time Temp Pulse Resp B/P (MAP) Pulse Ox O2 Delivery O2 Flow Rate FiO2 12/07/24 11:33 58 18 110/45 12/07/24 10:00 99 Nasal Cannula* 4 36 12/07/24 08:15 97.7 97.7 General Appearance: Alert, Oriented X3, Cooperative Lungs: Clear to auscultation, Normal air movement Cardiovascular: Regular rate, Normal S1, Normal S2 Abdomen: Normal bowel sounds, Soft, No tenderness Extremities: Other (2+ edema bilaterally) Medications Current Medications Medications Dose Ordered Sig/Agnes Route Start Time Stop Time Status Last Admin Dose Admin Albuterol 2.5 mg Q6HPRN PRN NEB 12/07/24 04:30 Aspirin 81 mg DAILY PO 12/07/24 10:00 12/07/24 08:19 81 MG Atorvastatin Calcium 40 mg HS PO 12/07/24 22:00 Carvedilol 6.25 mg Q12HR PO 12/07/24 10:00 Midodrine 10 mg BID PO 12/07/24 10:00 12/07/24 08:19 10 MG Sildenafil Citrate 20 mg TID@08,14,20 PO 12/07/24 08:00 12/07/24 08:19 20 MG Furosemide 20 mg BIDD IV 12/07/24 06:00 Acetaminophen/ Hydrocodone Bitart 1 tab Q4HP PRN PO 12/07/24 04:30 Ondansetron HCl 4 mg Q4HP PRN IV 12/07/24 04:30 Acetaminophen 650 mg Q6HP PRN PO 12/07/24 04:30 Nitroglycerin 0.4 mg Q5MINP PRN SL 12/07/24 04:30 Morphine Sulfate 2 mg Q30M PRN IV 12/07/24 04:30 12/07/24 11:33 2 MG Laboratory Results Laboratory Tests 12/06/24 23:43 Chemistry Test 12/06/24 23:43 Calcium Level 9.0 mg/dL (8.7-10.4) Cardiac Markers Test 12/06/24 23:43 B-Type Natriuretic Peptide 532.04 pg/mL (0-100) Urinalysis Test 12/07/24 03:08 Urine Color Yellow (Yellow) Urine Clarity Ex.turbid (Clear) Urine pH 6.0 (5.0-9.0) Urine Specific [place] 1.028 (1.001-1.035) Urine Protein 3+ (Negative) H Urine Ketones 1+ (Negative) H Urine Blood Negative /uL (Negative) Urine Nitrite Negative (Negative) Urine Bilirubin Negative (Negative) Urine Urobilinogen 2 mg/dL (Negative) H Urine Leukocyte Esterase 1+ /uL (Negative) Urine RBC 8 /hpf (0 - 4) Urine Microscopic WBC 30 /HPF (0-5) H Urine Squamous Epithelial Cells Mod /hpf (<5) Urine Bacteria None seen /hpf (None Seen) Urine Hyaline Casts Many /lpf (0 - 2) Urine Mucus Few (None Seen) Urine Glucose Trace mg/dL (Normal) Assessment/Plan Assessment/Plan Acute on chronic hypoxic respiratory failure Acute on chronic heart failure, diastolic Chronic kidney disease Hypertension Pulmonary hypertension GERD Liver disease Chronic anemia Plan Lasix 40 mg IV twice a day Last echocardiogram on 08/14/2024 showed diastolic dysfunction Chronic kidney disease Midodrine Sildenafil Aldactone Coreg Lipitor Aspirin Monitor closely Advance directives discussed for 18 minutes Full code Plan discussed with: Patient My Orders Orders - ZULAY GERARDO MD Procedure Category Date Status Time Furosemide Injection PHA 12/07/24 Verified (Lasix Injection) 18:00 Furosemide Injection PHA 12/07/24 Verified (Lasix Injection) 13:15 Date of Service: Dec 07, 2024 Billing Provider: ZULAY GERARDO MD Common Visit Codes: [id number] INP/OBS CARE(HIGH) Secondary Visit Codes: [id number] CARE PLAN 30 MINUTES ZULAY GERARDO MD Dec 07, 2024 13:10
--- NOTE | 2024-12-08 12:17 | DVHPN2 ---
Subjective Better with less edema and less shortness of breath Changes from previous H/P or p: Changes Objective Vitals Vital Signs Date Time Temp Pulse Resp B/P (MAP) Pulse Ox O2 Delivery O2 Flow Rate FiO2 12/08/24 09:00 99 Nasal Cannula* 4 36 12/08/24 08:53 60 129/76 12/08/24 08:50 97.5 19 97.5 Intake/Output Intake and Output 12/08/24 07:00 Intake Total 1048 ml Balance 1048 ml Intake Oral 1048 ml # Voids 3 General Appearance: Alert, Oriented X3, Cooperative Lungs: Clear to auscultation, Normal air movement Cardiovascular: Regular rate, Normal S1, Normal S2 Abdomen: Normal bowel sounds, Soft, No tenderness Extremities: Other (2+ edema bilaterally) Medications Current Medications Medications Dose Ordered Sig/Agnes Route Start Time Stop Time Status Last Admin Dose Admin Albuterol 2.5 mg Q6HPRN PRN NEB 12/07/24 04:30 Aspirin 81 mg DAILY PO 12/07/24 10:00 12/08/24 08:55 81 MG Atorvastatin Calcium 40 mg HS PO 12/07/24 22:00 12/07/24 22:22 40 MG Carvedilol 6.25 mg Q12HR PO 12/07/24 10:00 12/08/24 08:53 6.25 MG Midodrine 10 mg BID PO 12/07/24 10:00 12/08/24 08:55 10 MG Sildenafil Citrate 20 mg TID@08,14,20 PO 12/07/24 08:00 12/08/24 08:00 20 MG Acetaminophen/ Hydrocodone Bitart 1 tab Q4HP PRN PO 12/07/24 04:30 12/08/24 09:44 1 TAB Ondansetron HCl 4 mg Q4HP PRN IV 12/07/24 04:30 Acetaminophen 650 mg Q6HP PRN PO 12/07/24 04:30 Nitroglycerin 0.4 mg Q5MINP PRN SL 12/07/24 04:30 Morphine Sulfate 2 mg Q30M PRN IV 12/07/24 04:30 12/07/24 11:33 2 MG Furosemide 40 mg BIDD IV 12/07/24 18:00 12/08/24 05:31 40 MG Spironolactone 25 mg DAILY PO 12/08/24 10:00 12/08/24 08:54 25 MG Laboratory Results Laboratory Tests 12/08/24 06:16 Chemistry Test 12/08/24 06:16 Albumin 3.9 g/dL (3.2-4.8) Calcium Level 8.8 mg/dL (8.7-10.4) Magnesium Level 2.3 mg/dL (1.6-2.6) Total Protein 6.2 g/dL (5.7-8.2) Lipid panel Test 12/08/24 06:16 Cholesterol Level 96 mg/dL (< 200) HDL Cholesterol 35 mg/dL (40-59) L Triglycerides Level 103 mg/dL (< 150) LFT Test 12/08/24 06:16 Alanine Aminotransferase (ALT) 14 U/L (7-40) Alkaline Phosphatase 107 U/L (46-116) Aspartate Amino Transferase (AST) 19 U/L (13-40) Total Bilirubin 0.6 mg/dL (0.2-1.0) HgA1c, TSH Test 12/08/24 06:16 Thyroid Stimulating Hormone (TSH) 2.23 uIU/mL (0.55-4.78) Urinalysis Test 12/07/24 03:08 Urine Color Yellow (Yellow) Urine Clarity Ex.turbid (Clear) Urine pH 6.0 (5.0-9.0) Urine Specific [place] 1.028 (1.001-1.035) Urine Protein 3+ (Negative) H Urine Ketones 1+ (Negative) H Urine Blood Negative /uL (Negative) Urine Nitrite Negative (Negative) Urine Bilirubin Negative (Negative) Urine Urobilinogen 2 mg/dL (Negative) H Urine Leukocyte Esterase 1+ /uL (Negative) Urine RBC 8 /hpf (0 - 4) Urine Microscopic WBC 30 /HPF (0-5) H Urine Squamous Epithelial Cells Mod /hpf (<5) Urine Bacteria None seen /hpf (None Seen) Urine Hyaline Casts Many /lpf (0 - 2) Urine Mucus Few (None Seen) Urine Glucose Trace mg/dL (Normal) Assessment/Plan Assessment/Plan Acute on chronic hypoxic respiratory failure Acute on chronic heart failure, diastolic Chronic kidney disease Hypertension Pulmonary hypertension GERD Liver disease Chronic anemia Plan Lasix 40 mg IV twice a day Last echocardiogram on 08/14/2024 showed diastolic dysfunction Chronic kidney disease Midodrine Sildenafil Aldactone Coreg Lipitor Aspirin Monitor closely Advance directives discussed for 18 minutes Full code 12/08/2024: Continue diuresis with Lasix Monitor closely Oxygen as needed Plan discussed with: Patient My Orders Orders - ZULAY GERARDO MD Procedure Category Date Status Time Furosemide Injection PHA 12/07/24 In Process (Lasix Injection) 18:00 Spironolactone PHA 12/08/24 In Process (Aldactone) 10:00 *[facility] CONS 12/08/24 Transmitted -[place] 09:24 Date of Service: Dec 08, 2024 Billing Provider: ZULAY GERARDO MD Common Visit Codes: [id number] INP/OBS CARE(HIGH) ZULAY GERARDO MD Dec 08, 2024 12:17
[2024-12-08] MEDS: FUROSEMIDE 20 MG/2 ML VIAL IV SCH (15:30)
[2024-12-08] MEDS: MIDODRINE HCL 10 MG TAB PO SCH (15:30)
--- NOTE | 2024-12-08 15:32 | DVHINCON2 ---
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 She reports that she has had progressive shortness of breath facial swelling, tiredness and a decreasing urinary output she presents to the hospital for this reason she was admitted with a diagnosis of decompensated heart failure nephrology consulted due to elevated creatinine level. Her baseline stages unclear as over the past six months her GFR has ranged between stage II and three Past Medical History pulm htn cirrhosis right RV failure Allergies: Coded Allergies: NO KNOWN ALLERGIES (Unverified , 12/20/18) Home Meds Active Scripts Docusate Sodium (Colace) 100 Mg Cap, 1 CAP PO BID, #60 CAP 2 Refills Prov:FABRICIO CAMACHO MD 09/07/24 Metronidazole (Flagyl) 500 Mg Tab, 1 TAB PO TID, #21 TAB Prov:FABRICIO CAMACHO MD 09/07/24 Levofloxacin Hemihydrate (LEVAQUIN 500 MG) 500 Mg Tab, 1 TAB PO DAILY, #7 TAB Prov:FABRICIO CAMACHO MD 09/07/24 Atorvastatin Calcium (ATORVASTATIN CALCIUM) 40 Mg Tab, 1 TAB PO QPM for 30 Days, #30 TAB 3 Refills Prov:ANNA DUARTE RESIDENT 02/04/24 Aspirin (Aspirin) 81 Mg Tab, 81 MG PO DAILY for 30 Days, #30 TAB Prov:ANNA DUARTE RESIDENT 02/04/24 Sildenafil Citrate (Revatio) 20 Mg Tab, 20 MG PO TID for 30 Days, #90 TAB 11 Refills Prov:GEMINI CARTY DO 02/07/23 Reported Medications Treprostinil (Tyvaso) 0.6 Mg/Ml [place], 0.6 MG IN, ML 12/07/24 Lisinopril (Lisinopril) 2.5 Mg Tab, 2.5 MG PO DAILY for 30 Days, MG 12/07/24 Spironolactone (Spironolactone) 25 Mg Tab, 1 TAB PO DAILY, #90 TAB 1 Refill 12/07/24 Midodrine Hcl (Midodrine Hcl) 10 Mg Tab, 10 MG PO BID, TAB 08/14/24 Lorazepam (ATIVAN TABLET) 0.5 Mg Tb, 1 TAB PO Q6HPRN, #90 TAB 04/26/24 Atorvastatin Calcium (ATORVASTATIN CALCIUM) 40 Mg Tab, 1 TAB PO DAILY, #30 TAB 5 Refills 04/26/24 Sertraline Hcl (Sertraline Hcl) 50 Mg Tab, 25 MG PO DAILY for 90 Days, #90 MG 02/03/24 Docusate Sodium (Docusate Sodium) 100 Mg Cap, 1 CAP PO BID for 30 Days, #60 02/03/24 Pantoprazole Sodium Sesquihydr (Protonix) 40 Mg Tab, 20 MG PO DAILY for 30 Days, #30 02/03/24 Albuterol Sulfate (Albuterol Sulfate Hfa) 108 Mcg/Act Aer, 2 PUFF IN QID PRN for 25 Days, #18 11/17/23 Torsemide (Torsemide) 20 Mg Tab, 1 TAB PO BID for 30 Days, #60 11/17/23 Zolpidem Tartrate (Ambien) 10 Mg Tab, 1 TAB PO HS PRN for 10 Days, #10 11/17/23 Allopurinol (Allopurinol) 300 Mg Tab, 1 TAB PO DAILY for 30 Days, #30 05/09/23 Metoprolol Succinate (Metoprolol Succinate Er) 25 Mg Tab, 1 TAB PO BID for 90 Days, #180 05/09/23 Metolazone (Metolazone) 2.5 Mg Tab, 1 TAB PO EOD for 60 Days, #30 05/07/23 Macitentan (Opsumit) 10 Mg Tab, 10 MG PO DAILY, TAB 09/28/22 Current Medications Current Medications Medications (Trade) Dose Ordered Sig/Agnes Route PRN Reason Start Time Stop Time Status Last Admin Atorvastatin Calcium (Lipitor) 40 mg HS PO 12/07/24 22:00 12/07/24 22:22 Furosemide (Lasix Injection) 40 mg BIDD IV 12/07/24 18:00 12/08/24 15:23 DC 12/08/24 05:31 Spironolactone (Aldactone) 25 mg DAILY PO 12/08/24 10:00 12/08/24 08:54 Furosemide (Lasix Injection) 40 mg TID IV 12/08/24 15:30 UNV Midodrine (Proamatine Tablet) 10 mg TID PO 12/08/24 15:30 UNV Family History: Cirrhosis of liver G8 BROTHER FH: breast cancer G8 MOTHER, G8 MOTHER, , Cause: Breast cancer FH: breast cancer G8 MOTHER, G8 MOTHER, , Cause: Breast cancer FH: breast cancer in relative when <45 years old G8 MOTHER, , Cause: Breast cancer Social History hx methamphetamine abuse Review of Systems Shortness of breath and facial swelling H&P Exam Vital Signs/I&O Vital Sign Date Time Temp Pulse Resp B/P (MAP) Pulse Ox O2 Delivery O2 Flow Rate FiO2 12/08/24 13:00 97.6 62 18 98/61 (73) 93 97.6 12/08/24 09:00 Nasal Cannula* 4 36 Intake and Output 12/07/24 12/08/24 19:00 07:00 Intake Total 568 ml 480 ml Balance 568 ml 480 ml Intake Oral 568 ml 480 ml # Voids 3 Physical Exam Middle-aged female appears in respiratory distress short of breath with speaking full sentences breathing with nasal cannula oxygen elevated JVD abdomen is soft there is no peripheral edema Labs/Diagnostic Data Labs/Diagnostic Data Laboratory Tests Test 12/08/24 06:16 12/07/24 03:08 12/06/24 23:43 Range/Units White Blood Count 4.4 # 8.1 4.4-10.8 10^3/uL Red Blood Count 3.91 L 4.28 4.0-5.20 10^6/uL Hemoglobin 10.0 L 10.8 L 12.2-16.2 g/dL Hematocrit 31.2 L 34.6 L 36.0-46.0 % Mean Corpuscular Volume 79.6 L 80.9 80.0-100.0 fL Mean Corpuscular Hemoglobin 25.5 L 25.3 L 28.0-32.0 pg Mean Corpuscular Hemoglobin Concent 32.1 31.3 L 32.0-36.0 g/dL Red Cell Distribution Width 18.7 H 19.0 H 11.8-14.3 % Platelet Count 353 393 140-450 10^3/uL Mean Platelet Volume 7.5 7.8 6.9-10.8 fL Neutrophils (%) (Auto) 45.0 56.5 37.0-80.0 % Lymphocytes (%) (Auto) 42.2 31.8 10.0-50.0 % Monocytes (%) (Auto) 8.9 9.6 0.0-12.0 % Eosinophils (%) (Auto) 2.7 1.6 0.0-7.0 % Basophils (%) (Auto) 1.2 0.5 0.0-2.0 % Neutrophils # (Auto) 2.0 4.6 1.6-8.6 10 ^3/uL Lymphocytes # (Auto) 1.9 2.6 0.4-5.4 10 ^3/uL Monocytes # (Auto) 0.4 0.8 0-1.3 10 ^3/uL Eosinophils # (Auto) 0.1 0.1 0-0.8 10 ^3/uL Basophils # (Auto) 0.1 0 0-0.2 10 ^3/uL Nucleated Red Blood Cells 0.2 0.1 % Sodium Level 141 143 136-145 mmol/L Potassium Level 4.7 4.8 3.5-5.1 mmol/L Chloride Level 109 H 111 H 98-107 mmol/L Carbon Dioxide Level 20 19 L 20-31 mmol/L Anion Gap 12 13 5-15 Blood Urea Nitrogen 40 #H 25 H 9-23 mg/dL Creatinine 2.27 #H 1.67 H 0.550-1.02 mg/dL Glomerular Filtration Rate Calc 26 37 >90 mL/min BUN/Creatinine Ratio 17.6 15.0 10.0-20.0 Serum Glucose 99 74 74-106 mg/dL Calcium Level 8.8 9.0 8.7-10.4 mg/dL Magnesium Level 2.3 1.6-2.6 mg/dL Total Bilirubin 0.6 0.2-1.0 mg/dL Aspartate Amino Transferase (AST) 19 13-40 U/L Alanine Aminotransferase (ALT) 14 7-40 U/L Alkaline Phosphatase 107 46-116 U/L Total Protein 6.2 5.7-8.2 g/dL Albumin 3.9 3.2-4.8 g/dL Triglycerides Level 103 < 150 mg/dL Cholesterol Level 96 < 200 mg/dL LDL Cholesterol 46 < 100 mg/dL HDL Cholesterol 35 L 40-59 mg/dL Thyroid Stimulating Hormone (TSH) 2.23 0.55-4.78 uIU/mL Urine Color Yellow Yellow Urine Clarity Ex.turbid Clear Urine pH 6.0 5.0-9.0 Urine Specific [place] 1.028 1.001-1.035 Urine Protein 3+ H Negative Urine Ketones 1+ H Negative Urine Blood Negative Negative /uL Urine Nitrite Negative Negative Urine Bilirubin Negative Negative Urine Urobilinogen 2 H Negative mg/dL Urine Leukocyte Esterase 1+ Negative /uL Urine RBC 8 0 - 4 /hpf Urine Microscopic WBC 30 H 0-5 /HPF Urine Squamous Epithelial Cells Mod <5 /hpf Urine Bacteria None seen None Seen /hpf Urine Hyaline Casts Many 0 - 2 /lpf Urine Mucus Few None Seen Urine Glucose Trace Normal mg/dL Troponin I High Sensitivity 7 </=34 ng/L B-Type Natriuretic Peptide 532.04 0-100 pg/mL Assessment Acute kidney injury hemodynamically mediated in the setting of decompensated heart failure and superimposed hypotension -increase diuretic therapy, fluid restriction, sodium reduction, blood pressure support and maintain mean arterial pressure greater than 65 Right-sided heart failure, cirrhosis and fluid overload Management as per above pulm htn -pulmonary consult Monitor and replace all electrolytes per medical and hospital guidelines Avoid contrast studies at this time Follow-up on echocardiogram obtained today No emergent indication for dialysis at this time we will require daily assessment High medical complexity, guarded prognosis, chances of rehospitalization is high Plan discussed with: Patient HAL HENDERSON MD Dec 08, 2024 15:32
[2024-12-08] MEDS: ONDANSETRON HCL 4 MG/2 ML VIAL IV PRN (15:36)
[2024-12-09] VITALS (10 sets, daily range): BP systolic 82–127; BP diastolic 40–75; PULSE 46–62; RESP 17–20; TEMP 97.5–98.1; O2SAT 93–99
[2024-12-09 06:06] LABS: Chloride 105 mmol/L (98-107); Potassium 4.2 mmol/L (3.5-5.1); Sodium 142 mmol/L (136-145)
[2024-12-09 06:07] LABS: Anion Gap 11 (5-15); Calcium 9.2 mg/dL (8.7-10.4); Carbon Dioxide 26 mmol/L (20-31)
[2024-12-09 06:12] LABS: BUN/Creatinine Ratio 21.5 (10.0-20.0); Blood Urea Nitrogen 38 mg/dL (9-23); Glucose 111 mg/dL (74-106); Magnesium 2.2 mg/dL (1.6-2.6)
--- NOTE | 2024-12-09 10:59 | DVHPN2 ---
Subjective c/o lower chest pain B Less edema Changes from previous H/P or p: Changes Objective Vitals Vital Signs Date Time Temp Pulse Resp B/P (MAP) Pulse Ox O2 Delivery O2 Flow Rate FiO2 12/09/24 09:59 98 Nasal Cannula 4.0 12/09/24 09:59 36 12/09/24 08:58 120/72 12/09/24 08:56 97.5 57 20 97.5 Intake/Output Intake and Output 12/09/24 07:00 Intake Total 1240 ml Balance 1240 ml Intake Oral 1240 ml # Voids 6 # Bowel Movements 1 General Appearance: Alert, Oriented X3, Cooperative Lungs: Clear to auscultation, Normal air movement Cardiovascular: Regular rate, Normal S1, Normal S2 Abdomen: Normal bowel sounds, Soft, No tenderness Extremities: Other (2+ edema bilaterally) Medications Current Medications Medications Dose Ordered Sig/Agnes Route Start Time Stop Time Status Last Admin Dose Admin Albuterol 2.5 mg Q6HPRN PRN NEB 12/07/24 04:30 Aspirin 81 mg DAILY PO 12/07/24 10:00 12/09/24 08:54 81 MG Atorvastatin Calcium 40 mg HS PO 12/07/24 22:00 12/08/24 21:30 40 MG Carvedilol 6.25 mg Q12HR PO 12/07/24 10:00 12/09/24 08:56 6.25 MG Sildenafil Citrate 20 mg TID@08,14,20 PO 12/07/24 08:00 12/09/24 08:57 20 MG Acetaminophen/ Hydrocodone Bitart 1 tab Q4HP PRN PO 12/07/24 04:30 12/09/24 06:07 1 TAB Ondansetron HCl 4 mg Q4HP PRN IV 12/07/24 04:30 12/09/24 06:06 4 MG Acetaminophen 650 mg Q6HP PRN PO 12/07/24 04:30 Nitroglycerin 0.4 mg Q5MINP PRN SL 12/07/24 04:30 Morphine Sulfate 2 mg Q30M PRN IV 12/07/24 04:30 12/07/24 11:33 2 MG Spironolactone 25 mg DAILY PO 12/08/24 10:00 12/09/24 08:54 25 MG Furosemide 40 mg TID IV 12/08/24 15:30 12/09/24 06:00 40 MG Midodrine 10 mg TID PO 12/08/24 15:30 12/09/24 06:00 10 MG Metolazone 2.5 mg DAILY PO 12/08/24 15:30 12/09/24 08:58 2.5 MG Laboratory Results Laboratory Tests 12/08/24 06:16 12/09/24 05:15 Chemistry Test 12/09/24 05:15 Calcium Level 9.2 mg/dL (8.7-10.4) Magnesium Level 2.2 mg/dL (1.6-2.6) Urinalysis Test 12/07/24 03:08 Urine Color Yellow (Yellow) Urine Clarity Ex.turbid (Clear) Urine pH 6.0 (5.0-9.0) Urine Specific [place] 1.028 (1.001-1.035) Urine Protein 3+ (Negative) H Urine Ketones 1+ (Negative) H Urine Blood Negative /uL (Negative) Urine Nitrite Negative (Negative) Urine Bilirubin Negative (Negative) Urine Urobilinogen 2 mg/dL (Negative) H Urine Leukocyte Esterase 1+ /uL (Negative) Urine RBC 8 /hpf (0 - 4) Urine Microscopic WBC 30 /HPF (0-5) H Urine Squamous Epithelial Cells Mod /hpf (<5) Urine Bacteria None seen /hpf (None Seen) Urine Hyaline Casts Many /lpf (0 - 2) Urine Mucus Few (None Seen) Urine Glucose Trace mg/dL (Normal) Assessment/Plan Assessment/Plan Acute on chronic hypoxic respiratory failure Acute on chronic heart failure, diastolic Chronic kidney disease Hypertension Pulmonary hypertension GERD Liver disease Chronic anemia Plan Lasix 40 mg IV twice a day Last echocardiogram on 08/14/2024 showed diastolic dysfunction Chronic kidney disease Midodrine Sildenafil Aldactone Coreg Lipitor Aspirin Monitor closely Advance directives discussed for 18 minutes Full code 12/08/2024: Continue diuresis with Lasix Monitor closely Oxygen as needed 12/09/24: Check Abd US to rule out ascites Continue Lasix Incentive spirometry Plan discussed with: Patient My Orders Orders - ZULAY GERARDO MD Procedure Category Date Status Time Abdomen Limited US 12/09/24 Logged 10:56 Incentive Spirometry ORDERS 12/09/24 Transmitted Q 1hr 10:56 Comprehensive LAB 12/10/24 Verified Metabolic Panel 04:00 Magnesium LAB 12/10/24 Verified 04:00 Date of Service: Dec 09, 2024 Billing Provider: ZULAY GERARDO MD Common Visit Codes: [id number] INP/OBS CARE(HIGH) ZULAY GERARDO MD Dec 09, 2024 10:59
--- NOTE | 2024-12-09 11:28 | DVH ---
EXAM DESCRIPTION: US ABDOMEN LIMITED CLINICAL HISTORY: ascites COMPARISON: US ABDOMEN LIMITED RUQ on DOS: 05/05/24, US LIVER on DOS: 04/26/24, US ABDOMEN COMPLETE SON OGRAM on DOS: 02/02/24, GBUS on DOS: 07/21/21 FINDINGS: There is no significant ascites in the abdomen. IMPRESSION: no significant ascites
--- NOTE | 2024-12-09 15:18 | DVHPN2 ---
Progress Note Date Seen: Dec 09, 2024 Medical Necessity Reason Pt with a Central, PICC or Fol: No Subjective Patient reports: Feels better Objective vital signs Vital Sign Date Time Temp Pulse Resp B/P (MAP) Pulse Ox O2 Delivery O2 Flow Rate FiO2 12/09/24 14:45 127/62 12/09/24 13:00 97.7 57 18 98 97.7 12/09/24 09:59 Nasal Cannula 4.0 12/09/24 09:59 36 Total Intake and Output 12/08/24 12/08/24 12/09/24 15:00 23:00 07:00 Intake Total 240 ml 200 ml 800 ml Balance 240 ml 200 ml 800 ml medications Current Medications Medications Dose Ordered Sig/Agnes Route Start Time Stop Time Status Last Admin Dose Admin Albuterol 2.5 mg Q6HPRN PRN NEB 12/07/24 04:30 Aspirin 81 mg DAILY PO 12/07/24 10:00 12/09/24 08:54 81 MG Atorvastatin Calcium 40 mg HS PO 12/07/24 22:00 12/08/24 21:30 40 MG Carvedilol 6.25 mg Q12HR PO 12/07/24 10:00 12/09/24 08:56 6.25 MG Sildenafil Citrate 20 mg TID@08,14,20 PO 12/07/24 08:00 12/09/24 14:48 20 MG Acetaminophen/ Hydrocodone Bitart 1 tab Q4HP PRN PO 12/07/24 04:30 12/09/24 15:10 1 TAB Ondansetron HCl 4 mg Q4HP PRN IV 12/07/24 04:30 12/09/24 15:10 4 MG Acetaminophen 650 mg Q6HP PRN PO 12/07/24 04:30 Nitroglycerin 0.4 mg Q5MINP PRN SL 12/07/24 04:30 Morphine Sulfate 2 mg Q30M PRN IV 12/07/24 04:30 12/07/24 11:33 2 MG Spironolactone 25 mg DAILY PO 12/08/24 10:00 12/09/24 08:54 25 MG Furosemide 40 mg TID IV 12/08/24 15:30 12/09/24 14:45 40 MG Midodrine 10 mg TID PO 12/08/24 15:30 12/09/24 14:45 10 MG Metolazone 2.5 mg DAILY PO 12/08/24 15:30 12/09/24 08:58 2.5 MG Examination: GENERAL:Normal, CVS:Normal, MSK:Normal laboratory and microbiology Laboratory Tests 12/09/24 05:15 12/08/24 06:16 Test 12/09/24 05:15 Range/Units Serum Glucose 111 H 74-106 mg/dL Problem List/Assessment/Plan Problem List/Assessment/Plan Acute kidney injury hemodynamically mediated in the setting of decompensated heart failure and superimposed hypotension renal function tolerated increased diuretics rec 1 more day today of IV and convert to home doses tomorrow. torsemide, aldactone and metolazone Right-sided heart failure, cirrhosis and fluid overload Management as per above pulm htn -pulmonary consult Monitor and replace all electrolytes per medical and hospital guidelines Avoid contrast studies at this time Follow-up on echocardiogram obtained today No emergent indication for dialysis at this time we will require daily assessment High medical complexity, guarded prognosis, chances of rehospitalization is high Plan discussed with: Patient My Orders My Orders Orders - HAL HENDERSON MD Procedure Category Date Status Time Furosemide Injection PHA 12/08/24 In Process (Lasix Injection) 15:30 Midodrine Tablet PHA 12/08/24 In Process (Proamatine Tablet) 15:30 Metolazone (Zaroxolyn) PHA 12/08/24 In Process 15:30 HAL EHNDERSON MD Dec 09, 2024 15:18
[2024-12-10] VITALS (9 sets, daily range): BP systolic 104–149; BP diastolic 67–84; PULSE 48–72; RESP 15–18; TEMP 97.8–98.6; O2SAT 91–100
[2024-12-10 07:36] LABS: Alanine Aminotransferase 14 U/L (7-40); Albumin 4.9 g/dL (3.2-4.8); Alkaline Phosphatase 132 U/L (46-116); Anion Gap 14 (5-15); BUN/Creatinine Ratio 15.9 (10.0-20.0); Blood Urea Nitrogen 34 mg/dL (9-23); Calcium 9.7 mg/dL (8.7-10.4); Carbon Dioxide 28 mmol/L (20-31); Chloride 100 mmol/L (98-107); Glucose 73 mg/dL (74-106); Magnesium 2.2 mg/dL (1.6-2.6); Potassium 3.8 mmol/L (3.5-5.1); Sodium 142 mmol/L (136-145); Total Protein 7.7 g/dL (5.7-8.2)
[2024-12-10 07:37] LABS: Bilirubin, Total 0.9 mg/dL (0.2-1.0)
--- NOTE | 2024-12-10 09:40 | DVHPN2 ---
Progress Note Date Seen: Dec 10, 2024 Medical Necessity Reason Pt with a Central, PICC or Fol: No Subjective Patient reports: Feels better Objective vital signs Vital Sign Date Time Temp Pulse Resp B/P (MAP) Pulse Ox O2 Delivery O2 Flow Rate FiO2 12/10/24 05:06 149/84 12/10/24 04:59 48 16 100 12/10/24 01:00 98.4 98.4 12/09/24 20:08 Nasal Cannula* 4 36 Total Intake and Output 12/09/24 12/09/24 12/10/24 15:00 23:00 07:00 Intake Total 500 ml 330 ml Output Total 900 ml Balance -400 ml 330 ml medications Current Medications Medications Dose Ordered Sig/Agnes Route Start Time Stop Time Status Last Admin Dose Admin Albuterol 2.5 mg Q6HPRN PRN NEB 12/07/24 04:30 Cancel Aspirin 81 mg DAILY PO 12/07/24 10:00 12/09/24 08:54 81 MG Atorvastatin Calcium 40 mg HS PO 12/07/24 22:00 12/09/24 21:35 40 MG Carvedilol 6.25 mg Q12HR PO 12/07/24 10:00 12/09/24 21:35 6.25 MG Sildenafil Citrate 20 mg TID@08,14,20 PO 12/07/24 08:00 12/10/24 08:00 20 MG Acetaminophen/ Hydrocodone Bitart 1 tab Q4HP PRN PO 12/07/24 04:30 12/09/24 20:34 1 TAB Ondansetron HCl 4 mg Q4HP PRN IV 12/07/24 04:30 12/09/24 20:34 4 MG Acetaminophen 650 mg Q6HP PRN PO 12/07/24 04:30 Nitroglycerin 0.4 mg Q5MINP PRN SL 12/07/24 04:30 Morphine Sulfate 2 mg Q30M PRN IV 12/07/24 04:30 12/07/24 11:33 2 MG Spironolactone 25 mg DAILY PO 12/08/24 10:00 12/09/24 08:54 25 MG Furosemide 40 mg TID IV 12/08/24 15:30 12/10/24 05:06 40 MG Midodrine 10 mg TID PO 12/08/24 15:30 12/10/24 05:06 10 MG Metolazone 2.5 mg DAILY PO 12/08/24 15:30 12/09/24 08:58 2.5 MG Examination: GENERAL:Normal, LUNGS:Abnormal, CVS:Abnormal laboratory and microbiology Laboratory Tests 12/10/24 05:23 12/08/24 06:16 Test 12/10/24 05:23 Range/Units Serum Glucose 73 L 74-106 mg/dL Problem List/Assessment/Plan Problem List/Assessment/Plan Acute kidney injury hemodynamically mediated in the setting of decompensated heart failure and superimposed hypotension cr bump noted convert diuretics to po doses, torsemide , metolazone, aldactone avoid hypotension Right-sided heart failure, cirrhosis and fluid overload Management as per above pulm htn -pulmonary consult Monitor and replace all electrolytes per medical and hospital guidelines Avoid contrast studies at this time Follow-up on echocardiogram report pending No emergent indication for dialysis at this time we will require daily assessment High medical complexity, guarded prognosis, chances of rehospitalization is high Plan discussed with: Patient My Orders My Orders Orders - HAL HENDERSON MD Procedure Category Date Status Time Torsemide Tab PHA 12/10/24 Verified (Demadex Tab) 18:00 Basic Metabolic Panel LAB 12/11/24 Verified 04:00 HAL HENDERSON MD Dec 10, 2024 09:40
--- NOTE | 2024-12-10 10:06 | DVHDS2 ---
Discharge Summary Date of Admission Dec 07, 2024 at 04:21 Date of Discharge: Dec 10, 2024 Labs/Diagnostic Data: Laboratory Results Test 12/10/24 05:23 12/08/24 06:16 12/07/24 03:08 12/06/24 23:43 Sodium Level 142 mmol/L (136-145) Potassium Level 3.8 mmol/L (3.5-5.1) Chloride Level 100 mmol/L (98-107) Carbon Dioxide Level 28 mmol/L (20-31) Anion Gap 14 (5-15) Blood Urea Nitrogen 34 mg/dL (9-23) Creatinine 2.14 mg/dL (0.550-1.02) Glomerular Filtration Rate Calc 27 mL/min (>90) BUN/Creatinine Ratio 15.9 (10.0-20.0) Serum Glucose 73 mg/dL (74-106) Calcium Level 9.7 mg/dL (8.7-10.4) Magnesium Level 2.2 mg/dL (1.6-2.6) Total Bilirubin 0.9 mg/dL (0.2-1.0) Aspartate Amino Transferase (AST) 24 U/L (13-40) Alanine Aminotransferase (ALT) 14 U/L (7-40) Alkaline Phosphatase 132 U/L (46-116) Total Protein 7.7 g/dL (5.7-8.2) Albumin 4.9 g/dL (3.2-4.8) White Blood Count 4.4 10^3/uL (4.4-10.8) Red Blood Count 3.91 10^6/uL (4.0-5.20) Hemoglobin 10.0 g/dL (12.2-16.2) Hematocrit 31.2 % (36.0-46.0) Mean Corpuscular Volume 79.6 fL (80.0-100.0) Mean Corpuscular Hemoglobin 25.5 pg (28.0-32.0) Mean Corpuscular Hemoglobin Concent 32.1 g/dL (32.0-36.0) Red Cell Distribution Width 18.7 % (11.8-14.3) Platelet Count 353 10^3/uL (140-450) Mean Platelet Volume 7.5 fL (6.9-10.8) Neutrophils (%) (Auto) 45.0 % (37.0-80.0) Lymphocytes (%) (Auto) 42.2 % (10.0-50.0) Monocytes (%) (Auto) 8.9 % (0.0-12.0) Eosinophils (%) (Auto) 2.7 % (0.0-7.0) Basophils (%) (Auto) 1.2 % (0.0-2.0) Neutrophils # (Auto) 2.0 10 ^3/uL (1.6-8.6) Lymphocytes # (Auto) 1.9 10 ^3/uL (0.4-5.4) Monocytes # (Auto) 0.4 10 ^3/uL (0-1.3) Eosinophils # (Auto) 0.1 10 ^3/uL (0-0.8) Basophils # (Auto) 0.1 10 ^3/uL (0-0.2) Nucleated Red Blood Cells 0.2 % Hemoglobin A1c 6.2 % A1C (<5.7) Triglycerides Level 103 mg/dL (< 150) Cholesterol Level 96 mg/dL (< 200) LDL Cholesterol 46 mg/dL (< 100) HDL Cholesterol 35 mg/dL (40-59) Thyroid Stimulating Hormone (TSH) 2.23 uIU/mL (0.55-4.78) Urine Color Yellow (Yellow) Urine Clarity Ex.turbid (Clear) Urine pH 6.0 (5.0-9.0) Urine Specific [place] 1.028 (1.001-1.035) Urine Protein 3+ (Negative) Urine Ketones 1+ (Negative) Urine Blood Negative /uL (Negative) Urine Nitrite Negative (Negative) Urine Bilirubin Negative (Negative) Urine Urobilinogen 2 mg/dL (Negative) Urine Leukocyte Esterase 1+ /uL (Negative) Urine RBC 8 /hpf (0 - 4) Urine Microscopic WBC 30 /HPF (0-5) Urine Squamous Epithelial Cells Mod /hpf (<5) Urine Bacteria None seen /hpf (None Seen) Urine Hyaline Casts Many /lpf (0 - 2) Urine Mucus Few (None Seen) Urine Glucose Trace mg/dL (Normal) Troponin I High Sensitivity 7 ng/L (</=34) B-Type Natriuretic Peptide 532.04 pg/mL (0-100) Other Laboratory Tests 12/10/24 05:23 12/08/24 06:16 Brief Hx & Hospital Course: Final diagnoses: Acute on chronic hypoxic respiratory failure Acute on chronic heart failure, diastolic Chronic kidney disease Hypertension Pulmonary hypertension GERD Liver disease Chronic anemia No ascites Hospital course: 53-year-old female was admitted for fluid overload and acute on chronic hypoxic respiratory failure and acute on chronic diastolic heart failure She was diuresed with IV Lasix She has chronic kidney disease which remained stable Her edema improved She was complaining of pain and pressure at the lower anterior aspect of the chest and abdominal distention and therefore an ultrasound of the abdomen was done showed no significant ascites Today she is doing well She has chronic respiratory failure and she is on home O2 at 4 L, she is on 4 L here Discharged home Continue home medications including her diuretics She says she has an appointment at [facility] next week, so follow up as scheduled Condition at Discharge: Stable Final Diagnosis/Problems List Acute on chronic hypoxic respiratory failure Acute on chronic heart failure, diastolic Chronic kidney disease Hypertension Pulmonary hypertension GERD Liver disease Chronic anemia Discharge Disposition: Home SNF Discharge Will this Physician continue t: No Discharge Instruct/Medications Scheduled Albuterol Sulfate (Albuterol Sulfate Hfa), 2 PUFF IN QID PRN, (Reported) Allopurinol (Allopurinol), 1 TAB PO DAILY, (Reported) Aspirin (Aspirin), 81 MG PO DAILY Atorvastatin Calcium (Atorvastatin Calcium), 1 TAB PO QPM Atorvastatin Calcium (Atorvastatin Calcium), 1 TAB PO DAILY, (Reported) Docusate Sodium (Docusate Sodium), 1 CAP PO BID, (Reported) Docusate Sodium (Colace), 1 CAP PO BID Levofloxacin Hemihydrate (Levaquin 500 Mg), 1 TAB PO DAILY Lisinopril (Lisinopril), 2.5 MG PO DAILY, (Reported) Lorazepam (Ativan Tablet), 1 TAB PO Q6HPRN, (Reported) Macitentan (Opsumit), 10 MG PO DAILY, (Reported) Metolazone (Metolazone), 1 TAB PO EOD, (Reported) Metoprolol Succinate (Metoprolol Succinate Er), 1 TAB PO BID, (Reported) Metronidazole (Flagyl), 1 TAB PO TID Midodrine Hcl (Midodrine Hcl), 10 MG PO BID, (Reported) Pantoprazole Sodium Sesquihydr (Protonix), 20 MG PO DAILY, (Reported) Sertraline Hcl (Sertraline Hcl), 25 MG PO DAILY, (Reported) Sildenafil Citrate (Revatio), 20 MG PO TID Spironolactone (Spironolactone), 1 TAB PO DAILY, (Reported) Torsemide (Torsemide), 1 TAB PO BID, (Reported) Zolpidem Tartrate (Ambien), 1 TAB PO HS PRN, (Reported) Miscellaneous Medications Treprostinil (Tyvaso), 0.6 MG IN, (Reported) Discharge Statement: "Patient was advised to return to the ER or call 911 if any headaches, dizziness, shortness of breath, chest pain, abdominal pain, bleeding, fevers, or worsening of medical condition. Patient was counseled about treatment plan, medications, possible side effects, patientverbalized understanding. All questions were answered to the best of my ability. This discharge took greater then 30 minutes in planning, reviewing documentation, counseling the patient, and discussing with other team members." ASSESSMENT ASSESSMENT Assessment Date of Service: Dec 10, 2024 Billing Provider: ZULAY GERARDO MD Common Visit Codes: 36549-DCK/OBS DISCH DAY >30min ZULAY GERARDO MD Dec 10, 2024 10:06
[2024-12-10] MEDS ORDERED: HYDR-4902 PO (10:08)
[2024-12-10] MEDS: TORSEMIDE 20 MG TAB PO SCH (18:00)
== END 2024-12-10 19:09 | disposition home or self-care (01) | DRG 133 ==
LOC: ER 23:28 → OVERFLOW 12-07 04:21 → TELE-WESTW 12-07 05:14
PROVIDERS: ADMIT Internal Medicine Geriatric Medicine; ATTEND Internal Medicine Geriatric Medicine
DX: J96.21 Acute and chronic respiratory failure with hypoxia (principal); I50.33 Acute on chronic diastolic (congestive) heart failure; I27.20 Pulmonary hypertension, unspecified; I50.82 Biventricular heart failure; I13.0 Hypertensive heart and chronic kidney disease with heart failure and stage 1 through stage 4 chronic kidney disease, or unspecified chronic kidney disease; K74.60 Unspecified cirrhosis of liver; N18.9 Chronic kidney disease, unspecified; K21.9 Gastro-esophageal reflux disease without esophagitis; D64.9 Anemia, unspecified; F17.210 Nicotine dependence, cigarettes, uncomplicated; M10.9 Gout, unspecified; F41.9 Anxiety disorder, unspecified; N17.9 Acute kidney failure, unspecified; Z79.899 Other long term (current) drug therapy; Z79.82 Long term (current) use of aspirin; Z80.3 Family history of malignant neoplasm of breast
CPT/HCPCS: 36415; 71045; 76705; 76775; 80048; 80053; 80061; 81001; 83036; 83735; 83880; 84443; 84484; 85025; 93005; G0378; J2405